=== PATIENT | male | born 1925 | race Caucasian/White ===

== ENCOUNTER 2016-08-31 12:23 | Inpatient (IN) | payer OTHER, MEDICARE ==
[2016-08-31] VITALS (20 sets, daily range): BP systolic 104–202; BP diastolic 57–107; PULSE 80–97; RESP 16–20; TEMP 97.2–98.9; O2SAT 91–97
[~2016-08-31] VITALS: Ht 170.2 cm; Wt 82.0 kg
[~2016-08-31 12:23] MED LIST: AUGM875T PO; CARD120T4 PO; FLUT1SPR9; LISI-360 PO; NIAC250C6 PO; OCUVTAB PO; PENI500T PO; SULF1TAB47 PO; TAMS0.4C67 PO
[2016-08-31] MEDS: NITROGLYCERIN 0.4 MG SL 25 TABS/BTL SL SCH ×3 (13:00→13:10)
[2016-08-31] MEDS ORDERED: SODIUM CHLORIDE 0.9% FLUSH 5 ML FLUSH IVF PRN (13:00)
[2016-08-31] MEDS ORDERED: SODIUM CHLORID 0.9% 500 ML INJ 500 ML IV ONE (13:00)
[2016-08-31 13:03] LABS: BASOPHIL # 0.1 TH/MM3 (0-0.2); BASOPHIL % 0.7 % (0.0-2.0); EOSINOPHIL # 0.1 TH/MM3 (0-0.4); EOSINOPHIL % 0.4 % (0.0-4.0); HEMATOCRIT 41.3 % (39.0-51.0); HEMO FLAGS DIFF FINAL; MEAN CELL VOLUME 96.2 FL (80.0-100.0); MEAN CORPUSCULAR HEMOGLOBIN 32.2 PG (27.0-34.0); MEAN CORPUSCULAR HGB CONC 33.4 % (32.0-36.0); MONO % 5.9 % (0.0-8.0); PLATELET COUNT 123 TH/MM3 (150-450); RED BLOOD COUNT 4.29 MIL/MM3 (4.50-5.90); RED CELL DISTRIBUTION WIDTH 13.8 % (11.6-17.2)
--- NOTE | 2016-08-31 13:12 | PD ---
HPI Chief Complaint: Chest Pain Time Seen by Provider: 12:45 Travel History International Travel<30 days: No Contact w/Intl Traveler<30days: No Traveled to known affect area: No History of Present Illness HPI Patient is an 89-year-old male with history of hypertension, who presents to emergency room with complaints of chest pain. Patient reports that around 10 AM today, shopping and began to have increased pain to his chest. Patient reports that chest pain located to his epigastrium and radiates directly to his back. Patient reports that chest pain feels like a "pressure to my chest." Patient with no diaphoresis or nausea or vomiting or shortness of breath of symptoms. Patient reports that he has never had chest pain in the past. Reports no history of coronary artery disease or [place] in the past - he does not see a market research lead. Patient does report a 1ppd smoking hx for "many years." PFSH Past Medical History Cancer: No Diabetes: No Diminished Hearing: Yes Glaucoma: No Hepatitis: No Hiatal Hernia: No Hypertension: Yes Thyroid Disease: No Past Surgical History Abdominal Surgery: Yes (hernia repair) Eye Surgery: Yes (shelia cataract surgery) Pacemaker: No Other Surgery: Yes Social History Alcohol Use: Yes (occ) Tobacco Use: Yes (1ppd) Substance Use: No Allergies-Medications (Allergen,Severity, Reaction): Coded Allergies: No Known Allergies (Verified , 08/31/16) Reported Meds & Prescriptions Reported Meds & Active Scripts Active Reported Lisinopril 10 Mg Tab 10 Mg PO DAILY Diltiazem ER 24 HR 240 Mg Caper 240 Mg PO DAILY Flomax (Tamsulosin HCl) 0.4 Mg Cap 0.4 Mg PO HS Alavert (Loratadine) 10 Mg Tab 10 Mg PO DAILY Montelukast (Montelukast Sodium) 10 Mg Tab 10 Mg PO HS Review of Systems General / Constitutional: No: Fever Eyes: No: Visual changes HENT: No: Headaches Cardiovascular: Positive: Chest Pain or Discomfort Respiratory: No: Shortness of Breath Gastrointestinal: Positive: Abdominal Pain Genitourinary: No: Dysuria Musculoskeletal: No: Pain Skin: No Rash Neurologic: No: Weakness Psychiatric: No: Depression Endocrine: No: Polydipsia Hematologic/Lymphatic: No: Easy Bruising Physical Exam Narrative GENERAL: NAD, Nontoxic SKIN: Warm and dry. HEAD: Atraumatic. Normocephalic. EYES: Pupils equal and round. No scleral icterus. No injection or drainage. ENT: No nasal bleeding or discharge. Mucous membranes pink and moist. NECK: Trachea midline. No JVD. CARDIOVASCULAR: Regular rate and rhythm. No murmur appreciated. RESPIRATORY: No accessory muscle use. Clear to auscultation. Breath sounds equal bilaterally. GASTROINTESTINAL: Abdomen soft, non-tender, nondistended. Hepatic and splenic margins not palpable. MUSCULOSKELETAL: No obvious deformities. No clubbing. No cyanosis. No edema. NEUROLOGICAL: Awake and alert. No obvious cranial nerve deficits. Motor grossly within normal limits. Normal speech. PSYCHIATRIC: Appropriate mood and affect; insight and judgment normal. Data Data Last Documented VS Vital Signs Date Time Temp Pulse Resp B/P Pulse Ox O2 Delivery O2 Flow Rate FiO2 08/31/16 15:16 96 Nasal Cannula 2 08/31/16 15:15 89 176/95 08/31/16 15:08 98.9 16 Orders Electrocardiogram (08/31/16 12:36) Complete Blood Count With Diff (08/31/16 12:36) Ckmb (Isoenzyme) Profile (08/31/16 12:36) Troponin I (08/31/16 12:36) Chest, Single Ap (08/31/16 12:36) Iv Access Insert/Monitor (08/31/16 12:36) B-Type Natriuretic Peptide (08/31/16 12:47) Ckmb (Isoenzyme) Profile (08/31/16 12:47) Prothrombin Time / Inr (Pt) (08/31/16 12:47) Act Partial Throm Time (Ptt) (08/31/16 12:47) Troponin I (08/31/16 12:47) Ecg Monitoring (08/31/16 12:47) Bilateral Bp Monitoring (08/31/16 12:47) Oximetry (08/31/16 12:47) Sodium Chloride 0.9% Flush (Ns Flush) (08/31/16 13:00) Nitroglycerin Sl (Nitrostat Sl) (08/31/16 13:00) Sodium Chlorid 0.9% 500 Ml Inj (Ns 500 M (08/31/16 13:00) Cta Thor Abd Aorta W Iv C W3d (08/31/16 12:47) Comprehensive Metabolic Panel (08/31/16 12:49) Lipase (2/17/17 12:49) Magnesium (Mg) (08/31/16 12:49) CKMB (08/31/16 12:49) CKMB% (08/31/16 12:49) Blood Culture (08/31/16 13:49) Iohexol 350 Inj (Omnipaque 350 Inj) (08/31/16 14:20) Type And Screen (08/31/16 15:01) Nitroprusside Inj (Nipride Inj) (08/31/16 15:15) Nicardipine Inj (Cardene Inj) (08/31/16 15:30) Metoprolol Tartrate Inj (Lopressor Inj) (08/31/16 17:00) Consult Vascular Surgery (08/31/16 ) Consult Cardiothoracic Surgery (08/31/16 ) Admit Order (Ed Use Only) (08/31/16 15:20) Admit To Inpatient (08/31/16 ) Code Status (08/31/16 15:21) Vital Signs (Adult) LINDSAY.Q1H (08/31/16 15:21) Activity Bed Rest (08/31/16 15:21) Diet Npo (08/31/16 Dinner) Sodium Chlor 0.9% 1000 Ml Inj (Ns 1000 M (08/31/16 16:00) Sodium Chloride 0.9% Flush (Ns Flush) (08/31/16 15:30) Sodium Chloride 0.9% Flush (Ns Flush) (08/31/16 21:00) Fentanyl Inj (Fentanyl Inj) (08/31/16 15:30) Pantoprazole Inj (Protonix Inj) (09/01/16 09:00) Albuterol-Ipratropium Neb (Duoneb Neb) (08/31/16 15:30) Complete Blood Count With Diff (09/01/16 04:00) Comprehensive Metabolic Panel (09/01/16 04:00) Magnesium (Mg) (09/01/16 04:00) Storage Facility Housekeeper / Telemetry (08/31/16 15:21) Scd Bilateral/Knee High LINDSAY.BID (08/31/16 15:21) Vin Bilateral/Knee High LINDSAY.QSHIFT (08/31/16 15:21) ^ Initiate Protocol (08/31/16 15:21) ^ Instruction (08/31/16 15:21) [facility] [place]08/31/16 15:30) Chlorhexidine 2% Cloth (Chlorhexidine 2% (09/01/16 04:00) Chlorhexidine 2% Cloth (Chlorhexidine 2% (08/31/16 15:30) Mrsa Pcr Surveillance (08/31/16 15:21) Inpatient Certification (08/31/16 ) Nicardipine Inj (Cardene Inj) (08/31/16 15:30) CKMB (08/31/16 21:17) CKMB% (08/31/16 21:17) Labs Laboratory Tests Test 08/31/16 08/31/16 08/31/16 12:49 14:01 15:20 White Blood Count 14.0 TH/MM3 Red Blood Count 4.29 MIL/MM3 Hemoglobin 13.8 GM/DL Hematocrit 41.3 % Mean Corpuscular Volume 96.2 FL Mean Corpuscular Hemoglobin 32.2 PG Mean Corpuscular Hemoglobin 33.4 % Concent Red Cell Distribution Width 13.8 % Platelet Count 123 TH/MM3 Mean Platelet Volume 8.6 FL Neutrophils (%) (Auto) 86.0 % Lymphocytes (%) (Auto) 7.0 % Monocytes (%) (Auto) 5.9 % Eosinophils (%) (Auto) 0.4 % Basophils (%) (Auto) 0.7 % Neutrophils # (Auto) 12.0 TH/MM3 Lymphocytes # (Auto) 1.0 TH/MM3 Monocytes # (Auto) 0.8 TH/MM3 Eosinophils # (Auto) 0.1 TH/MM3 Basophils # (Auto) 0.1 TH/MM3 CBC Comment DIFF FINAL Differential Comment Sodium Level 139 MEQ/L Potassium Level 4.7 MEQ/L Chloride Level 106 MEQ/L Carbon Dioxide Level 23.9 MEQ/L Anion Gap 9 MEQ/L Blood Urea Nitrogen 14 MG/DL Creatinine 1.16 MG/DL Estimat Glomerular Filtration 59 ML/MIN Rate Random Glucose 129 MG/DL Calcium Level 9.0 MG/DL Magnesium Level 2.4 MG/DL Total Bilirubin 0.5 MG/DL Aspartate Amino Transf 35 U/L (AST/SGOT) Alanine Aminotransferase 19 U/L (ALT/SGPT) Alkaline Phosphatase 56 U/L Total Creatine Kinase 202 U/L Creatine Kinase MB 3.0 NG/ML Troponin I 0.03 NG/ML B-Type Natriuretic Peptide 27 PG/ML Total Protein 7.6 GM/DL Albumin 3.5 GM/DL Lipase 138 U/L Prothrombin Time 10.7 SEC Prothromb Time International 1.0 RATIO Ratio Activated Partial 27.3 SEC Thromboplast Time Blood Type B NEGATIVE Antibody Screen NEGATIVE Blood Bank Comment MDM Medical Decision Making Medical Screen Exam Complete: Yes Emergency Medical Condition: Yes Interpretation(s) EKG at 1241: NSR at 84bpm, qt/qtc: 402/443, rbbb, no acute st or t wave changes Differential Diagnosis acs, arrythmia, aortic dissection, pe, pneumothorax, cholecystitis Narrative Course Patient is an 89-year-old male who presents to the Emergency room with complaints of chest pain which started while he was shopping around 10AM. Patient reports pain to his epigastrium which radiates records his back. Reports chest pain as a "pressure." Patient with only cardiac history of htn, no hx of TX or cardiac stents in the past EKG obtained - no acute findings. Patient was placed on a patient monitor, ce as well as labs ordered. 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 Patient also with bilateral common femoral artery aneurysms. - patient notified of these findings Blood pressure control at this time, we'll order nitroprusside gtt for tight blood pressure control Case reviewed with Dr. Silverio with vascular surgery - request that I call CT surgery Call made to Dr. Ortiz with CT surgery - request supportive care with good blood pressure control at this time with admission to the ICU Case reviewed with : [place], request cardene gtt and metoprolol gtt , accepts pt to service Critical Care Narrative Aggregate critical care time was 45 minutes. Time to perform other separately billable procedures was not included in the critical care time. My time did not include minutes spent treating any other patients simultaneously or on activities that did not directly contribute to the patient's treatment. The services I provided to this patient were to treat and/or prevent clinically significant deterioration that could result in: , decompensation, deterioration I provided critical care services requiring my management, as noted below: Chart data review, documentation time, medication orders and management, vital sign assessments/reviewing monitor data, ordering and reviewing lab tests, ordering and interpreting/reviewing x-rays and diagnostic studies, care of the patient and discussion of the patient with the admitting physicians. 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
--- NOTE | 2016-08-31 13:29 | RADRPT ---
EXAM DATE/TIME: 08/31/2016 13:16 [facility] COMPARISON: No previous studies available for comparison. INDICATIONS : Pain across lower anterior chest for 4 hours MEDICAL HISTORY : None. SURGICAL HISTORY : None. ENCOUNTER: Initial ACUITY: 1 day PAIN SCORE: 7/10 LOCATION: Bilateral chest FINDINGS: A single view of the chest demonstrates the lungs to be symmetrically aerated without evidence of mas s, confluent infiltrate or effusion. There is mild streaky opacity at the lung bases. There is mild m otion artifact. Atherosclerotic changes are noted in the aorta with calcification. The cardiomediasti nal contours are unremarkable. Osseous structures are intact. CONCLUSION: Mild streaky opacity at the lung bases most characteristic of scarring or atelectasis. Jaiden Mistry MD on August 31, 2016 at 13:25 Board Certified Radiologist. This report was verified electronically.
[2016-08-31 13:30] LABS: CREATINE KINASE 202 U/L (39-308)
[2016-08-31 13:38] LABS: BLOOD UREA NITROGEN 14 MG/DL (7-18); GLOMERULAR FILTRATION RATE 59 ML/MIN (>89)
[2016-08-31 13:54] LABS: ALKALINE PHOSPHATASE 56 U/L (45-117); ALT (GPT) 19 U/L (12-78); AST (GOT) 35 U/L (15-37); CHLORIDE 106 MEQ/L (98-107); POTASSIUM 4.7 MEQ/L (3.5-5.1); SODIUM (NA) 139 MEQ/L (136-145); TOTAL BILIRUBIN ADULT 0.5 MG/DL (0.2-1.0)
[2016-08-31 13:55] LABS: ANION GAP 9 MEQ/L (5-15); BICARBONATE 23.9 MEQ/L (21.0-32.0); MAGNESIUM 2.4 MG/DL (1.5-2.5)
[2016-08-31] MEDS ORDERED: IOHEXOL 350 MG/ML 10 ML VIAL (for RAD DIAG) IV ONE (14:20)
[2016-08-31 14:43] LABS: APTT (PATIENT) 27.3 SEC (24.3-30.1); PROTHROMBIN TIME - PATIENT 10.7 SEC (9.8-11.6)
[2016-08-31] MEDS ORDERED: LISI10TA3 PO (14:57)
[2016-08-31] MEDS ORDERED: TAMS5CAP PO (14:57)
[2016-08-31] MEDS ORDERED: DILT-48 PO (14:57)
[2016-08-31] MEDS ORDERED: MONT10TA4 PO (14:57)
[2016-08-31] MEDS ORDERED: ALAV10TA10 PO (14:57)
--- NOTE | 2016-08-31 14:58 | RADRPT ---
EXAM DATE/TIME: 08/31/2016 14:02 [facility] COMPARISON: No previous studies available for comparison. INDICATIONS : Chest and back pain. IV CONTRAST: 90 cc Omnipaque 350 (iohexol) IV RADIATION DOSE: 7.92 CTDIvol (mGy) MEDICAL HISTORY : Hypertension. SURGICAL HISTORY : Hernia repair ENCOUNTER: Initial ACUITY: 1 day PAIN SCALE: 7/10 LOCATION: Bilateral chest TECHNIQUE: Volumetric scanning was performed using a multi-row detector CT scanner. The data was post processed with a variety of visualization algorithms including full volume maximum intensity projection, multi -planar sliding thin slab reformation, curved planar reformation, and surface rendering techniques. Using automated exposure control and adjustment of the mA and/or kV according to patient size, radiat ion dose was kept as low as reasonably achievable to obtain optimal diagnostic quality images. FINDINGS: LUNGS: There is no consolidation or pneumothorax. There is underlying emphysema and mild scarring. No concer mark pulmonary nodule is visualized. No pleural fluid is present. MEDIASTINUM: No abnormally enlarged lymph nodes by CT criteria. No axillary or hilar abnormalities are identified. The heart size is mildly prominent. There are coronary artery calcifications. ABDOMEN: The liver and spleen are free of focal defects. The gallbladder and pancreas demonstrate no abnormali ty. There are bilateral low density adrenal masses. This measures up to approximately 2 x 2 cm on the right and 2.7 x 1.9 cm on the left. The kidneys demonstrate no evidence of solid renal mass or hydro nephrosis. There is evidence of bilateral cortical scarring left greater than right. There are small cystic structures. Moderate diverticulosis is noted in the sigmoid colon. No free fluid or abdominal masses are identified. No para-aortic adenopathy is seen. PELVIS: No evidence of free fluid or pelvic mass. No abnormally enlarged inguinal or retroperitoneal lymph no armando are present. The bladder is unremarkable. The prostate gland is diffusely enlarged and inhomogene ous. THORACIC AORTA: There is a type B thoracic aortic aneurysm beginning just posterior to the takeoff of the left subcla vian artery. There is contrast in the proximal false lumen with thrombus noted more distally. This ex tends down the descending thoracic aorta to the level of the lower chest. It There is no evidence of aneurysm or dissection. ABDOMINAL AORTA: There is a large infrarenal abdominal aortic aneurysm measuring up to 6.7 cm in greatest AP diameter by 6.4 cm in greatest transverse diameter by 9-10 cm in caudal cranial dimension. This tapers down at the level of the bifurcation. There is a large amount of peripheral thrombus in the aneurysm. The re nal arteries are patent bilaterally. The proximal celiac and superior mesenteric arteries are patent and normal in diameter. PELVIC VESSELS: The internal iliac and external iliac vessels are patent without aneurysm or stenosis. There are bila teral femoral artery aneurysms measuring up to 3 x 2.9 cm on the right 3.1 x 2.6 cm on the left. CONCLUSION: 1. 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 2. Large infrarenal abdominal aortic aneurysm. 3. Bilateral common femoral artery aneurysms. 4. Bilateral low attenuation adrenal masses most characteristic of adenomas. These findings were called to Dr. Sims in the emergency room at 1450 hrs. Jaiden Mistry MD on August 31, 2016 at 14:40 Board Certified Radiologist. This report was verified electronically.
[2016-08-31] MEDS ORDERED: NITROPRUSSIDE INJ 50 MG in DEXTROSE 5% IN WATER INJ 248 ML IV SCH ×2 (15:15)
--- NOTE | 2016-08-31 15:29 | HHI.HP ---
HPI Service Critical Care Medicine Primary Care Physician Aissatou Albright MD Admission Diagnosis Type B thoracic aortic dissection wtih large abdominal aortic aneury Diagnosis: (1) Dissecting aneurysm of thoracic aorta, Ramesh type B Diagnosis: Principal (2) Abdominal aortic aneurysm (AAA) greater than 5.5 cm in diameter in male Diagnosis: Principal (3) Hypertensive emergency Diagnosis: Principal Chief Complaint: Chest and abdominal pain Type B aortic dissection Travel History International Travel<30 Days: No Contact w/Intl Traveler <30 Da: No Traveled to Known Affected Are: No History of Present Illness Patient is an 89-year-old male with history of hypertension, long-standing tobacco abuse who presents to emergency room with complaints of chest pain back pain and epigastric pain. Started around 10 AM today, while shopping shopping and began to have increased pain to his chest. Denies nausea or vomiting or shortness of breath of symptoms. Never had chest pain in the past. Reports no history of coronary artery disease or [place] in the past. EKG showed no acute findings. 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 Patient also has bilateral common femoral artery aneurysms. Patient will be started on Cardene infusion and scheduled metoprolol along with when necessary labetalol for blood pressure and heart rate control. Medical management of the type B dissection. Discussed with vascular surgery Dr. Silverio, he will see the patient and make recommendation about the AAA. Patient may be a candidate for endovascular repair of AAA. I have discussed with Dr. Oliverio Mead from IR as well, also updated patient himself, his granddaughter at the bedside (Krystal) and se Review of Systems ROS Limitations: Hearing Impaired, Other Past Family Social History Allergies: Coded Allergies: No Known Allergies (Verified , 08/31/16) Past Medical History Hypertension Tobacco abuse Past Surgical History Inguinal hernia repair Knee surgery Reported Medications Lisinopril 10 Mg Tab 10 Mg PO DAILY Diltiazem ER 24 HR 240 Mg Caper 240 Mg PO DAILY Flomax (Tamsulosin HCl) 0.4 Mg Cap 0.4 Mg PO HS Alavert (Loratadine) 10 Mg Tab 10 Mg PO DAILY Montelukast (Montelukast Sodium) 10 Mg Tab 10 Mg PO HS Active Ordered Medications Reviewed Family History Noncontributory Social History Smokes one pack of cigarettes per day Alcohol use socially Physical Exam Vital Signs Vital Signs Date Time Temp Pulse Resp B/P Pulse Ox O2 Delivery O2 Flow Rate FiO2 08/31/16 15:16 96 Nasal Cannula 2 08/31/16 15:15 89 176/95 08/31/16 15:08 86 08/31/16 15:08 98.9 81 16 184/95 96 Room Air 08/31/16 14:37 20 08/31/16 13:57 111/64 08/31/16 12:33 97.2 80 16 181/88 Physical Exam GENERAL: Elderly male lying in bed, in moderate discomfort due to pain SKIN: Warm and dry. HEAD: Atraumatic. Normocephalic. EYES: Pupils equal and round. No scleral icterus. No injection or drainage. ENT: No nasal bleeding or discharge. Mucous membranes pink and moist. NECK: Trachea midline. No JVD. CARDIOVASCULAR: Regular rate and rhythm. No murmur appreciated. RESPIRATORY: No accessory muscle use. Clear to auscultation. Breath sounds equal bilaterally. GASTROINTESTINAL: Abdomen soft, non-tender, nondistended. Hepatic and splenic margins not palpable. Pulsatile aorta palpable in the midline MUSCULOSKELETAL: No obvious deformities. No clubbing. No cyanosis. No edema. NEUROLOGICAL: Awake and alert. No obvious cranial nerve deficits. Motor grossly within normal limits. Normal speech. Laboratory Laboratory Tests Test 08/31/16 08/31/16 12:49 14:01 White Blood Count 14.0 Red Blood Count 4.29 Hemoglobin 13.8 Hematocrit 41.3 Mean Corpuscular Volume 96.2 Mean Corpuscular Hemoglobin 32.2 Mean Corpuscular Hemoglobin 33.4 Concent Red Cell Distribution Width 13.8 Platelet Count 123 Mean Platelet Volume 8.6 Neutrophils (%) (Auto) 86.0 Lymphocytes (%) (Auto) 7.0 Monocytes (%) (Auto) 5.9 Eosinophils (%) (Auto) 0.4 Basophils (%) (Auto) 0.7 Neutrophils # (Auto) 12.0 Lymphocytes # (Auto) 1.0 Monocytes # (Auto) 0.8 Eosinophils # (Auto) 0.1 Basophils # (Auto) 0.1 CBC Comment DIFF FINAL Differential Comment Sodium Level 139 Potassium Level 4.7 Chloride Level 106 Carbon Dioxide Level 23.9 Anion Gap 9 Blood Urea Nitrogen 14 Creatinine 1.16 Estimat Glomerular Filtration 59 Rate Random Glucose 129 Calcium Level 9.0 Magnesium Level 2.4 Total Bilirubin 0.5 Aspartate Amino Transf 35 (AST/SGOT) Alanine Aminotransferase 19 (ALT/SGPT) Alkaline Phosphatase 56 Total Creatine Kinase 202 Creatine Kinase MB 3.0 Troponin I 0.03 Total Protein 7.6 Albumin 3.5 Lipase 138 Prothrombin Time 10.7 Prothromb Time International 1.0 Ratio Activated Partial 27.3 Thromboplast Time Result Diagram: 08/31/16 1249 08/31/16 1249 Imaging CTA type B dissection of the aorta, 6.4 x 6.7 CM AAA Assessment and Plan Assessment and Plan NEURO: Back pain due to aortic dissection -Pain control with when necessary Dilaudid and Lortab RESP: Tobacco abuse -Nasal cannula oxygen -DuoNeb every 6 hours when necessary CV: Ramesh type B aortic dissection 6.7 cm infrarenal AAA Hypertensive emergency -Cardene infusion with target systolic blood pressure less than 120, start IV metoprolol 2.5 mg every 6 hours scheduled -IV labetalol when necessary. Patient's home medication of lisinopril and diltiazem will be continued -Normal saline IV fluids at 75 ml per hour -Discussed with vascular surgery Dr. Silverio, and interventional radiologist Dr. Oliverio Mead -Plan for medical management of Type B dissection. Regarding AAA vascular surgery recommendation pending D/W Dr Silverio and Dr. Mead GI: -Nothing by mouth except meds until stable. Protonix for GI prophylaxis -Senna and Colace for bowel regimen : -Monitor renal function closely. ID: -No evidence of infection HEME: -Monitor CBC, CMP ENDO: -Electrolyte replacement per protocol PROPH: -Bilateral lower extremity SCDs. Chemical DVT prophylaxis contraindicated -IV Protonix for GI prophylaxis LINES: -Utilize peripheral IVs, central line if needed CC time 45 min Code Status Full Code Discussed Condition With D/W vascular surgery Dr. Silverio, IR Dr. Oliverio Mead D/W Patient, patient's niece at the bedside Krystal Also discussed with and updated patient's daughter Allyn in [place] Paulette Madrid MD Aug 31, 2016 15:29
[2016-08-31] MEDS ORDERED: CHLORHEXIDINE GLUCONATE 2 % 1 PACK (2 CLOTHS) TOP PRN (15:30)
[2016-08-31] MEDS ORDERED: MISCELLANEOUS NURSING INFORMATION XX SCH (15:30)
[2016-08-31] MEDS ORDERED: niCARdipine INJ 25 MG in SODIUM CHLOR 0.9% 250 ML INJ 250 ML IV SCH ×2 (15:30→15:45)
[2016-08-31] MEDS ORDERED: LABETALOL HCL 100 MG/20 ML VIAL IV PUSH PRN (15:30)
[2016-08-31] MEDS: SODIUM CHLOR 0.9% 1000 ML INJ 1,000 ML IV SCH (16:21)
[2016-08-31] MEDS: niCARdipine INJ 25 MG in SODIUM CHLOR 0.9% 250 ML INJ 250 ML IV SCH ×3 (16:22→22:34)
[2016-08-31] MEDS ORDERED: HYDROmorphone HCL PF 1 MG/ML VIAL IV PUSH ONE (17:30)
[2016-08-31] MEDS ORDERED: ACETAMINOPHEN/HYDROcodone 325 MG/10 MG TAB PO PRN (17:30)
[2016-08-31] MEDS: METOPROLOL TARTRATE 5 MG/5 ML VIAL IV PUSH SCH ×2 (18:01→22:31)
--- NOTE | 2016-08-31 18:05 | MB ---
cc: HARRY RENNER MD DATE OF CONSULTATION: 08/31/2016. HISTORY OF PRESENT ILLNESS: Mr. Paredes is an 89-year-old gentleman who has a history of hypertension and tobacco abuse who was shopping today when he noticed a severe pain in his back. He subsequently was brought to the emergency room where he was evaluated and found to be hypertensive and CT scan revealed a type B thoracic aortic dissection with a 6.7 cm abdominal aortic aneurysm. I was asked to see him regarding this abdominal aortic aneurysm. I have reviewed his review of systems in his chart and his medications. PHYSICAL EXAMINATION: VITAL SIGNS: His blood pressure is now 140/80. His pulse is 70. His respirations are 12. GENERAL: In general, this is an alert, cooperative white male who is in no acute distress stating he has no abdominal pain. SKIN, HEAD, EYES, EARS, NOSE, THROAT: Negative. NECK: The neck is supple. He has 2+ carotid pulses without transmitted bruits. HEART: Normal sinus rhythm. ABDOMEN: His abdomen is soft. He has an easily palpable abdominal aortic aneurysm which is slightly tender. Groin pulses are 2+ bilaterally. Popliteal pulses are 2+ and feel widened and the right popliteal area. He has a palpable right dorsalis pedis pulse. I cannot palpate a left dorsalis pedis or posterior tibial pulse. Both of his feet appear warm and intact. NEUROLOGICAL: Neurologically, the patient is intact. IMPRESSION: I have reviewed his CTA and he has a type B dissecting thoracic aneurysm, which stops at the thoracic aorta and does not enter the abdomen. There does not appear to be any dissection into the large blood vessels in the abdomen. He has a 6.7 cm abdominal aortic aneurysm which is minimally tender. At this point in time, he denies any back pain. I have discussed his case with Dr. Madrid in the intensive care unit. He will be managed medically at this point in time and then most likely will have his abdominal aortic aneurysm addressed when he is medically stable. Harry Renner MD MPH/JCC /5:53 PM /5:57 PM
[2016-08-31] MEDS: SODIUM CHLORIDE 0.9% FLUSH 5 ML FLUSH IV FLUSH SCH (19:41)
[2016-08-31] MEDS: DOCUSATE SODIUM 100 MG/10 ML UDC PO SCH (20:12)
[2016-08-31] MEDS: MONTELUKAST SODIUM 10 MG TAB PO SCH (20:12)
[2016-08-31 22:14] LABS: CREATINE KINASE 144 U/L (39-308)
[2016-08-31 22:26] LABS: CKMB 2.4 NG/ML (0.5-3.6)
[2016-08-31] MEDS: HYDROmorphone HCL PF 1 MG/ML VIAL IV PUSH PRN (22:34)
[2016-08-31] MEDS: RESP: ALBUTEROL 2.5 MG/IPRATROPIUM 0.5 MG NEB (PRN) INH (23:14)
[2016-09-01] VITALS (15 sets, daily range): BP systolic 100–120; BP diastolic 49–74; PULSE 59–87; RESP 18–22; TEMP 98–98.5; O2SAT 92–96
[2016-09-01] MEDS: CHLORHEXIDINE GLUCONATE 2 % 1 PACK (2 CLOTHS) TOP SCH (03:04)
[2016-09-01] MEDS: SODIUM CHLOR 0.9% 1000 ML INJ 1,000 ML IV SCH (03:04)
[2016-09-01] MEDS: niCARdipine INJ 25 MG in SODIUM CHLOR 0.9% 250 ML INJ 250 ML IV SCH ×5 (03:17→22:36)
[2016-09-01] MEDS: METOPROLOL TARTRATE 5 MG/5 ML VIAL IV PUSH SCH ×2 (04:17→10:35)
[2016-09-01 04:23] LABS: AUTOMATED NEUTROPHIL # 10.2 TH/MM3 (1.8-7.7); BASOPHIL # 0.1 TH/MM3 (0-0.2); BASOPHIL % 0.8 % (0.0-2.0); EOSINOPHIL % 0.2 % (0.0-4.0); HEMATOCRIT 37.5 % (39.0-51.0); HEMO FLAGS DIFF FINAL; LYMPH % 7.1 % (9.0-44.0); LYMPHOCYTE # 0.9 TH/MM3 (1.0-4.8); MEAN CELL VOLUME 96.4 FL (80.0-100.0); MEAN CORPUSCULAR HEMOGLOBIN 32.5 PG (27.0-34.0); MEAN CORPUSCULAR HGB CONC 33.7 % (32.0-36.0); NEUT % 78.9 % (16.0-70.0); PLATELET COUNT 110 TH/MM3 (150-450); RED BLOOD COUNT 3.89 MIL/MM3 (4.50-5.90); RED CELL DISTRIBUTION WIDTH 13.7 % (11.6-17.2)
[2016-09-01 04:55] LABS: ALKALINE PHOSPHATASE 53 U/L (45-117); ALT (GPT) 16 U/L (12-78); ANION GAP 7 MEQ/L (5-15); AST (GOT) 13 U/L (15-37); BICARBONATE 23.9 MEQ/L (21.0-32.0); BLOOD UREA NITROGEN 16 MG/DL (7-18); CHLORIDE 111 MEQ/L (98-107); GLOMERULAR FILTRATION RATE 77 ML/MIN (>89); MAGNESIUM 2.4 MG/DL (1.5-2.5); POTASSIUM 3.9 MEQ/L (3.5-5.1); SODIUM (NA) 142 MEQ/L (136-145); TOTAL BILIRUBIN ADULT 0.6 MG/DL (0.2-1.0)
[2016-09-01] MEDS: LISINOPRIL 10 MG TAB PO SCH (08:25)
[2016-09-01] MEDS: DOCUSATE SODIUM 100 MG/10 ML UDC PO SCH ×2 (08:25→19:53)
[2016-09-01] MEDS: SENNOSIDES SYRUP 8.8 MG/5 ML CUP PO SCH (08:25)
[2016-09-01] MEDS: PANTOPRAZOLE SODIUM 40 MG VIAL IV SCH (08:25)
[2016-09-01] MEDS: DILTIAZEM-CD 240 MG CAP ER PO SCH (08:26)
[2016-09-01] MEDS: SODIUM CHLORIDE 0.9% FLUSH 5 ML FLUSH IV FLUSH SCH ×2 (08:26→19:54)
--- NOTE | 2016-09-01 11:07 | HHI.CCPN ---
Subjective Remarks/Hospital Course Patient is an 89-year-old male with history of hypertension, long-standing tobacco abuse who presents to emergency room with complaints of chest pain back pain and epigastric pain. Started around 10 AM today, while shopping shopping and began to have increased pain to his chest. Denies nausea or vomiting or shortness of breath of symptoms. Never had chest pain in the past. Reports no history of coronary artery disease or OK in the past. EKG showed no acute findings. 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 Patient also has bilateral common femoral artery aneurysms. Patient will be started on Cardene infusion and scheduled metoprolol along with when necessary labetalol for blood pressure and heart rate control. Medical management of the type B dissection. Discussed with vascular surgery Dr. Silverio, he will see the patient and make recommendation about the AAA. Patient may be a candidate for endovascular repair of AAA. I have discussed with Dr. Oliverio Mead from IR as well, also updated patient himself, his granddaughter at the bedside (Krystal). Subjective 09/01 The patient continues on nicardipine infusion, with goal of systolic blood pressure less than 110 per recommendations of vascular surgery. The patient has been placed on metoprolol XL, PO in addition to lisinopril and Cardizem home medications. The patient denies pain, requesting a diet. Will follow-up recommendations of vascular surgery. Objective Vital Signs Date Time Temp Pulse Resp B/P Pulse Ox O2 Delivery O2 Flow Rate FiO2 09/01/16 07:43 98.0 80 20 113/60 94 09/01/16 07:36 Nasal Cannula 3.00 Intake and Output 08/31/16 08/31/16 09/01/16 08:00 16:00 00:00 Output Total 400 ml Balance -400 ml Result Diagram: 09/01/16 0329 09/01/16 0329 Objective Remarks GENERAL: Elderly male lying in bed,semirecumbent denies pain at this time SKIN: Warm and dry. HEAD: Atraumatic. Normocephalic. EYES: Pupils equal and round. No scleral icterus. No injection or drainage. ENT: No nasal bleeding or discharge. Mucous membranes pink and moist. Nasal cannula NECK: Trachea midline. No JVD. CARDIOVASCULAR: Regular rate and rhythm. No murmur appreciated. RESPIRATORY: No accessory muscle use. Clear to auscultation. Breath sounds equal bilaterally. GASTROINTESTINAL: Abdomen soft, non-tender, nondistended. Hepatic and splenic margins not palpable. Pulsatile aorta palpable in the midline MUSCULOSKELETAL: No obvious deformities. No clubbing. No cyanosis. No edema. NEUROLOGICAL: Awake and alert. No obvious cranial nerve deficits. Motor grossly within normal limits. Normal speech. Urinary Catheter: No Vascular Central Line Catheter: No A/P Assessment and Plan NEURO: Back pain due to aortic dissection -Pain control, Dilaudid and Lortab PRN -Currently asymptomatic RESP: Tobacco abuse COPD -Nasal cannula 4LPM, wean as tolerated -DuoNeb every 6 hours when necessary -Counseled on smoking cessation -Incentive spirometry, encourage use CV: Ramesh type B aortic dissection 6.7 cm infrarenal AAA Hypertensive emergency -Cardene infusion with target systolic blood pressure less than 110, IV metoprolol 2.5 mg every 6 hours scheduled -IV labetalol PRN. Patient's home medication of lisinopril and diltiazem will be continued, PO metoprolol added to medication regimen -Normal saline IV fluids at 75 ml per hour -Vascular surgery, on board Dr. Silverio -Plan for medical management of Type B dissection. GI: -Heart healthy diet - Protonix for GI prophylaxis -Senna and Colace for bowel regimen : -Monitor renal function closely -Monitor hourly urinary output -Strict I and O's ID: -No evidence of infection HEME: -Monitor CBC, CMP ENDO: -Electrolyte replacement per protocol PROPH: -Bilateral lower extremity SCDs. No pharmacological DVT prophylaxis contraindicated -IV Protonix for GI prophylaxis LINES: -Utilize peripheral IVs, central line if needed This patient remains critically ill with one or more organ systems which are or may become a threat to life. I have spent in excess of 30 minutes discontinuously in the care and management of this patient. This time is exclusive of procedures, and includes, but is not limited to, evaluation of the patient, review of the medical record, discussions with family, consultants, nursing staff, or respiratory therapy, and documentation in the medical record. Physician Meenakshi Miles MD Sep 01, 2016 11:07
--- NOTE | 2016-09-01 11:27 | PD.CONS ---
History of Present Illness Consult Requested By Primary Care Physician Aissatou Albright MD Diagnoses: History of Present Illness 89-year-old male with history of hypertension, tobacco abuse who presents to emergency room with complaints of chest pain back pain and epigastric pain. Denies nausea or vomiting, diaphoresis, shortness of breath. Never had chest pain in the past. Denies GA in the past. EKG showed no acute findings. 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 I have been asked to see him regarding surgical management. Review of Systems Constitutional: COMPLAINS OF: Fatigue, DENIES: Diaphoretic episodes, Fever, Weight gain, Weight loss, Chills, Dizziness, Change in appetite, Night Sweats Endocrine: DENIES: Heat/cold intolerance, Polydipsia, Polyuria, Polyphagia Eyes: DENIES: Blurred vision, Diplopia, Eye inflammation, Eye pain, Vision loss , Photosensitivity, Double Vision Ears, nose, mouth, throat: DENIES: Tinnitus, Hearing loss, Vertigo, Nasal discharge, Oral lesions, Throat pain, Hoarseness, Ear Pain, Running Nose, Epistaxis, Sinus Pain, Toothache, Odynophagia Respiratory: COMPLAINS OF: Cough, DENIES: Apneas, Snoring, Wheezing, Hemoptysis, Sputum production, Shortness of breath Cardiovascular: COMPLAINS OF: Chest pain, DENIES: Palpitations, Syncope, Dyspnea on Exertion, PND, Lower Extremity Edema, Orthopnea, Claudication Gastrointestinal: COMPLAINS OF: Abdominal pain, DENIES: Black stools, Bloody stools, Constipation, Diarrhea, Nausea, Vomiting, Difficulty Swallowing, Anorexia Genitourinary: DENIES: Sexual dysfunction, Urinary frequency, Urinary incontinence, Urgency, Hematuria, Dysuria, Nocturia, Penile Discharge, Testicular Pain, Testicular Swelling Musculoskeletal: COMPLAINS OF: Joint pain, Stiffness, Back pain, DENIES: Muscle aches, Joint Swelling, Neck pain Integumentary: DENIES: Abnormal pigmentation, Nail changes, Pruritus, Rash Hematologic/lymphatic: DENIES: Bruising, Lymphadenopathy Immunologic/allergic: DENIES: Eczema, Urticaria Neurologic: DENIES: Abnormal gait, Headache, Localized weakness, Paresthesias, Seizures, Speech Problems, Tremor, Poor Balance Psychiatric: DENIES: Anxiety, Confusion, Mood changes, Depression, Hallucinations, Agitation, Suicidal Ideation, Homicidal Ideation, Delusions Past Family Social History Allergies: Coded Allergies: No Known Allergies (Verified , 08/31/16) Past Medical History HTN Tobacco abuse Past Surgical History Hernia repair Active Ordered Medications Current Medications Medications (Trade) Dose Ordered Sig/Karen Route Start Time Stop Time Status Last Admin Metoprolol Tartrate 2.5 mg 2.5 mg Q6H IV PUSH 08/31/16 17:00 09/01/16 10:35 (NS 1000 ml Inj) 1,000 ml @ 75 mls/hr [id number] IV 08/31/16 16:00 09/01/16 03:04 (NS Flush) 2 ml UNSCH PRN IV FLUSH 08/31/16 15:30 (NS Flush) 2 ml BID IV FLUSH 08/31/16 21:00 09/01/16 08:26 (Protonix Inj) 40 mg DAILY IV 09/01/16 09:00 09/01/16 08:25 Miscellaneous Information 1 [id number] 08/31/16 15:30 (Chlorhexidine 2% Cloth) 3 pack Taper DAILY@04 TOP 09/01/16 04:00 08/28/17 03:59 09/01/16 03:04 Chlorhexidine Gluconate 3 pack 3 pack UNSCH PRN TOP 08/31/16 15:30 (Cardene Inj/NS 250 ml Inj) 260 ml @ 0 mls/hr TITRATE IV 08/31/16 15:30 09/01/16 10:35 (Trandate Inj) 20 mg Q3H PRN IV PUSH 08/31/16 15:30 (Cardizem Cd) 240 mg DAILY PO 09/01/16 09:00 09/01/16 08:26 (Prinivil) 10 mg DAILY PO 09/01/16 09:00 09/01/16 08:25 (Singulair) 10 mg HS PO 08/31/16 21:00 (Dilaudid Pf Inj) 1 mg Q3H PRN IV PUSH 08/31/16 17:30 08/31/16 22:34 ([place] 10-325 Mg) 1 tab Q4H PRN PO 08/31/16 17:30 (Colace Liq) 100 mg Q12HR PO 08/31/16 21:00 09/01/16 08:25 (Senna Liq) 8.8 mg DAILY PO 09/01/16 09:00 09/01/16 08:25 Family History Unremarkable Social History Tobacco abuse Denies ETOH Physical Exam Vital Signs Vital Signs Date Time Temp Pulse Resp B/P Pulse Ox O2 Delivery O2 Flow Rate FiO2 09/01/16 07:43 98.0 80 20 113/60 94 09/01/16 07:36 96 Nasal Cannula 3.00 09/01/16 07:33 95 Simple Mask 6.00 09/01/16 07:00 82 09/01/16 04:00 98.3 86 22 110/60 95 09/01/16 03:00 86 09/01/16 02:00 95 Simple Mask 7.00 09/01/16 01:00 95 Simple Mask 6.00 09/01/16 00:00 98.5 87 18 110/60 92 09/01/16 00:00 89 Nasal Cannula 4.00 08/31/16 23:18 93 Nasal Cannula 4.00 08/31/16 23:00 85 08/31/16 23:00 85 08/31/16 20:00 98.3 87 16 104/57 97 08/31/16 19:00 89 08/31/16 19:00 97 Nasal Cannula 4.00 08/31/16 18:46 96 Nasal Cannula 3.00 08/31/16 18:46 98.1 93 18 132/77 96 08/31/16 18:00 96 20 157/82 91 Nasal Cannula 2 08/31/16 17:45 96 156/75 96 08/31/16 17:30 96 156/75 Nasal Cannula 2 08/31/16 17:15 90 139/73 Nasal Cannula 2 08/31/16 17:00 93 18 150/84 96 Nasal Cannula 2 08/31/16 16:45 96 16 150/84 96 Nasal Cannula 2 08/31/16 16:38 91 154/80 08/31/16 16:33 90 18 167/90 94 Nasal Cannula 2 08/31/16 16:22 94 192/102 08/31/16 16:15 97 18 200/102 96 Nasal Cannula 2 08/31/16 15:28 87 20 202/107 96 Nasal Cannula 2 08/31/16 15:16 96 Nasal Cannula 2 08/31/16 15:15 89 176/95 08/31/16 15:08 86 08/31/16 15:08 98.9 81 16 184/95 96 Room Air 08/31/16 14:37 20 08/31/16 13:57 111/64 08/31/16 12:33 97.2 80 16 181/88 Physical Exam GENERAL: This is a well-nourished, well-developed patient, in no apparent distress. SKIN: No rashes, ecchymoses or lesions. Cool and dry. HEAD: Atraumatic. Normocephalic. No temporal or scalp tenderness. EYES: Pupils equal round and reactive. Extraocular motions intact. No scleral icterus. No injection or drainage. ENT: Nose without bleeding, purulent drainage or septal hematoma. Throat without erythema, tonsillar hypertrophy or exudate. Uvula midline. Airway patent. NECK: Trachea midline. No JVD or lymphadenopathy. Supple, nontender, no meningeal signs. CARDIOVASCULAR: Regular rate and rhythm without murmurs, gallops, or rubs. RESPIRATORY: Clear to auscultation. Breath sounds equal bilaterally. No wheezes , rales, or rhonchi. GASTROINTESTINAL: Abdomen soft, non-tender, with palpable pulsatile epigastric mass. No guarding. MUSCULOSKELETAL: Extremities without clubbing, cyanosis, or edema. No joint tenderness, effusion, or edema noted. No calf tenderness. Negative Homans sign bilaterally. NEUROLOGICAL: Awake and alert. Cranial nerves II through XII intact. Motor and sensory grossly within normal limits. Five out of 5 muscle strength in all muscle groups. Normal speech. Laboratory Laboratory Tests Test 08/31/16 08/31/16 08/31/16 08/31/16 12:49 14:01 15:20 21:17 White Blood Count 14.0 Red Blood Count 4.29 Hemoglobin 13.8 Hematocrit 41.3 Mean Corpuscular Volume 96.2 Mean Corpuscular Hemoglobin 32.2 Mean Corpuscular Hemoglobin 33.4 Concent Red Cell Distribution Width 13.8 Platelet Count 123 Mean Platelet Volume 8.6 Neutrophils (%) (Auto) 86.0 Lymphocytes (%) (Auto) 7.0 Monocytes (%) (Auto) 5.9 Eosinophils (%) (Auto) 0.4 Basophils (%) (Auto) 0.7 Neutrophils # (Auto) 12.0 Lymphocytes # (Auto) 1.0 Monocytes # (Auto) 0.8 Eosinophils # (Auto) 0.1 Basophils # (Auto) 0.1 CBC Comment DIFF FINAL Differential Comment Sodium Level 139 Potassium Level 4.7 Chloride Level 106 Carbon Dioxide Level 23.9 Anion Gap 9 Blood Urea Nitrogen 14 Creatinine 1.16 Estimat Glomerular Filtration 59 Rate Random Glucose 129 Calcium Level 9.0 Magnesium Level 2.4 Total Bilirubin 0.5 Aspartate Amino Transf 35 (AST/SGOT) Alanine Aminotransferase 19 (ALT/SGPT) Alkaline Phosphatase 56 Total Creatine Kinase 202 144 Creatine Kinase MB 3.0 2.4 Troponin I 0.03 0.02 B-Type Natriuretic Peptide 27 Total Protein 7.6 Albumin 3.5 Lipase 138 Prothrombin Time 10.7 Prothromb Time International 1.0 Ratio Activated Partial 27.3 Thromboplast Time Blood Type B NEGATIVE Antibody Screen NEGATIVE Blood Bank Comment Test 09/01/16 03:29 White Blood Count 13.0 Red Blood Count 3.89 Hemoglobin 12.6 Hematocrit 37.5 Mean Corpuscular Volume 96.4 Mean Corpuscular Hemoglobin 32.5 Mean Corpuscular Hemoglobin 33.7 Concent Red Cell Distribution Width 13.7 Platelet Count 110 Mean Platelet Volume 8.7 Neutrophils (%) (Auto) 78.9 Lymphocytes (%) (Auto) 7.1 Monocytes (%) (Auto) 13.0 Eosinophils (%) (Auto) 0.2 Basophils (%) (Auto) 0.8 Neutrophils # (Auto) 10.2 Lymphocytes # (Auto) 0.9 Monocytes # (Auto) 1.7 Eosinophils # (Auto) 0.0 Basophils # (Auto) 0.1 CBC Comment DIFF FINAL Differential Comment Sodium Level 142 Potassium Level 3.9 Chloride Level 111 Carbon Dioxide Level 23.9 Anion Gap 7 Blood Urea Nitrogen 16 Creatinine 0.93 Estimat Glomerular Filtration 77 Rate Random Glucose 127 Calcium Level 8.0 Magnesium Level 2.4 Total Bilirubin 0.6 Aspartate Amino Transf 13 (AST/SGOT) Alanine Aminotransferase 16 (ALT/SGPT) Alkaline Phosphatase 53 Total Protein 6.6 Albumin 3.1 Date/Time Procedure Status Source Growth 08/31/16 16:35 Aerobic Blood Culture - Preliminary Resulted Blood Peripheral NO GROWTH IN 1 DAY 08/31/16 16:35 Anaerobic Blood Culture - Preliminary Resulted Blood Peripheral NO GROWTH IN 1 DAY Result Diagram: 09/01/16 0329 09/01/16 0329 Imaging Last Impressions Aorta CTA 08/31/16 1247 Signed Impressions: Service Date/Time: Wednesday, August 31, 2016 14:02 - CONCLUSION: 1. Type B thoracic aortic dissection beginning just distal to the takeoff of the left subclavian artery. 2. Large infrarenal abdominal aortic aneurysm. 3. Bilateral common femoral artery aneurysms. 4. Bilateral low attenuation adrenal masses most characteristic of adenomas. These findings were called to Dr. Sims in the emergency room at 1450 hrs. Jaiden Mistry MD Chest X-Ray 08/31/16 1236 Signed Impressions: Service Date/Time: Wednesday, August 31, 2016 13:16 - CONCLUSION: Mild streaky opacity at the lung bases most characteristic of scarring or atelectasis. Jaiden Mistry MD Course Admitted to CVICU for BP control and evaluation of AAA and dissection Assessment and Plan Problem List: (1) Aortic aneurysm Status: Chronic (2) Dissecting aneurysm of thoracic aorta, [place] type B Status: Acute (3) Abdominal aortic aneurysm (AAA) greater than 5.5 cm in diameter in male Status: Chronic Assessment and Plan 89 y/o male with likely acute type B dissection and relatively short flap in the descending thoracic aorta as well as a large infrarenal AAA. Recommend: medical management of dissection and consideration of EVAR for AAA. I do not see any role for surgical intervention for the dissection as the risks greatly outweigh the benefits. Problem Qualifiers (1) Aortic aneurysm: Qualified Code: I71.4 - Abdominal aortic aneurysm (AAA) without rupture Natalya Ortiz MD Sep 01, 2016 11:26
--- NOTE | 2016-09-01 11:51 | PD.VS.PN ---
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 Also incidentally noted to have 6.5 cm AAA. Resting comfortably this morning. Denies back pain. Objective Vitals/I&O Date Time Temp Pulse Resp B/P Pulse Ox O2 Delivery O2 Flow Rate FiO2 09/01/16 11:28 98.0 80 20 120/74 94 09/01/16 11:00 77 09/01/16 07:43 98.0 80 20 113/60 94 09/01/16 07:36 96 Nasal Cannula 3.00 09/01/16 07:33 95 Simple Mask 6.00 09/01/16 07:00 82 09/01/16 04:00 98.3 86 22 110/60 95 09/01/16 03:00 86 09/01/16 02:00 95 Simple Mask 7.00 09/01/16 01:00 95 Simple Mask 6.00 09/01/16 00:00 98.5 87 18 110/60 92 09/01/16 00:00 89 Nasal Cannula 4.00 08/31/16 23:18 93 Nasal Cannula 4.00 08/31/16 23:00 85 08/31/16 23:00 85 08/31/16 20:00 98.3 87 16 104/57 97 08/31/16 19:00 89 08/31/16 19:00 97 Nasal Cannula 4.00 08/31/16 18:46 96 Nasal Cannula 3.00 08/31/16 18:46 98.1 93 18 132/77 96 08/31/16 18:00 96 20 157/82 91 Nasal Cannula 2 08/31/16 17:45 96 156/75 96 08/31/16 17:30 96 156/75 Nasal Cannula 2 08/31/16 17:15 90 139/73 Nasal Cannula 2 08/31/16 17:00 93 18 150/84 96 Nasal Cannula 2 08/31/16 16:45 96 16 150/84 96 Nasal Cannula 2 08/31/16 16:38 91 154/80 08/31/16 16:33 90 18 167/90 94 Nasal Cannula 2 08/31/16 16:22 94 192/102 08/31/16 16:15 97 18 200/102 96 Nasal Cannula 2 08/31/16 15:28 87 20 202/107 96 Nasal Cannula 2 08/31/16 15:16 96 Nasal Cannula 2 08/31/16 15:15 89 176/95 08/31/16 15:08 86 08/31/16 15:08 98.9 81 16 184/95 96 Room Air 08/31/16 14:37 20 08/31/16 13:57 111/64 08/31/16 12:33 97.2 80 16 181/88 Physical Exam No abdominal tenderness. Generous R popliteal pulse Laboratory Laboratory Tests Test 08/31/16 08/31/16 08/31/16 08/31/16 12:49 14:01 15:20 21:17 White Blood Count 14.0 Red Blood Count 4.29 Hemoglobin 13.8 Hematocrit 41.3 Mean Corpuscular Volume 96.2 Mean Corpuscular Hemoglobin 32.2 Mean Corpuscular Hemoglobin 33.4 Concent Red Cell Distribution Width 13.8 Platelet Count 123 Mean Platelet Volume 8.6 Neutrophils (%) (Auto) 86.0 Lymphocytes (%) (Auto) 7.0 Monocytes (%) (Auto) 5.9 Eosinophils (%) (Auto) 0.4 Basophils (%) (Auto) 0.7 Neutrophils # (Auto) 12.0 Lymphocytes # (Auto) 1.0 Monocytes # (Auto) 0.8 Eosinophils # (Auto) 0.1 Basophils # (Auto) 0.1 CBC Comment DIFF FINAL Differential Comment Sodium Level 139 Potassium Level 4.7 Chloride Level 106 Carbon Dioxide Level 23.9 Anion Gap 9 Blood Urea Nitrogen 14 Creatinine 1.16 Estimat Glomerular Filtration 59 Rate Random Glucose 129 Calcium Level 9.0 Magnesium Level 2.4 Total Bilirubin 0.5 Aspartate Amino Transf 35 (AST/SGOT) Alanine Aminotransferase 19 (ALT/SGPT) Alkaline Phosphatase 56 Total Creatine Kinase 202 144 Creatine Kinase MB 3.0 2.4 Troponin I 0.03 0.02 B-Type Natriuretic Peptide 27 Total Protein 7.6 Albumin 3.5 Lipase 138 Prothrombin Time 10.7 Prothromb Time International 1.0 Ratio Activated Partial 27.3 Thromboplast Time Blood Type B NEGATIVE Antibody Screen NEGATIVE Blood Bank Comment Test 09/01/16 03:29 White Blood Count 13.0 Red Blood Count 3.89 Hemoglobin 12.6 Hematocrit 37.5 Mean Corpuscular Volume 96.4 Mean Corpuscular Hemoglobin 32.5 Mean Corpuscular Hemoglobin 33.7 Concent Red Cell Distribution Width 13.7 Platelet Count 110 Mean Platelet Volume 8.7 Neutrophils (%) (Auto) 78.9 Lymphocytes (%) (Auto) 7.1 Monocytes (%) (Auto) 13.0 Eosinophils (%) (Auto) 0.2 Basophils (%) (Auto) 0.8 Neutrophils # (Auto) 10.2 Lymphocytes # (Auto) 0.9 Monocytes # (Auto) 1.7 Eosinophils # (Auto) 0.0 Basophils # (Auto) 0.1 CBC Comment DIFF FINAL Differential Comment Sodium Level 142 Potassium Level 3.9 Chloride Level 111 Carbon Dioxide Level 23.9 Anion Gap 7 Blood Urea Nitrogen 16 Creatinine 0.93 Estimat Glomerular Filtration 77 Rate Random Glucose 127 Calcium Level 8.0 Magnesium Level 2.4 Total Bilirubin 0.6 Aspartate Amino Transf 13 (AST/SGOT) Alanine Aminotransferase 16 (ALT/SGPT) Alkaline Phosphatase 53 Total Protein 6.6 Albumin 3.1 Date/Time Procedure Status Source Growth 08/31/16 16:35 Aerobic Blood Culture - Preliminary Resulted Blood Peripheral NO GROWTH IN 1 DAY 08/31/16 16:35 Anaerobic Blood Culture - Preliminary Resulted Blood Peripheral NO GROWTH IN 1 DAY Imaging Last 48 hours Impressions Aorta CTA 08/31/16 1247 Signed Impressions: Service Date/Time: Wednesday, August 31, 2016 14:02 - CONCLUSION: 1. Type B thoracic aortic dissection beginning just distal to the takeoff of the left subclavian artery. 2. Large infrarenal abdominal aortic aneurysm. 3. Bilateral common femoral artery aneurysms. 4. Bilateral low attenuation adrenal masses most characteristic of adenomas. These findings were called to Dr. Sims in the emergency room at 1450 hrs. Jaiden Mistry MD Chest X-Ray 08/31/16 1236 Signed Impressions: Service Date/Time: Wednesday, August 31, 2016 13:16 - CONCLUSION: Mild streaky opacity at the lung bases most characteristic of scarring or atelectasis. Jaiden Mistry MD Assessment and Plan Plan 1. aTBAD - appears uncomplicated. Recommend SBP <110 with anti-impulse Rx as first line. Needs repeat CTA in a few days. 2. AAA - no evidence of rupture. Will plan repair electively. Will discuss with patient when hearing aids in and family around. 3. Needs ABIs and R popliteal artery duplex Pt seen with Drs. Silverio and Angel. Manuelito Gastelum MD FACS immunology specialist [facility] at [facility] [phone] Manuelito Gastelum MD Sep 01, 2016 11:51
--- NOTE | 2016-09-01 15:14 | EKG ---
Date Performed: 08/31/2016 Time Performed: 12:41:38 PTAGE: 89 years EKG: Sinus rhythm RIGHT BUNDLE BRANCH BLOCK Compared to prior tracing no significant change. Previous tracing interpre tted as possible inferior infarct - age undetermined, findings are not present on this tracing ABNORM AL ECG PREVIOUS TRACING : 08/31/2016 12.41 DOCTOR: Alex Patel Interpretating Date/Time 09/03/2016 09:22:13
[2016-09-01] MEDS: METOPROLOL SUCCINATE 25 MG EXTENDED RELEASE TAB PO SCH (15:16)
[2016-09-01] MEDS: MONTELUKAST SODIUM 10 MG TAB PO SCH (19:53)
[2016-09-02] VITALS (12 sets, daily range): BP systolic 100–129; BP diastolic 50–65; PULSE 59–73; RESP 18–19; TEMP 98–98.8; O2SAT 89–96
[2016-09-02] MEDS: SODIUM CHLOR 0.9% 1000 ML INJ 1,000 ML IV SCH ×2 (03:11→15:40)
[2016-09-02] MEDS: CHLORHEXIDINE GLUCONATE 2 % 1 PACK (2 CLOTHS) TOP SCH (04:00)
[2016-09-02 04:08] LABS: HEMATOCRIT 34.2 % (39.0-51.0); MEAN CELL VOLUME 95.1 FL (80.0-100.0); MEAN CORPUSCULAR HEMOGLOBIN 32.9 PG (27.0-34.0); MEAN CORPUSCULAR HGB CONC 34.6 % (32.0-36.0); PLATELET COUNT 108 TH/MM3 (150-450); RED CELL DISTRIBUTION WIDTH 13.9 % (11.6-17.2); REVIEW FLAG FINAL; WHITE BLOOD COUNT 13.5 TH/MM3 (4.0-11.0)
[2016-09-02 04:38] LABS: BICARBONATE 19.6 MEQ/L (21.0-32.0); MAGNESIUM 2.4 MG/DL (1.5-2.5); POTASSIUM 3.9 MEQ/L (3.5-5.1)
[2016-09-02] MEDS: niCARdipine INJ 25 MG in SODIUM CHLOR 0.9% 250 ML INJ 250 ML IV SCH ×2 (06:33→11:00)
[2016-09-02] MEDS: DILTIAZEM-CD 240 MG CAP ER PO SCH (08:45)
[2016-09-02] MEDS: PANTOPRAZOLE SODIUM 40 MG VIAL IV SCH (08:45)
[2016-09-02] MEDS: DOCUSATE SODIUM 100 MG/10 ML UDC PO SCH ×2 (08:45→20:08)
[2016-09-02] MEDS: LISINOPRIL 10 MG TAB PO SCH (08:45)
[2016-09-02] MEDS: SENNOSIDES SYRUP 8.8 MG/5 ML CUP PO SCH (08:45)
[2016-09-02] MEDS: SODIUM CHLORIDE 0.9% FLUSH 5 ML FLUSH IV FLUSH SCH ×2 (08:46→20:07)
[2016-09-02] MEDS: METOPROLOL SUCCINATE 25 MG EXTENDED RELEASE TAB PO SCH (08:46)
[2016-09-02] MEDS: RESP: ALBUTEROL 2.5 MG/IPRATROPIUM 0.5 MG NEB (PRN) INH ×3 (11:44→21:11)
[2016-09-02] MEDS ORDERED: hydrALAZINE HCL 20 MG/ML VIAL IV PUSH PRN (12:00)
[2016-09-02] MEDS ORDERED: niCARdipine INJ 25 MG in SODIUM CHLOR 0.9% 250 ML INJ 250 ML IV SCH (15:15)
--- NOTE | 2016-09-02 15:24 | HHI.CCPN ---
Subjective Remarks/Hospital Course Patient is an 89-year-old male with history of hypertension, long-standing tobacco abuse who presents to emergency room with complaints of chest pain back pain and epigastric pain. Started around 10 AM today, while shopping shopping and began to have increased pain to his chest. Denies nausea or vomiting or shortness of breath of symptoms. Never had chest pain in the past. Reports no history of coronary artery disease or LA in the past. EKG showed no acute findings. 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 Patient also has bilateral common femoral artery aneurysms. Patient will be started on Cardene infusion and scheduled metoprolol along with when necessary labetalol for blood pressure and heart rate control. Medical management of the type B dissection. Discussed with vascular surgery Dr. Silverio, he will see the patient and make recommendation about the AAA. Patient may be a candidate for endovascular repair of AAA. I have discussed with Dr. Oliverio Mead from IR as well, also updated patient himself, his granddaughter at the bedside (Krystal). Subjective 09/01 The patient continues on nicardipine infusion, with goal of systolic blood pressure less than 110 per recommendations of vascular surgery. The patient has been placed on metoprolol XL, PO in addition to lisinopril and Cardizem home medications. The patient denies pain, requesting a diet. Will follow-up recommendations of vascular surgery. 09/02 Overnight the patient was able to be weaned down to Nicardipine infusion 3 mg/hr. The patient continues on Cardizem and lisinopril, home medications. Will add clonidine 0.2mg to medication regimen, with goal of weaning off nicardipine infusion. The patient denies pain at this time. Tolerating PO diet. Objective Vital Signs Date Time Temp Pulse Resp B/P Pulse Ox O2 Delivery O2 Flow Rate FiO2 09/02/16 14:57 59 09/02/16 12:00 98.4 18 100/53 96 09/02/16 07:36 Nasal Cannula 5.00 Intake and Output 09/01/16 09/01/16 09/02/16 08:00 16:00 00:00 Intake Total 1600 ml 2309 ml Output Total 650 ml 750 ml Balance 950 ml 1559 ml Result Diagram: 09/02/1631909/02/16319 Objective Remarks GENERAL: Elderly male lying in bed,semirecumbent denies pain at this time SKIN: Warm and dry. HEAD: Atraumatic. Normocephalic. EYES: Pupils equal and round. No scleral icterus. No injection or drainage. ENT: No nasal bleeding or discharge. Mucous membranes pink and moist. Nasal cannula NECK: Trachea midline. No JVD. CARDIOVASCULAR: Regular rate and rhythm. No murmur appreciated. RESPIRATORY: No accessory muscle use. Clear to auscultation. Breath sounds equal bilaterally. GASTROINTESTINAL: Abdomen soft, non-tender, nondistended. Hepatic and splenic margins not palpable. Pulsatile aorta palpable in the midline MUSCULOSKELETAL: No obvious deformities. No clubbing. No cyanosis. No edema. NEUROLOGICAL: Awake and alert. No obvious cranial nerve deficits. Motor grossly within normal limits. Normal speech. Urinary Catheter: No A/P Assessment and Plan NEURO: Back pain due to aortic dissection -Pain control, Dilaudid and Lortab PRN -Currently asymptomatic RESP: Tobacco abuse COPD -Nasal cannula 4LPM, wean as tolerated -DuoNeb every 6 hours when necessary -Counseled on smoking cessation -Incentive spirometry, encourage use CV: Ramesh type B aortic dissection 6.7 cm infrarenal AAA Hypertensive emergency -Cardene infusion with target systolic blood pressure less than 110 per vascular surgery recommendations -IV labetalol, metoprolol, hydralazine PRN. Patient's home medication of lisinopril and diltiazem will be continued. Clonidine 0.2 mg twice a day added -Normal saline IV fluids at 30 ml per hour -Vascular surgery, on board Dr. Silverio -Plan for medical management of Type B dissection. GI: -Clear liquid diet - Protonix for GI prophylaxis -Senna and Colace for bowel regimen : Hypophosphatemia -Monitor renal function closely -Phosphorus 2.1, replete -Monitor hourly urinary output -Electrolyte replacement per ICU protocol -Strict I and O's ID: -No evidence of infection HEME: -Monitor CBC, CMP ENDO: -Euglycemic, continue to monitor PROPH: -Bilateral lower extremity SCDs. No pharmacological DVT prophylaxis contraindicated -IV Protonix for GI prophylaxis LINES: -Utilize peripheral IVs, central line if needed This patient remains critically ill with one or more organ systems which are or may become a threat to life. I have spent in excess of 33 minutes discontinuously in the care and management of this patient. This time is exclusive of procedures, and includes, but is not limited to, evaluation of the patient, review of the medical record, discussions with family, consultants, nursing staff, or respiratory therapy, and documentation in the medical record. Physician Meenakshi Miles MD Sep 02, 2016 15:24
[2016-09-02] MEDS ORDERED: MAGNESIUM SULFATE INJ 2 GM in SODIUM CHLORIDE 0.9% INJ 96 ML IV PRN (15:45)
[2016-09-02] MEDS ORDERED: POTASSIUM PHOSPHATE INJ 30 MMOL in SODIUM CHLOR 0.9% 250 ML INJ 250 ML IV PRN (15:45)
[2016-09-02] MEDS ORDERED: POTASSIUM CL 40 MEQ/30 ML LIQ UDC PO/TUBE PRN (15:45)
[2016-09-02] MEDS ORDERED: POTASSIUM CHLOR 40 MEQ PREMIX 100 ML IV PRN ×2 (15:45)
[2016-09-02] MEDS ORDERED: POTASSIUM CHLOR 20 MEQ PREMIX 100 ML IV PRN ×2 (15:45)
[2016-09-02] MEDS ORDERED: POTASSIUM PHOSPHATE MONOBASIC 500 MG TAB PO/TUBE PRN (15:45)
[2016-09-02] MEDS ORDERED: MAGNESIUM SULFATE INJ 4 GM in SODIUM CHLORIDE 0.9% INJ 92 ML IV PRN (15:45)
[2016-09-02] MEDS ORDERED: SODIUM PHOSPHATE INJ 30 MMOL in SODIUM CHLOR 0.9% 250 ML INJ 240 ML IV PRN (15:45)
[2016-09-02] MEDS ORDERED: MAGNESIUM OXIDE 400 MG TAB PO PRN (15:45)
[2016-09-02] MEDS: POTASSIUM PHOSPHATE MONOBASIC 500 MG TAB PO PRN ×2 (16:20→20:07)
[2016-09-02] MEDS: MONTELUKAST SODIUM 10 MG TAB PO SCH (20:07)
[2016-09-02] MEDS: cloNIDine HCL 0.2 MG TAB PO SCH (20:07)
[2016-09-02] MEDS: METOPROLOL TARTRATE 5 MG/5 ML VIAL IV PUSH PRN (23:06)
[2016-09-03] VITALS (8 sets, daily range): BP systolic 95–122; BP diastolic 56–67; PULSE 60–77; RESP 18–20; TEMP 97.8–98.9; O2SAT 89–95
[2016-09-03] MEDS: RESP: ALBUTEROL 2.5 MG/IPRATROPIUM 0.5 MG NEB (PRN) INH ×2 (00:24→04:59)
[2016-09-03] MEDS: METOPROLOL TARTRATE 5 MG/5 ML VIAL IV PUSH PRN (01:37)
[2016-09-03] MEDS: CHLORHEXIDINE GLUCONATE 2 % 1 PACK (2 CLOTHS) TOP SCH (04:00)
[2016-09-03] MEDS ORDERED: ACETAMINOPHEN/HYDROcodone 325 MG/5 MG TAB PO ONE (05:00)
[2016-09-03] MEDS: BENZONATATE 100 MG CAP PO PRN ×3 (05:38→20:46)
[2016-09-03] MEDS: LORATADINE 10 MG TAB PO SCH ×2 (05:39→09:44)
--- NOTE | 2016-09-03 06:08 | RADRPT ---
EXAM DATE/TIME: 09/03/2016 05:25 [facility] COMPARISON: CHEST SINGLE AP, August 31, 2016, 13:16. INDICATIONS : Shortness of breath, possible pulmonary disease. MEDICAL HISTORY : Hypertension. SURGICAL HISTORY : Hernia repair. ENCOUNTER: Subsequent ACUITY: 4 - 6 days PAIN SCORE: 0/10 LOCATION: Bilateral chest FINDINGS: The heart size is within normal limits. There is widening of the aorta. There is increased density at the bases bilaterally being worse on the left. Mid-upper lungs are rela tively clear. There is silhouetting of the left hemidiaphragm. CONCLUSION: Bibasilar areas of consolidation or atelectasis being worse on the left. Julius Flowers MD on September 03, 2016 at 6:06 Board Certified Radiologist. This report was verified electronically.
[2016-09-03 06:33] LABS: BICARBONATE 17.6 MEQ/L (21.0-32.0); MAGNESIUM 2.3 MG/DL (1.5-2.5); POTASSIUM 3.8 MEQ/L (3.5-5.1)
[2016-09-03 06:53] LABS: CALCIUM-PROTEIN CORRECTED 7.9 MG/DL (8.5-10.1)
[2016-09-03] MEDS: RESP: ALBUTEROL 2.5 MG/IPRATROPIUM 0.5 MG NEB (SCH) NEB ×3 (07:37→19:52)
[2016-09-03] MEDS: cloNIDine HCL 0.2 MG TAB PO SCH ×2 (09:44→20:46)
[2016-09-03] MEDS: DILTIAZEM-CD 240 MG CAP ER PO SCH (09:44)
[2016-09-03] MEDS: DOCUSATE SODIUM 100 MG/10 ML UDC PO SCH ×2 (09:44→20:46)
[2016-09-03] MEDS: LISINOPRIL 10 MG TAB PO SCH (09:44)
[2016-09-03] MEDS: PANTOPRAZOLE SOD 40 MG DELAYED RELEASE TAB PO SCH (09:44)
[2016-09-03] MEDS: SENNOSIDES SYRUP 8.8 MG/5 ML CUP PO SCH (09:44)
[2016-09-03] MEDS: SODIUM CHLORIDE 0.9% FLUSH 5 ML FLUSH IV FLUSH SCH ×2 (09:45→20:46)
[2016-09-03] MEDS: SODIUM CHLOR 0.9% 1000 ML INJ 1,000 ML IV SCH (09:47)
--- NOTE | 2016-09-03 10:07 | HHI.CCPN ---
Subjective Remarks/Hospital Course Patient is an 89-year-old male with history of hypertension, long-standing tobacco abuse who presents to emergency room with complaints of chest pain back pain and epigastric pain. Started around 10 AM today, while shopping shopping and began to have increased pain to his chest. Denies nausea or vomiting or shortness of breath of symptoms. Never had chest pain in the past. Reports no history of coronary artery disease or OR in the past. EKG showed no acute findings. 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 Patient also has bilateral common femoral artery aneurysms. Patient will be started on Cardene infusion and scheduled metoprolol along with when necessary labetalol for blood pressure and heart rate control. Medical management of the type B dissection. Discussed with vascular surgery Dr. Silverio, he will see the patient and make recommendation about the AAA. Patient may be a candidate for endovascular repair of AAA. I have discussed with Dr. Oliverio Mead from IR as well, also updated patient himself, his granddaughter at the bedside (Krystal). 09/01 The patient continues on nicardipine infusion, with goal of systolic blood pressure less than 110 per recommendations of vascular surgery. The patient has been placed on metoprolol XL, PO in addition to lisinopril and Cardizem home medications. The patient denies pain, requesting a diet. Will follow-up recommendations of vascular surgery. 09/02 Overnight the patient was able to be weaned down to Nicardipine infusion 3 mg/hr. The patient continues on Cardizem and lisinopril, home medications. Will add clonidine 0.2mg to medication regimen, with goal of weaning off nicardipine infusion. The patient denies pain at this time. Tolerating PO diet. Subjective 09/03: Resting in bed. Complaining of cough overnight. Continue to be in 5 L nasal cannula. Claritin added last night in addition to his home dose of Singulair for allergic rhinitis. Cardene drip restarted. Arousable and follows commands. [place] Objective Vital Signs Date Time Temp Pulse Resp B/P Pulse Ox O2 Delivery O2 Flow Rate FiO2 09/03/16 07:00 71 09/03/16 07:00 93 Nasal Cannula 5.00 Humidified 09/03/16 07:00 97.8 20 113/62 Intake and Output 09/02/16 09/02/16 09/03/16 08:00 16:00 00:00 Intake Total 3095 ml 2378 ml Output Total 450 ml 550 ml Balance 2645 ml 1828 ml Result Diagram: 09/02/16 0320 09/03/16 0542 Other Results Microbiology Date/Time Procedure Status Source Growth 08/31/16 16:35 Aerobic Blood Culture - Preliminary Resulted Blood Peripheral NO GROWTH IN 2 DAYS 08/31/16 16:35 Anaerobic Blood Culture - Preliminary Resulted Blood Peripheral NO GROWTH IN 2 DAYS Imaging Last Impressions Chest X-Ray 09/03/16 0600 Signed Impressions: Service Date/Time: Saturday, September 03, 2016 05:25 - CONCLUSION: Bibasilar areas of consolidation or atelectasis being worse on the left. Julius Flowers MD Aorta CTA 08/31/16 1247 Signed Impressions: Service Date/Time: Wednesday, August 31, 2016 14:02 - CONCLUSION: 1. Type B thoracic aortic dissection beginning just distal to the takeoff of the left subclavian artery. 2. Large infrarenal abdominal aortic aneurysm. 3. Bilateral common femoral artery aneurysms. 4. Bilateral low attenuation adrenal masses most characteristic of adenomas. These findings were called to Dr. Sims in the emergency room at 1450 hrs. Jaiden Mistry MD Objective Remarks GENERAL:89-year-old male, lying in bed in no acute distress on 5 L nasal cannula SKIN: Warm and dry. No rash HEAD: Atraumatic. Normocephalic. EYES: Pupils equal and round around 3 mm bilaterally and reactive. No scleral icterus. No injection or drainage. ENT: No nasal bleeding or discharge. Mucous membranes pink and moist. Nasal cannula NECK: Trachea midline. No JVD. CARDIOVASCULAR: Regular rate and rhythm. S1, S2. No S4. No murmur appreciated. RESPIRATORYclear to auscultation. Breath sounds equal bilaterally. GASTROINTESTINAL: Abdomen soft, non-tender, nondistended. Positive bowel sounds Pulsatile aorta palpable in the midline MUSCULOSKELETAL: No obvious deformities. No significant peripheral edema. NEUROLOGICAL: Awake and alert. No obvious cranial nerve deficits. Motor grossly within normal limits. Normal speech. A/P Assessment and Plan NEURO/PSYCH: Back pain due to aortic dissection -Pain control, Dilaudid and Lortab PRN -Currently asymptomatic RESP: Acute respiratory insufficiency Tobacco abuse COPD Allergic rhinitis Chronic cough -Nasal cannula 5LPM, wean as tolerated to maintain saturations greater or equal to 92% -DuoNeb every 6 hours when necessary. Added a cappella every 6 hours while awake Chest x-ray reveals bilateral lower lobe atelectasis - On singular 10 mg daily and Claritin 10 mg daily for allergy rhinitis/ postnasal drip - As needed Tessalon Perles 200 mg every 8 hours for cough -Counseled on smoking cessation -Incentive spirometry, encourage use CV: Ramesh type B aortic dissection 6.7 cm infrarenal AAA Femoral artery aneurysm Hypertensive emergency -Cardene infusion currently at 3 mg an hour with target systolic blood pressure less than 110 per vascular surgery recommendations -IV labetalol, PRN. - Patient's home medication of lisinopril 10 mg daily/held due to elevated creatinine and diltiazem 240 mg daily with when necessary Cardizem 30 mg by mouth every 6 hours will be continued. - Clonidine 0.2 mg twice a day added with Coreg 3.125 twice a day -Sterile saline with 3 ampules sodium bicarbonate fluids at 50 ml per hour -Vascular surgery, on board Dr. Silverio -Plan for medical management of Type B dissection. ABIs ordered per status post surgery's request GI: Hypoalbuminemia Bilateral adrenal adenoma Regular diet - Protonix for GI prophylaxis -Senna and Colace for bowel regimen FEN/renal/: Acute kidney injury Hypophosphatemia - resolved BPH Noted received IV dye 08/31. Possible contrast nephropathy -Monitor renal function closely -Monitor hourly urinary output -Electrolyte replacement per ICU protocol -Strict I and O's Avoid nephrotoxic drugs Check renal ultrasound/urine lites and eosinophils Continue Flomax 0.4 mg by mouth daily ID: -No evidence of infection HEME: Leukocytosis Anemia -Monitor CBC, CMP ENDO: -Euglycemic, continue to monitor PROPH: -Bilateral lower extremity SCDs. No pharmacological DVT prophylaxis contraindicated -IV Protonix for GI prophylaxis LINES: -Utilize peripheral IVs, central line if needed Critical Care: The total critical care time was 55 minutes. Time to perform other separately billable procedures was not included in the critical care time. Bautista Taylor MD Sep 03, 2016 10:07
[2016-09-03] MEDS ORDERED: CALCIUM GLUCONATE INJ 1 GM in SODIUM CHLORIDE 0.9% INJ 100 ML IV ONE (11:00)
--- NOTE | 2016-09-03 11:23 | RADRPT ---
EXAM DATE/TIME: 09/03/2016 00:00 [facility] COMPARISON: No previous studies available for comparison. INDICATIONS : Type B Thoracic Aortic Dissection TECHNIQUE: Four-cuff ankle and brachial pressures were obtained. Pulse cuff waveform tracings of the ankles were recorded, and ankle-brachial indices were calculated. PRESSURES (mmHg): Brachial (arm): Right 100 Left IV SITE Ankle: Right 94 Left 63 JOANNA: Right 0.96 Left 0.64 TBI: Right 0.49 Left 0.51 PULSED CUFF WAVEFORMS: Delayed upstroke and reduced peak amplitude bilaterally at the ankles. CONCLUSION: 1. Moderate reduction of the left JOANNA with the right JOANNA within the normal range. 2. Reduced toe brachial indices bilaterally. Viktor Villalobos Jr., MD on September 03, 2016 at 11:19 Board Certified Radiologist. This report was verified electronically.
--- NOTE | 2016-09-03 11:44 | RADRPT ---
EXAM DATE/TIME: 09/03/2016 11:14 [facility] COMPARISON: CTA THORACIC ABDOMINAL AORTA W 3D RECON, August 31, 2016, 14:02. INDICATIONS : Increased BUN/Creatinine. MEDICAL HISTORY : Hypertension. Abdominal aortic aneurysm. SURGICAL HISTORY : Cataract removal. Hernia repair. Right knee arthroscopy. ENCOUNTER: Initial ACUITY: 1 day PAIN SCORE: 0/10 LOCATION: Bilateral flank MEASUREMENTS: RIGHT KIDNEY: 10.4 x 5.3 x 5.0 cm LEFT KIDNEY: 10.8 x 5.5 x 5.2 cm FINDINGS: Bilateral kidneys reveal small cysts lower pole on the left 1.4 pole on the right 1.5 c m in size. There is an area of echogenic retraction the cortex of the left kidney towards the upper p ole consistent with scarring. Urinary bladder is normal. Bilateral pleural effusions appreciated. CONCLUSION: Small cyst in each kidney. Area cortical retraction left kidney . Otherwise negative Maicol Durant MD on September 03, 2016 at 11:39 Board Certified Radiologist. This report was verified electronically.
[2016-09-03] MEDS: CARVEDILOL 3.125 MG TAB PO SCH ×2 (11:45→20:46)
[2016-09-03] MEDS: SODIUM BICARBONATE 8.4% INJ 150 MEQ in WATER STERILE FOR INJ 850 ML IV SCH (13:18)
[2016-09-03] MEDS: MONTELUKAST SODIUM 10 MG TAB PO SCH (20:46)
[2016-09-03] MEDS: LABETALOL HCL 100 MG/20 ML VIAL IV PUSH PRN (21:57)
[2016-09-04] VITALS (10 sets, daily range): BP systolic 95–143; BP diastolic 57–81; PULSE 62–74; RESP 18–20; TEMP 97.3–98; O2SAT 92–97
[2016-09-04] MEDS: ACETAMINOPHEN/HYDROcodone 325 MG/5 MG TAB PO PRN ×3 (01:39→23:13)
[2016-09-04] MEDS: LABETALOL HCL 100 MG/20 ML VIAL IV PUSH PRN (03:37)
[2016-09-04] MEDS: CHLORHEXIDINE GLUCONATE 2 % 1 PACK (2 CLOTHS) TOP SCH (04:00)
[2016-09-04 04:33] LABS: AUTOMATED NEUTROPHIL # 10.9 TH/MM3 (1.8-7.7); BASOPHIL % 0.2 % (0.0-2.0); EOSINOPHIL # 0.1 TH/MM3 (0-0.4); EOSINOPHIL % 0.6 % (0.0-4.0); HEMATOCRIT 33.1 % (39.0-51.0); HEMO FLAGS DIFF FINAL; MEAN CELL VOLUME 95.6 FL (80.0-100.0); MEAN CORPUSCULAR HEMOGLOBIN 32.4 PG (27.0-34.0); MEAN CORPUSCULAR HGB CONC 33.8 % (32.0-36.0); MONO % 12.8 % (0.0-8.0); NEUT % 79.4 % (16.0-70.0); PLATELET COUNT 103 TH/MM3 (150-450); RED BLOOD COUNT 3.46 MIL/MM3 (4.50-5.90); RED CELL DISTRIBUTION WIDTH 13.9 % (11.6-17.2); WHITE BLOOD COUNT 13.8 TH/MM3 (4.0-11.0)
[2016-09-04 05:08] LABS: ALKALINE PHOSPHATASE 48 U/L (45-117); ALT (GPT) 25 U/L (12-78); ANION GAP 8 MEQ/L (5-15); AST (GOT) 26 U/L (15-37); BICARBONATE 22.5 MEQ/L (21.0-32.0); BLOOD UREA NITROGEN 39 MG/DL (7-18); CHLORIDE 112 MEQ/L (98-107); GLOMERULAR FILTRATION RATE 44 ML/MIN (>89); MAGNESIUM 2.4 MG/DL (1.5-2.5); POTASSIUM 4.1 MEQ/L (3.5-5.1); SODIUM (NA) 142 MEQ/L (136-145); TOTAL BILIRUBIN ADULT 0.6 MG/DL (0.2-1.0)
--- NOTE | 2016-09-04 05:11 | PD.VS.PN ---
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 Also incidentally noted to have 6.5 cm AAA. No back or abdominal pain this morning Sitting OOB "waiting for coffee" creatinine increasing (1.6 yesterday, pending today) - pt notes he is thirsty Objective Vitals/I&O Date Time Temp Pulse Resp B/P Pulse Ox O2 Delivery O2 Flow Rate FiO2 09/04/16 03:45 64 95/58 95 09/04/16 03:00 66 09/04/16 03:00 98.0 71 18 123/57 95 09/04/16 03:00 91 Nasal Cannula 5.00 Humidified 09/03/16 23:00 63 09/03/16 23:00 97.9 77 20 112/67 95 09/03/16 23:00 95 Simple Mask 10.00 09/03/16 19:53 92 Nasal Cannula 5.00 09/03/16 19:00 94 Nasal Cannula 5.00 Humidified 09/03/16 19:00 60 09/03/16 19:00 98.1 60 18 107/65 94 09/03/16 15:45 60 09/03/16 15:45 98.9 60 18 122/67 93 09/03/16 15:45 93 Nasal Cannula 5.00 09/03/16 11:00 68 09/03/16 11:00 98.1 68 20 116/64 89 09/03/16 07:50 93 Nasal Cannula 5.00 09/03/16 07:00 71 09/03/16 07:00 93 Nasal Cannula 5.00 Humidified 09/03/16 07:00 97.8 71 20 113/62 92 Physical Exam no back tenderness No abdominal tenderness to palpation Laboratory Laboratory Tests Test 09/03/16 09/04/16 09/04/16 05:42 02:30 04:18 Sodium Level 139 Potassium Level 3.8 Chloride Level 111 Carbon Dioxide Level 17.6 Anion Gap 10 Blood Urea Nitrogen 40 Creatinine 1.65 Estimat Glomerular Filtration 39 Rate Random Glucose 142 Calcium Level 7.3 Protein Corrected Calcium 7.9 Phosphorus Level 3.6 Magnesium Level 2.3 Total Protein 6.0 Urine Eosinophils NONE SEEN Urine Random Creatinine 74.9 Urine Random Sodium 10 White Blood Count 13.8 Red Blood Count 3.46 Hemoglobin 11.2 Hematocrit 33.1 Mean Corpuscular Volume 95.6 Mean Corpuscular Hemoglobin 32.4 Mean Corpuscular Hemoglobin 33.8 Concent Red Cell Distribution Width 13.9 Platelet Count 103 Mean Platelet Volume 9.7 Neutrophils (%) (Auto) 79.4 Lymphocytes (%) (Auto) 7.0 Monocytes (%) (Auto) 12.8 Eosinophils (%) (Auto) 0.6 Basophils (%) (Auto) 0.2 Neutrophils # (Auto) 10.9 Lymphocytes # (Auto) 1.0 Monocytes # (Auto) 1.8 Eosinophils # (Auto) 0.1 Basophils # (Auto) 0.0 CBC Comment DIFF FINAL Differential Comment Date/Time Procedure Status Source Growth 08/31/16 16:35 Aerobic Blood Culture - Preliminary Resulted Blood Peripheral NO GROWTH IN 3 DAYS 08/31/16 16:35 Anaerobic Blood Culture - Preliminary Resulted Blood Peripheral NO GROWTH IN 3 DAYS Imaging Last 48 hours Impressions Chest X-Ray 09/03/16 0600 Signed Impressions: Service Date/Time: Saturday, September 03, 2016 05:25 - CONCLUSION: Bibasilar areas of consolidation or atelectasis being worse on the left. Julius Flowers MD Renal Ultrasound 09/03/16 0000 Signed Impressions: Service Date/Time: Saturday, September 03, 2016 11:14 - CONCLUSION: Small cyst in each kidney. Area cortical retraction left kidney . Otherwise negative Maicol Durant MD Assessment and Plan Plan 1. aTBAD - appears uncomplicated. Ideally, SBP <110 however, I think this is causing him to be relatively prerenal as his kidneys are used to higher SBP. Ok to liberalize to goal SBP 130. Repeat CTA in 1-2 days unless creatinine continues to escalate. Recommend MIVF w/ HCO3 for renal protection. Most likely medical management of aTBAD 2. AAA - no evidence of rupture. Will plan repair electively. Will schedule clinic visit in 2 weeks 3. ABIs 0.5 bilaterally. Needs B popliteal duplex. Can get CTA C/A/P with runoff to include popliteal arteries Manuelito Gastelum MD FACS gastroenterology technician [facility] [phone] Manuelito Gastelum MD Sep 04, 2016 05:11
[2016-09-04] MEDS: RESP: ALBUTEROL 2.5 MG/IPRATROPIUM 0.5 MG NEB (SCH) NEB ×3 (07:20→20:19)
[2016-09-04] MEDS: DOCUSATE SODIUM 100 MG/10 ML UDC PO SCH ×2 (08:28→21:00)
[2016-09-04] MEDS: LORATADINE 10 MG TAB PO SCH (08:28)
[2016-09-04] MEDS: cloNIDine HCL 0.2 MG TAB PO SCH ×2 (08:28→19:38)
[2016-09-04] MEDS: SENNOSIDES SYRUP 8.8 MG/5 ML CUP PO SCH (08:28)
[2016-09-04] MEDS: PANTOPRAZOLE SOD 40 MG DELAYED RELEASE TAB PO SCH (08:28)
[2016-09-04] MEDS: DILTIAZEM-CD 240 MG CAP ER PO SCH (08:28)
[2016-09-04] MEDS: CARVEDILOL 3.125 MG TAB PO SCH (08:29)
[2016-09-04] MEDS: TAMSULOSIN HCL 0.4 MG CAP PO SCH (08:33)
[2016-09-04] MEDS: SODIUM CHLORIDE 0.9% FLUSH 5 ML FLUSH IV FLUSH SCH ×2 (08:33→19:38)
[2016-09-04] MEDS: SODIUM BICARBONATE 8.4% INJ 150 MEQ in WATER STERILE FOR INJ 850 ML IV SCH (11:19)
[2016-09-04] MEDS: BENZONATATE 100 MG CAP PO PRN ×2 (11:40→23:13)
--- NOTE | 2016-09-04 11:42 | HHI.CCPN ---
Subjective Remarks/Hospital Course Patient is an 89-year-old male with history of hypertension, long-standing tobacco abuse who presents to emergency room with complaints of chest pain back pain and epigastric pain. Started around 10 AM today, while shopping shopping and began to have increased pain to his chest. Denies nausea or vomiting or shortness of breath of symptoms. Never had chest pain in the past. Reports no history of coronary artery disease or [place] in the past. EKG showed no acute findings. 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 Patient also has bilateral common femoral artery aneurysms. Patient will be started on Cardene infusion and scheduled metoprolol along with when necessary labetalol for blood pressure and heart rate control. Medical management of the type B dissection. Discussed with vascular surgery Dr. Silverio, he will see the patient and make recommendation about the AAA. Patient may be a candidate for endovascular repair of AAA. I have discussed with Dr. Oliverio Mead from IR as well, also updated patient himself, his granddaughter at the bedside (Krystal). 09/01 The patient continues on nicardipine infusion, with goal of systolic blood pressure less than 110 per recommendations of vascular surgery. The patient has been placed on metoprolol XL, PO in addition to lisinopril and Cardizem home medications. The patient denies pain, requesting a diet. Will follow-up recommendations of vascular surgery. 09/02 Overnight the patient was able to be weaned down to Nicardipine infusion 3 mg/hr. The patient continues on Cardizem and lisinopril, home medications. Will add clonidine 0.2mg to medication regimen, with goal of weaning off nicardipine infusion. The patient denies pain at this time. Tolerating PO diet. 09/03: Resting in bed. Complaining of cough overnight. Continue to be in 5 L nasal cannula. Claritin added last night in addition to his home dose of Singulair for allergic rhinitis. Cardene drip restarted. Arousable and follows commands. JAMUL Subjective 09/04: Afebrile. Cardiac drip off since yesterday morning. Noted blood pressure liberalized to 130s systolic per vascular. Continues to be on 5 L nasal cannula. Continues to complain of nonproductive cough. Objective Vital Signs Date Time Temp Pulse Resp B/P Pulse Ox O2 Delivery O2 Flow Rate FiO2 09/04/16 07:30 70 09/04/16 07:30 93 5.00 09/04/16 07:30 97.8 20 115/67 09/04/16 07:20 Nasal Cannula Intake and Output 09/03/16 09/03/16 09/04/16 08:00 16:00 00:00 Intake Total 1189 ml 1361 ml Output Total 850 ml 1050 ml Balance 339 ml 311 ml Result Diagram: 09/04/16 0418 09/04/16 0418 Other Results Microbiology Date/Time Procedure Status Source Growth 08/31/16 16:35 Aerobic Blood Culture - Preliminary Resulted Blood Peripheral NO GROWTH IN 4 DAYS 08/31/16 16:35 Anaerobic Blood Culture - Preliminary Resulted Blood Peripheral NO GROWTH IN 4 DAYS Imaging Last Impressions Chest X-Ray 09/03/16 0600 Signed Impressions: Service Date/Time: Saturday, September 03, 2016 05:25 - CONCLUSION: Bibasilar areas of consolidation or atelectasis being worse on the left. Julius Flowers MD Renal Ultrasound 09/03/16 0000 Signed Impressions: Service Date/Time: Saturday, September 03, 2016 11:14 - CONCLUSION: Small cyst in each kidney. Area cortical retraction left kidney . Otherwise negative Maicol Durant MD Aorta CTA 08/31/16 1247 Signed Impressions: Service Date/Time: Wednesday, August 31, 2016 14:02 - CONCLUSION: 1. Type B thoracic aortic dissection beginning just distal to the takeoff of the left subclavian artery. 2. Large infrarenal abdominal aortic aneurysm. 3. Bilateral common femoral artery aneurysms. 4. Bilateral low attenuation adrenal masses most characteristic of adenomas. These findings were called to Dr. Sims in the emergency room at 1450 hrs. Jaiden Mistry MD Objective Remarks GENERAL:89-year-old male, lying in bed in no acute distress on 5 L nasal cannula SKIN: Warm and dry. No rash HEAD: Atraumatic. Normocephalic. EYES: Pupils equal and round around 3 mm bilaterally and reactive. No scleral icterus. No injection or drainage. ENT: No nasal bleeding or discharge. Mucous membranes pink and moist. Nasal cannula NECK: Trachea midline. No JVD. CARDIOVASCULAR: Regular rate and rhythm. S1, S2. No S4. No murmur appreciated. RESPIRATORYclear to auscultation. Breath sounds equal bilaterally. GASTROINTESTINAL: Abdomen soft, non-tender, nondistended. Positive bowel sounds Pulsatile aorta palpable in the midline MUSCULOSKELETAL: No obvious deformities. No significant peripheral edema. NEUROLOGICAL: Awake and alert. No obvious cranial nerve deficits. Motor grossly within normal limits. Normal speech. A/P Assessment and Plan NEURO/PSYCH: Back pain due to aortic dissection -Pain control, Dilaudid and Lortab PRN -Currently asymptomatic RESP: Acute respiratory insufficiency Tobacco abuse COPD Allergic rhinitis Chronic cough -Nasal cannula 5LPM, wean as tolerated to maintain saturations greater or equal to 92% -DuoNeb every 6 hours while awake and when necessary. Added a cappella/PEP every 6 hours while awake Chest x-ray 09/04 reveals bilateral lower lobe atelectasis - On singular 10 mg daily and Claritin 10 mg daily for allergy rhinitis/ postnasal drip - As needed Tessalon Perles 200 mg every 8 hours for cough -Counseled on smoking cessation -Incentive spirometry, encourage use CV: [place] type B aortic dissection 6.7 cm infrarenal AAA Femoral artery aneurysm Hypertensive emergency -Cardene infusion currently off with target systolic blood pressure less than 130 per vascular surgery recommendations -IV labetalol, PRN. - Patient's home medication of lisinopril 10 mg daily/held due to elevated creatinine and diltiazem 240 mg daily with when necessary Cardizem 30 mg by mouth every 6 hours will be continued. - Clonidine 0.2 mg twice a day added with Coreg 6.25 twice a day -Sterile saline with 3 ampules sodium bicarbonate fluids at 50 ml per hour -Vascular surgery, on board Dr. Silverio -Plan for medical management of Type B dissection. ABIs ordered decreased flow left lower extremity. Will need bilateral popliteal ordered like with CTA GI: Hypoalbuminemia Bilateral adrenal adenoma Regular diet - Protonix for GI prophylaxis -Senna and Colace for bowel regimen FEN/renal/: Acute kidney injury Hypophosphatemia - resolved BPH Noted received IV dye 08/31. Possible contrast nephropathy -Monitor renal function closely -Monitor hourly urinary output -Electrolyte replacement per ICU protocol -Strict I and O's Avoid nephrotoxic drugs Check renal ultrasound/urine lites and eosinophils Continue Flomax 0.4 mg by mouth daily ID: -No evidence of infection HEME: Leukocytosis Anemia -Monitor CBC, CMP ENDO: -Euglycemic, continue to monitor PROPH: -Bilateral lower extremity SCDs. No pharmacological DVT prophylaxis contraindicated -IV Protonix for GI prophylaxis LINES: -Utilize peripheral IVs, central line if needed Critical Care: The total critical care time was 35 minutes. Time to perform other separately billable procedures was not included in the critical care time. Bautista Taylor MD Sep 04, 2016 11:42
--- NOTE | 2016-09-04 16:03 | RADRPT ---
EXAM DATE/TIME: 09/04/2016 12:02 [facility] COMPARISON: No previous studies available for comparison. INDICATIONS : Aneurysm. MEDICAL HISTORY : Hypertension. Dyspnea. Abdominal aortic aneurysm. SURGICAL HISTORY : Cataract removal. Hernia repair. Right knee arthroscopy. ENCOUNTER: Initial ACUITY: 1 day PAIN SCORE: 0/10 LOCATION: Bilateral legs. AREA EVALUATED: Bilateral legs. FINDINGS: In the right leg, there is moderate eccentric calcific plaquing involving the posterior aspect of the right common femoral artery. This does not appear to produce physiologically significant flow restri ction. Runoff is otherwise adequate with patchy mild femoropopliteal plaquing. Similar disease in the tibial vessels which are all patent. 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 Correlati on with possible previous interventional procedure or bypass surgery recommended. The profunda is pat ent. The left superficial femoral artery is totally occluded with reconstitution of flow in the popli teal artery above the knee joint level. The tibial vessels are intact. CONCLUSION: Right common femoral artery disease and patchy femoropopliteal and tibial disease, nowhere critical. Finding in the left groin which may reflect thrombosis of pseudoaneurysm or thrombosed femoropoplitea l graft ramos. Correlation recommended. Left SFA is occluded with reconstitution of above knee poplite al. If additional noninvasive evaluation is clinically warranted, CTA runoff study is recommended Julius Johnston MD on September 04, 2016 at 15:53 Board Certified Radiologist. This report was verified electronically.
[2016-09-04] MEDS: MONTELUKAST SODIUM 10 MG TAB PO SCH (19:38)
[2016-09-04] MEDS: CARVEDILOL 6.25 MG TAB PO SCH (19:38)
[2016-09-05] VITALS (12 sets, daily range): BP systolic 103–144; BP diastolic 55–88; PULSE 55–88; RESP 16–18; TEMP 97.9–99.2; O2SAT 86–97
[2016-09-05] MEDS: CHLORHEXIDINE GLUCONATE 2 % 1 PACK (2 CLOTHS) TOP SCH (04:00)
[2016-09-05] MEDS: SODIUM BICARBONATE 8.4% INJ 150 MEQ in WATER STERILE FOR INJ 850 ML IV SCH (04:06)
[2016-09-05] MEDS: LABETALOL HCL 100 MG/20 ML VIAL IV PUSH PRN ×3 (04:12→10:50)
--- NOTE | 2016-09-05 05:54 | RADRPT ---
EXAM DATE/TIME: 09/05/2016 04:57 [facility] COMPARISON: CHEST SINGLE AP, September 03, 2016, 5:25. INDICATIONS : Congestive heart failure. MEDICAL HISTORY : Hypertension. SURGICAL HISTORY : Hernia repair. ENCOUNTER: Subsequent ACUITY: 4 - 6 days PAIN SCORE: 0/10 LOCATION: Bilateral chest FINDINGS: The heart size is within normal limits. There is increased density at the bases bilaterally and in th e left midlung. There is silhouetting of the left hemidiaphragm. CONCLUSION: Bibasilar areas of consolidation or atelectasis being worse the left. Some degree of effusion on the left needs to be considered. Julius Flowers MD on September 05, 2016 at 5:51 Board Certified Radiologist. This report was verified electronically.
[2016-09-05 06:28] LABS: AUTOMATED NEUTROPHIL # 8.2 TH/MM3 (1.8-7.7); BASOPHIL % 0.4 % (0.0-2.0); EOSINOPHIL # 0.2 TH/MM3 (0-0.4); EOSINOPHIL % 1.7 % (0.0-4.0); HEMATOCRIT 36.2 % (39.0-51.0); HEMO FLAGS DIFF FINAL; LYMPH % 9.1 % (9.0-44.0); MEAN CELL VOLUME 96.1 FL (80.0-100.0); MEAN CORPUSCULAR HGB CONC 33.3 % (32.0-36.0); MONO % 17.1 % (0.0-8.0); NEUT % 71.7 % (16.0-70.0); PLATELET COUNT 136 TH/MM3 (150-450); RED BLOOD COUNT 3.77 MIL/MM3 (4.50-5.90); RED CELL DISTRIBUTION WIDTH 13.8 % (11.6-17.2); WHITE BLOOD COUNT 11.5 TH/MM3 (4.0-11.0)
[2016-09-05 07:11] LABS: BICARBONATE 29.1 MEQ/L (21.0-32.0); MAGNESIUM 2.5 MG/DL (1.5-2.5); POTASSIUM 3.8 MEQ/L (3.5-5.1)
[2016-09-05] MEDS: RESP: ALBUTEROL 2.5 MG/IPRATROPIUM 0.5 MG NEB (SCH) NEB ×3 (07:28→19:58)
[2016-09-05] MEDS: TAMSULOSIN HCL 0.4 MG CAP PO SCH (08:32)
[2016-09-05] MEDS: DILTIAZEM-CD 240 MG CAP ER PO SCH (08:32)
[2016-09-05] MEDS: CARVEDILOL 6.25 MG TAB PO SCH (08:32)
[2016-09-05] MEDS: PANTOPRAZOLE SOD 40 MG DELAYED RELEASE TAB PO SCH (08:32)
[2016-09-05] MEDS: DOCUSATE SODIUM 100 MG/10 ML UDC PO SCH ×2 (08:32→21:00)
[2016-09-05] MEDS: SENNOSIDES SYRUP 8.8 MG/5 ML CUP PO SCH (08:32)
[2016-09-05] MEDS: SODIUM CHLORIDE 0.9% FLUSH 5 ML FLUSH IV FLUSH SCH ×2 (08:32→21:18)
[2016-09-05] MEDS: LORATADINE 10 MG TAB PO SCH (08:32)
[2016-09-05] MEDS: cloNIDine HCL 0.2 MG TAB PO SCH ×2 (08:32→21:16)
[2016-09-05] MEDS ORDERED: ACETYLCYSTEINE 20% ORAL SOLN 4 ML VIAL PO ONE (10:15)
[2016-09-05] MEDS: ACETAMINOPHEN/HYDROcodone 325 MG/5 MG TAB PO PRN (11:46)
[2016-09-05] MEDS: BENZONATATE 100 MG CAP PO PRN ×2 (11:46→22:12)
[2016-09-05] MEDS ORDERED: SODIUM BICARBONATE 8.4% INJ 150 MEQ in DEXTROSE 5% IN WATE 1000ML INJ 1,000 ML IV SCH ×2 (13:00)
[2016-09-05] MEDS ORDERED: BUMETANIDE INJ 1 MG/4 ML VIAL IV PUSH ONE (14:45)
[2016-09-05] MEDS ORDERED: POTASSIUM PHOSPHATE INJ 15 MMOL in SODIUM CHLORIDE 0.9% INJ 150 ML IV ONE (15:00)
--- NOTE | 2016-09-05 15:00 | HHI.CCPN ---
Subjective Remarks/Hospital Course Patient is an 89-year-old male with history of hypertension, long-standing tobacco abuse who presents to emergency room with complaints of chest pain back pain and epigastric pain. Started around 10 AM today, while shopping shopping and began to have increased pain to his chest. Denies nausea or vomiting or shortness of breath of symptoms. Never had chest pain in the past. Reports no history of coronary artery disease or [place] in the past. EKG showed no acute findings. 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 Patient also has bilateral common femoral artery aneurysms. Patient will be started on Cardene infusion and scheduled metoprolol along with when necessary labetalol for blood pressure and heart rate control. Medical management of the type B dissection. Discussed with vascular surgery Dr. Silverio, he will see the patient and make recommendation about the AAA. Patient may be a candidate for endovascular repair of AAA. I have discussed with Dr. Oliverio Mead from IR as well, also updated patient himself, his granddaughter at the bedside (Krystal). 09/01 The patient continues on nicardipine infusion, with goal of systolic blood pressure less than 110 per recommendations of vascular surgery. The patient has been placed on metoprolol XL, PO in addition to lisinopril and Cardizem home medications. The patient denies pain, requesting a diet. Will follow-up recommendations of vascular surgery. 09/02 Overnight the patient was able to be weaned down to Nicardipine infusion 3 mg/hr. The patient continues on Cardizem and lisinopril, home medications. Will add clonidine 0.2mg to medication regimen, with goal of weaning off nicardipine infusion. The patient denies pain at this time. Tolerating PO diet. 09/03: Resting in bed. Complaining of cough overnight. Continue to be in 5 L nasal cannula. Claritin added last night in addition to his home dose of Singulair for allergic rhinitis. Cardene drip restarted. Arousable and follows commands. [facility] 09/04: Afebrile. Cardiac drip off since yesterday morning. Noted blood pressure liberalized to 130s systolic per vascular. Continues to be on 5 L nasal cannula. Continues to complain of nonproductive cough. Subjective 09/05: Currently on 6 L nasal cannula and easily desaturates. Chest x-ray revealed possible left lower lobe effusion. We will gently diurese 1 now. Complains of nonproductive cough. Appears nonseptic. Objective Vital Signs Date Time Temp Pulse Resp B/P Pulse Ox O2 Delivery O2 Flow Rate FiO2 09/05/16 11:00 88 09/05/16 11:00 98.2 18 144/84 91 09/05/16 11:00 Nasal Cannula 5.00 Intake and Output 09/04/16 09/04/16 09/05/16 08:00 16:00 00:00 Intake Total 1080 ml 2019 ml Output Total 500 ml 1275 ml Balance 580 ml 744 ml Result Diagram: 09/05/16 0550 09/05/16 0550 Other Results Microbiology Date/Time Procedure Status Source Growth 08/31/16 16:35 Aerobic Blood Culture - Final Complete Blood Peripheral NO GROWTH IN 5 DAYS 08/31/16 16:35 Anaerobic Blood Culture - Final Complete Blood Peripheral NO GROWTH IN 5 DAYS Imaging Last Impressions Chest X-Ray 09/05/16 0600 Signed Impressions: Service Date/Time: Monday, September 05, 2016 04:57 - CONCLUSION: Bibasilar areas of consolidation or atelectasis being worse the left. Some degree of effusion on the left needs to be considered. Julius Flowers MD Lower Extremity Ultrasound 09/04/16 0000 Signed Impressions: Service Date/Time: Sunday, September 04, 2016 12:02 - CONCLUSION: Right common femoral artery disease and patchy femoropopliteal and tibial disease, nowhere critical. Finding in the left groin which may reflect thrombosis of pseudoaneurysm or thrombosed femoropopliteal graft ramos. Correlation recommended. Left SFA is occluded with reconstitution of above knee popliteal. If additional noninvasive evaluation is clinically warranted, CTA runoff study is recommended Julius Johnston MD Renal Ultrasound 09/03/16 0000 Signed Impressions: Service Date/Time: Saturday, September 03, 2016 11:14 - CONCLUSION: Small cyst in each kidney. Area cortical retraction left kidney . Otherwise negative Maicol Durant MD Aorta CTA 08/31/16 1247 Signed Impressions: Service Date/Time: Wednesday, August 31, 2016 14:02 - CONCLUSION: 1. Type B thoracic aortic dissection beginning just distal to the takeoff of the left subclavian artery. 2. Large infrarenal abdominal aortic aneurysm. 3. Bilateral common femoral artery aneurysms. 4. Bilateral low attenuation adrenal masses most characteristic of adenomas. These findings were called to Dr. Sims in the emergency room at 1450 hrs. Jaiden Mistry MD Objective Remarks GENERAL:89-year-old male, resting in chair in no acute distress on 6 L nasal cannula SKIN: Warm and dry. No rash HEAD: Atraumatic. Normocephalic. EYES: Pupils equal and round around 3 mm bilaterally and reactive. No scleral icterus. No injection or drainage. ENT: No nasal bleeding or discharge. Mucous membranes pink and moist. Nasal cannula NECK: Trachea midline. No JVD. CARDIOVASCULAR: Regular rate and rhythm. S1, S2. No S4. No murmur appreciated. RESPIRATORYclear to auscultation. Breath sounds equal bilaterally. GASTROINTESTINAL: Abdomen soft, non-tender, nondistended. Positive bowel sounds Pulsatile aorta palpable in the midline MUSCULOSKELETAL: No obvious deformities. No significant peripheral edema. NEUROLOGICAL: Awake and alert. No obvious cranial nerve deficits. Motor grossly within normal limits. Normal speech. A/P Assessment and Plan NEURO/PSYCH: Back pain due to aortic dissection -Pain control, Dilaudid and Lortab PRN -Currently asymptomatic RESP: Acute respiratory insufficiency Tobacco abuse COPD Allergic rhinitis Chronic cough -Nasal cannula 6LPM, wean as tolerated to maintain saturations greater or equal to 92% -DuoNeb every 6 hours while awake and when necessary. Added a cappella/PEP every 6 hours while awake Chest x-ray 09/05 revealed possible left lower lobe instrument/effusion. Continue low light though lobe atelectasis - On singular 10 mg daily and Claritin 10 mg daily for allergy rhinitis/ postnasal drip - As needed Tessalon Perles 200 mg every 8 hours for cough -Counseled on smoking cessation -Incentive spirometry, encourage use CV: [place] type B aortic dissection 6.7 cm infrarenal AAA Femoral artery aneurysm Hypertensive emergency -Cardene infusion currently off with target systolic blood pressure less than 130 per vascular surgery recommendations -IV labetalol, PRN. - Patient's home medication of lisinopril 10 mg daily/held due to elevated creatinine - diltiazem 240 mg daily switch to 60 mg 4 times a day with when necessary Cardizem 30 mg by mouth every 6 hours will be continued. - Clonidine 0.2 mg twice a day added with Coreg 12.5 twice a day -Sterile saline with 3 ampules sodium bicarbonate fluids at 42 ml per hour -Vascular surgery, on board Dr. Silverio -Plan for medical management of Type B dissection. ABIs ordered decreased flow left lower extremity. Ordered CTA GI: Hypoalbuminemia Bilateral adrenal adenoma Regular diet - Protonix for GI prophylaxis -Senna and Colace for bowel regimen FEN/renal/: Acute kidney injury Hypophosphatemia - resolved BPH Noted received IV dye 08/31. Possible contrast nephropathy -Monitor renal function closely -Monitor hourly urinary output -Electrolyte replacement per ICU protocol -Strict I and O's Avoid nephrotoxic drugs Check renal ultrasound/urine lites and eosinophils Continue Flomax 0.4 mg by mouth daily ID: -No evidence of infection HEME: Leukocytosis Anemia -Monitor CBC, CMP ENDO: -Euglycemic, continue to monitor PROPH: -Bilateral lower extremity SCDs. No pharmacological DVT prophylaxis contraindicated -IV Protonix for GI prophylaxis LINES: -Utilize peripheral IVs, central line if needed Critical Care: The total care time was 35 minutes. Time to perform other separately billable procedures was not included in the critical care time. Bautista Taylor MD Sep 05, 2016 15:00
[2016-09-05] MEDS: RESP: ALBUTEROL 2.5 MG/IPRATROPIUM 0.5 MG NEB (PRN) INH (18:07)
[2016-09-05] MEDS: DILTIAZEM HCL 60 MG TAB PO SCH ×2 (18:09→21:16)
--- NOTE | 2016-09-05 18:28 | PD.VS.PN ---
Subjective Subjective/Hospital Course Ordered CTA with runoff for tomorrow AM Creatinine 1.10 this am Objective Vitals/I&O Date Time Temp Pulse Resp B/P Pulse Ox O2 Delivery O2 Flow Rate FiO2 09/05/16 15:49 94 High Flow Nasal Cannula 40.00 100 09/05/16 15:00 92 Nasal Cannula 7.00 09/05/16 15:00 67 09/05/16 15:00 98.1 55 16 103/55 92 09/05/16 11:00 88 09/05/16 11:00 98.2 69 18 144/84 91 09/05/16 11:00 89 Nasal Cannula 5.00 09/05/16 07:28 86 Nasal Cannula 6.00 09/05/16 07:00 87 09/05/16 07:00 93 Nasal Cannula 5.00 09/05/16 07:00 97.9 76 18 126/88 93 09/05/16 03:18 65 09/05/16 03:18 98.2 63 18 130/76 94 09/05/16 03:18 94 Simple Mask 10.00 09/04/16 23:00 98.0 70 18 126/71 92 09/04/16 23:00 74 09/04/16 23:00 93 Simple Mask 10.00 09/04/16 20:24 94 Nasal Cannula 6.00 09/04/16 19:41 93 Nasal Cannula 5.00 Humidified 09/04/16 19:41 97.3 67 18 143/81 92 09/04/16 19:00 62 09/05/16 09/05/16 09/05/16 06:59 14:59 22:59 Intake Total 1008 ml 1304 ml Output Total 600 ml 1400 ml Balance 408 ml -96 ml Laboratory Laboratory Tests Test 09/05/16 05:50 White Blood Count 11.5 Red Blood Count 3.77 Hemoglobin 12.1 Hematocrit 36.2 Mean Corpuscular Volume 96.1 Mean Corpuscular Hemoglobin 32.0 Mean Corpuscular Hemoglobin 33.3 Concent Red Cell Distribution Width 13.8 Platelet Count 136 Mean Platelet Volume 9.3 Neutrophils (%) (Auto) 71.7 Lymphocytes (%) (Auto) 9.1 Monocytes (%) (Auto) 17.1 Eosinophils (%) (Auto) 1.7 Basophils (%) (Auto) 0.4 Neutrophils # (Auto) 8.2 Lymphocytes # (Auto) 1.0 Monocytes # (Auto) 2.0 Eosinophils # (Auto) 0.2 Basophils # (Auto) 0.0 CBC Comment DIFF FINAL Differential Comment Sodium Level 144 Potassium Level 3.8 Chloride Level 109 Carbon Dioxide Level 29.1 Anion Gap 6 Blood Urea Nitrogen 28 Creatinine 1.10 Estimat Glomerular Filtration 63 Rate Random Glucose 101 Calcium Level 7.9 Phosphorus Level 2.2 Magnesium Level 2.5 Imaging Last 48 hours Impressions Chest X-Ray 09/05/16 0600 Signed Impressions: Service Date/Time: Monday, September 05, 2016 04:57 - CONCLUSION: Bibasilar areas of consolidation or atelectasis being worse the left. Some degree of effusion on the left needs to be considered. Julius Flowers MD Lower Extremity Ultrasound 09/04/16 0000 Signed Impressions: Service Date/Time: Sunday, September 04, 2016 12:02 - CONCLUSION: Right common femoral artery disease and patchy femoropopliteal and tibial disease, nowhere critical. Finding in the left groin which may reflect thrombosis of pseudoaneurysm or thrombosed femoropopliteal graft ramos. Correlation recommended. Left SFA is occluded with reconstitution of above knee popliteal. If additional noninvasive evaluation is clinically warranted, CTA runoff study is recommended Julius Johnston MD Assessment and Plan Plan 1. aTBAD - Repeat CTA tomorrow AM Recommend ordered MIVF w/ HCO3 for renal protection. Keisha Alberts Sep 05, 2016 18:27
[2016-09-05] MEDS: CARVEDILOL 12.5 MG TAB PO SCH (21:16)
[2016-09-05] MEDS: MONTELUKAST SODIUM 10 MG TAB PO SCH (21:16)
[2016-09-05 21:19] LABS: BLOOD GAS BASE EXCESS 2.4 mmol/L (-2-2); BLOOD GAS CARBOXYHEMOGLOBIN 1.6 % (0-4); BLOOD GAS HCO3 26 mmol/L (22-26); BLOOD GAS METHEMOGLOBIN 0.8 % (0-2); BLOOD GAS O2 HGB SATURATION 92 % (90-100); BLOOD GAS OXYGEN CONTENT 15.3 Vol % (12.0-20.0); BLOOD GAS PCO2 39 mmHg (38-42); BLOOD GAS PO2 68 mmHg (61-120); BLOOD GAS TOTAL HGB 11.8 G/DL (12.0-16.0); TEMP CORR TO 98.6
[2016-09-05 21:20] LABS: CRITICAL VALUE NO; DRAW SITE RT RADIAL; FIO2 50 %; NUMBER OF ARTERIAL PUNCTURES 1; OXYGEN DEVICE BIPAP; STAT NO; ULNAR PULSE PRESENT; VENT SETTINGS IPAP12/EPAP5
--- NOTE | 2016-09-05 22:57 | RADRPT ---
EXAM DATE/TIME: 09/05/2016 22:44 [facility] COMPARISON: CTA THORACIC ABDOMINAL AORTA W 3D RECON, August 31, 2016, 14:02. CHEST SINGLE AP, September 05 7, 4:57. INDICATIONS : Shortness of breath with cough. RADIATION DOSE: 8.37 CTDIvol (mGy) MEDICAL HISTORY : Cardiovascular disease. Hypertension. SURGICAL HISTORY : None. ENCOUNTER: Initial ACUITY: 4 - 6 days PAIN SCALE: 3/10 LOCATION: Right anterior Chest TECHNIQUE: Volumetric scanning of the chest was performed. Using automated exposure control and adjustment of t he mA and/or kV according to patient size, radiation dose was kept as low as reasonably achievable to obtain optimal diagnostic quality images. FINDINGS: Low-attenuation bilateral pleural effusions have developed since the comparison CTA. These are modera te in size on the right and moderate to large on the left. There is associated dependent/compressive atelectasis of both lower lobes. Mild emphysema noted. There is no pneumothorax. Heart size stable, within normal limits. Coronary artery calcification again noted. There is a p retracheal lymph node that measures 14 mm in greatest short axis dimension, unchanged. No mediastinal hematoma demonstrated. Tortuous thoracic aorta with a type B aortic dissection and mural thrombus again noted. CONCLUSION: 1. Left greater than right pleural effusions and basilar consolidation, new since the prior CTA. 2. Based on this noncontrast study, no definite change in a type B aortic dissection. I don't see any blood in the mediastinum or pleural spaces. 3. Upper limits of normal to mildly enlarged mediastinal lymph nodes unchanged. 4. Coronary artery calcification again seen. Julius Valencia MD on September 05, 2016 at 22:50 Board Certified Radiologist. This report was verified electronically.
[2016-09-06] VITALS (17 sets, daily range): BP systolic 99–158; BP diastolic 58–84; PULSE 51–87; RESP 18–28; TEMP 96.5–98.5; O2SAT 50–99
[2016-09-06] MEDS: RESP: ALBUTEROL 2.5 MG/IPRATROPIUM 0.5 MG NEB (PRN) INH ×2 (00:17→04:02)
[2016-09-06] MEDS: CHLORHEXIDINE GLUCONATE 2 % 1 PACK (2 CLOTHS) TOP SCH (04:00)
--- NOTE | 2016-09-06 05:45 | RADRPT ---
EXAM DATE/TIME: 09/06/2016 04:12 [facility] COMPARISON: CHEST SINGLE AP, September 05, 2016, 4:57. INDICATIONS : Shortness of breath, possible pulmonary disease. MEDICAL HISTORY : Hypertension. Congestive heart failure. SURGICAL HISTORY : Hernia repair ENCOUNTER: Subsequent ACUITY: 1 week PAIN SCORE: 0/10 LOCATION: Bilateral chest FINDINGS: There is increased density at the mid and lower lungs bilaterally with silhouetting of the hemidiaphr agms. The heart size is enlarged. The aorta is widened. CONCLUSION: 1. Bibasilar areas of consolidation, atelectasis and possible effusion. 2. Cardiomegaly. Julius Flowers MD on September 06, 2016 at 5:43 Board Certified Radiologist. This report was verified electronically.
[2016-09-06] MEDS ORDERED: ACETYLCYSTEINE 20% 6,000 MG/30 ML ORAL SOLN VIAL PO ONE (06:00)
[2016-09-06 06:30] LABS: AUTOMATED NEUTROPHIL # 8.3 TH/MM3 (1.8-7.7); BASOPHIL # 0.1 TH/MM3 (0-0.2); BASOPHIL % 0.5 % (0.0-2.0); EOSINOPHIL # 0.1 TH/MM3 (0-0.4); EOSINOPHIL % 1.1 % (0.0-4.0); HEMATOCRIT 32.3 % (39.0-51.0); HEMO FLAGS DIFF FINAL; LYMPH % 9.2 % (9.0-44.0); MEAN CELL VOLUME 95.4 FL (80.0-100.0); MEAN CORPUSCULAR HEMOGLOBIN 32.7 PG (27.0-34.0); MEAN CORPUSCULAR HGB CONC 34.2 % (32.0-36.0); MONO % 15.5 % (0.0-8.0); NEUT % 73.7 % (16.0-70.0); PLATELET COUNT 133 TH/MM3 (150-450); RED BLOOD COUNT 3.38 MIL/MM3 (4.50-5.90); RED CELL DISTRIBUTION WIDTH 14.3 % (11.6-17.2); WHITE BLOOD COUNT 11.3 TH/MM3 (4.0-11.0)
[2016-09-06 06:57] LABS: ALKALINE PHOSPHATASE 58 U/L (45-117); ALT (GPT) 40 U/L (12-78); ANION GAP 5 MEQ/L (5-15); AST (GOT) 22 U/L (15-37); BICARBONATE 30.9 MEQ/L (21.0-32.0); BLOOD UREA NITROGEN 22 MG/DL (7-18); CHLORIDE 107 MEQ/L (98-107); GLOMERULAR FILTRATION RATE 70 ML/MIN (>89); MAGNESIUM 2.3 MG/DL (1.5-2.5); POTASSIUM 3.4 MEQ/L (3.5-5.1); SODIUM (NA) 143 MEQ/L (136-145); TOTAL BILIRUBIN ADULT 0.7 MG/DL (0.2-1.0)
[2016-09-06] MEDS: RESP: ALBUTEROL 2.5 MG/IPRATROPIUM 0.5 MG NEB (SCH) NEB ×4 (07:53→20:30)
[2016-09-06] MEDS: BENZONATATE 100 MG CAP PO PRN (09:51)
[2016-09-06] MEDS: SODIUM CHLORIDE 0.9% FLUSH 5 ML FLUSH IV FLUSH SCH ×2 (09:51→20:24)
[2016-09-06] MEDS: CARVEDILOL 12.5 MG TAB PO SCH ×2 (09:51→20:23)
[2016-09-06] MEDS: TAMSULOSIN HCL 0.4 MG CAP PO SCH (09:51)
[2016-09-06] MEDS: SENNOSIDES SYRUP 8.8 MG/5 ML CUP PO SCH (09:51)
[2016-09-06] MEDS: PANTOPRAZOLE SOD 40 MG DELAYED RELEASE TAB PO SCH (09:51)
[2016-09-06] MEDS: DILTIAZEM HCL 60 MG TAB PO SCH ×4 (09:51→20:23)
[2016-09-06] MEDS: cloNIDine HCL 0.2 MG TAB PO SCH ×2 (09:51→20:23)
[2016-09-06] MEDS: DOCUSATE SODIUM 100 MG/10 ML UDC PO SCH ×2 (09:51→20:23)
[2016-09-06] MEDS: LORATADINE 10 MG TAB PO SCH (09:51)
[2016-09-06] MEDS ORDERED: IOHEXOL 350 MG/ML 10 ML VIAL (for RAD DIAG) IV ONE (10:47)
--- NOTE | 2016-09-06 12:03 | RADRPT ---
EXAM DATE/TIME: 09/06/2016 11:41 [facility] COMPARISON: CT THORAX W/O CONTRAST, September 05, 2016, 22:44. CHEST SINGLE AP, September 06, 2016, 4:12. INDICATIONS : Post thoracentesis MEDICAL HISTORY : Congestive heart failure. Hypertension SURGICAL HISTORY : Inguinal hernia repair. ENCOUNTER: Initial ACUITY: 1 day PAIN SCORE: 0/10 LOCATION: Right chest FINDINGS: There has been interval near-complete evacuation of pleural fluid on the right. No evidence of pneumo thorax or other complication of thoracentesis. On the left, persistent consolidative change in effusi on is noted. The visualized cardiac contours are grossly stable. CONCLUSION: No evidence of pneumothorax Julius Johnston MD on September 06, 2016 at 11:59 Board Certified Radiologist. This report was verified electronically.
--- NOTE | 2016-09-06 12:57 | RADRPT ---
EXAM DATE/TIME: 09/06/2016 10:43 [facility] COMPARISON: CTA THORACIC ABDOMINAL AORTA W 3D RECON, August 31, 2016, 14:02. CT THORAX W/O CONTRAST, September 05, 2016, 22:44. INDICATIONS : Aneurysm. IV CONTRAST: 100 cc Omnipaque 350 (iohexol) IV ; Cumulative dose for multiple exams. RADIATION DOSE: 4.98 CTDIvol (mGy) ; Combined studies MEDICAL HISTORY : Hypertension. Cardiovascular disease SURGICAL HISTORY : None. ENCOUNTER: Subsequent ACUITY: 1 week PAIN SCALE: 0/10 LOCATION: chest TECHNIQUE: Volumetric scanning was performed using a multi-row detector CT scanner. The data was post processed with a variety of visualization algorithms including full volume maximum intensity projection, multi -planar sliding thin slab reformation, curved planar reformation, and surface rendering techniques. Using automated exposure control and adjustment of the mA and/or kV according to patient size, radiat ion dose was kept as low as reasonably achievable to obtain optimal diagnostic quality images. FINDINGS: Extensive extravascular findings are present which have progressed since the CTA exam from 6 days ago including interval development of large bilateral pleural effusions and extensive basilar parenchyma l consolidative change which may be entirely related to compressive atelectasis. The thoracic aorta is again notable for a [place] category B dissection which appears to begin at or just past the origin of the left subclavian artery. There is less homogeneous filling of the false l umen at the distal arch level and the false lumen is essentially unopacified in the descending thorac ic region. This may be related to bolus timing or may actually reflect some interval thrombosis of th e false lumen. The ascending thoracic aorta and the arch vessels are stable and grossly intact. In the upper abdomen, the visceral vessels are stable and patent. The infrarenal aorta is aneurysmal to a diameter of at least 6.4 cm with significant concentric mural thrombus again noted. The iliacs a re patent with mild aneurysmal dilatation of the left common iliac to a diameter of 2.1 cm. There is a small amount of free fluid in the pelvis. Prominent diverticula involving the colon. Prost ate is markedly enlarged. Renal cysts are again noted. CONCLUSION: Compared to the CTA from several days ago, the false lumen of thoracic aortic dissection is less well seen. This may be related to technical factors and bolus timing or may reflect some interval thrombo sis of the false lumen. Otherwise stable vascular findings. Interval development of large bilateral pleural effusions and lung base atelectasis. Julius Johnston MD on September 06, 2016 at 12:43 Board Certified Radiologist. This report was verified electronically.
[2016-09-06 13:11] LABS: TOTAL PROTEIN,PLEURAL FLUID 2.5 GM/DL
[2016-09-06] MEDS ORDERED: POTASSIUM CHLORIDE 10 MEQ CONTROLLED RELEASE TAB PO ONE (13:15)
--- NOTE | 2016-09-06 13:15 | HHI.CCPN ---
Subjective Remarks/Hospital Course Patient is an 89-year-old male with history of hypertension, long-standing tobacco abuse who presents to emergency room with complaints of chest pain back pain and epigastric pain. Started around 10 AM today, while shopping shopping and began to have increased pain to his chest. Denies nausea or vomiting or shortness of breath of symptoms. Never had chest pain in the past. Reports no history of coronary artery disease or NC in the past. EKG showed no acute findings. 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 Patient also has bilateral common femoral artery aneurysms. Patient will be started on Cardene infusion and scheduled metoprolol along with when necessary labetalol for blood pressure and heart rate control. Medical management of the type B dissection. Discussed with vascular surgery Dr. Silverio, he will see the patient and make recommendation about the AAA. Patient may be a candidate for endovascular repair of AAA. I have discussed with Dr. Oliverio Mead from IR as well, also updated patient himself, his granddaughter at the bedside (Krystal). 09/01 The patient continues on nicardipine infusion, with goal of systolic blood pressure less than 110 per recommendations of vascular surgery. The patient has been placed on metoprolol XL, PO in addition to lisinopril and Cardizem home medications. The patient denies pain, requesting a diet. Will follow-up recommendations of vascular surgery. 09/02 Overnight the patient was able to be weaned down to Nicardipine infusion 3 mg/hr. The patient continues on Cardizem and lisinopril, home medications. Will add clonidine 0.2mg to medication regimen, with goal of weaning off nicardipine infusion. The patient denies pain at this time. Tolerating PO diet. 09/03: Resting in bed. Complaining of cough overnight. Continue to be in 5 L nasal cannula. Claritin added last night in addition to his home dose of Singulair for allergic rhinitis. Cardene drip restarted. Arousable and follows commands. [facility] 09/04: Afebrile. Cardiac drip off since yesterday morning. Noted blood pressure liberalized to 130s systolic per vascular. Continues to be on 5 L nasal cannula. Continues to complain of nonproductive cough. 09/05: Currently on 6 L nasal cannula and easily desaturates. Chest x-ray revealed possible left lower lobe effusion. We will gently diurese 1 now. Complains of nonproductive cough. Appears nonseptic. Subjective 09/06: On BiPAP overnight due to hypoxia. CT chest revealed bilateral pleural effusion. Status post thoracentesis right side -550. Plan for left thoracentesis tomorrow. CTA runoff noted. Continue with aggressive pulmonary: . Continues with nonproductive cough. Objective Vital Signs Date Time Temp Pulse Resp B/P Pulse Ox O2 Delivery O2 Flow Rate FiO2 09/06/16 12:40 50 09/06/16 11:06 98.5 84 22 126/69 09/06/16 07:53 50 09/06/16 07:00 Bi-Pap 09/05/16 21:29 15.00 Intake and Output 09/05/16 09/05/16 09/06/16 08:00 16:00 00:00 Intake Total 1008 ml 1304 ml Output Total 600 ml 1400 ml Balance 408 ml -96 ml Result Diagram: 09/06/16 0600 09/06/16 0600 Other Results Microbiology Date/Time Procedure Status Source Growth 09/06/16 11:30 Gram Stain Received Fluid Pleural Fluid Pending 09/06/16 11:30 Body Fluid Culture Received Fluid Pleural Fluid Pending Imaging Last 72 hours Impressions Chest X-Ray 09/06/16 0600 Signed Impressions: Service Date/Time: August 04:12 - CONCLUSION: 1. Bibasilar areas of consolidation, atelectasis and possible effusion. 2. Cardiomegaly. Julius Flowers MD Aorta CTA 09/06/16 0600 Signed Impressions: Service Date/Time: August 10:43 - CONCLUSION: Compared to the CTA from several days ago, the false lumen of thoracic aortic dissection is less well seen. This may be related to technical factors and bolus timing or may reflect some interval thrombosis of the false lumen. Otherwise stable vascular findings. Interval development of large bilateral pleural effusions and lung base atelectasis. Julius Johnston MD Chest X-Ray 09/06/16 0000 Signed Impressions: Service Date/Time: August 11:41 - CONCLUSION: No evidence of pneumothorax Julius Johnston MD Chest X-Ray 09/05/16 0600 Signed Impressions: Service Date/Time: Monday, September 05, 2016 04:57 - CONCLUSION: Bibasilar areas of consolidation or atelectasis being worse the left. Some degree of effusion on the left needs to be considered. Julius Flowers MD Chest CT 09/05/16 0000 Signed Impressions: Service Date/Time: Monday, September 05, 2016 22:44 - CONCLUSION: 1. Left greater than right pleural effusions and basilar consolidation, new since the prior CTA. 2. Based on this noncontrast study, no definite change in a type B aortic dissection. I don't see any blood in the mediastinum or pleural spaces. 3. Upper limits of normal to mildly enlarged mediastinal lymph nodes unchanged. 4. Coronary artery calcification again seen. Julius Valencia MD Lower Extremity Ultrasound 09/04/16 0000 Signed Impressions: Service Date/Time: Sunday, September 04, 2016 12:02 - CONCLUSION: Right common femoral artery disease and patchy femoropopliteal and tibial disease, nowhere critical. Finding in the left groin which may reflect thrombosis of pseudoaneurysm or thrombosed femoropopliteal graft ramos. Correlation recommended. Left SFA is occluded with reconstitution of above knee popliteal. If additional noninvasive evaluation is clinically warranted, CTA runoff study is recommended Julius Johnston MD Objective Remarks GENERAL:89-year-old male, resting in bed on OptiFlow in no acute distress SKIN: Warm and dry. No rash HEAD: Atraumatic. Normocephalic. EYES: Pupils equal and round around 3 mm bilaterally and reactive. No scleral icterus. No injection or drainage. ENT: No nasal bleeding or discharge. Mucous membranes pink and moist. Nasal cannula NECK: Trachea midline. No JVD. CARDIOVASCULAR: Regular rate and rhythm. S1, S2. No S4. No murmur appreciated. RESPIRATORY: Diminished breath sounds bilaterally. Few crackles appreciated in the left lower lobe. Positive end expiratory wheeze. GASTROINTESTINAL: Abdomen soft, non-tender, nondistended. Positive bowel sounds less pulsatile aorta palpable in the midline MUSCULOSKELETAL: No obvious deformities. No significant peripheral edema. NEUROLOGICAL: Awake and alert. No obvious cranial nerve deficits. Motor grossly within normal limits. Normal speech. Urinary Catheter: Yes Assessment to: Continue Vaughan insert reason: ICU Pt Getting Diuretics Vascular Central Line Catheter: No Assessment to: Continue A/P Assessment and Plan NEURO/PSYCH: Back pain due to aortic dissection -Pain control, Dilaudid and Lortab PRN -Currently asymptomatic RESP: Acute respiratory insufficiency Tobacco abuse COPD Allergic rhinitis Chronic cough -BiPAP 10/5@50% versus OptiFlow wean as tolerated to maintain saturations greater or equal to 92% -DuoNeb every 6 hours scheduled and when necessary. Continue a cappella/PEP every [address] thorax revealed bilateral pleural effusions. Status post right thoracentesis by IR today -550 cc. Workup pleural fluid pending - On singular 10 mg daily and Claritin 10 mg daily for allergy rhinitis/ postnasal drip - As needed Tessalon Perles 200 mg every 8 hours for cough -Counseled on smoking cessation -Incentive spirometry, encourage use CV: [place] type B aortic dissection 6.7 cm infrarenal AAA Femoral artery aneurysm Hypertensive emergency -Cardene infusion currently off with target systolic blood pressure less than 130 per vascular surgery recommendations -IV labetalol, PRN. - Patient's home medication of lisinopril 10 mg daily/held due to elevated creatinine - diltiazem 240 mg daily switch to 60 mg 4 times a day with when necessary Cardizem 30 mg by mouth every 6 hours will be continued. - Clonidine 0.2 mg twice a day added with Coreg 12.5 twice a day -Sterile saline with 3 ampules sodium bicarbonate fluids at 42 ml per hour -Vascular surgery, on board Dr. Gastelum -Plan for medical management of Type B dissection. ABIs ordered decreased flow left lower extremity. Ordered CTA runoff today possible thrombus and false lumen. Otherwise stable GI: GI: Hypoalbuminemia Bilateral adrenal adenoma Regular diet - Protonix for GI prophylaxis -Senna and Colace for bowel regimen FEN/renal/: Acute kidney injury - resolved Hypophosphatemia - resolved BPH Noted received IV dye 08/31. Possible contrast nephropathy hence resolved. Currently bicarbonate drip/Mucomyst -Monitor renal function closely -Monitor hourly urinary output -Electrolyte replacement per ICU protocol -Strict I and O's Avoid nephrotoxic drugs Continue Flomax 0.4 mg by mouth daily ID: -No evidence of infection HEME: Leukocytosis Anemia -Monitor CBC, CMP ENDO: -Euglycemic, continue to monitor PROPH: -Bilateral lower extremity SCDs. No pharmacological DVT prophylaxis contraindicated -IV Protonix for GI prophylaxis LINES: -Utilize peripheral IVs, central line if needed Critical Care: The total care time was 35 minutes. Time to perform other separately billable procedures was not included in the critical care time. Bautista Taylor MD Sep 06, 2016 13:15
[2016-09-06 13:29] LABS: PLEURAL FLUID LYMPHS 6 %
--- NOTE | 2016-09-06 14:59 | RADRPT ---
EXAM DATE/TIME: 09/06/2016 10:38 [facility] COMPARISON: No previous studies available for comparison. INDICATIONS : Aneurysm. IV CONTRAST: 100 cc Omnipaque 350 (iohexol) IV ; Cumulative dose for multiple exams. RADIATION DOSE: 4.98 CTDIvol (mGy) ; Combined studies MEDICAL HISTORY : Cardiovascular disease. Hypertension. SURGICAL HISTORY : None. ENCOUNTER: Initial ACUITY: 1 week PAIN SCALE: 0/10 LOCATION: lower quadrant TECHNIQUE: Volumetric scanning was performed using a multi-row detector CT scanner. The data was post processed with a variety of visualization algorithms including full volume maximum intensity projection, multi -planar sliding thin slab reformation, curved planar reformation, and surface rendering techniques. Using automated exposure control and adjustment of the mA and/or kV according to patient size, radiat ion dose was kept as low as reasonably achievable to obtain optimal diagnostic quality images. FINDINGS: A 6.5 cm infrarenal abdominal aortic aneurysm is identified. Abundant eccentric mural thrombus is pre sent. Above the aneurysm, the aortic visceral vessels are intact and unremarkable. The left common il iac artery then also displays mild aneurysmal dilatation in its midportion to a diameter of just grea ter than 2 cm. The hypogastrics are patent bilaterally. The external iliacs are mildly diseased. There is aneurysmal dilatation of the distal right common femoral artery to a diameter of 2.8 cm. Ecc entric mural thrombus is present. No significant luminal stenosis. The profunda is patent. On the con tralateral left side, the profunda is patent. A thrombosed aneurysm appears to encompass the origin o f the SFA which is thereafter occluded. Maximum diameter is 3.2 cm. Right leg runoff is intact and unremarkable. In the left leg, flow reconstitutes in the above-knee popliteal artery which is a relatively healthy- appearing target vessel. 3 vessel left calf runoff is present with incidental note of a high origin o f the anterior tibial artery at the knee joint level. CONCLUSION: 6.5 cm abdominal aortic aneurysm and left common iliac artery aneurysm. Configuration does appear triny table for endovascular repair. 2.8 cm right common femoral artery aneurysm. Thrombosed aneurysm at the origin of the left superficial femoral artery which is thereafter occluded . Flow reconstitutes in the left popliteal artery. Julius Johnston MD on September 06, 2016 at 14:45 Board Certified Radiologist. This report was verified electronically.
--- NOTE | 2016-09-06 15:51 | RADRPT ---
EXAM DATE/TIME: 09/06/2016 11:10 [facility] COMPARISON: CHEST EXPIRATION ONLY, September 06, 2016, 11:41. INDICATIONS : Right pleural effusion. MEDICAL HISTORY : Hypertension. Chronic obstructive pulmonary disease. Macular degeneration. Dyspnea. Back pain. Fatig ue.Abdoninal artery aneurysm. Aortic dissection. Bilateral adrenal adenome. Acute kidney injury. [place]en [place].SURGICAL HISTORY : Bilateral cataract surgery. Hernia repair. Right knee arthroscopy. ENCOUNTER: Initial ACUITY: 1 day PAIN SCORE: 0/10 LOCATION: Right chest FLUID: Total volume of 550 cc of clear, yellow fluid was removed. Fluid was sent to lab for ordered studies. TECHNIQUE: 1. Ultrasound guidance for thoracentesis. 2. Thoracentesis. The risks, benefits, and alternatives to ultrasound guided thoracentesis were explained to the patien t in lay simple terms, including the risk of bleeding and infection. Written and verbal informed con sent was obtained. Appropriate area for thoracentesis was marked under ultrasound guidance with the patient in the uprig ht position. Overlying skin was prepped and draped in the usual sterile fashion and with local anest hetic, a dermatotomy was made with an 11 blade scalpel. A 6 [place] thoracentesis catheter was placed in the pleural space and fluid was removed. Catheter was then removed and a sterile dressing applie d. There were no immediate complications. The patient tolerated the procedure well and the left the ultrasound suite in stable condition. Chest radiograph is to be obtained. CONCLUSION: Uncomplicated ultrasound guided right thoracentesis with removal of 550 cc of fluid. Julius Watt MD on September 06, 2016 at 15:49 Board Certified Radiologist. This report was verified electronically.
[2016-09-06] MEDS: BUMETANIDE INJ 1 MG/4 ML VIAL IV PUSH SCH (18:16)
[2016-09-06] MEDS ORDERED: AZITHROMYCIN INJ 500 MG in SODIUM CHLOR 0.9% 250 ML INJ 250 ML IV ONE (19:00)
[2016-09-06] MEDS: MONTELUKAST SODIUM 10 MG TAB PO SCH (20:23)
[2016-09-06] MEDS: CEFEPIME INJ 2,000 MG in SODIUM CHLORIDE 0.9% INJ 100 ML IV SCH (20:25)
[2016-09-06] MEDS: RESP: SODIUM CHLORIDE 3% 4 ML NEB NEB SCH (20:30)
[2016-09-06 22:04] LABS: BLOOD, URINE NEG (NEG); COMMENT (UR) CATH-CULT NOT IND; CULTURE IF INDICATED CATH CULTURE NOT IND; GLUCOSE,URINE NEG (NEG); KETONE, URINE NEG (NEG); MUCUS URINE FEW /lpf (OCC); NITRITE,URINE NEG (NEG); PH, URINE 6.5 (5.0-8.5); SQUAMOUS EPITHELIAL CELL URINE <1 /hpf (0-5); URINE COLOR LIGHT-YELLOW (YELLW/STRAW)
[2016-09-07] VITALS (16 sets, daily range): BP systolic 98–130; BP diastolic 50–71; PULSE 51–81; RESP 20–22; TEMP 97.2–98.8; O2SAT 91–95
[2016-09-07] MEDS: RESP: SODIUM CHLORIDE 3% 4 ML NEB NEB SCH ×6 (00:51→19:54)
[2016-09-07] MEDS: RESP: ALBUTEROL 2.5 MG/IPRATROPIUM 0.5 MG NEB (SCH) NEB ×6 (00:51→19:54)
[2016-09-07] MEDS: CHLORHEXIDINE GLUCONATE 2 % 1 PACK (2 CLOTHS) TOP SCH (03:46)
[2016-09-07 04:55] LABS: AUTOMATED NEUTROPHIL # 10.3 TH/MM3 (1.8-7.7); BASOPHIL # 0.1 TH/MM3 (0-0.2); BASOPHIL % 0.4 % (0.0-2.0); EOSINOPHIL # 0.1 TH/MM3 (0-0.4); EOSINOPHIL % 0.8 % (0.0-4.0); HEMATOCRIT 30.5 % (39.0-51.0); HEMO FLAGS DIFF FINAL; LYMPH % 9.1 % (9.0-44.0); LYMPHOCYTE # 1.2 TH/MM3 (1.0-4.8); MEAN CELL VOLUME 95.7 FL (80.0-100.0); MEAN CORPUSCULAR HEMOGLOBIN 32.6 PG (27.0-34.0); MEAN CORPUSCULAR HGB CONC 34.1 % (32.0-36.0); MONO % 12.9 % (0.0-8.0); NEUT % 76.8 % (16.0-70.0); PLATELET COUNT 149 TH/MM3 (150-450); RED BLOOD COUNT 3.18 MIL/MM3 (4.50-5.90); RED CELL DISTRIBUTION WIDTH 14.1 % (11.6-17.2); WHITE BLOOD COUNT 13.4 TH/MM3 (4.0-11.0)
[2016-09-07 05:12] LABS: ALT (GPT) 36 U/L (12-78); ANION GAP 5 MEQ/L (5-15); AST (GOT) 20 U/L (15-37); BICARBONATE 32.8 MEQ/L (21.0-32.0); BLOOD UREA NITROGEN 20 MG/DL (7-18); CHLORIDE 107 MEQ/L (98-107); GLOMERULAR FILTRATION RATE 74 ML/MIN (>89); MAGNESIUM 2.2 MG/DL (1.5-2.5); POTASSIUM 3.4 MEQ/L (3.5-5.1); SODIUM (NA) 145 MEQ/L (136-145)
[2016-09-07 05:16] LABS: ALKALINE PHOSPHATASE 56 U/L (45-117); TOTAL BILIRUBIN ADULT 0.8 MG/DL (0.2-1.0)
[2016-09-07] MEDS: TAMSULOSIN HCL 0.4 MG CAP PO SCH (08:43)
[2016-09-07] MEDS: CARVEDILOL 12.5 MG TAB PO SCH ×2 (08:45→20:03)
[2016-09-07] MEDS: LORATADINE 10 MG TAB PO SCH (08:45)
[2016-09-07] MEDS: cloNIDine HCL 0.2 MG TAB PO SCH ×2 (08:46→20:03)
[2016-09-07] MEDS: PANTOPRAZOLE SOD 40 MG DELAYED RELEASE TAB PO SCH (08:46)
[2016-09-07] MEDS: DILTIAZEM HCL 60 MG TAB PO SCH ×4 (08:46→20:03)
[2016-09-07] MEDS: BUMETANIDE INJ 1 MG/4 ML VIAL IV PUSH SCH ×2 (08:47→18:04)
[2016-09-07] MEDS: SENNOSIDES SYRUP 8.8 MG/5 ML CUP PO SCH (08:47)
[2016-09-07] MEDS: CEFEPIME INJ 2,000 MG in SODIUM CHLORIDE 0.9% INJ 100 ML IV SCH ×2 (08:47→20:04)
[2016-09-07] MEDS: SODIUM CHLORIDE 0.9% FLUSH 5 ML FLUSH IV FLUSH SCH ×2 (08:48→20:04)
[2016-09-07] MEDS: DOCUSATE SODIUM 100 MG/10 ML UDC PO SCH ×2 (08:48→20:03)
--- NOTE | 2016-09-07 08:58 | HHI.CCPN ---
Subjective Remarks/Hospital Course Patient is an 89-year-old male with history of hypertension, long-standing tobacco abuse who presents to emergency room with complaints of chest pain back pain and epigastric pain. Started around 10 AM today, while shopping shopping and began to have increased pain to his chest. Denies nausea or vomiting or shortness of breath of symptoms. Never had chest pain in the past. Reports no history of coronary artery disease or [place] in the past. EKG showed no acute findings. 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 Patient also has bilateral common femoral artery aneurysms. Patient will be started on Cardene infusion and scheduled metoprolol along with when necessary labetalol for blood pressure and heart rate control. Medical management of the type B dissection. Discussed with vascular surgery Dr. Silverio, he will see the patient and make recommendation about the AAA. Patient may be a candidate for endovascular repair of AAA. I have discussed with Dr. Oliverio Mead from IR as well, also updated patient himself, his granddaughter at the bedside (Krystal). 09/01 The patient continues on nicardipine infusion, with goal of systolic blood pressure less than 110 per recommendations of vascular surgery. The patient has been placed on metoprolol XL, PO in addition to lisinopril and Cardizem home medications. The patient denies pain, requesting a diet. Will follow-up recommendations of vascular surgery. 09/02 Overnight the patient was able to be weaned down to Nicardipine infusion 3 mg/hr. The patient continues on Cardizem and lisinopril, home medications. Will add clonidine 0.2mg to medication regimen, with goal of weaning off nicardipine infusion. The patient denies pain at this time. Tolerating PO diet. 09/03: Resting in bed. Complaining of cough overnight. Continue to be in 5 L nasal cannula. Claritin added last night in addition to his home dose of Singulair for allergic rhinitis. Cardene drip restarted. Arousable and follows commands. [facility] 09/04: Afebrile. Cardiac drip off since yesterday morning. Noted blood pressure liberalized to 130s systolic per vascular. Continues to be on 5 L nasal cannula. Continues to complain of nonproductive cough. 09/05: Currently on 6 L nasal cannula and easily desaturates. Chest x-ray revealed possible left lower lobe effusion. We will gently diurese 1 now. Complains of nonproductive cough. Appears nonseptic. 09/06: On BiPAP overnight due to hypoxia. CT chest revealed bilateral pleural effusion. Status post thoracentesis right side -550. Plan for left thoracentesis tomorrow. CTA runoff noted. Continue with aggressive pulmonary: . Continues with nonproductive cough. Subjective 09/07: On BiPAP overnight. Currently on OptiFlow at 70%. Plan for left-sided thoracentesis today. Antibiotic yesterday secondary to persistent cough. Patient's been pancultured. Appears stable otherwise. Short of breath with any exertion. Objective Vital Signs Date Time Temp Pulse Resp B/P Pulse Ox O2 Delivery O2 Flow Rate FiO2 09/07/16 07:48 69 09/07/16 07:44 94 Bi-Pap 70 09/07/16 07:44 98.4 22 130/71 09/07/16 07:40 50.00 Intake and Output 09/06/16 09/06/16 09/07/16 08:00 16:00 00:00 Intake Total 1342 ml 962 ml Output Total 750 ml 700 ml Balance 592 ml 262 ml Result Diagram: 09/07/16 0341 09/07/16 0341 Other Results Microbiology Date/Time Procedure Status Source Growth 09/06/16 20:29 Aerobic Blood Culture Received Blood Peripheral Pending 09/06/16 20:29 Anaerobic Blood Culture Received Blood Peripheral Pending 09/06/16 11:30 Gram Stain - Final Resulted Fluid Pleural Fluid 09/06/16 11:30 Body Fluid Culture Resulted Fluid Pleural Fluid Pending Imaging Last Impressions Chest X-Ray 09/06/16 0600 Signed Impressions: Service Date/Time: August 04:12 - CONCLUSION: 1. Bibasilar areas of consolidation, atelectasis and possible effusion. 2. Cardiomegaly. Julius Flowers MD Aorta w/Runoff CTA 09/06/16 0600 Signed Impressions: Service Date/Time: August 10:38 - CONCLUSION: 6.5 cm abdominal aortic aneurysm and left common iliac artery aneurysm. Configuration does appear suitable for endovascular repair. 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 Flow reconstitutes in the left popliteal artery. Julius Johnston MD Aorta CTA 09/06/16 0600 Signed Impressions: Service Date/Time: August 10:43 - CONCLUSION: Compared to the CTA from several days ago, the false lumen of thoracic aortic dissection is less well seen. This may be related to technical factors and bolus timing or may reflect some interval thrombosis of the false lumen. Otherwise stable vascular findings. Interval development of large bilateral pleural effusions and lung base atelectasis. Julius Johnston MD Thoracentesis Ultrasound 09/06/16 0000 Signed Impressions: Service Date/Time: August 11:10 - CONCLUSION: Uncomplicated ultrasound guided right thoracentesis with removal of 550 cc of fluid. Julius Watt MD Chest CT 09/05/16 0000 Signed Impressions: Service Date/Time: Monday, September 05, 2016 22:44 - CONCLUSION: 1. Left greater than right pleural effusions and basilar consolidation, new since the prior CTA. 2. Based on this noncontrast study, no definite change in a type B aortic dissection. I don't see any blood in the mediastinum or pleural spaces. 3. Upper limits of normal to mildly enlarged mediastinal lymph nodes unchanged. 4. Coronary artery calcification again seen. Julius Valencia MD Lower Extremity Ultrasound 09/04/16 0000 Signed Impressions: Service Date/Time: Sunday, September 04, 2016 12:02 - CONCLUSION: Right common femoral artery disease and patchy femoropopliteal and tibial disease, nowhere critical. Finding in the left groin which may reflect thrombosis of pseudoaneurysm or thrombosed femoropopliteal graft ramos. Correlation recommended. Left SFA is occluded with reconstitution of above knee popliteal. If additional noninvasive evaluation is clinically warranted, CTA runoff study is recommended Julius Johnston MD Renal Ultrasound 09/03/16 0000 Signed Impressions: Service Date/Time: Saturday, September 03, 2016 11:14 - CONCLUSION: Small cyst in each kidney. Area cortical retraction left kidney . Otherwise negative Maicol Durant MD Objective Remarks GENERAL:89-year-old male, resting in bed on OptiFlow in no acute distress SKIN: Warm and dry. No rash HEAD: Atraumatic. Normocephalic. EYES: Pupils equal and round around 3 mm bilaterally and reactive. No scleral icterus. No injection or drainage. ENT: No nasal bleeding or discharge. Mucous membranes pink and moist. Nasal cannula NECK: Trachea midline. No JVD. CARDIOVASCULAR: Regular rate and rhythm. S1, S2. No S4. No murmur appreciated. RESPIRATORY: Diminished breath sounds bilaterally. Few crackles appreciated throughout the lung rider bilaterally. Positive end expiratory wheeze. GASTROINTESTINAL: Abdomen soft, non-tender, nondistended. Positive bowel sounds less pulsatile aorta palpable in the midline MUSCULOSKELETAL: No obvious deformities. No significant peripheral edema. NEUROLOGICAL: Awake and alert. No obvious cranial nerve deficits. Motor grossly within normal limits. Normal speech. A/P Assessment and Plan NEURO/PSYCH: Back pain due to aortic dissection -Pain control, Dilaudid and Lortab PRN -Currently asymptomatic RESP: Acute respiratory insufficiency Tobacco abuse COPD Allergic rhinitis Chronic cough -BiPAP 10/5@50% versus OptiFlow wean as tolerated to maintain saturations greater or equal to 92% -DuoNeb every 6 hours scheduled and when necessary. Continue a cappella/PEP every [address] thorax revealed bilateral pleural effusions. Status post right thoracentesis by IR 09/07 -550 cc. plan for left thoracentesis today - On singular 10 mg daily and Claritin 10 mg daily for allergy rhinitis/ postnasal drip - As needed Tessalon Perles 200 mg every 8 hours for cough -Counseled on smoking cessation -Incentive spirometry, encourage use CV: [place] type B aortic dissection 6.7 cm infrarenal AAA Femoral artery aneurysm Hypertensive emergency -Cardene infusion currently off with target systolic blood pressure less than 130 per vascular surgery recommendations -IV labetalol, PRN. - Patient's home medication of lisinopril 10 mg daily changed to 2.5 twice a day - diltiazem 240 mg daily switch to 60 mg 4 times a day with when necessary Cardizem 30 mg by mouth every 6 hours will be continued. - Clonidine 0.2 mg twice a day added with Coreg 12.5 twice a day -Sterile saline with 3 ampules sodium bicarbonate fluids at 42 ml per hour has been discontinued -Vascular surgery, on board Dr. Feezor -Plan for medical management of Type B dissection. ABIs ordered decreased flow left lower extremity. Ordered CTA runoff today possible thrombus and false lumen. Runoff shows 6.5 AAA. 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 Left NARGIS aneurysm. 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 Continue gentle diuresis with 1 dose of Diamox and Bumex 1 mg twice a day. GI: Hypoalbuminemia Bilateral adrenal adenoma Regular diet - Protonix for GI prophylaxis -Senna and Colace for bowel regimen FEN/renal/: Hypokalemia Hypophosphatemia - BPH Noted received IV dye 08/31. Possible contrast nephropathy hence resolved. Currently bicarbonate drip/Mucomyst -Monitor renal function closely -Monitor hourly urinary output -Electrolyte replacement per ICU protocol -Strict I and O's Avoid nephrotoxic drugs Continue Flomax 0.4 mg by mouth daily Received 20 mEq KCl 1 and 3 doses of Neutra-Phos. Recheck levels in a.m. ID: -No evidence of infection HEME: Leukocytosis Anemia -Monitor CBC, CMP ENDO: -Euglycemic, continue to monitor PROPH: -Bilateral lower extremity SCDs. No pharmacological DVT prophylaxis contraindicated -IV Protonix for GI prophylaxis LINES: -Utilize peripheral IVs, central line if needed Critical Care: The total care time was 35 minutes. Time to perform other separately billable procedures was not included in the critical care time. Bautista Taylor MD Sep 07, 2016 08:58
[2016-09-07] MEDS: POTASSIUM CL 40 MEQ/30 ML LIQ UDC PO/TUBE PRN (08:59)
[2016-09-07] MEDS ORDERED: PILL SPLITTER OTHER PRN (09:15)
[2016-09-07] MEDS: LISINOPRIL 5 MG TAB PO SCH ×2 (09:47→20:03)
[2016-09-07] MEDS ORDERED: POTASSIUM CHLORIDE 20 MEQ CONTROLLED RELEASE TAB PO ONE (10:00)
[2016-09-07] MEDS: LABETALOL HCL 100 MG/20 ML VIAL IV PUSH PRN (10:14)
[2016-09-07] MEDS ORDERED: ATROPINE SULFATE 1 MG/10 ML SYRINGE ONE (10:48)
[2016-09-07] MEDS ORDERED: EPINEPHrine HCL (1:10,000) 1 MG/10 ML SYRINGE ONE (10:48)
[2016-09-07 11:00] LABS: APTT (PATIENT) 32.4 SEC (24.3-30.1); PROTHROMBIN TIME - PATIENT 11.3 SEC (9.8-11.6)
--- NOTE | 2016-09-07 12:04 | RADRPT ---
EXAM DATE/TIME: 09/07/2016 11:51 [facility] COMPARISON: CHEST EXPIRATION ONLY, September 06, 2016, 11:41. INDICATIONS : Evaluate heart and lungs post thoracentesis. MEDICAL HISTORY : Hypertension. Congestive heart failure. Type B Thoracic Aortic Dissect. SURGICAL HISTORY : Inguinal hernia repair. ENCOUNTER: Initial ACUITY: 1 day PAIN SCORE: 0/10 LOCATION: chest FINDINGS: A single frontal expiratory view of the chest was performed. There is no pneumothorax. Bibasilar po rtable changes persist worse on the right. The chest is improved. Osseous structures are intact. CONCLUSION: Negative for pneumothorax. Lucas Mead MD FACR on September 07, 2016 at 12:01 Board Certified Radiologist. This report was verified electronically.
--- NOTE | 2016-09-07 12:16 | RADRPT ---
EXAM DATE/TIME: 09/07/2016 11:11 [facility] COMPARISON: No previous studies available for comparison. INDICATIONS : Left pleural effusion. MEDICAL HISTORY : Chronic obstructive pulmonary disease. Hypertension. Macular degeneration. Dyspnea. Back pain. Fatig ue. Abdoninal artery aneurysm. Aortic dissection. Bilateral adrenaladenome. Acute kidney injury. Amen ia. SURGICAL HISTORY : Bilateral cataract surgery. Hernia repair. Right knee arthroscopy. ENCOUNTER: Subsequent ACUITY: 2 days PAIN SCORE: 0/10 LOCATION: Left chest FLUID: Total volume of 590 cc of clear, yellow fluid was removed. Fluid was discarded. Thoracentesis was therapeutic only. TECHNIQUE: 1. Ultrasound guidance for thoracentesis. 2. Thoracentesis. The risks, benefits, and alternatives to ultrasound guided thoracentesis were explained to the patien t in lay simple terms, including the risk of bleeding and infection. Written and verbal informed con sent was obtained. Appropriate area for thoracentesis was marked under ultrasound guidance with the patient in the uprig ht position. Overlying skin was prepped and draped in the usual sterile fashion and with local anest hetic, a dermatotomy was made with an 11 blade scalpel. A 6 [place] thoracentesis catheter was placed in the pleural space and fluid was removed. Catheter was then removed and a sterile dressing applie d. There were no immediate complications. The patient tolerated the procedure well and the left the ultrasound suite in stable condition. Chest radiograph is to be obtained. CONCLUSION: Uncomplicated ultrasound guided thoracentesis. Lucas Mead MD FACR on September 07, 2016 at 12:14 Board Certified Radiologist. This report was verified electronically.
[2016-09-07] MEDS: POTASSIUM PHOSPHATE/SODIUM PHOSPHATE 250 MG TAB PO SCH ×2 (15:33→20:53)
[2016-09-07] MEDS: AZITHROMYCIN 500 MG/NS 250 ML IV SCH ×2 (18:03)
[2016-09-07] MEDS: MONTELUKAST SODIUM 10 MG TAB PO SCH (20:52)
--- NOTE | 2016-09-07 23:40 | RADRPT ---
EXAM DATE/TIME: 09/07/2016 21:41 [facility] COMPARISON: CTA RUNOFF W 3D RECON, September 06, 2016, 10:38. INDICATIONS : Bilateral leg swelling. MEDICAL HISTORY : Chronic obstructive pulmonary disease. Hypertension. Macular degeneration. Dyspnea. Back pain. Fatig ue. Abdoninal artery aneurysm. Aortic dissection. Bilateral adrenaladenome. Acute kidney injury. [place]en [place]. SURGICAL HISTORY : Bilateral cataract surgery. Hernia repair. Right knee arthroscopy. ENCOUNTER: Initial ACUITY: 1 day PAIN SCORE: 0/10 LOCATION: Bilateral legs. TECHNIQUE: Venous ultrasound of the left and right leg was performed from the inguinal ligament to the proximal calf. Real-time, color Doppler and spectral tracing, compression and augmentation techniques were us ed. FINDINGS: RIGHT LEG: There is normal compressibility of the deep venous system from the inguinal region to the proximal ca lf. No echogenic clot is seen in the lumen of the common femoral, femoral, popliteal, and posterior tibial veins. There is a normal response of the venous system to proximal and distal augmentation an d respiration. LEFT LEG: There is normal compressibility of the deep venous system from the inguinal region to the proximal ca lf. No echogenic clot is seen in the lumen of the common femoral, femoral, popliteal, and posterior tibial veins. There is a normal response of the venous system to proximal and distal augmentation an d respiration. CONCLUSION: 1. No evidence for DVT. There is a partially thrombosed aneurysm at the level of the left common femo ral artery. Edis Cabrera MD on September 07, 2016 at 23:36 Board Certified Radiologist. This report was verified electronically.
[2016-09-08] VITALS (15 sets, daily range): BP systolic 101–144; BP diastolic 59–84; PULSE 52–85; RESP 20–22; TEMP 97.7–98.8; O2SAT 88–95
[2016-09-08] MEDS: RESP: SODIUM CHLORIDE 3% 4 ML NEB NEB SCH ×7 (01:15→23:10)
[2016-09-08] MEDS: RESP: ALBUTEROL 2.5 MG/IPRATROPIUM 0.5 MG NEB (SCH) NEB ×7 (01:15→23:10)
[2016-09-08] MEDS: CHLORHEXIDINE GLUCONATE 2 % 1 PACK (2 CLOTHS) TOP SCH (04:00)
[2016-09-08 05:21] LABS: AUTOMATED NEUTROPHIL # 9.6 TH/MM3 (1.8-7.7); BASOPHIL # 0.1 TH/MM3 (0-0.2); BASOPHIL % 0.9 % (0.0-2.0); EOSINOPHIL # 0.2 TH/MM3 (0-0.4); EOSINOPHIL % 1.6 % (0.0-4.0); HEMATOCRIT 31.5 % (39.0-51.0); LYMPH % 9.6 % (9.0-44.0); LYMPHOCYTE # 1.2 TH/MM3 (1.0-4.8); MEAN CELL VOLUME 97.2 FL (80.0-100.0); MEAN CORPUSCULAR HEMOGLOBIN 33.1 PG (27.0-34.0); MONO % 12.7 % (0.0-8.0); NEUT % 75.2 % (16.0-70.0); PLATELET COUNT 166 TH/MM3 (150-450); RED BLOOD COUNT 3.24 MIL/MM3 (4.50-5.90); RED CELL DISTRIBUTION WIDTH 14.2 % (11.6-17.2); WHITE BLOOD COUNT 12.7 TH/MM3 (4.0-11.0)
[2016-09-08 05:48] LABS: MAGNESIUM 2.3 MG/DL (1.5-2.5); POTASSIUM 3.3 MEQ/L (3.5-5.1)
[2016-09-08 05:58] LABS: HEMO FLAGS AUTO DIFF
[2016-09-08] MEDS: POTASSIUM PHOSPHATE/SODIUM PHOSPHATE 250 MG TAB PO SCH (06:26)
--- NOTE | 2016-09-08 07:23 | HHI.CCPN ---
Subjective Remarks/Hospital Course Patient is an 89-year-old male with history of hypertension, long-standing tobacco abuse who presents to emergency room with complaints of chest pain back pain and epigastric pain. Started around 10 AM today, while shopping shopping and began to have increased pain to his chest. Denies nausea or vomiting or shortness of breath of symptoms. Never had chest pain in the past. Reports no history of coronary artery disease or [place] in the past. EKG showed no acute findings. 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 Patient also has bilateral common femoral artery aneurysms. Patient will be started on Cardene infusion and scheduled metoprolol along with when necessary labetalol for blood pressure and heart rate control. Medical management of the type B dissection. Discussed with vascular surgery Dr. Silverio, he will see the patient and make recommendation about the AAA. Patient may be a candidate for endovascular repair of AAA. I have discussed with Dr. Oliverio Mead from IR as well, also updated patient himself, his granddaughter at the bedside (Krystal). 09/01 The patient continues on nicardipine infusion, with goal of systolic blood pressure less than 110 per recommendations of vascular surgery. The patient has been placed on metoprolol XL, PO in addition to lisinopril and Cardizem home medications. The patient denies pain, requesting a diet. Will follow-up recommendations of vascular surgery. 09/02 Overnight the patient was able to be weaned down to Nicardipine infusion 3 mg/hr. The patient continues on Cardizem and lisinopril, home medications. Will add clonidine 0.2mg to medication regimen, with goal of weaning off nicardipine infusion. The patient denies pain at this time. Tolerating PO diet. 09/03: Resting in bed. Complaining of cough overnight. Continue to be in 5 L nasal cannula. Claritin added last night in addition to his home dose of Singulair for allergic rhinitis. Cardene drip restarted. Arousable and follows commands. [facility] 09/04: Afebrile. Cardiac drip off since yesterday morning. Noted blood pressure liberalized to 130s systolic per vascular. Continues to be on 5 L nasal cannula. Continues to complain of nonproductive cough. 09/05: Currently on 6 L nasal cannula and easily desaturates. Chest x-ray revealed possible left lower lobe effusion. We will gently diurese 1 now. Complains of nonproductive cough. Appears nonseptic. 09/06: On BiPAP overnight due to hypoxia. CT chest revealed bilateral pleural effusion. Status post thoracentesis right side -550. Plan for left thoracentesis tomorrow. CTA runoff noted. Continue with aggressive pulmonary: . Continues with nonproductive cough. 09/07: On BiPAP overnight. Currently on OptiFlow at 70%. Plan for left-sided thoracentesis today. Antibiotic yesterday secondary to persistent cough. Patient's been pancultured. Appears stable otherwise. Short of breath with any exertion. Subjective 09/08: Afebrile. On BiPAP again overnight. Currently on OptiFlow at 65%. Status post bilateral thoracentesis with transudative effusions. Appears comfortable. Daily productive cough or sputum. Become short of breath with any exertion. Objective Vital Signs Date Time Temp Pulse Resp B/P Pulse Ox O2 Delivery O2 Flow Rate FiO2 09/08/16 04:31 92 High Flow Nasal Cannula 55.00 80 09/08/16 04:00 98.5 56 20 114/74 Intake and Output 09/07/16 09/07/16 09/08/16 08:00 16:00 00:00 Intake Total 1094 ml 1400 ml Output Total 1400 ml 1800 ml Balance -306 ml -400 ml Result Diagram: 09/08/16 0436 09/08/16 0436 Other Results Microbiology Date/Time Procedure Status Source Growth 09/07/16 09:26 Gram Stain - Final Resulted Sputum Expectorated Sputum 09/07/16 09:26 Sputum Culture Resulted Sputum Expectorated Sputum Pending 09/06/16 20:29 Aerobic Blood Culture - Preliminary Resulted Blood Peripheral NO GROWTH IN 1 DAY 09/06/16 20:29 Anaerobic Blood Culture - Preliminary Resulted Blood Peripheral NO GROWTH IN 1 DAY Imaging Last Impressions Thoracentesis Ultrasound 09/07/16 0900 Signed Impressions: Service Date/Time: Wednesday, September 07, 2016 11:11 - CONCLUSION: Uncomplicated ultrasound guided thoracentesis. Lucas Mead MD FACR Lower Extremity Ultrasound 09/07/16 0000 Signed Impressions: Service Date/Time: Wednesday, September 07, 2016 21:41 - CONCLUSION: 1. No evidence for DVT. 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 Edis Cabrera MD Chest X-Ray 09/07/16 0000 Signed Impressions: Service Date/Time: Wednesday, September 07, 2016 11:51 - CONCLUSION: Negative for pneumothorax. Lucas Mead MD FACR Aorta w/Runoff CTA 09/06/16 0600 Signed Impressions: Service Date/Time: August 10:38 - CONCLUSION: 6.5 cm abdominal aortic aneurysm and left common iliac artery aneurysm. Configuration does appear suitable for endovascular repair. 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 Flow reconstitutes in the left popliteal artery. Julius Johnston MD Aorta CTA 09/06/16 0600 Signed Impressions: Service Date/Time: August 10:43 - CONCLUSION: Compared to the CTA from several days ago, the false lumen of thoracic aortic dissection is less well seen. This may be related to technical factors and bolus timing or may reflect some interval thrombosis of the false lumen. Otherwise stable vascular findings. Interval development of large bilateral pleural effusions and lung base atelectasis. Julius Johnston MD Chest CT 09/05/16 0000 Signed Impressions: Service Date/Time: Monday, September 05, 2016 22:44 - CONCLUSION: 1. Left greater than right pleural effusions and basilar consolidation, new since the prior CTA. 2. Based on this noncontrast study, no definite change in a type B aortic dissection. I don't see any blood in the mediastinum or pleural spaces. 3. Upper limits of normal to mildly enlarged mediastinal lymph nodes unchanged. 4. Coronary artery calcification again seen. Julius Valencia MD Renal Ultrasound 09/03/16 0000 Signed Impressions: Service Date/Time: Saturday, September 03, 2016 11:14 - CONCLUSION: Small cyst in each kidney. Area cortical retraction left kidney . Otherwise negative Maicol Durant MD Objective Remarks GENERAL:89-year-old male, resting in bed on OptiFlow in no acute distress SKIN: Warm and dry. No rash HEAD: Atraumatic. Normocephalic. EYES: Pupils equal and round around 3 mm bilaterally and reactive. No scleral icterus. No injection or drainage. ENT: No nasal bleeding or discharge. Mucous membranes pink and moist. Nasal cannula NECK: Trachea midline. No JVD. CARDIOVASCULAR: Regular rate and rhythm. S1, S2. No S4. No murmur appreciated. RESPIRATORY: Diminished breath sounds bilaterally. Few crackles appreciated throughout the lung rider bilaterally. Positive end expiratory wheeze. GASTROINTESTINAL: Abdomen soft, non-tender, nondistended. Positive bowel sounds less pulsatile aorta palpable in the midline MUSCULOSKELETAL: No obvious deformities. No significant peripheral edema. NEUROLOGICAL: Awake and alert. No obvious cranial nerve deficits. Motor grossly within normal limits. Normal speech. Urinary Catheter: Yes Assessment to: Continue Vaughan insert reason: ICU Pt Getting Diuretics Vascular Central Line Catheter: No Assessment to: Continue A/P Assessment and Plan NEURO/PSYCH: Back pain due to aortic dissection -Pain control, Dilaudid and Lortab PRN -Currently asymptomatic RESP: Acute respiratory insufficiency Tobacco abuse COPD Allergic rhinitis Chronic cough -BiPAP 10/5@50% versus OptiFlow 55 L at 65% FiO2 wean as tolerated to maintain saturations around 92% -DuoNeb every 6 hours scheduled and when necessary. Continue a cappella/PEP every [address] thorax revealed bilateral pleural effusions. Status post right thoracentesis by IR 09/06 -550 cc. left thoracentesis -5 80 cc 09/07. Right- sided was transudative. - On singular 10 mg daily and Claritin 10 mg daily for allergy rhinitis/ postnasal drip - As needed Tessalon Perles 200 mg every 8 hours for cough -Counseled on smoking cessation -Incentive spirometry, encourage use Follow-up chest x-ray in a.m. Added Symbicort and low-dose steroids today. See orders CV: [place] type B aortic dissection 6.7 cm infrarenal AAA Femoral artery aneurysm Hypertensive emergency -Cardene infusion currently off with target systolic blood pressure less than 130 per vascular surgery recommendations -IV labetalol, PRN. - Patient's home medication of lisinopril 10 mg daily changed to 2.5 twice a day - diltiazem 240 mg daily switch to 60 mg 4 times a day with when necessary Cardizem 30 mg by mouth every 6 hours will be continued. - Clonidine 0.2 mg twice a day added with Coreg 12.5 twice a day -Vascular surgery, on board Dr. Gastelum -Plan for medical management of Type B dissection for now. ABIs ordered decreased flow left lower extremity. Ordered CTA runoff today possible thrombus and false lumen. Runoff shows 6.5 AAA. 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 Left NARGIS aneurysm. 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 Continue gentle diuresis with Bumex 1 mg twice a day. GI: Hypoalbuminemia Bilateral adrenal adenoma Regular diet - Protonix for GI prophylaxis -Senna and Colace for bowel regimen FEN/renal/: Hypokalemia BPH Noted received IV dye 08/31. Possible contrast nephropathy hence resolved. Currently bicarbonate drip/Mucomyst has been discontinued -Monitor renal function closely -Monitor hourly urinary output -Electrolyte replacement per ICU protocol We'll give 30 mEq potassium chloride twice a day today 1. Recheck in a.m. -Strict I and O's Avoid nephrotoxic drugs Continue Flomax 0.4 mg by mouth daily ID: Possible URI -Day #3 cefepime and Zithromax Pertinent cultures 09/07 - sputum - pending 09/06 - blood cultures 2 - no growth 09/06 - pleural fluid - no growth 08/31 - blood cultures 2 - no growth HEME: Leukocytosis Anemia -Monitor CBC, CMP ENDO: -Euglycemic, continue to monitor PROPH: -Bilateral lower extremity SCDs. No pharmacological DVT prophylaxis contraindicated -IV Protonix for GI prophylaxis LINES: -Utilize peripheral IVs, central line if needed Critical Care: The total care time was 35 minutes. Time to perform other separately billable procedures was not included in the critical care time. Bautista Taylor MD Sep 08, 2016 07:23
[2016-09-08] MEDS: CEFEPIME INJ 2,000 MG in SODIUM CHLORIDE 0.9% INJ 100 ML IV SCH ×2 (07:49→20:24)
[2016-09-08] MEDS: POTASSIUM CL 40 MEQ/30 ML LIQ UDC PO/TUBE PRN (08:50)
[2016-09-08] MEDS: POTASSIUM CHLORIDE 10 MEQ CONTROLLED RELEASE TAB PO SCH ×2 (08:51→20:25)
[2016-09-08] MEDS: TAMSULOSIN HCL 0.4 MG CAP PO SCH (08:51)
[2016-09-08] MEDS: PANTOPRAZOLE SOD 40 MG DELAYED RELEASE TAB PO SCH (08:51)
[2016-09-08] MEDS: BUMETANIDE INJ 1 MG/4 ML VIAL IV PUSH SCH ×2 (08:51→17:34)
[2016-09-08] MEDS: LORATADINE 10 MG TAB PO SCH (08:51)
[2016-09-08] MEDS: methylPREDNISolone SOD SUCC 40 MG/1 ML VIAL IV PUSH SCH ×2 (08:51→20:24)
[2016-09-08] MEDS: LISINOPRIL 5 MG TAB PO SCH ×2 (08:51→20:24)
[2016-09-08] MEDS: DILTIAZEM HCL 60 MG TAB PO SCH ×5 (08:52→20:26)
[2016-09-08] MEDS: CARVEDILOL 12.5 MG TAB PO SCH ×3 (08:52→20:25)
[2016-09-08] MEDS: SENNOSIDES SYRUP 8.8 MG/5 ML CUP PO SCH (08:52)
[2016-09-08] MEDS: DOCUSATE SODIUM 100 MG/10 ML UDC PO SCH ×2 (08:52→20:22)
[2016-09-08] MEDS: cloNIDine HCL 0.2 MG TAB PO SCH ×2 (08:52→20:25)
[2016-09-08] MEDS: SODIUM CHLORIDE 0.9% FLUSH 5 ML FLUSH IV FLUSH SCH ×2 (08:53→20:24)
[2016-09-08] MEDS: BUDESONIDE-FORMOTEROL 160/4.5 MCG INHALER INH SCH ×2 (11:03→20:26)
[2016-09-08 14:52] LABS: SCAN/DIFF AUTO DIFF CONFIRMED
[2016-09-08] MEDS: LABETALOL HCL 100 MG/20 ML VIAL IV PUSH PRN ×4 (16:01→22:40)
[2016-09-08] MEDS: DILTIAZEM HCL 30 MG TAB PO PRN (16:17)
[2016-09-08] MEDS: AZITHROMYCIN 500 MG/NS 250 ML IV SCH ×2 (17:34)
[2016-09-08] MEDS: MONTELUKAST SODIUM 10 MG TAB PO SCH (20:28)
[2016-09-09] VITALS (8 sets, daily range): BP systolic 127–142; BP diastolic 61–74; PULSE 53–91; RESP 18–26; TEMP 98.1–98.6; O2SAT 91–94
[2016-09-09] MEDS: hydrALAZINE HCL 20 MG/ML VIAL IV PUSH PRN (00:27)
[2016-09-09] MEDS: RESP: ALBUTEROL 2.5 MG/IPRATROPIUM 0.5 MG NEB (SCH) NEB ×6 (03:25→23:31)
[2016-09-09] MEDS: RESP: SODIUM CHLORIDE 3% 4 ML NEB NEB SCH ×4 (03:25→16:00)
[2016-09-09] MEDS: CHLORHEXIDINE GLUCONATE 2 % 1 PACK (2 CLOTHS) TOP SCH (04:00)
--- NOTE | 2016-09-09 04:59 | RADRPT ---
EXAM DATE/TIME: 09/09/2016 03:31 [place] COMPARISON: CHEST SINGLE AP, September 06, 2016, 4:12. INDICATIONS : Shortness of breath, possible pulmonary disease. MEDICAL HISTORY : Hypertension. Congestive heart failure. SURGICAL HISTORY : Hernia repair ENCOUNTER: Subsequent ACUITY: 2 weeks PAIN SCORE: Non-responsive. LOCATION: Bilateral chest FINDINGS: Bilateral lower lobe consolidation, cardiomegaly and degenerative changes of the spine are noted. Sma ll effusion on the left suspected. CONCLUSION: No significant change has occurred. Edis Cabrera MD on September 09, 2016 at 4:57 Board Certified Radiologist. This report was verified electronically.
[2016-09-09 07:40] LABS: AUTOMATED NEUTROPHIL # 14.4 TH/MM3 (1.8-7.7); BASOPHIL % 0.3 % (0.0-2.0); HEMATOCRIT 32.4 % (39.0-51.0); LYMPH % 4.2 % (9.0-44.0); LYMPHOCYTE # 0.7 TH/MM3 (1.0-4.8); MEAN CELL VOLUME 96.3 FL (80.0-100.0); MEAN CORPUSCULAR HEMOGLOBIN 31.4 PG (27.0-34.0); MEAN CORPUSCULAR HGB CONC 32.6 % (32.0-36.0); MONO % 5.5 % (0.0-8.0); PLATELET COUNT 181 TH/MM3 (150-450); RED BLOOD COUNT 3.37 MIL/MM3 (4.50-5.90); RED CELL DISTRIBUTION WIDTH 14.1 % (11.6-17.2); WHITE BLOOD COUNT 15.9 TH/MM3 (4.0-11.0)
[2016-09-09] MEDS: CEFEPIME INJ 2,000 MG in SODIUM CHLORIDE 0.9% INJ 100 ML IV SCH ×2 (07:56→21:02)
[2016-09-09] MEDS: PANTOPRAZOLE SOD 40 MG DELAYED RELEASE TAB PO SCH (07:57)
[2016-09-09] MEDS: methylPREDNISolone SOD SUCC 40 MG/1 ML VIAL IV PUSH SCH ×2 (07:57→21:02)
[2016-09-09] MEDS: LORATADINE 10 MG TAB PO SCH (07:57)
[2016-09-09] MEDS: DILTIAZEM HCL 60 MG TAB PO SCH ×4 (07:57→21:03)
[2016-09-09] MEDS: cloNIDine HCL 0.2 MG TAB PO SCH ×2 (07:57→21:03)
[2016-09-09] MEDS: TAMSULOSIN HCL 0.4 MG CAP PO SCH (07:58)
[2016-09-09] MEDS: CARVEDILOL 12.5 MG TAB PO SCH (07:58)
[2016-09-09] MEDS: SENNOSIDES SYRUP 8.8 MG/5 ML CUP PO SCH (07:59)
[2016-09-09] MEDS: DOCUSATE SODIUM 100 MG/10 ML UDC PO SCH ×2 (07:59→21:03)
[2016-09-09 08:00] LABS: BICARBONATE 23.2 MEQ/L (21.0-32.0); MAGNESIUM 2.2 MG/DL (1.5-2.5); POTASSIUM 3.3 MEQ/L (3.5-5.1)
[2016-09-09] MEDS: BUMETANIDE INJ 1 MG/4 ML VIAL IV PUSH SCH (08:00)
[2016-09-09] MEDS: SODIUM CHLORIDE 0.9% FLUSH 5 ML FLUSH IV FLUSH SCH ×2 (08:00→21:02)
[2016-09-09 08:01] LABS: HEMO FLAGS AUTO DIFF
[2016-09-09] MEDS: BUDESONIDE-FORMOTEROL 160/4.5 MCG INHALER INH SCH ×2 (08:01→21:04)
[2016-09-09] MEDS: LISINOPRIL 5 MG TAB PO SCH ×2 (08:01→21:03)
[2016-09-09 11:02] LABS: BANDS 14 % (0-6); MYELOCYTES 2 % (0-0); NEUTROPHIL # MANUAL DIFF 14.2 TH/MM3 (1.8-7.7); POLYS (SEG NEUTROPHILS) 73 % (16-70); WBC DIFF SAMPLE 100
[2016-09-09 11:03] LABS: PLATELET ESTIMATE SMEAR NORMAL (NORMAL); PLATELET MORPHOLOGY NORMAL (NORMAL); POLYCHROMASIA 2.3 % (0.0-1.9); SCAN/DIFF FINAL DIFF MANUAL
--- NOTE | 2016-09-09 14:43 | HHI.CCPN ---
Subjective Remarks/Hospital Course Patient is an 89-year-old male with history of hypertension, long-standing tobacco abuse who presents to emergency room with complaints of chest pain back pain and epigastric pain. Started around 10 AM today, while shopping shopping and began to have increased pain to his chest. Denies nausea or vomiting or shortness of breath of symptoms. Never had chest pain in the past. Reports no history of coronary artery disease or [place] in the past. EKG showed no acute findings. 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 Patient also has bilateral common femoral artery aneurysms. Patient will be started on Cardene infusion and scheduled metoprolol along with when necessary labetalol for blood pressure and heart rate control. Medical management of the type B dissection. Discussed with vascular surgery Dr. Silverio, he will see the patient and make recommendation about the AAA. Patient may be a candidate for endovascular repair of AAA. I have discussed with Dr. Oliverio Mead from IR as well, also updated patient himself, his granddaughter at the bedside (Krystal). 09/01 The patient continues on nicardipine infusion, with goal of systolic blood pressure less than 110 per recommendations of vascular surgery. The patient has been placed on metoprolol XL, PO in addition to lisinopril and Cardizem home medications. The patient denies pain, requesting a diet. Will follow-up recommendations of vascular surgery. 09/02 Overnight the patient was able to be weaned down to Nicardipine infusion 3 mg/hr. The patient continues on Cardizem and lisinopril, home medications. Will add clonidine 0.2mg to medication regimen, with goal of weaning off nicardipine infusion. The patient denies pain at this time. Tolerating PO diet. 09/03: Resting in bed. Complaining of cough overnight. Continue to be in 5 L nasal cannula. Claritin added last night in addition to his home dose of Singulair for allergic rhinitis. Cardene drip restarted. Arousable and follows commands. [facility] 09/04: Afebrile. Cardiac drip off since yesterday morning. Noted blood pressure liberalized to 130s systolic per vascular. Continues to be on 5 L nasal cannula. Continues to complain of nonproductive cough. 09/05: Currently on 6 L nasal cannula and easily desaturates. Chest x-ray revealed possible left lower lobe effusion. We will gently diurese 1 now. Complains of nonproductive cough. Appears nonseptic. 09/06: On BiPAP overnight due to hypoxia. CT chest revealed bilateral pleural effusion. Status post thoracentesis right side -550. Plan for left thoracentesis tomorrow. CTA runoff noted. Continue with aggressive pulmonary: . Continues with nonproductive cough. 09/07: On BiPAP overnight. Currently on OptiFlow at 70%. Plan for left-sided thoracentesis today. Antibiotic yesterday secondary to persistent cough. Patient's been pancultured. Appears stable otherwise. Short of breath with any exertion. 09/08: Afebrile. On BiPAP again overnight. Currently on OptiFlow at 65%. Status post bilateral thoracentesis with transudative effusions. Appears comfortable. Daily productive cough or sputum. Become short of breath with any exertion. Subjective 09/09: Afebrile. Currently on high flow nasal cannula at 65%. Appears couple. Continues to have dry productive cough of clear sputum. With any movement patient desats. When lying still patient very comfortable and not using accessory muscles and able to speak complete sentences comfortably Objective Vital Signs Date Time Temp Pulse Resp B/P Pulse Ox O2 Delivery O2 Flow Rate FiO2 09/09/16 12:00 98.4 57 18 129/67 92 09/09/16 11:00 Nasal Cannula 80 Humidified 09/09/16 07:48 55.00 Intake and Output 09/08/16 09/08/16 09/09/16 08:00 16:00 00:00 Intake Total 520 ml 600 ml 300 ml Output Total 600 ml 1400 ml 800 ml Balance -80 ml -800 ml -500 ml Result Diagram: 09/09/16 0633 09/09/16 0633 Other Results Microbiology Date/Time Procedure Status Source Growth 09/07/16 09:26 Gram Stain - Final Complete Sputum Expectorated Sputum 09/07/16 09:26 Sputum Culture - Final Complete Sputum Expectorated Sputum HEAVY GROWTH NORMAL RESPIRATORY ERWIN 09/06/16 20:29 Aerobic Blood Culture - Preliminary Resulted Blood Peripheral NO GROWTH IN 3 DAYS 09/06/16 20:29 Anaerobic Blood Culture - Preliminary Resulted Blood Peripheral NO GROWTH IN 3 DAYS Imaging Last Impressions Chest X-Ray 09/09/16599 Signed Impressions: Service Date/Time: Friday, September 09, 2016 03:31 - CONCLUSION: No significant change has occurred. Edis Cabrera MD Thoracentesis Ultrasound 09/07/16899 Signed Impressions: Service Date/Time: Wednesday, September 07, 2016 11:11 - CONCLUSION: Uncomplicated ultrasound guided thoracentesis. Lucas Mead MD FACR Lower Extremity Ultrasound 09/07/16 Signed Impressions: Service Date/Time: Wednesday, September 07, 2016 21:41 - CONCLUSION: 1. No evidence for DVT. 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 Edis Cabrera MD Aorta w/Runoff CTA 09/06/16599 Signed Impressions: Service Date/Time: August 10:38 - CONCLUSION: 6.5 cm abdominal aortic aneurysm and left common iliac artery aneurysm. Configuration does appear suitable for endovascular repair. 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 Flow reconstitutes in the left popliteal artery. Julius Johnston MD Aorta CTA 09/06/16599 Signed Impressions: Service Date/Time: August 10:43 - CONCLUSION: Compared to the CTA from several days ago, the false lumen of thoracic aortic dissection is less well seen. This may be related to technical factors and bolus timing or may reflect some interval thrombosis of the false lumen. Otherwise stable vascular findings. Interval development of large bilateral pleural effusions and lung base atelectasis. Julius Johnston MD Chest CT 09/05/16 Signed Impressions: Service Date/Time: Monday, September 05, 2016 22:44 - CONCLUSION: 1. Left greater than right pleural effusions and basilar consolidation, new since the prior CTA. 2. Based on this noncontrast study, no definite change in a type B aortic dissection. I don't see any blood in the mediastinum or pleural spaces. 3. Upper limits of normal to mildly enlarged mediastinal lymph nodes unchanged. 4. Coronary artery calcification again seen. Julius Valencia MD Renal Ultrasound 2/20/17 0000 Signed Impressions: Service Date/Time: Saturday, September 03, 2016 11:14 - CONCLUSION: Small cyst in each kidney. Area cortical retraction left kidney . Otherwise negative Maicol Durant MD Objective Remarks GENERAL:89-year-old male, resting in bed on OptiFlow in no acute distress SKIN: Warm and dry. No rash HEAD: Atraumatic. Normocephalic. EYES: Pupils equal and round around 3 mm bilaterally and reactive. No scleral icterus. No injection or drainage. ENT: No nasal bleeding or discharge. Mucous membranes pink and moist. Nasal cannula NECK: Trachea midline. No JVD. CARDIOVASCULAR: Regular rate and rhythm. S1, S2. No S4. No murmur appreciated. RESPIRATORY: Diminished breath sounds bilaterally. Few crackles appreciated throughout the lung rider bilaterally. Positive end expiratory wheeze. GASTROINTESTINAL: Abdomen soft, non-tender, nondistended. Positive bowel sounds less pulsatile aorta palpable in the midline MUSCULOSKELETAL: No obvious deformities. No significant peripheral edema. NEUROLOGICAL: Awake and alert. No obvious cranial nerve deficits. Motor grossly within normal limits. Normal speech. A/P Assessment and Plan NEURO/PSYCH: Back pain due to aortic dissection -Pain control, Dilaudid and Lortab PRN -Currently asymptomatic RESP: Acute respiratory insufficiency Tobacco abuse COPD Allergic rhinitis Chronic cough -BiPAP 10/5@50% versus OptiFlow 55 L at 65% FiO2 wean as tolerated to maintain saturations around 92% -DuoNeb every 6 hours scheduled and when necessary. Continue a cappella/PEP every [address] thorax revealed bilateral pleural effusions. Status post right thoracentesis by IR 09/06 -550 cc. left thoracentesis -5 80 cc 09/07. Right- sided was transudative. - On singular 10 mg daily and Claritin 10 mg daily for allergy rhinitis/ postnasal drip - As needed Tessalon Perles 200 mg every 8 hours for cough -Counseled on smoking cessation -Incentive spirometry, encourage use Follow-up chest x-ray in a.m. Added Symbicort 80/4.5 twice a day and Solu-Medrol 40 mg pulmonary dose IV every 8 on 09/08. See orders CV: [place] type B aortic dissection 6.7 cm infrarenal AAA Femoral artery aneurysm Hypertensive emergency -Cardene infusion currently off with target systolic blood pressure less than 130 per vascular surgery recommendations -IV labetalol, PRN. - Patient's home medication of lisinopril 10 mg daily changed to 2.5 twice a day - diltiazem 240 mg daily switch to 60 mg 4 times a day with when necessary Cardizem 30 mg by mouth every 6 hours will be continued. - Clonidine 0.2 mg twice a day added with Coreg 6.25 milligrams twice a day -Vascular surgery, on board Dr. Gastelum -Plan for medical management of Type B dissection for now. ABIs ordered decreased flow left lower extremity. Ordered CTA runoff today possible thrombus and false lumen. Runoff shows 6.5 AAA. 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 Left NARGIS aneurysm. 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 Continue gentle diuresis with Bumex 1 mg daily GI: Hypoalbuminemia Bilateral adrenal adenoma Regular diet - Protonix for GI prophylaxis -Senna and Colace for bowel regimen FEN/renal/: Hypokalemia BPH Noted received IV dye 08/31. Possible contrast nephropathy hence resolved. Currently bicarbonate drip/Mucomyst has been discontinued -Monitor renal function closely -Monitor hourly urinary output -Electrolyte replacement per ICU protocol We'll give 30 mEq potassium chloride twice a day today 1. Recheck in a.m. -Strict I and O's Avoid nephrotoxic drugs Continue Flomax 0.4 mg by mouth daily ID: Possible URI -Day #4 cefepime and Zithromax Pertinent cultures / - sputum -no growth / - blood cultures 2 - no growth / - pleural fluid - no growth 08/31 - blood cultures 2 - no growth HEME: Leukocytosis Anemia -Monitor CBC, CMP ENDO: -Euglycemic, continue to monitor PROPH: -Bilateral lower extremity SCDs. No pharmacological DVT prophylaxis contraindicated -IV Protonix for GI prophylaxis LINES: -Utilize peripheral IVs, central line if needed Critical Care: The total care time was 35 minutes. Time to perform other separately billable procedures was not included in the critical care time. Bautista Taylor MD Sep 09, 2016 14:43
[2016-09-09] MEDS ORDERED: POTASSIUM CHLORIDE 10 MEQ CONTROLLED RELEASE TAB PO ONE (14:45)
--- NOTE | 2016-09-09 17:35 | PD.VS.PN ---
Subjective Subjective/Hospital Course Patient without complaints Less S.O.B status post thoracentesis No Chest/back/leg pain. Objective Vitals/I&O Date Time Temp Pulse Resp B/P Pulse Ox O2 Delivery O2 Flow Rate FiO2 09/09/16 15:00 92 Nasal Cannula 80 Humidified 09/09/16 12:00 98.4 57 18 129/67 92 09/09/16 11:00 93 Nasal Cannula 80 Humidified 09/09/16 08:00 98.3 58 20 133/62 94 09/09/16 07:48 94 High Flow Nasal Cannula 55.00 70 09/09/16 07:00 92 Nasal Cannula 80 Humidified 09/09/16 04:00 98.1 56 19 134/61 91 09/09/16 03:00 93 Nasal Cannula 80 Humidified 09/09/16 00:00 98.2 91 26 140/69 91 09/08/16 23:00 93 Bi-Pap 75 09/08/16 22:15 93 75 09/08/16 20:00 98.0 53 22 117/60 92 09/08/16 19:52 92 High Flow Nasal Cannula 55.00 65 09/08/16 19:00 91 Nasal Cannula 65 09/08/16 18:00 98.8 58 20 133/67 91 09/09/16 09/09/16 09/09/16 07:00 15:00 23:00 Intake Total 556 ml 740 ml Output Total 850 ml 600 ml Balance -294 ml 140 ml Physical Exam ab soft and ND. bilateral PT signals. Extremities warm. Laboratory Laboratory Tests Test 09/09/16 06:33 White Blood Count 15.9 Red Blood Count 3.37 Hemoglobin 10.6 Hematocrit 32.4 Mean Corpuscular Volume 96.3 Mean Corpuscular Hemoglobin 31.4 Mean Corpuscular Hemoglobin 32.6 Concent Red Cell Distribution Width 14.1 Platelet Count 181 Mean Platelet Volume 8.9 Neutrophils (%) (Auto) 90.0 Lymphocytes (%) (Auto) 4.2 Monocytes (%) (Auto) 5.5 Eosinophils (%) (Auto) 0.0 Basophils (%) (Auto) 0.3 Neutrophils # (Auto) 14.4 Lymphocytes # (Auto) 0.7 Monocytes # (Auto) 0.9 Eosinophils # (Auto) 0.0 Basophils # (Auto) 0.0 CBC Comment AUTO DIFF Differential Total Cells 100 Counted Neutrophils % (Manual) 73 Band Neutrophils % 14 Lymphocytes % 6 Monocytes % 5 Neutrophils # (Manual) 14.2 Myelocytes 2 Differential Comment FINAL DIFF MANUAL Platelet Estimate NORMAL Platelet Morphology Comment NORMAL Polychromasia 2.3 Sodium Level 143 Potassium Level 3.3 Chloride Level 109 Carbon Dioxide Level 23.2 Anion Gap 11 Blood Urea Nitrogen 23 Creatinine 1.22 Estimat Glomerular Filtration 56 Rate Random Glucose 213 Calcium Level 7.9 Phosphorus Level 2.9 Magnesium Level 2.2 Date/Time Procedure Status Source Growth 09/07/16 09:26 Gram Stain - Final Complete Sputum Expectorated Sputum 09/07/16 09:26 Sputum Culture - Final Complete Sputum Expectorated Sputum HEAVY GROWTH NORMAL RESPIRATORY ERWIN 09/06/16 20:29 Aerobic Blood Culture - Preliminary Resulted Blood Peripheral NO GROWTH IN 3 DAYS 09/06/16 20:29 Anaerobic Blood Culture - Preliminary Resulted Blood Peripheral NO GROWTH IN 3 DAYS Imaging Last 48 hours Impressions Chest X-Ray 09/09/16 0600 Signed Impressions: Service Date/Time: Friday, September 09, 2016 03:31 - CONCLUSION: No significant change has occurred. Edis Cabrera MD Assessment and Plan Plan Plan 1. aTBAD - appears uncomplicated. now off vasoactive meds for BP control 2. AAA - no evidence of rupture. Dr. Gastelum plans repair electively. 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 4. Pleural effusions- S/P thoracentesis. Still on high flow oxygen but being weaned down. Also on diuretic. Will continue to follow. discussed plan with patient and daughter at bedside. Nemesio Mello DO, FACS Education Analyst of Vascular Surgery /Nemesio Wheeler DO Sep 09, 2016 17:35
[2016-09-09] MEDS: AZITHROMYCIN 500 MG/NS 250 ML IV SCH ×2 (18:21)
[2016-09-09] MEDS: CARVEDILOL 6.25 MG TAB PO SCH (21:03)
[2016-09-09] MEDS: MONTELUKAST SODIUM 10 MG TAB PO SCH (21:03)
[2016-09-10] VITALS (7 sets, daily range): BP systolic 119–146; BP diastolic 55–76; PULSE 48–66; RESP 18–31; TEMP 98.3–98.7; O2SAT 90–94
[2016-09-10] MEDS: RESP: ALBUTEROL 2.5 MG/IPRATROPIUM 0.5 MG NEB (SCH) NEB ×5 (03:39→14:56)
[2016-09-10] MEDS: CHLORHEXIDINE GLUCONATE 2 % 1 PACK (2 CLOTHS) TOP SCH ×2 (04:00→21:35)
[2016-09-10 05:09] LABS: AUTOMATED NEUTROPHIL # 18.9 TH/MM3 (1.8-7.7); BASOPHIL % 0.1 % (0.0-2.0); HEMATOCRIT 33.3 % (39.0-51.0); LYMPH % 3.5 % (9.0-44.0); LYMPHOCYTE # 0.7 TH/MM3 (1.0-4.8); MEAN CELL VOLUME 96.9 FL (80.0-100.0); MEAN CORPUSCULAR HEMOGLOBIN 31.7 PG (27.0-34.0); MEAN CORPUSCULAR HGB CONC 32.7 % (32.0-36.0); MONO % 3.3 % (0.0-8.0); NEUT % 93.1 % (16.0-70.0); PLATELET COUNT 217 TH/MM3 (150-450); RED BLOOD COUNT 3.44 MIL/MM3 (4.50-5.90); RED CELL DISTRIBUTION WIDTH 13.8 % (11.6-17.2); WHITE BLOOD COUNT 20.3 TH/MM3 (4.0-11.0)
[2016-09-10 05:33] LABS: ALKALINE PHOSPHATASE 78 U/L (45-117); ALT (GPT) 93 U/L (12-78); ANION GAP 9 MEQ/L (5-15); AST (GOT) 50 U/L (15-37); BICARBONATE 23.1 MEQ/L (21.0-32.0); BLOOD UREA NITROGEN 28 MG/DL (7-18); CHLORIDE 112 MEQ/L (98-107); GLOMERULAR FILTRATION RATE 56 ML/MIN (>89); MAGNESIUM 2.3 MG/DL (1.5-2.5); POTASSIUM 3.5 MEQ/L (3.5-5.1); SODIUM (NA) 144 MEQ/L (136-145); TOTAL BILIRUBIN ADULT 0.3 MG/DL (0.2-1.0)
--- NOTE | 2016-09-10 06:36 | RADRPT ---
EXAM DATE/TIME: 09/10/2016 04:25 [facility] COMPARISON: CHEST SINGLE AP, September 09, 2016, 3:31. INDICATIONS : Shortness of breath, possible pulmonary disease. MEDICAL HISTORY : Hypertension. Congestive heart failure. SURGICAL HISTORY : Hernia repair ENCOUNTER: Subsequent ACUITY: 2 weeks PAIN SCORE: Non-responsive. LOCATION: Bilateral chest FINDINGS: A single view of the chest demonstrates bilateral mostly basilar airspace consolidation and small eff usions. Tortuous aorta. No pneumothorax. Heart size within normal limits. CONCLUSION: 1. Basilar airspace consolidation and small effusion similar to September 09. George Lincoln MD on September 10, 2016 at 6:33 Board Certified Radiologist. This report was verified electronically.
[2016-09-10 07:46] LABS: HEMO FLAGS AUTO DIFF
[2016-09-10 07:48] LABS: BANDS 9 % (0-6); NEUTROPHIL # MANUAL DIFF 18.1 TH/MM3 (1.8-7.7); POLYS (SEG NEUTROPHILS) 80 % (16-70); WBC DIFF SAMPLE 100
[2016-09-10 07:49] LABS: PLATELET ESTIMATE SMEAR NORMAL (NORMAL); PLATELET MORPHOLOGY NORMAL (NORMAL); SCAN/DIFF FINAL DIFF MANUAL
[2016-09-10] MEDS: BUDESONIDE-FORMOTEROL 160/4.5 MCG INHALER INH SCH ×2 (09:00→21:36)
[2016-09-10] MEDS: TAMSULOSIN HCL 0.4 MG CAP PO SCH (09:00)
[2016-09-10] MEDS: SODIUM CHLORIDE 0.9% FLUSH 5 ML FLUSH IV FLUSH SCH ×2 (09:00→21:00)
[2016-09-10] MEDS: cloNIDine HCL 0.2 MG TAB PO SCH ×2 (09:00→21:35)
[2016-09-10] MEDS: SENNOSIDES SYRUP 8.8 MG/5 ML CUP PO SCH (09:00)
[2016-09-10] MEDS: DILTIAZEM HCL 60 MG TAB PO SCH ×4 (09:31→21:35)
[2016-09-10] MEDS: LISINOPRIL 5 MG TAB PO SCH ×2 (09:31→21:29)
[2016-09-10] MEDS: CARVEDILOL 6.25 MG TAB PO SCH ×2 (09:31→21:35)
[2016-09-10] MEDS: DOCUSATE SODIUM 100 MG/10 ML UDC PO SCH ×2 (09:31→21:30)
[2016-09-10] MEDS: LORATADINE 10 MG TAB PO SCH (09:31)
[2016-09-10] MEDS: methylPREDNISolone SOD SUCC 40 MG/1 ML VIAL IV PUSH SCH ×2 (09:32→21:29)
[2016-09-10] MEDS: PANTOPRAZOLE SOD 40 MG DELAYED RELEASE TAB PO SCH (09:32)
[2016-09-10] MEDS: BUMETANIDE INJ 1 MG/4 ML VIAL IV PUSH SCH (09:32)
[2016-09-10] MEDS: CEFEPIME INJ 2,000 MG in SODIUM CHLORIDE 0.9% INJ 100 ML IV SCH ×2 (09:33→21:29)
--- NOTE | 2016-09-10 13:11 | HHI.CCPN ---
Subjective Remarks/Hospital Course Patient is an 89-year-old male with history of hypertension, long-standing tobacco abuse who presents to emergency room with complaints of chest pain back pain and epigastric pain. Started around 10 AM today, while shopping shopping and began to have increased pain to his chest. Denies nausea or vomiting or shortness of breath of symptoms. Never had chest pain in the past. Reports no history of coronary artery disease or GA in the past. EKG showed no acute findings. 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 Patient also has bilateral common femoral artery aneurysms. Patient will be started on Cardene infusion and scheduled metoprolol along with when necessary labetalol for blood pressure and heart rate control. Medical management of the type B dissection. Discussed with vascular surgery Dr. Silverio, he will see the patient and make recommendation about the AAA. Patient may be a candidate for endovascular repair of AAA. I have discussed with Dr. Oliverio Mead from IR as well, also updated patient himself, his granddaughter at the bedside (Krystal). 09/01 The patient continues on nicardipine infusion, with goal of systolic blood pressure less than 110 per recommendations of vascular surgery. The patient has been placed on metoprolol XL, PO in addition to lisinopril and Cardizem home medications. The patient denies pain, requesting a diet. Will follow-up recommendations of vascular surgery. 09/02 Overnight the patient was able to be weaned down to Nicardipine infusion 3 mg/hr. The patient continues on Cardizem and lisinopril, home medications. Will add clonidine 0.2mg to medication regimen, with goal of weaning off nicardipine infusion. The patient denies pain at this time. Tolerating PO diet. 09/03: Resting in bed. Complaining of cough overnight. Continue to be in 5 L nasal cannula. Claritin added last night in addition to his home dose of Singulair for allergic rhinitis. Cardene drip restarted. Arousable and follows commands. [facility] 09/04: Afebrile. Cardiac drip off since yesterday morning. Noted blood pressure liberalized to 130s systolic per vascular. Continues to be on 5 L nasal cannula. Continues to complain of nonproductive cough. 09/05: Currently on 6 L nasal cannula and easily desaturates. Chest x-ray revealed possible left lower lobe effusion. We will gently diurese 1 now. Complains of nonproductive cough. Appears nonseptic. 09/06: On BiPAP overnight due to hypoxia. CT chest revealed bilateral pleural effusion. Status post thoracentesis right side -550. Plan for left thoracentesis tomorrow. CTA runoff noted. Continue with aggressive pulmonary: . Continues with nonproductive cough. 09/07: On BiPAP overnight. Currently on OptiFlow at 70%. Plan for left-sided thoracentesis today. Antibiotic yesterday secondary to persistent cough. Patient's been pancultured. Appears stable otherwise. Short of breath with any exertion. 09/08: Afebrile. On BiPAP again overnight. Currently on OptiFlow at 65%. Status post bilateral thoracentesis with transudative effusions. Appears comfortable. Daily productive cough or sputum. Become short of breath with any exertion. Subjective 09/09: Afebrile. Currently on high flow nasal cannula at 65%. Appears couple. Continues to have dry productive cough of clear sputum. With any movement patient desats. When lying still patient very comfortable and not using accessory muscles and able to speak complete sentences comfortably 09/10: The patient continues on high flow nasal cannula, now decreased to 60%. Patient continues on empiric antibiotics, noted elevation in WBC count today, but remains afebrile. Objective Vital Signs Date Time Temp Pulse Resp B/P Pulse Ox O2 Delivery O2 Flow Rate FiO2 09/10/16 08:15 94 High Flow Nasal Cannula 55.00 60 09/10/16 08:00 98.7 61 18 146/76 Intake and Output 09/09/16 09/09/16 09/10/16 08:00 16:00 00:00 Intake Total 556 ml 740 ml 723 ml Output Total 850 ml 600 ml 500 ml Balance -294 ml 140 ml 223 ml Result Diagram: 09/10/16 0439 09/10/16 0439 Imaging Last Impressions Chest X-Ray 09/09/16 0600 Signed Impressions: Service Date/Time: Friday, September 09, 2016 03:31 - CONCLUSION: No significant change has occurred. Edis Cabrera MD Thoracentesis Ultrasound 09/07/16 09 Signed Impressions: Service Date/Time: Wednesday, September 07, 2016 11:11 - CONCLUSION: Uncomplicated ultrasound guided thoracentesis. Lucas Mead MD FACR Lower Extremity Ultrasound 09/07/16 0000 Signed Impressions: Service Date/Time: Wednesday, September 07, 2016 21:41 - CONCLUSION: 1. No evidence for DVT. 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 Edis Cabrera MD Aorta w/Runoff CTA 09/06/16 06 Signed Impressions: Service Date/Time: August 10:38 - CONCLUSION: 6.5 cm abdominal aortic aneurysm and left common iliac artery aneurysm. Configuration does appear suitable for endovascular repair. 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 Flow reconstitutes in the left popliteal artery. Julius Johnston MD Aorta CTA 09/06/16599 Signed Impressions: Service Date/Time: August 10:43 - CONCLUSION: Compared to the CTA from several days ago, the false lumen of thoracic aortic dissection is less well seen. This may be related to technical factors and bolus timing or may reflect some interval thrombosis of the false lumen. Otherwise stable vascular findings. Interval development of large bilateral pleural effusions and lung base atelectasis. Julius Johnston MD Chest CT 09/05/16 0000 Signed Impressions: Service Date/Time: Monday, September 05, 2016 22:44 - CONCLUSION: 1. Left greater than right pleural effusions and basilar consolidation, new since the prior CTA. 2. Based on this noncontrast study, no definite change in a type B aortic dissection. I don't see any blood in the mediastinum or pleural spaces. 3. Upper limits of normal to mildly enlarged mediastinal lymph nodes unchanged. 4. Coronary artery calcification again seen. Julius Valencia MD Renal Ultrasound 09/03/16 0000 Signed Impressions: Service Date/Time: Saturday, September 03, 2016 11:14 - CONCLUSION: Small cyst in each kidney. Area cortical retraction left kidney . Otherwise negative Maicol Durant MD Objective Remarks GENERAL:89-year-old male, resting in bed on OptiFlow in no acute distress SKIN: Warm and dry. No rash HEAD: Atraumatic. Normocephalic. EYES: Pupils equal and round around 3 mm bilaterally and reactive. No scleral icterus. No injection or drainage. ENT: No nasal bleeding or discharge. Mucous membranes pink and moist. Hi flow Nasal cannula NECK: Trachea midline. No JVD. CARDIOVASCULAR: Regular rate and rhythm. S1, S2. No S4. No murmur appreciated. RESPIRATORY: Diminished breath sounds bilaterally. Few crackles appreciated throughout the lung rider bilaterally. Positive end expiratory wheeze. GASTROINTESTINAL: Abdomen soft, non-tender, nondistended. Positive bowel sounds less pulsatile aorta palpable in the midline MUSCULOSKELETAL: No obvious deformities. No significant peripheral edema. NEUROLOGICAL: Awake and alert. No obvious cranial nerve deficits. Motor grossly within normal limits. Normal speech. A/P Assessment and Plan NEURO/PSYCH: Back pain due to aortic dissection -Pain control, Dilaudid and Lortab PRN -Currently asymptomatic RESP: Acute respiratory insufficiency Tobacco abuse COPD Allergic rhinitis Chronic cough -BiPAP 10/5@50% versus OptiFlow 55 L at 65% FiO2 wean as tolerated to maintain saturations around 92% -DuoNeb every 6 hours scheduled and when necessary. Continue a cappella/PEP every [address] thorax revealed bilateral pleural effusions. Status post right thoracentesis by IR 09/06 -550 cc. left thoracentesis -580 cc 09/07. Right-sided was transudative. - On singular 10 mg daily and Claritin 10 mg daily for allergy rhinitis/ postnasal drip - As needed Tessalon Perles 200 mg every 8 hours for cough -Counseled on smoking cessation -Incentive spirometry, encourage use Added Symbicort 80/4.5 twice a day and Solu-Medrol 40 mg pulmonary dose IV every 8 on 09/08. CV: [place] type B aortic dissection 6.7 cm infrarenal AAA Femoral artery aneurysm Hypertensive emergency -Cardene infusion currently off with target systolic blood pressure less than 130 per vascular surgery recommendations -IV labetalol, hydralazine PRN. - Patient's home medication of lisinopril 10 mg daily changed to 2.5 twice a day - diltiazem 240 mg daily switch to 60 mg 4 times a day with when necessary Cardizem 30 mg by mouth every 6 hours will be continued. - Clonidine 0.2 mg twice a day added with Coreg 6.25 milligrams twice a day -Vascular surgery, on board Dr. Gastelum -Plan for medical management of Type B dissection for now. ABIs ordered decreased flow left lower extremity. Ordered CTA runoff today possible thrombus and false lumen. Runoff shows 6.5 AAA. 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 Left NARGIS aneurysm. 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 Continue gentle diuresis with Bumex 1 mg daily GI: Hypoalbuminemia Bilateral adrenal adenoma Regular diet - Protonix for GI prophylaxis -Senna and Colace for bowel regimen FEN/renal/: Hypokalemia BPH Noted received IV dye 08/31. Possible contrast nephropathy hence resolved. Currently bicarbonate drip/Mucomyst has been discontinued -Monitor renal function closely -Monitor hourly urinary output -Electrolyte replacement per ICU protocol -Strict I and O's Avoid nephrotoxic drugs Continue Flomax 0.4 mg by mouth daily ID: Possible URI -Day #5 cefepime and Zithromax Pertinent cultures 09/07 - sputum -no growth 09/06 - blood cultures 2 - no growth 09/06 - pleural fluid - no growth 08/31 - blood cultures 2 - no growth HEME: Leukocytosis Anemia -Monitor CBC, CMP WBC 20.3 ENDO: -Euglycemic, continue to monitor PROPH: -Bilateral lower extremity SCDs. No pharmacological DVT prophylaxis contraindicated -IV Protonix for GI prophylaxis LINES: -Utilize peripheral IVs, central line if needed Critical Care: The total care time was 31 minutes. Time to perform other separately billable procedures was not included in the critical care time. Physician Meenakshi Miles MD Sep 10, 2016 13:11
[2016-09-10] MEDS: AZITHROMYCIN 500 MG/NS 250 ML IV SCH ×2 (18:00)
[2016-09-10] MEDS: POTASSIUM CL 40 MEQ/30 ML LIQ UDC PO/TUBE PRN (18:06)
[2016-09-10] MEDS: RESP: ALBUTEROL 2.5 MG/IPRATROPIUM 0.5 MG NEB (PRN) INH (20:00)
[2016-09-10] MEDS: MONTELUKAST SODIUM 10 MG TAB PO SCH (21:00)
[2016-09-10] MEDS: hydrALAZINE HCL 20 MG/ML VIAL IV PUSH PRN (21:51)
[2016-09-11] VITALS (13 sets, daily range): BP systolic 125–157; BP diastolic 66–73; PULSE 53–68; RESP 12–20; TEMP 98–98.5; O2SAT 88–95
[2016-09-11] MEDS: RESP: ALBUTEROL 2.5 MG/IPRATROPIUM 0.5 MG NEB (PRN) INH ×2 (01:23→20:33)
[2016-09-11] MEDS: HYDROmorphone HCL PF 1 MG/ML VIAL IV PUSH PRN (01:33)
[2016-09-11 06:15] LABS: MEAN CELL VOLUME 95.2 FL (80.0-100.0); MEAN CORPUSCULAR HGB CONC 33.6 % (32.0-36.0); PLATELET COUNT 228 TH/MM3 (150-450); RED BLOOD COUNT 3.68 MIL/MM3 (4.50-5.90); RED CELL DISTRIBUTION WIDTH 14.4 % (11.6-17.2); REVIEW FLAG FINAL; WHITE BLOOD COUNT 18.4 TH/MM3 (4.0-11.0)
[2016-09-11 06:37] LABS: BICARBONATE 22.3 MEQ/L (21.0-32.0); MAGNESIUM 2.3 MG/DL (1.5-2.5); POTASSIUM 4.2 MEQ/L (3.5-5.1)
[2016-09-11] MEDS: hydrALAZINE HCL 20 MG/ML VIAL IV PUSH PRN ×2 (06:53→14:10)
[2016-09-11 07:06] LABS: BLOOD GAS BASE EXCESS -4.1 mmol/L (-2-2); BLOOD GAS CARBOXYHEMOGLOBIN 1.4 % (0-4); BLOOD GAS HCO3 20 mmol/L (22-26); BLOOD GAS O2 HGB SATURATION 91 % (90-100); BLOOD GAS OXYGEN CONTENT 16.2 Vol % (12.0-20.0); BLOOD GAS PCO2 33 mmHg (38-42); BLOOD GAS PO2 68 mmHg (61-120); BLOOD GAS TOTAL HGB 12.6 G/DL (12.0-16.0); CRITICAL VALUE NO; FIO2 65 %; LITER FLOW 55 L/M; NUMBER OF ARTERIAL PUNCTURES 1; OXYGEN DEVICE HIGH FLOW NC; STAT YES; TEMP CORR TO 98.6; ULNAR PULSE PRESENT
[2016-09-11 07:08] LABS: DRAW SITE LT RADIAL
[2016-09-11] MEDS: SENNOSIDES SYRUP 8.8 MG/5 ML CUP PO SCH (07:57)
[2016-09-11] MEDS: DOCUSATE SODIUM 100 MG/10 ML UDC PO SCH ×2 (07:57→20:53)
[2016-09-11] MEDS: LISINOPRIL 5 MG TAB PO SCH ×2 (07:57→20:53)
[2016-09-11] MEDS: LORATADINE 10 MG TAB PO SCH (07:57)
[2016-09-11] MEDS: CEFEPIME INJ 2,000 MG in SODIUM CHLORIDE 0.9% INJ 100 ML IV SCH ×2 (07:57→20:52)
[2016-09-11] MEDS: cloNIDine HCL 0.2 MG TAB PO SCH ×2 (07:57→20:53)
[2016-09-11] MEDS: CARVEDILOL 6.25 MG TAB PO SCH ×2 (07:58→20:53)
[2016-09-11] MEDS: POTASSIUM CHLORIDE 25 MEQ EFFERVESCENT TAB PO SCH (07:58)
[2016-09-11] MEDS: DILTIAZEM HCL 60 MG TAB PO SCH ×4 (07:58→20:53)
[2016-09-11] MEDS: methylPREDNISolone SOD SUCC 40 MG/1 ML VIAL IV PUSH SCH ×2 (07:58→20:52)
[2016-09-11] MEDS: PANTOPRAZOLE SOD 40 MG DELAYED RELEASE TAB PO SCH (07:58)
[2016-09-11] MEDS: BUMETANIDE INJ 1 MG/4 ML VIAL IV PUSH SCH (07:58)
[2016-09-11] MEDS: TAMSULOSIN HCL 0.4 MG CAP PO SCH (07:58)
[2016-09-11] MEDS: SODIUM CHLORIDE 0.9% FLUSH 5 ML FLUSH IV FLUSH SCH ×2 (07:59→20:53)
[2016-09-11] MEDS: BUDESONIDE-FORMOTEROL 160/4.5 MCG INHALER INH SCH ×2 (07:59→20:53)
[2016-09-11] MEDS: LABETALOL HCL 100 MG/20 ML VIAL IV PUSH PRN ×6 (09:48→20:52)
--- NOTE | 2016-09-11 10:14 | PD.VS.PN ---
Subjective Subjective/Hospital Course Patient without complaints Less S.O.B this morning but still on high flow NC O2 No chest, back, or abdominal pain. Objective Vitals/I&O Date Time Temp Pulse Resp B/P Pulse Ox O2 Delivery O2 Flow Rate FiO2 09/11/16 07:16 90 High Flow Nasal Cannula 55.00 65 09/11/16 04:00 90 Nasal Cannula 60 Humidified 09/11/16 04:00 98.3 56 14 125/66 88 09/11/16 00:00 98.1 54 17 128/67 89 09/11/16 00:00 90 Nasal Cannula 60 Humidified 09/10/16 20:02 90 High Flow Nasal Cannula 55.00 50 09/10/16 20:00 90 Nasal Cannula 60 Humidified 09/10/16 20:00 98.5 58 31 119/55 90 09/10/16 16:00 98.3 66 18 131/71 93 09/10/16 16:00 93 Nasal Cannula 60 Humidified 09/11/16 09/11/16 09/11/16 07:00 15:00 23:00 Intake Total 50 ml Output Total 450 ml Balance -400 ml Physical Exam No abdominal tenderness No obvious SOB Laboratory Laboratory Tests Test 09/11/16 09/11/16 05:24 06:47 White Blood Count 18.4 Red Blood Count 3.68 Hemoglobin 11.8 Hematocrit 35.0 Mean Corpuscular Volume 95.2 Mean Corpuscular Hemoglobin 32.0 Mean Corpuscular Hemoglobin 33.6 Concent Red Cell Distribution Width 14.4 Platelet Count 228 Mean Platelet Volume 8.6 Sodium Level 145 Potassium Level 4.2 Chloride Level 112 Carbon Dioxide Level 22.3 Anion Gap 11 Blood Urea Nitrogen 30 Creatinine 1.13 Estimat Glomerular Filtration 61 Rate Random Glucose 149 Calcium Level 8.4 Phosphorus Level 2.6 Magnesium Level 2.3 Blood Gas Puncture Site LT RADIAL Blood Gas Patient Temperature 98.6 Blood Gas HCO3 20 Blood Gas Base Excess -4.1 Blood Gas Oxygen Saturation 91 Arterial Blood pH 7.40 Arterial Blood Partial 33 Pressure CO2 Arterial Blood Partial 68 Pressure O2 Arterial Blood Oxygen Content 16.2 Arterial Blood 1.4 Carboxyhemoglobin Arterial Blood Methemoglobin 1.0 Blood Gas Hemoglobin 12.6 Oxygen Delivery Device HIGH FLOW NC Blood Gas Liter Flow 55 Blood Gas Inspired Oxygen 65 Date/Time Procedure Status Source Growth 09/07/16 09:26 Gram Stain - Final Complete Sputum Expectorated Sputum 2/24/17 09:26 Sputum Culture - Final Complete Sputum Expectorated Sputum HEAVY GROWTH NORMAL RESPIRATORY ERWIN 09/06/16 20:29 Aerobic Blood Culture - Preliminary Resulted Blood Peripheral NO GROWTH IN 4 DAYS 09/06/16 20:29 Anaerobic Blood Culture - Preliminary Resulted Blood Peripheral NO GROWTH IN 4 DAYS Imaging Last 48 hours Impressions Chest X-Ray 09/10/16 0600 Signed Impressions: Service Date/Time: Saturday, September 10, 2016 04:25 - CONCLUSION: 1. Basilar airspace consolidation and small effusion similar to September 09. George Lincoln MD Assessment and Plan Plan Plan 1. aTBAD - appears uncomplicated. Medical management and needs CTA in 2-3 weeks as outpatient. I will arrange this. 2. AAA - no evidence of rupture. Can have EVAR electively as outpatient. Will arrange clinic f/u. Manuelito Gastelum MD FACS curriculum manager [place] [phone] Manuelito Gastelum MD Sep 11, 2016 10:14
[2016-09-11] MEDS: SODIUM CHLORIDE 0.9% FLUSH 5 ML FLUSH IV FLUSH PRN ×2 (14:10→18:37)
[2016-09-11] MEDS ORDERED: ACETAMINOPHEN 325 MG TAB PO PRN (14:15)
--- NOTE | 2016-09-11 14:21 | HHI.CCPN ---
Subjective Remarks/Hospital Course Patient is an 89-year-old male with history of hypertension, long-standing tobacco abuse who presents to emergency room with complaints of chest pain back pain and epigastric pain. Started around 10 AM today, while shopping shopping and began to have increased pain to his chest. Denies nausea or vomiting or shortness of breath of symptoms. Never had chest pain in the past. Reports no history of coronary artery disease or SD in the past. EKG showed no acute findings. 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 Patient also has bilateral common femoral artery aneurysms. Patient will be started on Cardene infusion and scheduled metoprolol along with when necessary labetalol for blood pressure and heart rate control. Medical management of the type B dissection. Discussed with vascular surgery Dr. Silverio, he will see the patient and make recommendation about the AAA. Patient may be a candidate for endovascular repair of AAA. I have discussed with Dr. Oliverio Mead from IR as well, also updated patient himself, his granddaughter at the bedside (Krystal). 09/01 The patient continues on nicardipine infusion, with goal of systolic blood pressure less than 110 per recommendations of vascular surgery. The patient has been placed on metoprolol XL, PO in addition to lisinopril and Cardizem home medications. The patient denies pain, requesting a diet. Will follow-up recommendations of vascular surgery. 09/02 Overnight the patient was able to be weaned down to Nicardipine infusion 3 mg/hr. The patient continues on Cardizem and lisinopril, home medications. Will add clonidine 0.2mg to medication regimen, with goal of weaning off nicardipine infusion. The patient denies pain at this time. Tolerating PO diet. 09/03: Resting in bed. Complaining of cough overnight. Continue to be in 5 L nasal cannula. Claritin added last night in addition to his home dose of Singulair for allergic rhinitis. Cardene drip restarted. Arousable and follows commands. [facility] 09/04: Afebrile. Cardiac drip off since yesterday morning. Noted blood pressure liberalized to 130s systolic per vascular. Continues to be on 5 L nasal cannula. Continues to complain of nonproductive cough. 09/05: Currently on 6 L nasal cannula and easily desaturates. Chest x-ray revealed possible left lower lobe effusion. We will gently diurese 1 now. Complains of nonproductive cough. Appears nonseptic. 09/06: On BiPAP overnight due to hypoxia. CT chest revealed bilateral pleural effusion. Status post thoracentesis right side -550. Plan for left thoracentesis tomorrow. CTA runoff noted. Continue with aggressive pulmonary: . Continues with nonproductive cough. 09/07: On BiPAP overnight. Currently on OptiFlow at 70%. Plan for left-sided thoracentesis today. Antibiotic yesterday secondary to persistent cough. Patient's been pancultured. Appears stable otherwise. Short of breath with any exertion. 09/08: Afebrile. On BiPAP again overnight. Currently on OptiFlow at 65%. Status post bilateral thoracentesis with transudative effusions. Appears comfortable. Daily productive cough or sputum. Become short of breath with any exertion. Subjective 09/09: Afebrile. Currently on high flow nasal cannula at 65%. Appears couple. Continues to have dry productive cough of clear sputum. With any movement patient desats. When lying still patient very comfortable and not using accessory muscles and able to speak complete sentences comfortably 09/10: The patient continues on high flow nasal cannula, now decreased to 60%. Patient continues on empiric antibiotics, noted elevation in WBC count today, but remains afebrile. 09/11: Afebrile. Overnight the patient received IV narcotic, and became disoriented and confused. Resolution of symptoms this morning. The patient continues on high flow oxygen currently at 65%, attempting to wean. Patient out of bed to chair. Elevated WBC count continues to ID consult, appreciate recommendations. Objective Vital Signs Date Time Temp Pulse Resp B/P Pulse Ox O2 Delivery O2 Flow Rate FiO2 09/11/16 08:00 89 Nasal Cannula 60 Humidified 09/11/16 08:00 98.0 68 16 138/69 09/11/16 07:16 55.00 Intake and Output 09/10/16 09/10/16 09/11/16 08:00 16:00 00:00 Intake Total 143 ml 800 ml 350 ml Output Total 450 ml 1050 ml 450 ml Balance -307 ml -250 ml -100 ml Result Diagram: 09/11/16 0524 09/11/16 0524 Other Results Laboratory Tests Test 09/11/16 06:47 Blood Gas Puncture Site LT RADIAL Blood Gas Patient Temperature 98.6 Blood Gas HCO3 20 mmol/L (22-26) Blood Gas Base Excess -4.1 mmol/L (-2-2) Blood Gas Oxygen Saturation 91 % (90-100) Arterial Blood pH 7.40 (7.380-7.420) Arterial Blood Partial 33 mmHg (38-42) Pressure CO2 Arterial Blood Partial 68 mmHg Pressure O2 (61-120) Arterial Blood Oxygen Content 16.2 Vol % (12.0-20.0) Arterial Blood 1.4 % (0-4) Carboxyhemoglobin Arterial Blood Methemoglobin 1.0 % (0-2) Blood Gas Hemoglobin 12.6 G/DL (12.0-16.0) Oxygen Delivery Device HIGH FLOW NC Blood Gas Liter Flow 55 L/M Blood Gas Inspired Oxygen 65 % Imaging Last Impressions Chest X-Ray 09/09/16599 Signed Impressions: Service Date/Time: Friday, September 09, 2016 03:31 - CONCLUSION: No significant change has occurred. Edis Cabrera MD Thoracentesis Ultrasound 09/07/16 0900 Signed Impressions: Service Date/Time: Wednesday, September 07, 2016 11:11 - CONCLUSION: Uncomplicated ultrasound guided thoracentesis. Lucas Mead MD FACR Lower Extremity Ultrasound 09/07/16 0000 Signed Impressions: Service Date/Time: Wednesday, September 07, 2016 21:41 - CONCLUSION: 1. No evidence for DVT. 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 Edis Cabrera MD Aorta w/Runoff CTA 09/06/16599 Signed Impressions: Service Date/Time: August 10:38 - CONCLUSION: 6.5 cm abdominal aortic aneurysm and left common iliac artery aneurysm. Configuration does appear suitable for endovascular repair. 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 Flow reconstitutes in the left popliteal artery. Julius Johnston MD Aorta CTA 09/06/16599 Signed Impressions: Service Date/Time: August 10:43 - CONCLUSION: Compared to the CTA from several days ago, the false lumen of thoracic aortic dissection is less well seen. This may be related to technical factors and bolus timing or may reflect some interval thrombosis of the false lumen. Otherwise stable vascular findings. Interval development of large bilateral pleural effusions and lung base atelectasis. Julius Johnston MD Chest CT 09/05/16 0000 Signed Impressions: Service Date/Time: Monday, September 05, 2016 22:44 - CONCLUSION: 1. Left greater than right pleural effusions and basilar consolidation, new since the prior CTA. 2. Based on this noncontrast study, no definite change in a type B aortic dissection. I don't see any blood in the mediastinum or pleural spaces. 3. Upper limits of normal to mildly enlarged mediastinal lymph nodes unchanged. 4. Coronary artery calcification again seen. Julius Valencia MD Renal Ultrasound 09/03/16 0000 Signed Impressions: Service Date/Time: Saturday, September 03, 2016 11:14 - CONCLUSION: Small cyst in each kidney. Area cortical retraction left kidney . Otherwise negative Maicol Durant MD Objective Remarks GENERAL:89-year-old male, resting in bed on OptiFlow in no acute distress SKIN: Warm and dry. No rash HEAD: Atraumatic. Normocephalic. EYES: Pupils equal and round around 3 mm bilaterally and reactive. No scleral icterus. No injection or drainage. ENT: No nasal bleeding or discharge. Mucous membranes pink and moist. Hi flow Nasal cannula NECK: Trachea midline. No JVD. CARDIOVASCULAR: Regular rate and rhythm. S1, S2. No S4. No murmur appreciated. RESPIRATORY: Diminished breath sounds bilaterally. Few crackles appreciated throughout the lung rider bilaterally. Positive end expiratory wheeze. GASTROINTESTINAL: Abdomen soft, non-tender, nondistended. Positive bowel sounds less pulsatile aorta palpable in the midline MUSCULOSKELETAL: No obvious deformities. No significant peripheral edema. NEUROLOGICAL: Awake and alert. No obvious cranial nerve deficits. Motor grossly within normal limits. Normal speech. A/P Assessment and Plan NEURO/PSYCH: Back pain due to aortic dissection H/O chronic back pain ICU [place] -Pain control, Tylenol PRN -Currently asymptomatic -Avoid sedatives RESP: Acute respiratory insufficiency Tobacco abuse COPD Allergic rhinitis Chronic cough -BiPAP 10/5@50% versus OptiFlow 55 L at 65% FiO2 wean as tolerated to maintain saturations around 92% -Patient currently refusing BiPAP at night, continues on high flow oxygen -DuoNeb every 6 hours scheduled and when necessary. Continue a cappella/PEP every [address] thorax revealed bilateral pleural effusions. Status post right thoracentesis by IR 09/06 -550 cc. left thoracentesis -580 cc 09/07. Right-sided was transudative. - On singular 10 mg daily and Claritin 10 mg daily for allergy rhinitis/ postnasal drip - As needed Tessalon Perles 200 mg every 8 hours for cough -Counseled on smoking cessation -Incentive spirometry, encourage use Added Symbicort 80/4.5 twice a day and Solu-Medrol 40 mg pulmonary dose IV every 8 on 09/08. Repeat CXR in am ABG 7.40/33/68/20/-4.1 on 65%, will attempt to wean CV: [place] type B aortic dissection 6.7 cm infrarenal AAA Femoral artery aneurysm Hypertensive emergency -Cardene infusion currently off with target systolic blood pressure less than 130 per vascular surgery recommendations -IV labetalol, hydralazine PRN. - Patient's home medication of lisinopril 10 mg daily changed to 2.5 twice a day - diltiazem 240 mg daily switch to 60 mg 4 times a day with when necessary Cardizem 30 mg by mouth every 6 hours will be continued. - Clonidine 0.2 mg twice a day added with Coreg 6.25 milligrams twice a day -Vascular surgery, on board Dr. Gastelum -Plan for medical management of Type B dissection ABIs - decreased flow left lower extremity Runoff shows 6.5 AAA. 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 Left NARGIS aneurysm. 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 Continue gentle diuresis with Bumex 1 mg daily GI: Hypoalbuminemia Bilateral adrenal adenoma Regular diet - Protonix for GI prophylaxis -Senna and Colace for bowel regimen FEN/renal/: Hypokalemia BPH Noted received IV dye 08/31. Contrast nephropathy resolved -Monitor renal function closely -Monitor hourly urinary output -Electrolyte replacement per ICU protocol -Strict I and O's Avoid nephrotoxic drugs Continue Flomax 0.4 mg by mouth daily ID: Possible URI -Day #6 cefepime and Zithromax -Continue elevated WBC count, ID consulted appreciate recommendations Pertinent cultures 09/07 - sputum -no growth 09/06 - blood cultures 2 - no growth / - pleural fluid - no growth 2/ - blood cultures 2 - no growth HEME: Leukocytosis Anemia -Monitor CBC, CMP WBC 20.3->18.4 today ENDO: -Euglycemic, continue to monitor -Blood glucose monitoring per ICU protocol PROPH: -Bilateral lower extremity SCDs. No pharmacological DVT prophylaxis contraindicated, Pt OOB to chair -IV Protonix for GI prophylaxis LINES: -Utilize peripheral IVs, central line if needed Critical Care: Level 3 Dispo: Discussed case with PANEL MACHINE OPERATOR at bedside, telephone daughter Linda and updated her on the patient's medical status. Physician Meenakshi Miles MD Sep 11, 2016 14:21
[2016-09-11] MEDS: AZITHROMYCIN 500 MG/NS 250 ML IV SCH ×2 (18:02)
[2016-09-11] MEDS: MONTELUKAST SODIUM 10 MG TAB PO SCH (20:53)
[2016-09-12] VITALS (14 sets, daily range): BP systolic 122–160; BP diastolic 69–77; PULSE 44–73; RESP 16–18; TEMP 97.5–98.5; O2SAT 88–93
[2016-09-12] MEDS: CHLORHEXIDINE GLUCONATE 2 % 1 PACK (2 CLOTHS) TOP SCH (04:00)
[2016-09-12 05:56] LABS: AUTOMATED NEUTROPHIL # 17.6 TH/MM3 (1.8-7.7); BASOPHIL % 0.1 % (0.0-2.0); HEMATOCRIT 34.5 % (39.0-51.0); LYMPH % 4.4 % (9.0-44.0); LYMPHOCYTE # 0.9 TH/MM3 (1.0-4.8); MEAN CELL VOLUME 96.6 FL (80.0-100.0); MEAN CORPUSCULAR HEMOGLOBIN 31.7 PG (27.0-34.0); MEAN CORPUSCULAR HGB CONC 32.8 % (32.0-36.0); MONO % 4.5 % (0.0-8.0); PLATELET COUNT 210 TH/MM3 (150-450); RED BLOOD COUNT 3.57 MIL/MM3 (4.50-5.90); RED CELL DISTRIBUTION WIDTH 14.6 % (11.6-17.2); WHITE BLOOD COUNT 19.4 TH/MM3 (4.0-11.0)
[2016-09-12 06:06] LABS: HEMO FLAGS AUTO DIFF
[2016-09-12 06:17] LABS: BICARBONATE 23.3 MEQ/L (21.0-32.0); MAGNESIUM 2.5 MG/DL (1.5-2.5)
--- NOTE | 2016-09-12 06:40 | RADRPT ---
EXAM DATE/TIME: 09/12/2016 05:11 [facility] COMPARISON: CHEST SINGLE AP, September 10, 2016, 4:25. INDICATIONS : Respiratory failure. MEDICAL HISTORY : None. SURGICAL HISTORY : None. ENCOUNTER: Subsequent ACUITY: 3 days PAIN SCORE: Non-responsive. LOCATION: Bilateral chest FINDINGS: There is basilar airspace consolidation and small effusions. No pneumothorax. Mild cardiomegaly. Ecta tic aorta. CONCLUSION: 1. Basilar airspace disease with small effusions. Findings similar to September 10. George Lincoln MD on September 12, 2016 at 6:37 Board Certified Radiologist. This report was verified electronically.
[2016-09-12] MEDS: LABETALOL HCL 100 MG/20 ML VIAL IV PUSH PRN ×2 (07:19→11:03)
[2016-09-12] MEDS: CEFEPIME INJ 2,000 MG in SODIUM CHLORIDE 0.9% INJ 100 ML IV SCH ×2 (07:32→20:34)
[2016-09-12 08:26] LABS: BANDS 5 % (0-6); METAMYELOCYTES 1 % (0-1); MYELOCYTES 1 % (0-0); NEUTROPHIL # MANUAL DIFF 16.7 TH/MM3 (1.8-7.7); PLASMA CELLS 1 % (0-0); PLATELET ESTIMATE SMEAR NORMAL (NORMAL); PLATELET MORPHOLOGY NORMAL (NORMAL); POLYS (SEG NEUTROPHILS) 79 % (16-70); SCAN/DIFF FINAL DIFF MANUAL; WBC DIFF SAMPLE 100
[2016-09-12] MEDS: DOCUSATE SODIUM 100 MG/10 ML UDC PO SCH ×2 (08:32→20:34)
[2016-09-12] MEDS: POTASSIUM CHLORIDE 25 MEQ EFFERVESCENT TAB PO SCH (08:32)
[2016-09-12] MEDS: LISINOPRIL 5 MG TAB PO SCH ×2 (08:32→20:35)
[2016-09-12] MEDS: LORATADINE 10 MG TAB PO SCH (08:32)
[2016-09-12] MEDS: BUDESONIDE-FORMOTEROL 160/4.5 MCG INHALER INH SCH ×2 (08:32→20:34)
[2016-09-12] MEDS: methylPREDNISolone SOD SUCC 40 MG/1 ML VIAL IV PUSH SCH ×2 (08:32→20:34)
[2016-09-12] MEDS: SENNOSIDES SYRUP 8.8 MG/5 ML CUP PO SCH (08:32)
[2016-09-12] MEDS: TAMSULOSIN HCL 0.4 MG CAP PO SCH (08:33)
[2016-09-12] MEDS: CARVEDILOL 6.25 MG TAB PO SCH ×2 (08:33→20:35)
[2016-09-12] MEDS: DILTIAZEM HCL 60 MG TAB PO SCH ×4 (08:33→20:36)
[2016-09-12] MEDS: PANTOPRAZOLE SOD 40 MG DELAYED RELEASE TAB PO SCH (08:33)
[2016-09-12] MEDS: BUMETANIDE INJ 1 MG/4 ML VIAL IV PUSH SCH (08:33)
[2016-09-12] MEDS: SODIUM CHLORIDE 0.9% FLUSH 5 ML FLUSH IV FLUSH SCH ×2 (08:34→20:36)
[2016-09-12] MEDS: hydrALAZINE HCL 20 MG/ML VIAL IV PUSH PRN (08:54)
[2016-09-12] MEDS: cloNIDine HCL 0.3 MG TAB PO SCH ×2 (09:06→20:35)
--- NOTE | 2016-09-12 09:15 | HHI.CCPN ---
Subjective Remarks/Hospital Course Patient is an 89-year-old male with history of hypertension, long-standing tobacco abuse who presents to emergency room with complaints of chest pain back pain and epigastric pain. Started around 10 AM today, while shopping shopping and began to have increased pain to his chest. Denies nausea or vomiting or shortness of breath of symptoms. Never had chest pain in the past. Reports no history of coronary artery disease or PR in the past. EKG showed no acute findings. 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 Patient also has bilateral common femoral artery aneurysms. Patient will be started on Cardene infusion and scheduled metoprolol along with when necessary labetalol for blood pressure and heart rate control. Medical management of the type B dissection. Discussed with vascular surgery Dr. Silverio, he will see the patient and make recommendation about the AAA. Patient may be a candidate for endovascular repair of AAA. I have discussed with Dr. Oliverio Mead from IR as well, also updated patient himself, his granddaughter at the bedside (Krystal). 09/01 The patient continues on nicardipine infusion, with goal of systolic blood pressure less than 110 per recommendations of vascular surgery. The patient has been placed on metoprolol XL, PO in addition to lisinopril and Cardizem home medications. The patient denies pain, requesting a diet. Will follow-up recommendations of vascular surgery. 09/02 Overnight the patient was able to be weaned down to Nicardipine infusion 3 mg/hr. The patient continues on Cardizem and lisinopril, home medications. Will add clonidine 0.2mg to medication regimen, with goal of weaning off nicardipine infusion. The patient denies pain at this time. Tolerating PO diet. 09/03: Resting in bed. Complaining of cough overnight. Continue to be in 5 L nasal cannula. Claritin added last night in addition to his home dose of Singulair for allergic rhinitis. Cardene drip restarted. Arousable and follows commands. [facility] 09/04: Afebrile. Cardiac drip off since yesterday morning. Noted blood pressure liberalized to 130s systolic per vascular. Continues to be on 5 L nasal cannula. Continues to complain of nonproductive cough. 09/05: Currently on 6 L nasal cannula and easily desaturates. Chest x-ray revealed possible left lower lobe effusion. We will gently diurese 1 now. Complains of nonproductive cough. Appears nonseptic. 09/06: On BiPAP overnight due to hypoxia. CT chest revealed bilateral pleural effusion. Status post thoracentesis right side -550. Plan for left thoracentesis tomorrow. CTA runoff noted. Continue with aggressive pulmonary: . Continues with nonproductive cough. 09/07: On BiPAP overnight. Currently on OptiFlow at 70%. Plan for left-sided thoracentesis today. Antibiotic yesterday secondary to persistent cough. Patient's been pancultured. Appears stable otherwise. Short of breath with any exertion. 09/08: Afebrile. On BiPAP again overnight. Currently on OptiFlow at 65%. Status post bilateral thoracentesis with transudative effusions. Appears comfortable. Daily productive cough or sputum. Become short of breath with any exertion. Subjective 09/09: Afebrile. Currently on high flow nasal cannula at 65%. Appears couple. Continues to have dry productive cough of clear sputum. With any movement patient desats. When lying still patient very comfortable and not using accessory muscles and able to speak complete sentences comfortably 09/10: The patient continues on high flow nasal cannula, now decreased to 60%. Patient continues on empiric antibiotics, noted elevation in WBC count today, but remains afebrile. 09/11: Afebrile. Overnight the patient received IV narcotic, and became disoriented and confused. Resolution of symptoms this morning. The patient continues on high flow oxygen currently at 65%, attempting to wean. Patient out of bed to chair. Elevated WBC count continues to ID consult, appreciate recommendations. : Tmax 98.5. WBC count continues to be elevated, bandemia noted. We'll follow-up ID recommendations. The patient alert and oriented, slept well last p.m.. Frequent dosing of antihypertensive medications clonidine increased to 0.3 twice a day. The patient continues on high flow nasal cannula at 65%, attempting to wean to 60% today. Objective Vital Signs Date Time Temp Pulse Resp B/P Pulse Ox O2 Delivery O2 Flow Rate FiO2 09/12/16 08:00 92 High Flow Nasal Cannula 50.00 70 09/12/16 06:00 53 09/12/16 04:00 97.8 16 124/72 Intake and Output 09/11/16 09/11/16 09/12/16 08:00 16:00 00:00 Intake Total 50 ml 465 ml 120 ml Output Total 450 ml 1200 ml 700 ml Balance -400 ml -735 ml -580 ml Result Diagram: 09/12/16 0529 09/12/16528 Imaging Last Impressions Chest X-Ray 09/09/16599 Signed Impressions: Service Date/Time: Friday, September 09, 2016 03:31 - CONCLUSION: No significant change has occurred. Edis Cabrera MD Thoracentesis Ultrasound 09/07/16 0900 Signed Impressions: Service Date/Time: Wednesday, September 07, 2016 11:11 - CONCLUSION: Uncomplicated ultrasound guided thoracentesis. Lucas Mead MD FACR Lower Extremity Ultrasound 09/07/16 0000 Signed Impressions: Service Date/Time: Wednesday, September 07, 2016 21:41 - CONCLUSION: 1. No evidence for DVT. 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 Edis Cabrera MD Aorta w/Runoff CTA 09/06/16599 Signed Impressions: Service Date/Time: August 10:38 - CONCLUSION: 6.5 cm abdominal aortic aneurysm and left common iliac artery aneurysm. Configuration does appear suitable for endovascular repair. 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 Flow reconstitutes in the left popliteal artery. Julius Johnston MD Aorta CTA 09/06/16 06 Signed Impressions: Service Date/Time: August 10:43 - CONCLUSION: Compared to the CTA from several days ago, the false lumen of thoracic aortic dissection is less well seen. This may be related to technical factors and bolus timing or may reflect some interval thrombosis of the false lumen. Otherwise stable vascular findings. Interval development of large bilateral pleural effusions and lung base atelectasis. Julius Johnston MD Chest CT 09/05/16 0000 Signed Impressions: Service Date/Time: Monday, September 05, 2016 22:44 - CONCLUSION: 1. Left greater than right pleural effusions and basilar consolidation, new since the prior CTA. 2. Based on this noncontrast study, no definite change in a type B aortic dissection. I don't see any blood in the mediastinum or pleural spaces. 3. Upper limits of normal to mildly enlarged mediastinal lymph nodes unchanged. 4. Coronary artery calcification again seen. Julius Valencia MD Renal Ultrasound 09/03/16 0000 Signed Impressions: Service Date/Time: Saturday, September 03, 2016 11:14 - CONCLUSION: Small cyst in each kidney. Area cortical retraction left kidney . Otherwise negative Maicol Durant MD Objective Remarks GENERAL:89-year-old male, resting in bed on OptiFlow in no acute distress SKIN: Warm and dry. No rash HEAD: Atraumatic. Normocephalic. EYES: Pupils equal and round around 3 mm bilaterally and reactive. No scleral icterus. No injection or drainage. ENT: No nasal bleeding or discharge. Mucous membranes pink and moist. Hi flow Nasal cannula NECK: Trachea midline. No JVD. CARDIOVASCULAR: Regular rate and rhythm. S1, S2. No S4. No murmur appreciated. RESPIRATORY: Diminished breath sounds bilaterally. Few crackles appreciated throughout the lung rider bilaterally. Positive end expiratory wheeze. GASTROINTESTINAL: Abdomen soft, non-tender, nondistended. Positive bowel sounds less pulsatile aorta palpable in the midline MUSCULOSKELETAL: No obvious deformities. No significant peripheral edema. NEUROLOGICAL: Awake and alert. No obvious cranial nerve deficits. Motor grossly within normal limits. Normal speech. A/P Assessment and Plan NEURO/PSYCH: Back pain due to aortic dissection H/O chronic back pain ICU Delirium-resolved [facility] [place] -Pain control, Tylenol PRN -Currently asymptomatic -Avoid sedatives -GCS 15, continue to monitor , and provides sleep hygiene. Stimulation during the day, minimal disruptions at night. RESP: Acute respiratory insufficiency Tobacco abuse COPD Allergic rhinitis Chronic cough -BiPAP 10/5@50% versus OptiFlow 55 L at 65% FiO2 wean as tolerated to maintain saturations around 92% -Patient currently refusing BiPAP at night, continues on high flow oxygen -DuoNeb every 6 hours scheduled and when necessary. Continue a cappella/PEP every [address] thorax revealed bilateral pleural effusions. Status post right thoracentesis by IR 09/06 -550 cc. left thoracentesis -580 cc 09/07. Right-sided was transudative. - On singular 10 mg daily and Claritin 10 mg daily for allergy rhinitis/ postnasal drip - As needed Tessalon Perles 200 mg every 8 hours for cough -Counseled on smoking cessation -Incentive spirometry, encourage use, every hour while awake Added Symbicort 80/4.5 twice a day and Solu-Medrol 40 mg pulmonary dose IV every 8 on 09/08. CXR 09/12-small effusions unchanged from CV: [place] type B aortic dissection 6.7 cm infrarenal AAA Femoral artery aneurysm Hypertensive emergency -Cardene infusion currently off with target systolic blood pressure less than 130 per vascular surgery recommendations -IV labetalol, hydralazine PRN. - Patient's home medication of lisinopril 10 mg daily changed to 2.5 twice a day - diltiazem 240 mg daily switch to 60 mg 4 times a day with when necessary Cardizem 30 mg by mouth every 6 hours will be continued. - Increased Clonidine 0.3 mg twice a day added with Coreg 6.25 milligrams twice a day,PRN Hydralazine -Vascular surgery, on board Dr. Gastelum -Plan for medical management of Type B dissection ABIs - decreased flow left lower extremity Runoff shows 6.5 AAA. 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 Left NARGIS aneurysm. 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 Continue gentle diuresis with Bumex decreased to 0.5 mg daily GI: Hypoalbuminemia Bilateral adrenal adenoma Heart healthy diet - Protonix for GI prophylaxis -Senna and Colace for bowel regimen FEN/renal/: Hypokalemia BPH Noted received IV dye 08/31. Contrast nephropathy resolved -Monitor renal function closely -Monitor hourly urinary output -Electrolyte replacement per ICU protocol -Strict I and O's Avoid nephrotoxic drugs Continue Flomax 0.4 mg by mouth daily ID: Possible URI -Day #7 cefepime and Zithromax -Continue elevated WBC count 18.4->19.4, ID consulted appreciate recommendations Pertinent cultures 09/07 - sputum -no growth 09/06 - blood cultures 2 - no growth 09/06 - pleural fluid - WBC no growth 08/31 - blood cultures 2 - no growth HEME: Leukocytosis Anemia -Monitor CBC, CMP WBC 20.3->18.4 today ENDO: -Euglycemic, continue to monitor -Blood glucose monitoring per ICU protocol PROPH: -Bilateral lower extremity SCDs. No pharmacological DVT prophylaxis contraindicated, Pt OOB to chair -IV Protonix for GI prophylaxis LINES: -Utilize peripheral IVs, central line if needed Critical Care: Level 3 Dispo: Discussed case with SOLAR HOT WATER INSTALLER at bedside. Physician Meenakshi Miles MD Sep 12, 2016 09:15
[2016-09-12] MEDS ORDERED: SODIUM CHLORIDE 0.65% NASAL SPRAY 45 ML BTL NASAL PRN (13:30)
[2016-09-12 15:58] LABS: BLOOD GAS BASE EXCESS -2.9 mmol/L (-2-2); BLOOD GAS CARBOXYHEMOGLOBIN 1.4 % (0-4); BLOOD GAS HCO3 21 mmol/L (22-26); BLOOD GAS METHEMOGLOBIN 1.2 % (0-2); BLOOD GAS O2 HGB SATURATION 92 % (90-100); BLOOD GAS OXYGEN CONTENT 14.3 Vol % (12.0-20.0); BLOOD GAS PCO2 33 mmHg (38-42); BLOOD GAS PO2 70 mmHg (61-120); CRITICAL VALUE NO; DRAW SITE LT RADIAL; FIO2 60 %; LITER FLOW 50 L/M; NUMBER OF ARTERIAL PUNCTURES 1; OXYGEN DEVICE HIGH FLOW NC; STAT YES; TEMP CORR TO 98.6; ULNAR PULSE PRESENT
--- NOTE | 2016-09-12 16:48 | PD.ID.CON ---
History of Present Illness Service Infectious disease Consult Requested By Dr. Eaton Reason for Consult Evaluation and management of persistent leukocytosis Primary Care Physician Aissatou Albright MD Diagnoses: History of Present Illness Mr. Bolanos is an 89-year-old male with past medical history significant for hypertension, long-standing tobacco abuse who presented to the emergency room with history of chest pain, back pain and epigastric pain. This pain was acute onset while he was shopping in due to worsening chest pain he was brought into the emergency department. He denies any nausea vomiting or shortness of breath on presentation. No prior history of mild coronary artery disease. EKG with no acute findings. 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 Patient also has bilateral common femoral artery aneurysms. Patient was started on Cardene infusions as well as metoprolol to control his blood pressure. Patient has been followed by cardiology as well as vascular surgery. Patient is being currently evaluated for possible endovascular repair AAA. Patient had a nonproductive cough and also has a history of allergic rhinitis. On September 06 patient was placed on BiPAP overnight due to hypoxia. CT of the chest revealed bilateral pleural effusions. Patient underwent right-sided thoracentesis with drainage of 550 cc of fluid. Patient was started on empiric antibiotics after being pancultured. All cultures are negative so far. Infectious disease is consulted for evaluation and management of persistent leukocytosis. Review of Systems ROS Limitations: Poor Historian Past Family Social History Allergies: Uncoded Allergies: MUSHROOMS (Allergy, Severe, Nausea/Vomiting, 09/02/16) Past Medical History Hypertension Tobacco abuse Past Surgical History Inguinal hernia repair Knee surgery Reported Medications Reported Meds & Active Scripts Active Reported Lisinopril 10 Mg Tab 10 Mg PO DAILY Diltiazem ER 24 HR 240 Mg Caper 240 Mg PO DAILY Flomax (Tamsulosin HCl) 0.4 Mg Cap 0.4 Mg PO HS Alavert (Loratadine) 10 Mg Tab 10 Mg PO DAILY Montelukast (Montelukast Sodium) 10 Mg Tab 10 Mg PO HS Active Ordered Medications Current Medications Medications (Trade) Dose Ordered Sig/Karen Route Start Time Stop Time Status Last Admin (NS Flush) 2 ml UNSCH PRN IV FLUSH 08/31/16 15:30 09/11/16 18:37 (NS Flush) 2 ml BID IV FLUSH 08/31/16 21:00 09/12/16 08:34 Miscellaneous Information 1 Q361D XX 08/31/16 15:30 (Chlorhexidine 2% Cloth) Taper DAILY@04 TOP 09/01/16 04:00 08/28/17 03:59 09/12/16 04:00 (Chlorhexidine 2% Cloth) 3 pack UNSCH PRN TOP 08/31/16 15:30 (Prinivil) 10 mg DAILY PO 09/01/16 09:00 Hold 09/03/16 09:44 (Singulair) 10 mg HS PO 08/31/16 21:00 09/11/16 20:53 (Colace Liq) 100 mg Q12HR PO 08/31/16 21:00 09/12/16 08:32 Sennosides 8.8 mg 8.8 mg DAILY PO 09/01/16 09:00 09/12/16 08:32 Nicardipine HCl 25 mg/Sodium Chloride 260 ml @ 0 mls/hr TITRATE IV 09/02/16 15:15 09/03/16 05:07 Potassium Chloride 100 ml @ 50 mls/hr Q2H PRN IV 09/02/16 15:45 (KCl 20 Meq Premix Inj) 100 ml @ 50 mls/hr Q2H PRN IV 09/02/16 15:45 09/08/16 06:27 Potassium Chloride 40 meq 40 meq UNSCH PRN PO/TUBE 09/02/16 15:45 09/10/16 18:06 Potassium Chloride 100 ml @ 25 mls/hr UNSCH PRN IV 09/02/16 15:45 Potassium Chloride 100 ml @ 50 mls/hr Q2H PRN IV 09/02/16 15:45 (Magnesium Sulfate Inj/NS Inj) 100 ml @ 50 mls/hr UNSCH PRN IV 09/02/16 15:45 Magnesium Oxide 800 mg 800 mg UNSCH PRN PO 09/02/16 15:45 (Magnesium Sulfate Inj/NS Inj) 100 ml @ 50 mls/hr UNSCH PRN IV 09/02/16 15:45 Potassium Phosphate 2000 mg 2,000 mg Q4H PRN PO 09/02/16 15:45 09/02/16 20:07 (Sodium Phosphate Inj/NS 250 ml Inj) 250 ml @ 42 mls/hr UNSCH PRN IV 09/02/16 15:45 09/05/16 11:12 (KCl 40 Meq/30 ml Liq) 40 meq UNSCH PRN PO/TUBE 09/02/16 15:45 Potassium Phosphate 2000 mg 2,000 mg UNSCH PRN PO/TUBE 09/02/16 15:45 (Potassium Phosphate Inj/NS 250 ml Inj) 260 ml @ 42 mls/hr UNSCH PRN IV 09/02/16 15:45 (Claritin) 10 mg DAILY PO 09/03/16 05:00 09/12/16 08:32 (Tessalon) 200 mg TID PRN PO 09/03/16 05:00 09/06/16 09:51 ([place] 5-325 Mg) 1 tab Q4H PRN PO 09/03/16 09:00 09/05/16 11:46 (Protonix) 40 mg DAILY PO 09/03/16 09:00 09/12/16 08:33 (Trandate Inj) 10 mg Q1H PRN IV PUSH 09/03/16 09:30 09/12/16 11:03 (Cardizem) 30 mg QID PRN PO 09/03/16 10:00 09/08/16 16:17 Tamsulosin HCl 0.4 mg 0.4 mg DAILY PO 09/04/16 09:00 09/12/16 08:33 (Sodium Bicarbonate 8.4% Inj/Sterile Water For Inj) 1,000 ml @ 50 mls/hr Q20H IV 09/03/16 12:00 Hold 09/05/16 04:06 Diltiazem HCl 60 mg 60 mg QID PO 09/05/16 18:00 09/12/16 17:15 Cefepime HCl 2000 mg/Sodium Chloride 100 ml @ 200 mls/hr Q12H IV 09/06/16 20:00 09/12/16 07:32 (Zithromax Inj/ NS 250 ml Inj) 250 ml @ 250 mls/hr Q24H IV 09/07/16 18:00 09/12/16 17:15 (Prinivil) 2.5 mg BID PO 09/07/16 10:00 09/12/16 08:32 (Pill Splitter) 1 ea UNSCH PRN OTHER 09/07/16 09:15 (Symbicort 160-4.5 Inh) 1 puff Q12HR INH 09/08/16 09:00 09/12/16 08:32 (SoluMEDROL INJ) 40 mg Q12HR IV PUSH 09/08/16 09:00 09/12/16 08:32 (Apresoline Inj) 20 mg Q4H PRN IV PUSH 09/09/16 00:00 09/12/16 08:54 (Coreg) 6.25 mg Q12HR PO 09/09/16 21:00 09/12/16 08:33 (K-Lyte Cl Eff) 25 meq DAILY PO 09/11/16 09:00 09/12/16 08:32 (Tylenol) 650 mg Q4H PRN PO 09/11/16 14:15 (Catapres) 0.3 mg Q12HR PO 09/12/16 09:00 09/12/16 09:06 (Bumex Inj) 0.5 mg DAILY IV PUSH 09/13/16 09:30 ([place] Bradford) 1 spray UNSCH PRN NASAL 09/12/16 13:30 09/12/16 13:36 Family History Cannot be obtained. Social History Smokes one pack of cigarettes per day Alcohol use socially Physical Exam Vital Signs Vital Signs Date Time Temp Pulse Resp B/P Pulse Ox O2 Delivery O2 Flow Rate FiO2 09/12/16 14:00 58 09/12/16 12:00 89 Nasal Cannula 60 Humidified 09/12/16 12:00 97.5 63 16 126/69 89 09/12/16 12:00 63 09/12/16 10:00 60 09/12/16 08:00 88 Nasal Cannula 70 Humidified 09/12/16 08:00 97.7 73 18 160/77 88 09/12/16 08:00 73 09/12/16 08:00 92 High Flow Nasal Cannula 50.00 70 09/12/16 06:00 53 09/12/16 04:00 55 09/12/16 04:00 93 Nasal Cannula 75 Humidified 09/12/16 04:00 97.8 55 16 124/72 93 09/12/16 02:00 52 09/12/16 00:00 95 Nasal Cannula 75 Humidified 09/12/16 00:00 98.2 53 16 122/70 92 09/12/16 00:00 53 09/11/16 22:00 59 09/11/16 20:33 94 High Flow Nasal Cannula 50.00 67 09/11/16 20:00 98.5 60 12 126/66 95 09/11/16 20:00 60 09/11/16 20:00 95 Nasal Cannula 75 Humidified 09/11/16 18:00 63 09/11/16 17:00 137/69 Physical Exam GENERAL: Obese CM patient, in no apparent distress. SKIN: No rashes. HEAD: Atraumatic. Normocephalic. No temporal or scalp tenderness. EYES: Pupils equal round and reactive. Extraocular motions intact. No scleral icterus. No injection or drainage. ENT: Nose without bleeding, purulent drainage or septal hematoma. Throat without erythema, tonsillar hypertrophy or exudate. Uvula midline. Airway patent. NECK: Trachea midline. Supple, nontender, no meningeal signs. CARDIOVASCULAR: HS audible RESPIRATORY: Clear to auscultation. Breath sounds equal bilaterally. GASTROINTESTINAL: Abdomen soft, non-tender, nondistended. MUSCULOSKELETAL: Extremities without clubbing, cyanosis. Trace pedal edema. NEUROLOGICAL: Awake and alert. Grossly nonfocal. Psych cooperative IV line sites with no evidence of infection. Laboratory Laboratory Tests Test 09/12/16 09/12/16 09/12/16 05:29 12:37 15:45 White Blood Count 19.4 Red Blood Count 3.57 Hemoglobin 11.3 Hematocrit 34.5 Mean Corpuscular Volume 96.6 Mean Corpuscular Hemoglobin 31.7 Mean Corpuscular Hemoglobin 32.8 Concent Red Cell Distribution Width 14.6 Platelet Count 210 Mean Platelet Volume 7.9 Neutrophils (%) (Auto) 91.0 Lymphocytes (%) (Auto) 4.4 Monocytes (%) (Auto) 4.5 Eosinophils (%) (Auto) 0.0 Basophils (%) (Auto) 0.1 Neutrophils # (Auto) 17.6 Lymphocytes # (Auto) 0.9 Monocytes # (Auto) 0.9 Eosinophils # (Auto) 0.0 Basophils # (Auto) 0.0 CBC Comment AUTO DIFF Differential Total Cells 100 Counted Neutrophils % (Manual) 79 Band Neutrophils % 5 Lymphocytes % 5 Monocytes % 8 Neutrophils # (Manual) 16.7 Metamyelocytes 1 Myelocytes 1 Differential Comment FINAL DIFF MANUAL Plasma Cells 1 Platelet Estimate NORMAL Platelet Morphology Comment NORMAL Red Cell Morphology Comment NORMAL Sodium Level 142 Potassium Level 4.0 Chloride Level 110 Carbon Dioxide Level 23.3 Anion Gap 9 Blood Urea Nitrogen 34 Creatinine 1.24 Estimat Glomerular Filtration 55 Rate Random Glucose 149 Calcium Level 8.2 Phosphorus Level 3.0 Magnesium Level 2.5 Procalcitonin LESS THAN 0.05 Blood Gas Puncture Site LT RADIAL Blood Gas Patient Temperature 98.6 Blood Gas HCO3 21 Blood Gas Base Excess -2.9 Blood Gas Oxygen Saturation 92 Arterial Blood pH 7.42 Arterial Blood Partial 33 Pressure CO2 Arterial Blood Partial 70 Pressure O2 Arterial Blood Oxygen Content 14.3 Arterial Blood 1.4 Carboxyhemoglobin Arterial Blood Methemoglobin 1.2 Blood Gas Hemoglobin 11.0 Oxygen Delivery Device HIGH FLOW NC Blood Gas Liter Flow 50 Blood Gas Inspired Oxygen 60 Result Diagram: 09/12/1652809/12/16528 Imaging Last Impressions Chest X-Ray 09/12/16599 Signed Impressions: Service Date/Time: Monday, September 12, 2016 05:11 - CONCLUSION: 1. Basilar airspace disease with small effusions. Findings similar to September 10. George Lincoln MD Thoracentesis Ultrasound 09/07/16 09 Signed Impressions: Service Date/Time: Wednesday, September 07, 2016 11:11 - CONCLUSION: Uncomplicated ultrasound guided thoracentesis. Lucas Mead MD FACR Lower Extremity Ultrasound 09/07/16 0000 Signed Impressions: Service Date/Time: Wednesday, September 07, 2016 21:41 - CONCLUSION: 1. No evidence for DVT. 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 Edis Cabrera MD Aorta w/Runoff CTA 09/06/16599 Signed Impressions: Service Date/Time: August 10:38 - CONCLUSION: 6.5 cm abdominal aortic aneurysm and left common iliac artery aneurysm. Configuration does appear suitable for endovascular repair. 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 Flow reconstitutes in the left popliteal artery. Julius Johnston MD Aorta CTA 09/06/16 06 Signed Impressions: Service Date/Time: August 10:43 - CONCLUSION: Compared to the CTA from several days ago, the false lumen of thoracic aortic dissection is less well seen. This may be related to technical factors and bolus timing or may reflect some interval thrombosis of the false lumen. Otherwise stable vascular findings. Interval development of large bilateral pleural effusions and lung base atelectasis. Julius Jonhston MD Chest CT 09/05/16 0000 Signed Impressions: Service Date/Time: Monday, September 05, 2016 22:44 - CONCLUSION: 1. Left greater than right pleural effusions and basilar consolidation, new since the prior CTA. 2. Based on this noncontrast study, no definite change in a type B aortic dissection. I don't see any blood in the mediastinum or pleural spaces. 3. Upper limits of normal to mildly enlarged mediastinal lymph nodes unchanged. 4. Coronary artery calcification again seen. Julius Valencia MD Renal Ultrasound 09/03/16 0000 Signed Impressions: Service Date/Time: Saturday, September 03, 2016 11:14 - CONCLUSION: Small cyst in each kidney. Area cortical retraction left kidney . Otherwise negative Maicol Durant MD Assessment and Plan Assessment and Plan ? URI vs pneumonitis. Persistent leucocytosis: dissection vs infection related. [place] type B aortic dissection in thoracic area. Abdominal parts with no acute dissection. 6.7 cm infrarenal AAA Femoral artery aneurysm Hypertensive emergency Acute respiratory insufficiency Tobacco abuse COPD Allergic rhinitis Chronic cough Recs Check Procalcitonin Continue Cefepime IV Continue Azithro IV Follow cultures Follow clinically. d/w Guillermina Herring MD Sep 12, 2016 16:48
[2016-09-12] MEDS: AZITHROMYCIN 500 MG/NS 250 ML IV SCH ×2 (17:15)
[2016-09-12] MEDS: MONTELUKAST SODIUM 10 MG TAB PO SCH (20:35)
[2016-09-13] VITALS (15 sets, daily range): BP systolic 123–129; BP diastolic 59–69; PULSE 45–68; RESP 12–18; TEMP 98–98.7; O2SAT 90–93
[2016-09-13] MEDS: CHLORHEXIDINE GLUCONATE 2 % 1 PACK (2 CLOTHS) TOP SCH (01:50)
[2016-09-13] MEDS: LABETALOL HCL 100 MG/20 ML VIAL IV PUSH PRN ×5 (02:00→19:28)
[2016-09-13 05:40] LABS: AUTOMATED NEUTROPHIL # 17.7 TH/MM3 (1.8-7.7); HEMATOCRIT 32.7 % (39.0-51.0); LYMPH % 4.8 % (9.0-44.0); LYMPHOCYTE # 0.9 TH/MM3 (1.0-4.8); MEAN CELL VOLUME 95.2 FL (80.0-100.0); MEAN CORPUSCULAR HEMOGLOBIN 31.8 PG (27.0-34.0); MEAN CORPUSCULAR HGB CONC 33.4 % (32.0-36.0); MONO % 4.5 % (0.0-8.0); NEUT % 90.7 % (16.0-70.0); PLATELET COUNT 204 TH/MM3 (150-450); RED BLOOD COUNT 3.44 MIL/MM3 (4.50-5.90); RED CELL DISTRIBUTION WIDTH 14.2 % (11.6-17.2); WHITE BLOOD COUNT 19.5 TH/MM3 (4.0-11.0)
[2016-09-13 05:52] LABS: HEMO FLAGS AUTO DIFF
[2016-09-13 06:05] LABS: ALKALINE PHOSPHATASE 69 U/L (45-117); ALT (GPT) 81 U/L (12-78); ANION GAP 9 MEQ/L (5-15); AST (GOT) 24 U/L (15-37); BLOOD UREA NITROGEN 36 MG/DL (7-18); CHLORIDE 112 MEQ/L (98-107); GLOMERULAR FILTRATION RATE 56 ML/MIN (>89); MAGNESIUM 2.5 MG/DL (1.5-2.5); SODIUM (NA) 143 MEQ/L (136-145); TOTAL BILIRUBIN ADULT 0.3 MG/DL (0.2-1.0)
[2016-09-13] MEDS: CEFEPIME INJ 2,000 MG in SODIUM CHLORIDE 0.9% INJ 100 ML IV SCH (07:54)
[2016-09-13] MEDS: BUDESONIDE-FORMOTEROL 160/4.5 MCG INHALER INH SCH ×2 (07:55→20:01)
[2016-09-13] MEDS: SODIUM CHLORIDE 0.9% FLUSH 5 ML FLUSH IV FLUSH SCH ×2 (07:55→20:01)
[2016-09-13] MEDS: SENNOSIDES SYRUP 8.8 MG/5 ML CUP PO SCH (08:26)
[2016-09-13] MEDS: methylPREDNISolone SOD SUCC 40 MG/1 ML VIAL IV PUSH SCH ×2 (08:26→19:59)
[2016-09-13] MEDS: POTASSIUM CHLORIDE 25 MEQ EFFERVESCENT TAB PO SCH (08:27)
[2016-09-13] MEDS: LISINOPRIL 5 MG TAB PO SCH ×2 (08:27→19:59)
[2016-09-13] MEDS: SODIUM CHLORIDE 0.9% FLUSH 5 ML FLUSH IV FLUSH PRN ×3 (08:27→17:37)
[2016-09-13] MEDS: DOCUSATE SODIUM 100 MG/10 ML UDC PO SCH ×2 (08:27→19:58)
[2016-09-13] MEDS: PANTOPRAZOLE SOD 40 MG DELAYED RELEASE TAB PO SCH (08:27)
[2016-09-13] MEDS: TAMSULOSIN HCL 0.4 MG CAP PO SCH (08:27)
[2016-09-13] MEDS: DILTIAZEM HCL 60 MG TAB PO SCH ×4 (08:27→19:59)
[2016-09-13] MEDS: CARVEDILOL 6.25 MG TAB PO SCH ×2 (08:27→20:00)
[2016-09-13] MEDS: cloNIDine HCL 0.3 MG TAB PO SCH (08:27)
[2016-09-13] MEDS: BUMETANIDE INJ 1 MG/4 ML VIAL IV PUSH SCH (08:30)
[2016-09-13] MEDS: LORATADINE 10 MG TAB PO SCH (08:30)
[2016-09-13 10:06] LABS: BANDS 17 % (0-6); NEUTROPHIL # MANUAL DIFF 18.9 TH/MM3 (1.8-7.7); PLATELET ESTIMATE SMEAR NORMAL (NORMAL); PLATELET MORPHOLOGY NORMAL (NORMAL); POLYS (SEG NEUTROPHILS) 80 % (16-70); SCAN/DIFF FINAL DIFF MANUAL; WBC DIFF SAMPLE 100
--- NOTE | 2016-09-13 10:49 | HHI.CCPN ---
Subjective Remarks/Hospital Course Patient is an 89-year-old male with history of hypertension, long-standing tobacco abuse who presents to emergency room with complaints of chest pain back pain and epigastric pain. Started around 10 AM today, while shopping shopping and began to have increased pain to his chest. Denies nausea or vomiting or shortness of breath of symptoms. Never had chest pain in the past. Reports no history of coronary artery disease or [place] in the past. EKG showed no acute findings. 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 Patient also has bilateral common femoral artery aneurysms. Patient will be started on Cardene infusion and scheduled metoprolol along with when necessary labetalol for blood pressure and heart rate control. Medical management of the type B dissection. Discussed with vascular surgery Dr. Silverio, he will see the patient and make recommendation about the AAA. Patient may be a candidate for endovascular repair of AAA. I have discussed with Dr. Oliverio Mead from IR as well, also updated patient himself, his granddaughter at the bedside (Krystal). 09/01 The patient continues on nicardipine infusion, with goal of systolic blood pressure less than 110 per recommendations of vascular surgery. The patient has been placed on metoprolol XL, PO in addition to lisinopril and Cardizem home medications. The patient denies pain, requesting a diet. Will follow-up recommendations of vascular surgery. 09/02 Overnight the patient was able to be weaned down to Nicardipine infusion 3 mg/hr. The patient continues on Cardizem and lisinopril, home medications. Will add clonidine 0.2mg to medication regimen, with goal of weaning off nicardipine infusion. The patient denies pain at this time. Tolerating PO diet. 09/03: Resting in bed. Complaining of cough overnight. Continue to be in 5 L nasal cannula. Claritin added last night in addition to his home dose of Singulair for allergic rhinitis. Cardene drip restarted. Arousable and follows commands. KIPNUK 09/04: Afebrile. Cardiac drip off since yesterday morning. Noted blood pressure liberalized to 130s systolic per vascular. Continues to be on 5 L nasal cannula. Continues to complain of nonproductive cough. 09/05: Currently on 6 L nasal cannula and easily desaturates. Chest x-ray revealed possible left lower lobe effusion. We will gently diurese 1 now. Complains of nonproductive cough. Appears nonseptic. 09/06: On BiPAP overnight due to hypoxia. CT chest revealed bilateral pleural effusion. Status post thoracentesis right side -550. Plan for left thoracentesis tomorrow. CTA runoff noted. Continue with aggressive pulmonary: . Continues with nonproductive cough. 09/07: On BiPAP overnight. Currently on OptiFlow at 70%. Plan for left-sided thoracentesis today. Antibiotic yesterday secondary to persistent cough. Patient's been pancultured. Appears stable otherwise. Short of breath with any exertion. 09/08: Afebrile. On BiPAP again overnight. Currently on OptiFlow at 65%. Status post bilateral thoracentesis with transudative effusions. Appears comfortable. Daily productive cough or sputum. Become short of breath with any exertion. Subjective 09/09: Afebrile. Currently on high flow nasal cannula at 65%. Appears couple. Continues to have dry productive cough of clear sputum. With any movement patient desats. When lying still patient very comfortable and not using accessory muscles and able to speak complete sentences comfortably 09/10: The patient continues on high flow nasal cannula, now decreased to 60%. Patient continues on empiric antibiotics, noted elevation in WBC count today, but remains afebrile. 09/11: Afebrile. Overnight the patient received IV narcotic, and became disoriented and confused. Resolution of symptoms this morning. The patient continues on high flow oxygen currently at 65%, attempting to wean. Patient out of bed to chair. Elevated WBC count continues to ID consult, appreciate recommendations. 09/12: Tmax 98.5. WBC count continues to be elevated, bandemia noted. We'll follow-up ID recommendations. The patient alert and oriented, slept well last p.m.. Frequent dosing of antihypertensive medications clonidine increased to 0.3 twice a day. The patient continues on high flow nasal cannula at 65%, attempting to wean to 60% today. 09/13: The patient continues to have persistent leukocytosis, Dr. Valdez following. Overnight the patient required increase in FiO2 to 70% . Blood pressure now well controlled, will begin weaning of clonidine, systolic blood pressure 100's. Patient continues to refuse BiPAP at night. Objective Vital Signs Date Time Temp Pulse Resp B/P Pulse Ox O2 Delivery O2 Flow Rate FiO2 09/13/16 10:00 50 09/13/16 08:00 98.7 16 123/67 90 09/13/16 08:00 Nasal Cannula 50.00 70 Humidified Intake and Output 09/12/16 09/12/16 09/13/16 08:00 16:00 00:00 Intake Total 25 ml 596 ml 880 ml Output Total 500 ml 850 ml 350 ml Balance -475 ml -254 ml 530 ml Result Diagram: 09/13/16 0429 09/13/16 0429 Other Results Laboratory Tests Test 09/12/16 15:45 Blood Gas Puncture Site LT RADIAL Blood Gas Patient Temperature 98.6 Blood Gas HCO3 21 mmol/L (22-26) Blood Gas Base Excess -2.9 mmol/L (-2-2) Blood Gas Oxygen Saturation 92 % (90-100) Arterial Blood pH 7.42 (7.380-7.420) Arterial Blood Partial 33 mmHg (38-42) Pressure CO2 Arterial Blood Partial 70 mmHg Pressure O2 (61-120) Arterial Blood Oxygen Content 14.3 Vol % (12.0-20.0) Arterial Blood 1.4 % (0-4) Carboxyhemoglobin Arterial Blood Methemoglobin 1.2 % (0-2) Blood Gas Hemoglobin 11.0 G/DL (12.0-16.0) Oxygen Delivery Device HIGH FLOW NC Blood Gas Liter Flow 50 L/M Blood Gas Inspired Oxygen 60 % Imaging Last Impressions Chest X-Ray 09/09/16 0600 Signed Impressions: Service Date/Time: Friday, September 09, 2016 03:31 - CONCLUSION: No significant change has occurred. dEis Cabrera MD Thoracentesis Ultrasound 09/07/16 0900 Signed Impressions: Service Date/Time: Wednesday, September 07, 2016 11:11 - CONCLUSION: Uncomplicated ultrasound guided thoracentesis. Lucas Mead MD FACR Lower Extremity Ultrasound 09/07/16 0000 Signed Impressions: Service Date/Time: Wednesday, September 07, 2016 21:41 - CONCLUSION: 1. No evidence for DVT. 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 Configuration does appear suitable for endovascular repair. 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 Flow reconstitutes in the left popliteal artery. Julius Johnston MD Aorta CTA 09/06/16 0600 Signed Impressions: Service Date/Time: August 10:43 - CONCLUSION: Compared to the CTA from several days ago, the false lumen of thoracic aortic dissection is less well seen. This may be related to technical factors and bolus timing or may reflect some interval thrombosis of the false lumen. Otherwise stable vascular findings. Interval development of large bilateral pleural effusions and lung base atelectasis. Julius Johnston MD Chest CT 09/05/16 0000 Signed Impressions: Service Date/Time: Monday, September 05, 2016 22:44 - CONCLUSION: 1. Left greater than right pleural effusions and basilar consolidation, new since the prior CTA. 2. Based on this noncontrast study, no definite change in a type B aortic dissection. I don't see any blood in the mediastinum or pleural spaces. 3. Upper limits of normal to mildly enlarged mediastinal lymph nodes unchanged. 4. Coronary artery calcification again seen. Julius Valencia MD Renal Ultrasound 09/03/16 0000 Signed Impressions: Service Date/Time: Saturday, September 03, 2016 11:14 - CONCLUSION: Small cyst in each kidney. Area cortical retraction left kidney . Otherwise negative Maicol Durant MD Objective Remarks GENERAL:89-year-old male, resting in bed on OptiFlow in no acute distress SKIN: Warm and dry. No rash HEAD: Atraumatic. Normocephalic. EYES: Pupils equal and round around 3 mm bilaterally and reactive. No scleral icterus. No injection or drainage. ENT: No nasal bleeding or discharge. Mucous membranes pink and moist. Hi flow Nasal cannula NECK: Trachea midline. No JVD. CARDIOVASCULAR: Regular rate and rhythm. S1, S2. No S4. No murmur appreciated. RESPIRATORY: Diminished breath sounds bilaterally. Few crackles appreciated throughout the lung rider bilaterally. Positive end expiratory wheeze. GASTROINTESTINAL: Abdomen soft, non-tender, nondistended. Positive bowel sounds less pulsatile aorta palpable in the midline MUSCULOSKELETAL: No obvious deformities. No significant peripheral edema. NEUROLOGICAL: Awake and alert. No obvious cranial nerve deficits. Motor grossly within normal limits. Normal speech. A/P Assessment and Plan NEURO/PSYCH: Back pain due to aortic dissection H/O chronic back pain ICU Delirium-resolved KIPNUK -Pain control, Tylenol PRN -Currently asymptomatic -Avoid sedatives -GCS 15, continue to monitor , and provides sleep hygiene. Stimulation during the day, minimal disruptions at night. RESP: Acute respiratory insufficiency Tobacco abuse COPD Allergic rhinitis Chronic cough -BiPAP 10/5@50% versus OptiFlow 55 L at 70% FiO2 wean as tolerated to maintain saturations around 92% -Patient currently refusing BiPAP at night, continues on high flow oxygen -DuoNeb every 6 hours scheduled and when necessary. Continue a cappella/PEP every [address] thorax revealed bilateral pleural effusions. Status post right thoracentesis by IR 09/06 -550 cc. left thoracentesis -580 cc 09/07. Right-sided was transudative. - On singular 10 mg daily and Claritin 10 mg daily for allergy rhinitis/ postnasal drip - As needed Tessalon Perles 200 mg every 8 hours for cough -Counseled on smoking cessation -Incentive spirometry, encourage use, every hour while awake Added Symbicort 80/4.5 twice a day and Solu-Medrol 40 mg pulmonary dose IV every 8 on 09/08. CXR 09/12-small effusions unchanged from Pulmonary consulted-Dr. Krueger CV: [place] type B aortic dissection 6.7 cm infrarenal AAA Femoral artery aneurysm Hypertensive emergency -Cardene infusion currently off with target systolic blood pressure less than 130 per vascular surgery recommendations -IV labetalol, hydralazine PRN. - Patient's home medication of lisinopril 10 mg daily changed to 2.5 twice a day - diltiazem 240 mg daily switch to 60 mg 4 times a day with when necessary Cardizem 30 mg by mouth every 6 hours will be continued. - Increased Clonidine 0.3 mg twice a day added with Coreg 6.25 milligrams twice a day,PRN Hydralazine -Vascular surgery, on board Dr. Gastelum -Plan for medical management of Type B dissection ABIs - decreased flow left lower extremity Runoff shows 6.5 AAA. 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 Left NARGIS aneurysm. 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 Continue gentle diuresis with Bumex decreased to 0.5 mg daily Systolic blood pressure now low 100s will begin weaning off clonidine GI: Hypoalbuminemia Bilateral adrenal adenoma Heart healthy diet - Protonix for GI prophylaxis -Senna and Colace for bowel regimen FEN/renal/: Hypokalemia BPH Noted received IV dye /. Contrast nephropathy resolved -Monitor renal function closely -Monitor hourly urinary output -Electrolyte replacement per ICU protocol -Strict I and O's Avoid nephrotoxic drugs Continue Flomax 0.4 mg by mouth daily ID: Possible URI -Day #7 cefepime and Zithromax -Continue elevated WBC count 18.4->19.4, ID consulted appreciate recommendations Pertinent cultures 09/07 - sputum -no growth 09/06 - blood cultures 2 - no growth / - pleural fluid - WBC no growth 2/ - blood cultures 2 - no growth HEME: Leukocytosis Anemia Bandemia -Monitor CBC, CMP WBC 19->19 today, bands increasing 17 ENDO: -Euglycemic, continue to monitor -Blood glucose monitoring per ICU protocol PROPH: -Bilateral lower extremity SCDs. No pharmacological DVT prophylaxis contraindicated, Pt OOB to chair -IV Protonix for GI prophylaxis LINES: -Utilize peripheral IVs, central line if needed Critical Care: Level 3 Dispo: Discussed case with RESIDENTIAL PROGRAM DIRECTOR at bedside. Physician Meenakshi Miles MD Sep 13, 2016 10:49
[2016-09-13] MEDS: RESP: ALBUTEROL 2.5 MG/IPRATROPIUM 0.5 MG NEB (SCH) NEB ×2 (13:28→19:41)
[2016-09-13] MEDS: hydrALAZINE HCL 20 MG/ML VIAL IV PUSH PRN ×2 (14:20→22:09)
--- NOTE | 2016-09-13 18:32 | MB ---
cc: Kusum LI M.D. DATE OF CONSULTATION 09/13/16 REASON FOR CONSULTATIONS Hypoxia and COPD. HISTORY OF PRESENT ILLNESS This is an 89-year-old white male who was initially admitted with a prior history of hypertension, COPD, history of back and epigastric pains. The patient apparently had some pains radiating from the back into his abdomen and was brought to the ER for evaluation and a CT angiogram of the chest and abdomen revealed a type B thoracic aortic dissection with aneurysm measuring 6.7 x 6.4 cm. The patient also has bilateral common femoral artery aneurysms. He was started on Cardene and labetalol and was placed in the intensive care unit and was seen by thoracic surgery, Dr. Ortiz, as well as IR. Following admission, the patient was placed on oxygen via nasal cannula which subsequently had to be switched to high flow oxygen due to low sats. The patient was considered a candidate for endovascular repair of the abdominal aortic aneurysm. This is on hold. His blood pressure, however, did improve after the appropriate therapy and over the past few days he is noted to have high WBC count and now is being evaluated by infectious disease for pneumonia and possible sepsis. He also was had bilateral pleural effusions which required thoracentesis on the right side. He is not running any fevers. The patient is short of breath. He has a cough. He has mild wheezing. He is orthopneic and he has had some leg swelling. Denies nausea or vomiting. His O2 sats on 70% FIO2 are 93%. He denies any chest or abdominal pains at this time. He has refused to use the BiPap at night. PAST MEDICAL HISTORY 1. History of hypertension, 2. History of COPD, 3. Previous inguinal hernia repair 4. Knee surgery. 5. He has had pleural effusions in the past requiring thoracentesis HABITS The patient smoked one pack per day for over 65 years. No alcohol use. MEDICATIONS 1. Diltiazem 240 mg a day. 2. Flomax 0.4 mg daily. 3. Loratadine 10 mg a day. 4. Lisinopril 10 mg a day. 5. Singulair 10 mg a day. FAMILY HISTORY Noncontributory. ALLERGIES NO KNOWN DRUG ALLERGIES. REVIEW OF SYSTEMS The patient is overweight. He has dizziness, postnasal drip, cough and wheezing. He has epigastric distress and back pain. Denies urinary symptoms. No leg or calf muscle pains and does have some joint pains of the extremities. The other system review is negative. PHYSICAL EXAMINATION GENERAL: This is an elderly man who is moderately obese, pale and mildly dyspneic. VITAL SIGNS: Blood pressure 160/70, pulse is 85, respirations 18, temperature 98.2 HEENT: Head normocephalic. Pupils are reactive. Tongue is moist. Throat clear. NECK: Supple with mild venous distension. Trachea midline. No thyroid enlargement. CHEST: Distant breath sounds with occasional bibasilar crackles with wheezes throughout both lung rider. HEART: The heart sounds are irregular. S1-S2 with no murmur. No S3. ABDOMEN: Soft, obese without masses. No organomegaly or tenderness. Bowel sounds are active EXTREMITIES: Minimal edema with decreased pulses. The patient does move all his extremities with 1+ reflexes. NEUROLOGIC: No gross motor deficits. SKIN: No lesions are noted. IMPRESSION 1. 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 2. Hypertension with hypertensive cardiovascular disease 3. Bibasilar atelectasis with probable pneumonia and hypoxemia. 4. COPD with emphysema and chronic bronchitis 5. History of nicotine dependency PLAN The patient has been started on antibiotic coverage which we will continue. He is also placed on nebulized albuterol and Atrovent solution q.i.d. and continue with diuretic therapy including Bumex 0.5 mg daily. The patient will be placed on Symbicort 160/4.5 two puffs twice a day. Chest x-ray to be repeated. Oxygen at high flow and will be weaned down to nasal cannula at 5 liters. BiPap at nights at 10/5 and40% if the patient is able to use it. Electrolytes and CBC to be repeated in the a.m. to track his white count. Pulmonary function study will be obtained when he is clinically stable and aortic stenting also when he is clinically stable. Thank you, Dr. Jara, for this consultation MD ALEXANDRA Duff/ /5:30 PM /6:01 PM
[2016-09-13] MEDS: LACTULOSE SYRUP 20 GM/30 ML CUP PO SCH (19:58)
[2016-09-13] MEDS: MONTELUKAST SODIUM 10 MG TAB PO SCH (20:00)
--- NOTE | 2016-09-13 20:17 | HHI.IDPN ---
Subjective Subjective Remarks Mr. Bolanos is an 89-year-old male with past medical history significant for hypertension, long-standing tobacco abuse who presented to the emergency room with history of chest pain, back pain and epigastric pain. This pain was acute onset while he was shopping in due to worsening chest pain he was brought into the emergency department. He denies any nausea vomiting or shortness of breath on presentation. No prior history of mild coronary artery disease. EKG with no acute findings. 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 Patient also has bilateral common femoral artery aneurysms. Patient was started on Cardene infusions as well as metoprolol to control his blood pressure. Patient has been followed by cardiology as well as vascular surgery. Patient is being currently evaluated for possible endovascular repair AAA. Patient had a nonproductive cough and also has a history of allergic rhinitis. On September 06 patient was placed on BiPAP overnight due to hypoxia. CT of the chest revealed bilateral pleural effusions. Patient underwent right-sided thoracentesis with drainage of 550 cc of fluid. Patient was started on empiric antibiotics after being pancultured. All cultures are negative so far. Infectious disease is consulted for evaluation and management of persistent leukocytosis. Overnight events reviewed No fever No rash No diarrhea WBC stable. Sitting in a chair. Denies any new complaints. Antibiotics Cefepime IV Azithro IV Lines Line sites with no e/o infection Past Medical History reviewed Allergies: Uncoded Allergies: MUSHROOMS (Allergy, Severe, Nausea/Vomiting, 09/02/16) Objective . Vital Signs Date Time Temp Pulse Resp B/P Pulse Ox O2 Delivery O2 Flow Rate FiO2 09/13/16 19:48 91 High Flow Nasal Cannula 50.00 70 09/13/16 18:00 68 09/13/16 16:00 90 Nasal Cannula 50.00 70 Humidified 09/13/16 16:00 63 09/13/16 16:00 98.4 63 18 125/59 90 09/13/16 14:00 52 09/13/16 13:31 90 High Flow Nasal Cannula 50.00 70 09/13/16 12:00 47 09/13/16 12:00 92 Nasal Cannula 50.00 70 Humidified 09/13/16 12:00 98.1 47 14 123/62 92 09/13/16 10:00 50 09/13/16 08:00 65 09/13/16 08:00 98.7 65 16 123/67 90 09/13/16 08:00 90 Nasal Cannula 50.00 70 Humidified 09/13/16 06:00 62 09/13/16 04:00 61 09/13/16 04:00 98.5 61 12 126/68 91 09/13/16 04:00 91 Nasal Cannula 50.00 70 Humidified 09/13/16 02:00 50 09/13/16 00:00 98.0 45 12 123/69 91 09/13/16 00:00 91 Nasal Cannula 50.00 70 Humidified 09/13/16 00:00 45 09/12/16 22:00 44 09/12/16 21:15 92 High Flow Nasal Cannula 50.00 70 09/12/16 09/12/16 09/13/16 15:00 23:00 07:00 Intake Total 596 ml 880 ml 200 ml Output Total 850 ml 350 ml 300 ml Balance -254 ml 530 ml -100 ml Intake Oral 450 ml 480 ml 100 ml IV Total 146 ml 400 ml 100 ml Output Urine Total 850 ml 350 ml 300 ml Stool Total 0 ml 0 ml . Laboratory Tests Test 09/12/16 09/13/16 05:29 04:29 White Blood Count 19.4 TH/MM3 19.5 TH/MM3 Red Blood Count 3.57 MIL/MM3 3.44 MIL/MM3 Hemoglobin 11.3 GM/DL 10.9 GM/DL Hematocrit 34.5 % 32.7 % Mean Corpuscular Volume 96.6 FL 95.2 FL Mean Corpuscular Hemoglobin 31.7 PG 31.8 PG Mean Corpuscular Hemoglobin 32.8 % 33.4 % Concent Red Cell Distribution Width 14.6 % 14.2 % Platelet Count 210 TH/MM3 204 TH/MM3 Mean Platelet Volume 7.9 FL 8.6 FL Neutrophils (%) (Auto) 91.0 % 90.7 % Lymphocytes (%) (Auto) 4.4 % 4.8 % Monocytes (%) (Auto) 4.5 % 4.5 % Eosinophils (%) (Auto) 0.0 % 0.0 % Basophils (%) (Auto) 0.1 % 0.0 % Neutrophils # (Auto) 17.6 TH/MM3 17.7 TH/MM3 Lymphocytes # (Auto) 0.9 TH/MM3 0.9 TH/MM3 Monocytes # (Auto) 0.9 TH/MM3 0.9 TH/MM3 Eosinophils # (Auto) 0.0 TH/MM3 0.0 TH/MM3 Basophils # (Auto) 0.0 TH/MM3 0.0 TH/MM3 CBC Comment AUTO DIFF AUTO DIFF Differential Total Cells 100 100 Counted Neutrophils % (Manual) 79 % 80 % Band Neutrophils % 5 % 17 % Lymphocytes % 5 % 2 % Monocytes % 8 % 1 % Neutrophils # (Manual) 16.7 TH/MM3 18.9 TH/MM3 Metamyelocytes 1 % Myelocytes 1 % Differential Comment FINAL DIFF FINAL DIFF MANUAL MANUAL Plasma Cells 1 % Platelet Estimate NORMAL NORMAL Platelet Morphology Comment NORMAL NORMAL Red Cell Morphology Comment NORMAL Laboratory Tests Test 09/12/16 09/12/16 09/13/16 05:29 12:37 04:29 Sodium Level 142 MEQ/L 143 MEQ/L Potassium Level 4.0 MEQ/L 4.0 MEQ/L Chloride Level 110 MEQ/L 112 MEQ/L Carbon Dioxide Level 23.3 MEQ/L 22.0 MEQ/L Anion Gap 9 MEQ/L 9 MEQ/L Blood Urea Nitrogen 34 MG/DL 36 MG/DL Creatinine 1.24 MG/DL 1.21 MG/DL Estimat Glomerular Filtration 55 ML/MIN 56 ML/MIN Rate Random Glucose 149 MG/DL 146 MG/DL Calcium Level 8.2 MG/DL 8.0 MG/DL Phosphorus Level 3.0 MG/DL 2.8 MG/DL Magnesium Level 2.5 MG/DL 2.5 MG/DL Procalcitonin LESS THAN 0.05 mg/mL Total Bilirubin 0.3 MG/DL Aspartate Amino Transf 24 U/L (AST/SGOT) Alanine Aminotransferase 81 U/L (ALT/SGPT) Alkaline Phosphatase 69 U/L Total Protein 5.8 GM/DL Albumin 2.3 GM/DL Imaging Last Impressions Chest X-Ray 09/12/16 0600 Signed Impressions: Service Date/Time: Monday, September 12, 2016 05:11 - CONCLUSION: 1. Basilar airspace disease with small effusions. Findings similar to September 10. George Lincoln MD Thoracentesis Ultrasound 09/07/16 0900 Signed Impressions: Service Date/Time: Wednesday, September 07, 2016 11:11 - CONCLUSION: Uncomplicated ultrasound guided thoracentesis. Lucas Mead MD FACR Lower Extremity Ultrasound 09/07/16 0000 Signed Impressions: Service Date/Time: Wednesday, September 07, 2016 21:41 - CONCLUSION: 1. No evidence for DVT. 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 Edis Cabrera MD Aorta w/Runoff CTA 09/06/16 06 Signed Impressions: Service Date/Time: August 10:38 - CONCLUSION: 6.5 cm abdominal aortic aneurysm and left common iliac artery aneurysm. Configuration does appear suitable for endovascular repair. 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 Flow reconstitutes in the left popliteal artery. Julius Johnston MD Aorta CTA 09/06/16 0600 Signed Impressions: Service Date/Time: August 10:43 - CONCLUSION: Compared to the CTA from several days ago, the false lumen of thoracic aortic dissection is less well seen. This may be related to technical factors and bolus timing or may reflect some interval thrombosis of the false lumen. Otherwise stable vascular findings. Interval development of large bilateral pleural effusions and lung base atelectasis. Julius Johnston MD Chest CT 09/05/16 0000 Signed Impressions: Service Date/Time: Monday, September 05, 2016 22:44 - CONCLUSION: 1. Left greater than right pleural effusions and basilar consolidation, new since the prior CTA. 2. Based on this noncontrast study, no definite change in a type B aortic dissection. I don't see any blood in the mediastinum or pleural spaces. 3. Upper limits of normal to mildly enlarged mediastinal lymph nodes unchanged. 4. Coronary artery calcification again seen. Julius Valencia MD Renal Ultrasound 09/03/16 0000 Signed Impressions: Service Date/Time: Saturday, September 03, 2016 11:14 - CONCLUSION: Small cyst in each kidney. Area cortical retraction left kidney . Otherwise negative Maicol Durant MD Physical Exam GENERAL: Obese CM patient, in no apparent distress. SKIN: No rashes. HEAD: Atraumatic. Normocephalic. No temporal or scalp tenderness. EYES: Pupils equal round and reactive. Extraocular motions intact. No scleral icterus. No injection or drainage. ENT: Nose without bleeding, purulent drainage or septal hematoma. Throat without erythema, tonsillar hypertrophy or exudate. Uvula midline. Airway patent. NECK: Trachea midline. Supple, nontender, no meningeal signs. CARDIOVASCULAR: HS audible RESPIRATORY: Clear to auscultation. Breath sounds equal bilaterally. GASTROINTESTINAL: Abdomen soft, non-tender, nondistended. MUSCULOSKELETAL: Extremities without clubbing, cyanosis. Trace pedal edema. NEUROLOGICAL: Awake and alert. Grossly nonfocal. Psych cooperative IV line sites with no evidence of infection. Assessment & Plan Remarks Persistent leucocytosis: Likely dissection related. Ramesh type B aortic dissection in thoracic area. Abdominal parts with no acute dissection. 6.7 cm infrarenal AAA Femoral artery aneurysm Hypertensive emergency Acute respiratory insufficiency Tobacco abuse COPD Allergic rhinitis Chronic cough Recs Normal Procalcitonin DC Cefepime IV DC Azithro IV Follow cultures Follow clinically. d/w RN and d/w : will sign off. Observe off antibiotics. Guillermina Valdez MD Sep 13, 2016 20:17
[2016-09-14] VITALS (18 sets, daily range): BP systolic 118–146; BP diastolic 67–73; PULSE 48–78; RESP 12–20; TEMP 97.9–98.6; O2SAT 89–98
[2016-09-14] MEDS: CHLORHEXIDINE GLUCONATE 2 % 1 PACK (2 CLOTHS) TOP SCH (04:00)
[2016-09-14] MEDS: hydrALAZINE HCL 20 MG/ML VIAL IV PUSH PRN ×3 (04:19→20:09)
[2016-09-14 06:40] LABS: AUTOMATED NEUTROPHIL # 21.1 TH/MM3 (1.8-7.7); BASOPHIL % 0.1 % (0.0-2.0); HEMATOCRIT 33.8 % (39.0-51.0); LYMPH % 2.9 % (9.0-44.0); LYMPHOCYTE # 0.7 TH/MM3 (1.0-4.8); MEAN CELL VOLUME 95.4 FL (80.0-100.0); MEAN CORPUSCULAR HEMOGLOBIN 32.1 PG (27.0-34.0); MEAN CORPUSCULAR HGB CONC 33.7 % (32.0-36.0); MONO % 5.6 % (0.0-8.0); NEUT % 91.4 % (16.0-70.0); PLATELET COUNT 199 TH/MM3 (150-450); RED BLOOD COUNT 3.55 MIL/MM3 (4.50-5.90); RED CELL DISTRIBUTION WIDTH 14.2 % (11.6-17.2); WHITE BLOOD COUNT 23.1 TH/MM3 (4.0-11.0)
[2016-09-14 06:41] LABS: HEMO FLAGS AUTO DIFF
--- NOTE | 2016-09-14 06:52 | RADRPT ---
EXAM DATE/TIME: 09/14/2016 05:28 [facility] COMPARISON: CHEST SINGLE AP, September 12, 2016, 5:11. INDICATIONS : Shortness of breath. MEDICAL HISTORY : None. SURGICAL HISTORY : None. ENCOUNTER: Subsequent ACUITY: 1 week PAIN SCORE: Non-responsive. LOCATION: Bilateral chest FINDINGS: Bibasilar infiltrates are grossly unchanged. Cardiac contours are stable. CONCLUSION: Persistent basilar infiltrates. Julius Johnston MD on September 14, 2016 at 6:50 Board Certified Radiologist. This report was verified electronically.
[2016-09-14 07:07] LABS: BICARBONATE 22.4 MEQ/L (21.0-32.0); MAGNESIUM 2.5 MG/DL (1.5-2.5)
[2016-09-14] MEDS: RESP: ALBUTEROL 2.5 MG/IPRATROPIUM 0.5 MG NEB (SCH) NEB ×3 (07:27→19:47)
[2016-09-14] MEDS: BUMETANIDE INJ 1 MG/4 ML VIAL IV PUSH SCH (07:48)
[2016-09-14] MEDS: LISINOPRIL 5 MG TAB PO SCH ×2 (07:49→20:10)
[2016-09-14] MEDS: methylPREDNISolone SOD SUCC 40 MG/1 ML VIAL IV PUSH SCH ×2 (07:49→20:09)
[2016-09-14] MEDS: CARVEDILOL 6.25 MG TAB PO SCH ×2 (07:51→20:10)
[2016-09-14] MEDS: DILTIAZEM HCL 60 MG TAB PO SCH ×4 (07:52→20:09)
[2016-09-14] MEDS: TAMSULOSIN HCL 0.4 MG CAP PO SCH (07:52)
[2016-09-14] MEDS: PANTOPRAZOLE SOD 40 MG DELAYED RELEASE TAB PO SCH (07:52)
[2016-09-14] MEDS: DOCUSATE SODIUM 100 MG/10 ML UDC PO SCH ×2 (07:53→20:09)
[2016-09-14] MEDS: POTASSIUM CHLORIDE 25 MEQ EFFERVESCENT TAB PO SCH (07:53)
[2016-09-14] MEDS: LACTULOSE SYRUP 20 GM/30 ML CUP PO SCH ×2 (07:53→20:10)
[2016-09-14] MEDS: SENNOSIDES SYRUP 8.8 MG/5 ML CUP PO SCH (07:53)
[2016-09-14] MEDS: SODIUM CHLORIDE 0.9% FLUSH 5 ML FLUSH IV FLUSH SCH ×2 (08:02→20:09)
[2016-09-14] MEDS: LORATADINE 10 MG TAB PO SCH (08:02)
[2016-09-14 08:17] LABS: BANDS 6 % (0-6); METAMYELOCYTES 3 % (0-1); MYELOCYTES 1 % (0-0); NEUTROPHIL # MANUAL DIFF 20.6 TH/MM3 (1.8-7.7); PLATELET ESTIMATE SMEAR NORMAL (NORMAL); PLATELET MORPHOLOGY NORMAL (NORMAL); POLYS (SEG NEUTROPHILS) 79 % (16-70); SCAN/DIFF FINAL DIFF MANUAL; WBC DIFF SAMPLE 100
[2016-09-14] MEDS: BUDESONIDE-FORMOTEROL 160/4.5 MCG INHALER INH SCH ×2 (09:00→20:10)
[2016-09-14] MEDS ORDERED: cloNIDine HCL 0.1 MG TAB PO SCH (09:00)
--- NOTE | 2016-09-14 13:00 | HHI.CCPN ---
Subjective Remarks/Hospital Course Patient is an 89-year-old male with history of hypertension, long-standing tobacco abuse who presents to emergency room with complaints of chest pain back pain and epigastric pain. Started around 10 AM today, while shopping shopping and began to have increased pain to his chest. Denies nausea or vomiting or shortness of breath of symptoms. Never had chest pain in the past. Reports no history of coronary artery disease or GA in the past. EKG showed no acute findings. 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 Patient also has bilateral common femoral artery aneurysms. Patient will be started on Cardene infusion and scheduled metoprolol along with when necessary labetalol for blood pressure and heart rate control. Medical management of the type B dissection. Discussed with vascular surgery Dr. Silverio, he will see the patient and make recommendation about the AAA. Patient may be a candidate for endovascular repair of AAA. I have discussed with Dr. Oliverio eMad from IR as well, also updated patient himself, his granddaughter at the bedside (Krystal). 09/01 The patient continues on nicardipine infusion, with goal of systolic blood pressure less than 110 per recommendations of vascular surgery. The patient has been placed on metoprolol XL, PO in addition to lisinopril and Cardizem home medications. The patient denies pain, requesting a diet. Will follow-up recommendations of vascular surgery. 09/02 Overnight the patient was able to be weaned down to Nicardipine infusion 3 mg/hr. The patient continues on Cardizem and lisinopril, home medications. Will add clonidine 0.2mg to medication regimen, with goal of weaning off nicardipine infusion. The patient denies pain at this time. Tolerating PO diet. 09/03: Resting in bed. Complaining of cough overnight. Continue to be in 5 L nasal cannula. Claritin added last night in addition to his home dose of Singulair for allergic rhinitis. Cardene drip restarted. Arousable and follows commands. [place] 09/04: Afebrile. Cardiac drip off since yesterday morning. Noted blood pressure liberalized to 130s systolic per vascular. Continues to be on 5 L nasal cannula. Continues to complain of nonproductive cough. 09/05: Currently on 6 L nasal cannula and easily desaturates. Chest x-ray revealed possible left lower lobe effusion. We will gently diurese 1 now. Complains of nonproductive cough. Appears nonseptic. 09/06: On BiPAP overnight due to hypoxia. CT chest revealed bilateral pleural effusion. Status post thoracentesis right side -550. Plan for left thoracentesis tomorrow. CTA runoff noted. Continue with aggressive pulmonary: . Continues with nonproductive cough. 09/07: On BiPAP overnight. Currently on OptiFlow at 70%. Plan for left-sided thoracentesis today. Antibiotic yesterday secondary to persistent cough. Patient's been pancultured. Appears stable otherwise. Short of breath with any exertion. 09/08: Afebrile. On BiPAP again overnight. Currently on OptiFlow at 65%. Status post bilateral thoracentesis with transudative effusions. Appears comfortable. Daily productive cough or sputum. Become short of breath with any exertion. Subjective 09/09: Afebrile. Currently on high flow nasal cannula at 65%. Appears couple. Continues to have dry productive cough of clear sputum. With any movement patient desats. When lying still patient very comfortable and not using accessory muscles and able to speak complete sentences comfortably 09/10: The patient continues on high flow nasal cannula, now decreased to 60%. Patient continues on empiric antibiotics, noted elevation in WBC count today, but remains afebrile. 09/11: Afebrile. Overnight the patient received IV narcotic, and became disoriented and confused. Resolution of symptoms this morning. The patient continues on high flow oxygen currently at 65%, attempting to wean. Patient out of bed to chair. Elevated WBC count continues to ID consult, appreciate recommendations. 09/12: Tmax 98.5. WBC count continues to be elevated, bandemia noted. We'll follow-up ID recommendations. The patient alert and oriented, slept well last p.m.. Frequent dosing of antihypertensive medications clonidine increased to 0.3 twice a day. The patient continues on high flow nasal cannula at 65%, attempting to wean to 60% today. 09/13: The patient continues to have persistent leukocytosis, Dr. Valdez following. Overnight the patient required increase in FiO2 to 70% . Blood pressure now well controlled, will begin weaning of clonidine, systolic blood pressure 100's. Patient continues to refuse BiPAP at night. 09/14: Patient has agreed to utilize BiPAP and tolerated BiPAP overnight. Discussed with ID, Dr. Valdez, plans to discontinue antibiotics felt is due to the aneurysm, pro-calcitonin within normal limits. The patient continues to be weaned off of high flow nasal cannula, currently 70%. Dr. Lopez, pulmonary following. Objective Vital Signs Date Time Temp Pulse Resp B/P Pulse Ox O2 Delivery O2 Flow Rate FiO2 09/14/16 12:00 60 09/14/16 08:00 97.9 18 124/68 89 09/14/16 08:00 Nasal Cannula 70 09/14/16 07:27 50.00 Intake and Output 09/13/16 09/13/16 09/14/16 08:00 16:00 00:00 Intake Total 200 ml 468 ml 480 ml Output Total 300 ml 650 ml 450 ml Balance -100 ml -182 ml 30 ml Result Diagram: 09/14/16 0609 09/14/16 0609 Imaging Last Impressions Chest X-Ray 09/09/16 0600 Signed Impressions: Service Date/Time: Friday, September 09, 2016 03:31 - CONCLUSION: No significant change has occurred. Edis Cabrera MD Thoracentesis Ultrasound 09/07/16 0900 Signed Impressions: Service Date/Time: Wednesday, September 07, 2016 11:11 - CONCLUSION: Uncomplicated ultrasound guided thoracentesis. Lucas Mead MD FACR Lower Extremity Ultrasound 09/07/16 0000 Signed Impressions: Service Date/Time: Wednesday, September 07, 2016 21:41 - CONCLUSION: 1. No evidence for DVT. 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 Configuration does appear suitable for endovascular repair. 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 Flow reconstitutes in the left popliteal artery. Julius Johnston MD Aorta CTA 09/06/16 0600 Signed Impressions: Service Date/Time: August 10:43 - CONCLUSION: Compared to the CTA from several days ago, the false lumen of thoracic aortic dissection is less well seen. This may be related to technical factors and bolus timing or may reflect some interval thrombosis of the false lumen. Otherwise stable vascular findings. Interval development of large bilateral pleural effusions and lung base atelectasis. Julius Johnston MD Chest CT 09/05/16 0000 Signed Impressions: Service Date/Time: Monday, September 05, 2016 22:44 - CONCLUSION: 1. Left greater than right pleural effusions and basilar consolidation, new since the prior CTA. 2. Based on this noncontrast study, no definite change in a type B aortic dissection. I don't see any blood in the mediastinum or pleural spaces. 3. Upper limits of normal to mildly enlarged mediastinal lymph nodes unchanged. 4. Coronary artery calcification again seen. Julius Valencia MD Renal Ultrasound 09/03/16 0000 Signed Impressions: Service Date/Time: Saturday, September 03, 2016 11:14 - CONCLUSION: Small cyst in each kidney. Area cortical retraction left kidney . Otherwise negative Maicol Durant MD Objective Remarks GENERAL:89-year-old male, resting in bed on OptiFlow in no acute distress SKIN: Warm and dry. No rash HEAD: Atraumatic. Normocephalic. EYES: Pupils equal and round around 3 mm bilaterally and reactive. No scleral icterus. No injection or drainage. ENT: No nasal bleeding or discharge. Mucous membranes pink and moist. Hi flow Nasal cannula NECK: Trachea midline. No JVD. CARDIOVASCULAR: Regular rate and rhythm. S1, S2. No S4. No murmur appreciated. RESPIRATORY: Diminished breath sounds bilaterally. Few crackles appreciated throughout the lung rider bilaterally. Positive end expiratory wheeze. GASTROINTESTINAL: Abdomen soft, non-tender, nondistended. Positive bowel sounds less pulsatile aorta palpable in the midline MUSCULOSKELETAL: No obvious deformities. No significant peripheral edema. NEUROLOGICAL: Awake and alert. No obvious cranial nerve deficits. Motor grossly within normal limits. Normal speech. A/P Assessment and Plan NEURO/PSYCH: Back pain due to aortic dissection H/O chronic back pain ICU Delirium-resolved [place] -Pain control, Tylenol PRN -Currently asymptomatic -Avoid sedatives -GCS 15, continue to monitor , and provides sleep hygiene. Stimulation during the day, minimal disruptions at night. 09/14 hearing aid adjusted by [employer] RESP: Acute respiratory insufficiency Tobacco abuse COPD Allergic rhinitis Chronic cough -BiPAP 10/5@50% versus OptiFlow 55 L at 70% FiO2 wean as tolerated to maintain saturations around 92%. Continue to attempt to wean -Patient currently refusing BiPAP at night, continues on high flow oxygen -DuoNeb every 6 hours scheduled and when necessary. Continue a cappella/PEP every [address] thorax revealed bilateral pleural effusions. Status post right thoracentesis by IR 09/06 -550 cc. left thoracentesis -580 cc 09/07. Right-sided was transudative. - On singular 10 mg daily and Claritin 10 mg daily for allergy rhinitis/ postnasal drip - As needed Tessalon Perles 200 mg every 8 hours for cough -Counseled on smoking cessation -Incentive spirometry, encourage use, every hour while awake Added Symbicort 80/4.5 twice a day and Solu-Medrol 40 mg pulmonary dose IV every 8 on 09/08. CXR 09/14-small effusions unchanged from Pulmonary -Dr. Chai Zamarripa follow-up recommendations CV: Ramesh type B aortic dissection 6.7 cm infrarenal AAA Femoral artery aneurysm Hypertensive emergency -Cardene infusion currently off with target systolic blood pressure less than 130 per vascular surgery recommendations -IV labetalol, hydralazine PRN. - Patient's home medication of lisinopril 10 mg daily changed to 2.5 twice a day - diltiazem 240 mg daily switch to 60 mg 4 times a day with when necessary Cardizem 30 mg by mouth every 6 hours will be continued. - Coreg 6.25 milligrams twice a day, clonidine discontinued ,PRN Hydralazine and labetalol -Vascular surgery, on board Dr. Gastelum -Plan for medical management of Type B dissection ABIs - decreased flow left lower extremity Runoff shows 6.5 AAA. 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 Left NARGIS aneurysm. 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 Continue gentle diuresis with Bumex decreased to 0.5 mg daily GI: Hypoalbuminemia Bilateral adrenal adenoma Heart healthy diet - Protonix for GI prophylaxis -Senna and Colace for bowel regimen -BM x 3 (09/14) FEN/renal/: Hypokalemia BPH Noted received IV dye 08/31. Contrast nephropathy resolved -Monitor renal function closely -Monitor hourly urinary output -Electrolyte replacement per ICU protocol -Strict I and O's Avoid nephrotoxic drugs Continue Flomax 0.4 mg by mouth daily BMP within normal limits, will continue to monitor every 2-3 days ID: Possible URI -Day #7 cefepime and Zithromax discontinued 09/13 -Continue elevated WBC count 19>23 today, will continue to monitor CBC -ID following, Dr. Valdez Pertinent cultures 09/07 - sputum -no growth 09/06 - blood cultures 2 - no growth 09/06 - pleural fluid - WBC no growth 08/31 - blood cultures 2 - no growth HEME: Persistent Leukocytosis Anemia Bandemia -Monitor CBC, CMP -Pro calcitonin <0.05 ENDO: -Euglycemic, continue to monitor -Blood glucose monitoring per ICU protocol PROPH: -Bilateral lower extremity SCDs. No pharmacological DVT prophylaxis contraindicated, Pt OOB to chair -IV Protonix for GI prophylaxis LINES: -Utilize peripheral IVs, central line if needed Critical Care: Level 2 Dispo: Discussed case with daughter Linda and DIRECT OF REAL ESTATE at bedside. His management consult regarding disposition . Physician Meenakshi Miles MD Sep 14, 2016 12:59
[2016-09-14] MEDS: LABETALOL HCL 100 MG/20 ML VIAL IV PUSH PRN ×4 (17:13→22:07)
[2016-09-14] MEDS: MONTELUKAST SODIUM 10 MG TAB PO SCH (20:09)
[2016-09-14] MEDS: DILTIAZEM HCL 30 MG TAB PO PRN (21:35)
[2016-09-14] MEDS ORDERED: hydrALAZINE HCL 20 MG/ML VIAL IV ONE (23:15)
[2016-09-14] MEDS ORDERED: LABETALOL HCL 100 MG/20 ML VIAL IV ONE (23:15)
[2016-09-15] VITALS (19 sets, daily range): BP systolic 126–158; BP diastolic 67–78; PULSE 50–70; RESP 12–16; TEMP 97.3–98.7; O2SAT 92–97
[2016-09-15] MEDS ORDERED: niCARdipine INJ 25 MG in SODIUM CHLOR 0.9% 250 ML INJ 250 ML IV SCH (00:15)
[2016-09-15] MEDS: CHLORHEXIDINE GLUCONATE 2 % 1 PACK (2 CLOTHS) TOP SCH (04:00)
[2016-09-15 06:38] LABS: AUTOMATED NEUTROPHIL # 22.8 TH/MM3 (1.8-7.7); BASOPHIL % 0.1 % (0.0-2.0); EOSINOPHIL % 0.1 % (0.0-4.0); HEMATOCRIT 34.8 % (39.0-51.0); LYMPH % 2.3 % (9.0-44.0); LYMPHOCYTE # 0.6 TH/MM3 (1.0-4.8); MEAN CELL VOLUME 96.4 FL (80.0-100.0); MEAN CORPUSCULAR HEMOGLOBIN 32.5 PG (27.0-34.0); MEAN CORPUSCULAR HGB CONC 33.7 % (32.0-36.0); MONO % 5.3 % (0.0-8.0); NEUT % 92.2 % (16.0-70.0); PLATELET COUNT 199 TH/MM3 (150-450); RED BLOOD COUNT 3.61 MIL/MM3 (4.50-5.90); RED CELL DISTRIBUTION WIDTH 14.7 % (11.6-17.2); WHITE BLOOD COUNT 24.7 TH/MM3 (4.0-11.0)
[2016-09-15 06:48] LABS: HEMO FLAGS AUTO DIFF
--- NOTE | 2016-09-15 07:09 | HHI.CCPN ---
Subjective Remarks/Hospital Course Patient is an 89-year-old male with history of hypertension, long-standing tobacco abuse who presents to emergency room with complaints of chest pain back pain and epigastric pain. Started around 10 AM today, while shopping shopping and began to have increased pain to his chest. Denies nausea or vomiting or shortness of breath of symptoms. Never had chest pain in the past. Reports no history of coronary artery disease or [place] in the past. EKG showed no acute findings. 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 Patient also has bilateral common femoral artery aneurysms. Patient will be started on Cardene infusion and scheduled metoprolol along with when necessary labetalol for blood pressure and heart rate control. Medical management of the type B dissection. Discussed with vascular surgery Dr. Silverio, he will see the patient and make recommendation about the AAA. Patient may be a candidate for endovascular repair of AAA. I have discussed with Dr. Oliveiro Mead from IR as well, also updated patient himself, his granddaughter at the bedside (Krystal). 09/01 The patient continues on nicardipine infusion, with goal of systolic blood pressure less than 110 per recommendations of vascular surgery. The patient has been placed on metoprolol XL, PO in addition to lisinopril and Cardizem home medications. The patient denies pain, requesting a diet. Will follow-up recommendations of vascular surgery. 09/02 Overnight the patient was able to be weaned down to Nicardipine infusion 3 mg/hr. The patient continues on Cardizem and lisinopril, home medications. Will add clonidine 0.2mg to medication regimen, with goal of weaning off nicardipine infusion. The patient denies pain at this time. Tolerating PO diet. 09/03: Resting in bed. Complaining of cough overnight. Continue to be in 5 L nasal cannula. Claritin added last night in addition to his home dose of Singulair for allergic rhinitis. Cardene drip restarted. Arousable and follows commands. SOLOMON 09/04: Afebrile. Cardiac drip off since yesterday morning. Noted blood pressure liberalized to 130s systolic per vascular. Continues to be on 5 L nasal cannula. Continues to complain of nonproductive cough. 09/05: Currently on 6 L nasal cannula and easily desaturates. Chest x-ray revealed possible left lower lobe effusion. We will gently diurese 1 now. Complains of nonproductive cough. Appears nonseptic. 09/06: On BiPAP overnight due to hypoxia. CT chest revealed bilateral pleural effusion. Status post thoracentesis right side -550. Plan for left thoracentesis tomorrow. CTA runoff noted. Continue with aggressive pulmonary: . Continues with nonproductive cough. 09/07: On BiPAP overnight. Currently on OptiFlow at 70%. Plan for left-sided thoracentesis today. Antibiotic yesterday secondary to persistent cough. Patient's been pancultured. Appears stable otherwise. Short of breath with any exertion. 09/08: Afebrile. On BiPAP again overnight. Currently on OptiFlow at 65%. Status post bilateral thoracentesis with transudative effusions. Appears comfortable. Daily productive cough or sputum. Become short of breath with any exertion. Subjective 09/09: Afebrile. Currently on high flow nasal cannula at 65%. Appears couple. Continues to have dry productive cough of clear sputum. With any movement patient desats. When lying still patient very comfortable and not using accessory muscles and able to speak complete sentences comfortably 09/10: The patient continues on high flow nasal cannula, now decreased to 60%. Patient continues on empiric antibiotics, noted elevation in WBC count today, but remains afebrile. 09/11: Afebrile. Overnight the patient received IV narcotic, and became disoriented and confused. Resolution of symptoms this morning. The patient continues on high flow oxygen currently at 65%, attempting to wean. Patient out of bed to chair. Elevated WBC count continues to ID consult, appreciate recommendations. 09/12: Tmax 98.5. WBC count continues to be elevated, bandemia noted. We'll follow-up ID recommendations. The patient alert and oriented, slept well last p.m.. Frequent dosing of antihypertensive medications clonidine increased to 0.3 twice a day. The patient continues on high flow nasal cannula at 65%, attempting to wean to 60% today. 09/13: The patient continues to have persistent leukocytosis, Dr. Valdez following. Overnight the patient required increase in FiO2 to 70% . Blood pressure now well controlled, will begin weaning of clonidine, systolic blood pressure 100's. Patient continues to refuse BiPAP at night. 09/14: Patient has agreed to utilize BiPAP and tolerated BiPAP overnight. Discussed with ID, Dr. Valdez, plans to discontinue antibiotics felt is due to the aneurysm, pro-calcitonin within normal limits. The patient continues to be weaned off of high flow nasal cannula, currently 70%. Dr. Lopez, pulmonary following. 09/15: Round midnight the patient was noted to have systolic blood pressures in the 150s not responsive PRN antihypertensive medications. The patient required placement of Cardene infusion for approximately 1 hour at midnight. The hypertensive medications have been readjusted. The patient tolerated BiPAP last night O2 sat 95%. During the day the patient continues on high flow nasal cannula 55-60%. Objective Vital Signs Date Time Temp Pulse Resp B/P Pulse Ox O2 Delivery O2 Flow Rate FiO2 09/15/16 06:00 50 09/15/16 04:04 97 80 09/15/16 04:00 98.1 12 126/73 09/15/16 04:00 Bi-Pap 09/14/16 21:38 50.00 Intake and Output 09/14/16 09/14/16 09/15/16 08:00 16:00 00:00 Intake Total 480 ml 700 ml 480 ml Output Total 600 ml 800 ml 275 ml Balance -120 ml -100 ml 205 ml Result Diagram: 09/15/16 0507 09/14/16 0609 Imaging Last Impressions Chest X-Ray 09/09/16 0600 Signed Impressions: Service Date/Time: Friday, September 09, 2016 03:31 - CONCLUSION: No significant change has occurred. Edis Cabrera MD Thoracentesis Ultrasound 09/07/16 0900 Signed Impressions: Service Date/Time: Wednesday, September 07, 2016 11:11 - CONCLUSION: Uncomplicated ultrasound guided thoracentesis. Lucas Mead MD FACR Lower Extremity Ultrasound 09/07/16 0000 Signed Impressions: Service Date/Time: Wednesday, September 07, 2016 21:41 - CONCLUSION: 1. No evidence for DVT. 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 Configuration does appear suitable for endovascular repair. 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 Flow reconstitutes in the left popliteal artery. Julius Johnston MD Aorta CTA 09/06/16 06 Signed Impressions: Service Date/Time: August 10:43 - CONCLUSION: Compared to the CTA from several days ago, the false lumen of thoracic aortic dissection is less well seen. This may be related to technical factors and bolus timing or may reflect some interval thrombosis of the false lumen. Otherwise stable vascular findings. Interval development of large bilateral pleural effusions and lung base atelectasis. Julius Johnston MD Chest CT 09/05/16 0000 Signed Impressions: Service Date/Time: Monday, September 05, 2016 22:44 - CONCLUSION: 1. Left greater than right pleural effusions and basilar consolidation, new since the prior CTA. 2. Based on this noncontrast study, no definite change in a type B aortic dissection. I don't see any blood in the mediastinum or pleural spaces. 3. Upper limits of normal to mildly enlarged mediastinal lymph nodes unchanged. 4. Coronary artery calcification again seen. Julius Valencia MD Renal Ultrasound 09/03/16 0000 Signed Impressions: Service Date/Time: Saturday, September 03, 2016 11:14 - CONCLUSION: Small cyst in each kidney. Area cortical retraction left kidney . Otherwise negative Maicol Durant MD Objective Remarks GENERAL:89-year-old male, resting in bed on OptiFlow in no acute distress, SOLOMON SKIN: Warm and dry. No rash HEAD: Atraumatic. Normocephalic. EYES: Pupils equal and round around 3 mm bilaterally and reactive. No scleral icterus. No injection or drainage. ENT: No nasal bleeding or discharge. Mucous membranes pink and moist. Hi flow Nasal cannula. Hearing aid NECK: Trachea midline. No JVD. CARDIOVASCULAR: Regular rate and rhythm. S1, S2. No S4. No murmur appreciated. RESPIRATORY: Diminished breath sounds bilaterally. Few crackles appreciated throughout the lung rider bilaterally. Positive end expiratory wheeze. GASTROINTESTINAL: Abdomen soft, non-tender, nondistended. Positive bowel sounds. pulsatile aorta palpable in the midline MUSCULOSKELETAL: No obvious deformities. No significant peripheral edema. NEUROLOGICAL: Awake and alert. No obvious cranial nerve deficits. Motor grossly within normal limits. Normal speech. A/P Assessment and Plan NEURO/PSYCH: Back pain due to aortic dissection H/O chronic back pain ICU Delirium-resolved SOLOMON -Pain control, Tylenol PRN -Currently asymptomatic -Avoid sedatives -GCS 15, continue to monitor , and provides sleep hygiene. Stimulation during the day, minimal disruptions at night. 3 hearing aid adjusted by Pressfitter RESP: Acute respiratory insufficiency Tobacco abuse COPD Allergic rhinitis Chronic cough -BiPAP 10/5@50% versus OptiFlow 55 L at 60% FiO2 wean as tolerated to maintain saturations around 92%. Continue to attempt to wean -Patient currently refusing BiPAP at night, continues on high flow oxygen -DuoNeb every 6 hours scheduled and when necessary. Continue acappella/PEP every [address] thorax revealed bilateral pleural effusions. Status post right thoracentesis by IR 09/06 -550 cc. left thoracentesis -580 cc 09/07. Right-sided was transudative. - On singular 10 mg daily and Claritin 10 mg daily for allergy rhinitis/ postnasal drip - As needed Tessalon Perles 200 mg every 8 hours for cough -Counseled on smoking cessation -Incentive spirometry, encourage use, every hour while awake Added Symbicort 80/4.5 twice a day and Solu-Medrol 40 mg pulmonary dose IV every 8 on 09/08. CXR 09/14-small effusions unchanged from Pulmonary -Dr. Chai Zamarripa follow-up recommendations CV: Thorofare type B aortic dissection 6.7 cm infrarenal AAA Femoral artery aneurysm Hypertensive emergency -Cardene infusion currently off with target systolic blood pressure less than 130 per vascular surgery recommendations -IV labetalol, hydralazine PRN. - Patient's home medication of lisinopril 10 mg daily changed to 5 twice a day - diltiazem 240 mg daily switch to 60 mg 4 times a day with when necessary Cardizem 30 mg by mouth every 6 hours will be continued. - Increased Coreg 12.5 milligrams twice a day, clonidine discontinued ,PRN Hydralazine and labetalol increased to 20 mg PRN -Vascular surgery, on board Dr. Gastelum -Plan for medical management of Type B dissection ABIs - decreased flow left lower extremity Runoff shows 6.5 AAA. 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 Left NARGIS aneurysm. 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 Continue gentle diuresis with Bumex 0.5 mg daily GI: Hypoalbuminemia Bilateral adrenal adenoma Heart healthy diet - Protonix for GI prophylaxis -Senna and Colace for bowel regimen -BM x 3 (09/14) FEN/renal/: Hypokalemia BPH Noted received IV dye 08/31. Contrast nephropathy resolved -Monitor renal function closely -Monitor hourly urinary output -Electrolyte replacement per ICU protocol -Strict I and O's Avoid nephrotoxic drugs Continue Flomax 0.4 mg by mouth daily BMP within normal limits, will continue to monitor every 2-3 days ID: Possible URI -Day #7 cefepime and Zithromax discontinued 09/13 -Continue elevated WBC count 19>23 today, will continue to monitor CBC -ID following, Dr. Valdez Pertinent cultures 09/07 - sputum -no growth 09/06 - blood cultures 2 - no growth / - pleural fluid - WBC no growth 08/31 - blood cultures 2 - no growth HEME: Persistent Leukocytosis Anemia Bandemia -Monitor CBC, CMP -09/14 Procalcitonin <0.05 ENDO: -Euglycemic, continue to monitor -Blood glucose monitoring per ICU protocol PROPH: -Bilateral lower extremity SCDs. No pharmacological DVT prophylaxis contraindicated, Pt OOB to chair -IV Protonix for GI prophylaxis LINES: -Utilize peripheral IVs, central line if needed Critical Care: Level 2 Dispo: Discussed case with daughter Linda and FELLMONGERING MACHINE OPERATOR at bedside. Case management consult regarding disposition . Physician Meenakshi Miles MD Sep 15, 2016 07:09
[2016-09-15] MEDS: SENNOSIDES SYRUP 8.8 MG/5 ML CUP PO SCH (07:40)
[2016-09-15] MEDS: DOCUSATE SODIUM 100 MG/10 ML UDC PO SCH ×2 (07:40→20:08)
[2016-09-15] MEDS: POTASSIUM CHLORIDE 25 MEQ EFFERVESCENT TAB PO SCH (07:40)
[2016-09-15] MEDS: PANTOPRAZOLE SOD 40 MG DELAYED RELEASE TAB PO SCH (07:41)
[2016-09-15] MEDS: TAMSULOSIN HCL 0.4 MG CAP PO SCH (07:41)
[2016-09-15] MEDS: SODIUM CHLORIDE 0.9% FLUSH 5 ML FLUSH IV FLUSH SCH ×2 (07:41→17:03)
[2016-09-15] MEDS: hydrALAZINE HCL 20 MG/ML VIAL IV PUSH PRN ×3 (07:41→21:10)
[2016-09-15] MEDS: CARVEDILOL 6.25 MG TAB PO SCH ×2 (07:41→20:08)
[2016-09-15] MEDS: methylPREDNISolone SOD SUCC 40 MG/1 ML VIAL IV PUSH SCH ×2 (07:41→20:08)
[2016-09-15] MEDS: LORATADINE 10 MG TAB PO SCH (07:41)
[2016-09-15] MEDS: BUMETANIDE INJ 1 MG/4 ML VIAL IV PUSH SCH (07:41)
[2016-09-15] MEDS: DILTIAZEM HCL 60 MG TAB PO SCH ×4 (07:41→20:08)
[2016-09-15] MEDS: LACTULOSE SYRUP 20 GM/30 ML CUP PO SCH ×2 (07:42→20:09)
[2016-09-15] MEDS: BUDESONIDE-FORMOTEROL 160/4.5 MCG INHALER INH SCH ×2 (07:42→20:09)
[2016-09-15] MEDS: LISINOPRIL 5 MG TAB PO SCH ×2 (07:42→20:08)
[2016-09-15] MEDS: RESP: ALBUTEROL 2.5 MG/IPRATROPIUM 0.5 MG NEB (SCH) NEB ×3 (08:13→19:27)
[2016-09-15] MEDS: LABETALOL HCL 100 MG/20 ML VIAL IV PUSH PRN ×7 (08:50→23:04)
[2016-09-15 09:04] LABS: BANDS 6 % (0-6); MYELOCYTES 2 % (0-0); NEUTROPHIL # MANUAL DIFF 22.2 TH/MM3 (1.8-7.7); POLYS (SEG NEUTROPHILS) 82 % (16-70); WBC DIFF SAMPLE 100
[2016-09-15 09:05] LABS: PLATELET ESTIMATE SMEAR NORMAL (NORMAL); PLATELET MORPHOLOGY NORMAL (NORMAL); SCAN/DIFF FINAL DIFF MANUAL
[2016-09-15] MEDS ORDERED: hydrALAZINE HCL 20 MG/ML VIAL IVP ONE (11:00)
[2016-09-15] MEDS: MONTELUKAST SODIUM 10 MG TAB PO SCH (20:08)
[2016-09-15] MEDS: SODIUM CHLORIDE 0.9% FLUSH 5 ML FLUSH IV FLUSH PRN (20:09)
[2016-09-16] VITALS (18 sets, daily range): BP systolic 113–150; BP diastolic 58–75; PULSE 54–68; RESP 13–16; TEMP 96.3–98.6; O2SAT 90–95
[2016-09-16] MEDS: CHLORHEXIDINE GLUCONATE 2 % 1 PACK (2 CLOTHS) TOP SCH (04:00)
[2016-09-16] MEDS: hydrALAZINE HCL 20 MG/ML VIAL IV PUSH PRN ×4 (05:18→22:34)
[2016-09-16] MEDS: RESP: ALBUTEROL 2.5 MG/IPRATROPIUM 0.5 MG NEB (SCH) NEB ×3 (07:41→19:55)
[2016-09-16] MEDS: DOCUSATE SODIUM 100 MG/10 ML UDC PO SCH ×2 (08:18→20:52)
[2016-09-16] MEDS: methylPREDNISolone SOD SUCC 40 MG/1 ML VIAL IV PUSH SCH ×2 (08:18→20:49)
[2016-09-16] MEDS: TAMSULOSIN HCL 0.4 MG CAP PO SCH (08:18)
[2016-09-16] MEDS: SENNOSIDES SYRUP 8.8 MG/5 ML CUP PO SCH (08:18)
[2016-09-16] MEDS: CARVEDILOL 6.25 MG TAB PO SCH ×2 (08:18→20:50)
[2016-09-16] MEDS: LISINOPRIL 5 MG TAB PO SCH ×2 (08:19→20:50)
[2016-09-16] MEDS: POTASSIUM CHLORIDE 25 MEQ EFFERVESCENT TAB PO SCH (08:19)
[2016-09-16] MEDS: LORATADINE 10 MG TAB PO SCH (08:19)
[2016-09-16] MEDS: SODIUM CHLORIDE 0.9% FLUSH 5 ML FLUSH IV FLUSH SCH (08:19)
[2016-09-16] MEDS: BUMETANIDE INJ 1 MG/4 ML VIAL IV PUSH SCH (08:19)
[2016-09-16] MEDS: PANTOPRAZOLE SOD 40 MG DELAYED RELEASE TAB PO SCH (08:19)
[2016-09-16] MEDS: BUDESONIDE-FORMOTEROL 160/4.5 MCG INHALER INH SCH ×2 (08:20→20:49)
[2016-09-16] MEDS: LACTULOSE SYRUP 20 GM/30 ML CUP PO SCH ×2 (08:20→20:50)
[2016-09-16] MEDS: DILTIAZEM HCL 60 MG TAB PO SCH ×4 (08:20→20:49)
[2016-09-16] MEDS: LABETALOL HCL 100 MG/20 ML VIAL IV PUSH PRN ×7 (08:27→23:32)
[2016-09-16 09:14] LABS: MEAN CORPUSCULAR HEMOGLOBIN 31.7 PG (27.0-34.0); PLATELET COUNT 188 TH/MM3 (150-450); RED BLOOD COUNT 3.65 MIL/MM3 (4.50-5.90); RED CELL DISTRIBUTION WIDTH 14.5 % (11.6-17.2); REVIEW FLAG FINAL; WHITE BLOOD COUNT 22.1 TH/MM3 (4.0-11.0)
[2016-09-16 09:37] LABS: BICARBONATE 22.1 MEQ/L (21.0-32.0); MAGNESIUM 2.7 MG/DL (1.5-2.5); POTASSIUM 3.9 MEQ/L (3.5-5.1)
[2016-09-16 14:00] LABS: BLOOD GAS BASE EXCESS -2.7 mmol/L (-2-2); BLOOD GAS CARBOXYHEMOGLOBIN 1.4 % (0-4); BLOOD GAS HCO3 21 mmol/L (22-26); BLOOD GAS O2 HGB SATURATION 89 % (90-100); BLOOD GAS OXYGEN CONTENT 15.4 Vol % (12.0-20.0); BLOOD GAS PCO2 36 mmHg (38-42); BLOOD GAS PO2 60 mmHg (61-120); BLOOD GAS TOTAL HGB 12.3 G/DL (12.0-16.0); CRITICAL VALUE YES; TEMP CORR TO 98.6
[2016-09-16 14:01] LABS: DRAW SITE RT RADIAL; NUMBER OF ARTERIAL PUNCTURES 1; OXYGEN DEVICE NASAL CANNULA; STAT YES; ULNAR PULSE PRESENT
[2016-09-16 14:02] LABS: LITER FLOW 4 L/M
[2016-09-16 14:20] LABS: I-STAT POTASSIUM 4.2 MMOL/L (3.5-4.9)
[2016-09-16 14:22] LABS: AUTOMATED NEUTROPHIL # 19.9 TH/MM3 (1.8-7.7); BASOPHIL % 0.2 % (0.0-2.0); LYMPH % 2.3 % (9.0-44.0); LYMPHOCYTE # 0.5 TH/MM3 (1.0-4.8); MEAN CELL VOLUME 96.4 FL (80.0-100.0); MEAN CORPUSCULAR HEMOGLOBIN 31.7 PG (27.0-34.0); MEAN CORPUSCULAR HGB CONC 32.9 % (32.0-36.0); MONO % 4.3 % (0.0-8.0); NEUT % 93.2 % (16.0-70.0); PLATELET COUNT 198 TH/MM3 (150-450); RED BLOOD COUNT 3.95 MIL/MM3 (4.50-5.90); RED CELL DISTRIBUTION WIDTH 14.6 % (11.6-17.2); WHITE BLOOD COUNT 21.3 TH/MM3 (4.0-11.0)
[2016-09-16 14:26] LABS: HEMO FLAGS AUTO DIFF
[2016-09-16 14:33] LABS: APTT (PATIENT) 27.5 SEC (24.3-30.1); PROTHROMBIN TIME - PATIENT 11.6 SEC (9.8-11.6)
--- NOTE | 2016-09-16 14:34 | RADRPT ---
EXAM DATE/TIME: 09/16/2016 14:17 [facility] COMPARISON: CTA THORACIC ABDOMINAL AORTA W 3D RECON, September 06, 2016, 10:43. CT BRAIN W/O CONTRAST, July, 0:38. INDICATIONS : Stroke alert, unresponsive. RADIATION DOSE: 43.05 CTDIvol (mGy) MEDICAL HISTORY : Non-responsive. SURGICAL HISTORY : Non-responsive. ENCOUNTER: Initial ACUITY: 1 day PAIN SCALE: Non-responsive LOCATION: Bilateral head TECHNIQUE: Multiple contiguous axial images were obtained of the head. Using automated exposure control and adj ustment of the mA and/or kV according to patient size, radiation dose was kept as low as reasonably a chievable to obtain optimal diagnostic quality images. FINDINGS: There is mild motion artifact. CEREBRUM: There is generalized atrophy. Ventricles are normal in size. There is moderate to severity periventri cular white matter low attenuation. No evidence of midline shift, mass lesion, hemorrhage or acute i nfarction. No extra-axial fluid collections are seen. POSTERIOR FOSSA: The cerebellum and brainstem demonstrate no acute finding. The 4th ventricle is midline. The cerebe llopontine angle is unremarkable. EXTRACRANIAL: There is a mucous retention cyst in the left maxillary antrum. SKULL: The calvaria is intact. No evidence of skull fracture. CONCLUSION: 1. No acute intracranial abnormality is identified. Stable appearance of the brain compared to prior study from 07/17/2015. 2. Chronic changes include generalized atrophy and periventricular white matter low attenuation lionel cteristic of chronic microvascular ischemia. Julius Watt MD on September 16, 2016 at 14:27 Board Certified Radiologist. This report was verified electronically.
[2016-09-16] MEDS ORDERED: IOHEXOL 350 MG/ML 10 ML VIAL (for RAD DIAG) IV ONE (14:39)
[2016-09-16 14:42] LABS: BICARBONATE 24.2 MEQ/L (21.0-32.0); POTASSIUM 4.2 MEQ/L (3.5-5.1)
[2016-09-16] MEDS ORDERED: SODIUM CHLOR 0.9% 1000 ML INJ 1,000 ML IV SCH (15:00)
[2016-09-16 15:10] LABS: BANDS 1 % (0-6); KERATOCYTES 1+ (NORMAL); NEUTROPHIL # MANUAL DIFF 20.2 TH/MM3 (1.8-7.7); OVALOCYTES 1+ (NORMAL); PLATELET ESTIMATE SMEAR NORMAL (NORMAL); POLYS (SEG NEUTROPHILS) 94 % (16-70); WBC DIFF SAMPLE 100
[2016-09-16 15:11] LABS: PLATELET MORPHOLOGY NORMAL (NORMAL); SCAN/DIFF FINAL DIFF MANUAL
[2016-09-16] MEDS ORDERED: DEXTROSE 50% IN WATER 50 ML VIAL(D50) IV PUSH PRN (15:15)
[2016-09-16] MEDS ORDERED: SODIUM CHLORIDE 0.9% FLUSH 5 ML FLUSH IVF PRN (15:15)
[2016-09-16] MEDS ORDERED: GLUCAGON 1 MG/ML VIAL IM/SQ PRN (15:15)
--- NOTE | 2016-09-16 15:39 | RADRPT ---
EXAM DATE/TIME: 09/16/2016 14:35 [facility] COMPARISON: CTA THORACIC ABDOMINAL AORTA W 3D RECON, September 06, 2016, 10:43. INDICATIONS : Stroke alert; change in mental status, non-verbal, evaluate abdominal aneurism. IV CONTRAST: 140 cc Omnipaque 350 (iohexol) IV ; Cumulative dose for multiple exams. RADIATION DOSE: 20.53 CTDIvol (mGy) MEDICAL HISTORY : Cardiovascular disease. Hypertension. Aortic aneurysm. SURGICAL HISTORY : Hernia repair. ENCOUNTER: Initial ACUITY: 1 day PAIN SCALE: Non-responsive LOCATION: Bilateral chest abdomen. TECHNIQUE: Volumetric scanning was performed using a multi-row detector CT scanner. The data was post processed with a variety of visualization algorithms including full volume maximum intensity projection, multi -planar sliding thin slab reformation, curved planar reformation, and surface rendering techniques. Using automated exposure control and adjustment of the mA and/or kV according to patient size, radiat ion dose was kept as low as reasonably achievable to obtain optimal diagnostic quality images. FINDINGS: There are emphysematous changes, large bilateral effusions and pulmonary consolidation again seen shelia aterally. Overall this is decreased in prominence from the previous study. There are degenerative bhavik nges of the spine noted. Reidentified is a dissection of the descending thoracic aorta beginning just distal to the origin of the left subclavian artery. There is also an abnormal collection of contrast at the superior aspect of the aortic arch with surrounding thrombus, not significantly changed in th e appearance of a pseudoaneurysm. There is dilatation up to 4.8 cm in transverse width of the aorta a t this level, and the descending thoracic aorta measures up to 4.5 cm in transverse dimension. Infrar enal abdominal aortic aneurysm is again seen on axial image 183 with a large amount of crescentic thr ombus measuring 6.5 x 6.4 cm in AP and transverse dimension on image 183. This is no severely changed . Urinary bladder and small bowel are unremarkable. Diverticulosis of the sigmoid and descending colo n and to a lesser extent transverse and descending colon noted. No adenopathy is seen. Atheroscleroti c calcifications of the aorta are noted. Bilateral renal cyst and renal scarring noted. The spleen, p ancreas, gallbladder and liver are unremarkable. Bilateral adrenal enlargement possibly adenomatous i s stable. There is mediastinal adenopathy which is unchanged. Pulmonary arteries are prominent in josue iber measuring up to 3.5 cm on the right and 3 cm on the left. Ascending aorta has a maximal transver se dimension of 3.8 cm. CONCLUSION: 1. Improved aeration of the lungs with decrease in size of large pleural effusions and pulmonary cons olidation since previous exam. 2. Aneurysmal dilatation of the thoracic aorta and abdominal aorta are stable with irregular contrast collection superior to the aortic arch consistent with pseudo-aneurysm and aortic dissection again n oted. Edis Cabrera MD on September 16, 2016 at 15:32 Board Certified Radiologist. This report was verified electronically.
--- NOTE | 2016-09-16 15:44 | RADRPT ---
EXAM DATE/TIME: 09/16/2016 14:35 [facility] COMPARISON: No previous studies available for comparison. INDICATIONS : Stroke alert; change in mental status, non-verbal. IV CONTRAST: 140 cc Omnipaque 350 (iohexol) IV ; Cumulative dose for multiple exams. RADIATION DOSE: 28.72 CTDIvol (mGy) ; Combined studies MEDICAL HISTORY : Cardiovascular disease. Hypertension. Aoritic aneurysm. SURGICAL HISTORY : Hernia repair. ENCOUNTER: Initial ACUITY: 1 day PAIN SCALE: Non-responsive LOCATION: cranial TECHNIQUE: Volumetric scanning was performed using a multi-row detector CT scanner. The data was post processed with a variety of visualization algorithms including full volume maximum intensity projection, multi -planar sliding thin slab reformation, curved planar reformation, and surface rendering techniques. Using automated exposure control and adjustment of the mA and/or kV according to patient size, radiat ion dose was kept as low as reasonably achievable to obtain optimal diagnostic quality images. FINDINGS: There is excellent visualization of the major intracranial arteries out to the second-order branch ve ssels. There is no evidence for aneurysm, vessel truncation or stenosis. The please review CT angiog fabricio of the thoracoabdominal aorta from the same day for description of the thoracic vasculature. In t he neck a dominant left vertebral artery is noted. The vertebral arteries, basilar artery, internal c arotid arteries, anterior and middle cerebral arteries as well as posterior cerebral and superior cer ebellar arteries and posterior inferior cerebellar arteries are widely patent. There is no evidence f or high-grade stenosis or aneurysm. Intracranially, communicating with the left transverse sinus is a n abnormal collection of tortuous vessels in the left temporal occipital region which includes what i s felt to represent a venous aneurysm measuring 1.5 x 0.9 cm in transverse and AP dimension on axial image 38. 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 CONCLUSION: No evidence for high-grade stenosis. Arteriovenous malformation left temporal region as described abo ve. Edis Cabrera MD on September 16, 2016 at 15:38 Board Certified Radiologist. This report was verified electronically.
[2016-09-16] MEDS: SODIUM CHLOR 0.9% 1000 ML INJ 1,000 ML IV SCH (16:00)
[2016-09-16] MEDS: INSULIN ASPART SUPPLEMENTAL SCALE SQ SCH ×2 (16:00→20:52)
--- NOTE | 2016-09-16 16:11 | RADRPT ---
EXAM DATE/TIME: 09/16/2016 14:35 [facility] COMPARISON: No previous studies available for comparison. INDICATIONS : Stroke alert; change in mental status, non-verbal.. IV CONTRAST: 140 cc Omnipaque 350 (iohexol) IV ; Cumulative dose for multiple exams. RADIATION DOSE: 28.72 CTDIvol (mGy) ; Combined studies MEDICAL HISTORY : Cardiovascular disease. Hypertension. Aneurysm, abdominal. SURGICAL HISTORY : Hernia repair. ENCOUNTER: Initial ACUITY: 1 day PAIN SCALE: Non-responsive LOCATION: Bilateral neck Elevated flow velocities and ICA/CCA ratios have been found to correlate with increased degrees of vessel stenosis, calculated as percentage of diameter relative to a normal segment of distal ICA/CCA. TECHNIQUE: Volumetric scanning was performed using a multirow detector CT scanner. The data was post processed with a variety of visualization algorithms including full-volume maximum intensity projection, multip lanar sliding thin-slab reformation, curved-planar reformation, and surface-rendering techniques. Us ing automated exposure control and adjustment of the mA and/or kV according to patient size, radiatio n dose was kept as low as reasonably achievable to obtain optimal diagnostic quality images. FINDINGS: Please refer to CTA of thoracic abdominal aorta with 3-D reconstructions and CTA brain with 3-D recon structions performed today for description of the intracranial and thoracic vasculature. In the neck, the origins of the vertebral arteries, common carotid and internal carotid arteries as w ell as the external carotid arteries are widely patent. A dominant left vertebral artery is noted. Th ere is no evidence for hemodynamically significant stenosis. CONCLUSION: Within the neck the carotid and vertebral artery vasculature are widely patent without evidence for h emodynamically significant stenosis. There is minimal calcific plaque deposition at the carotid bifur cations. Referred to CTA thoracic abdominal aorta and CTA brain for description of the thoracic and i ntracranial vasculature. Edis Cabrera MD on September 16, 2016 at 16:07 Board Certified Radiologist. This report was verified electronically.
--- NOTE | 2016-09-16 16:42 | MB ---
cc: CHRISTIE KIDD M.D. DATE OF CONSULTATION: 09/16/2016. REASON FOR CONSULTATION: Stroke alert. HISTORY OF PRESENT ILLNESS: Mr. Paredes is an 89-year-old man who came to the hospital with abdominal pain and was found to have an abdominal aortic aneurysm. He was found to have a type B thoracic aortic dissection beginning just distal to the takeoff of the left subclavian artery as well as a large infrarenal abdominal aortic aneurysm measuring 6.7 cm in greatest AP diameter x 6.4 cm in greatest transverse diameter. He has bilateral common femoral artery aneurysms as well. The patient has been undergoing therapy for hypertension. He was stable until around one o'clock this afternoon when he suddenly became unresponsive with decreased responsiveness. He was not talking. He had no focal deficits. No tonic clonic activity. He received no sedative medications. MEDICATIONS: Current medications are : 1. Carvedilol 12.5 milligrams twice a day. 2. Lisinopril 5 milligrams twice a day. 3. Nicardipine. 4. Labetalol as needed. 5. Lactulose to 30 mL twice a day. 6. Albuterol nebulizer. 7. Bumex 0.5 milligrams IV daily. 8. Tylenol p.r.n. 9. Hydralazine as needed. 10. Solu-Medrol 40 milligrams IV twice a day. 11. Diltiazem four times a day. 12. Flomax 0.4 milligrams daily. 13. Claritin 10 milligrams daily. 14. Tessalon 10 milligrams as needed for cough. NEUROLOGIC EXAMINATION: VITAL SIGNS: Blood pressure is 130/72, pulse is 61, respiratory rate is 13, temperature 96 degrees. HIGHER CORTICAL FUNCTIONS: He is extremely lethargic but is arousable. He can tell me his name. He can repeat simple phrases and follow simple commands. CRANIAL NERVES: The pupils are 2 mm symmetrical reactive. There is no facial droop at this time. The extraocular movements are intact to doll's eyes maneuver. MOTOR: On motor exam, he can account adjuster equally with both circular tank cooper but he is weak diffusely. No focal deficits. SENSORY: He withdraws both lower extremities to painful stimuli equally. REFLEXES: Reflexes are 3+ patella symmetric, 2+ ankle symmetric, 1+ biceps, brachioradialis and triceps symmetric. IMAGING STUDIES: CT of the brain shows atrophy, chronic ischemic changes. No acute change present. No hemorrhage. CT angiogram of the neck and brain as well as of the abdomen are pending. LABORATORY DATA: The white count is 21,300, hemoglobin is 12.5, hematocrit 38%, platelet count is 198,000. Sodium is 142, potassium 4.2, chloride 107, CO2 is 24.2, the BUN is 36, creatinine 1.16, glucose is 143. His PT is 11.6, INR 1, APTT 27.5. Urinalysis is normal. IMPRESSION: Acute mental status change, possible stroke, although at the present time I do not see any definite focal signs. He does not have an aphasia at this time. He is generally lethargic. He has no focal motor deficits. RECOMMENDATIONS: The patient is not a candidate for IV TPA given the lack of focality on his exam and also because of the thoracic aortic dissection as well as the abdominal aortic aneurysm and bilateral femoral artery aneurysms which would pose a hemorrhagic risk. At the present time, will follow up on the CT angiogram to see if there would be any evidence for large vessel occlusion. Would also recommend an MRI of the brain for further evaluation for acute stroke. Will obtain an EEG as well. MD LINDA Little/CRISS /3:11 PM /4:33 PM
--- NOTE | 2016-09-16 17:13 | RADRPT ---
EXAM DATE/TIME: 09/16/2016 16:51 [facility] COMPARISON: CTA THORACIC ABDOMINAL AORTA W 3D RECON, September 16, 2016, 14:35. CTA BRAIN W 3D RECON, September 16, 2016 , 14:35. CTA CAROTID ARTERIES W 3D RECON, September 16, 2016, 14:35. CT BRAIN W/O CONTRAST, September 16, 017, 14:17. CT BRAIN W/O CONTRAST, July 17, 2015, 0:38. INDICATIONS : Altered mental status. Stroke alert. MEDICAL HISTORY : Hypertension. SURGICAL HISTORY : Inguinal hernia repair. Bilateral cataract ENCOUNTER: Initial ACUITY: 1 day PAIN SCORE: 0/10 LOCATION: cranial TECHNIQUE: Multiplanar, multisequence MRI of the brain was performed without contrast. FINDINGS: Diffusion weighted images demonstrate no evidence for acute infarction. There is atrophy greatest in the bilateral parietal regions. Patchy and confluent increased flair signal in the bilateral subcorti josue matter, centrum semiovale and periventricular white matter as well as mild increase in normal evie s identified characteristic of chronic microvascular ischemic disease. Left maxillary sinus mucous re tention cyst. Reidentified is an abnormal collection of tortuous vessels in the left temporal region including a lobulated signal void measuring 1.6 x 0.7 cm having the appearance of the venous aneurysm . The vessels communicate with the transverse sinus raising suspicion for dural arteriovenous fistula . Remote cerebellar lacunar infarcts. No hemorrhage. CONCLUSION: No evidence for acute infarction. Please see above. Edis Cabrera MD on September 16, 2016 at 17:10 Board Certified Radiologist. This report was verified electronically.
[2016-09-16] MEDS ORDERED: hydrALAZINE HCL 20 MG/ML VIAL IV ONE (18:00)
--- NOTE | 2016-09-16 20:09 | HHI.CCPN ---
Subjective Remarks/Hospital Course Patient is an 89-year-old male with history of hypertension, long-standing tobacco abuse who presents to emergency room with complaints of chest pain back pain and epigastric pain. Started around 10 AM today, while shopping shopping and began to have increased pain to his chest. Denies nausea or vomiting or shortness of breath of symptoms. Never had chest pain in the past. Reports no history of coronary artery disease or [place] in the past. EKG showed no acute findings. 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 Patient also has bilateral common femoral artery aneurysms. Patient will be started on Cardene infusion and scheduled metoprolol along with when necessary labetalol for blood pressure and heart rate control. Medical management of the type B dissection. Discussed with vascular surgery Dr. Silverio, he will see the patient and make recommendation about the AAA. Patient may be a candidate for endovascular repair of AAA. I have discussed with Dr. Oliverio Mead from IR as well, also updated patient himself, his granddaughter at the bedside (Krystal). 09/01 The patient continues on nicardipine infusion, with goal of systolic blood pressure less than 110 per recommendations of vascular surgery. The patient has been placed on metoprolol XL, PO in addition to lisinopril and Cardizem home medications. The patient denies pain, requesting a diet. Will follow-up recommendations of vascular surgery. 09/02 Overnight the patient was able to be weaned down to Nicardipine infusion 3 mg/hr. The patient continues on Cardizem and lisinopril, home medications. Will add clonidine 0.2mg to medication regimen, with goal of weaning off nicardipine infusion. The patient denies pain at this time. Tolerating PO diet. 09/03: Resting in bed. Complaining of cough overnight. Continue to be in 5 L nasal cannula. Claritin added last night in addition to his home dose of Singulair for allergic rhinitis. Cardene drip restarted. Arousable and follows commands. KLAWOCK 09/04: Afebrile. Cardiac drip off since yesterday morning. Noted blood pressure liberalized to 130s systolic per vascular. Continues to be on 5 L nasal cannula. Continues to complain of nonproductive cough. 09/05: Currently on 6 L nasal cannula and easily desaturates. Chest x-ray revealed possible left lower lobe effusion. We will gently diurese 1 now. Complains of nonproductive cough. Appears nonseptic. 09/06: On BiPAP overnight due to hypoxia. CT chest revealed bilateral pleural effusion. Status post thoracentesis right side -550. Plan for left thoracentesis tomorrow. CTA runoff noted. Continue with aggressive pulmonary: . Continues with nonproductive cough. 09/07: On BiPAP overnight. Currently on OptiFlow at 70%. Plan for left-sided thoracentesis today. Antibiotic yesterday secondary to persistent cough. Patient's been pancultured. Appears stable otherwise. Short of breath with any exertion. 09/08: Afebrile. On BiPAP again overnight. Currently on OptiFlow at 65%. Status post bilateral thoracentesis with transudative effusions. Appears comfortable. Daily productive cough or sputum. Become short of breath with any exertion. Subjective 09/09: Afebrile. Currently on high flow nasal cannula at 65%. Appears couple. Continues to have dry productive cough of clear sputum. With any movement patient desats. When lying still patient very comfortable and not using accessory muscles and able to speak complete sentences comfortably 09/10: The patient continues on high flow nasal cannula, now decreased to 60%. Patient continues on empiric antibiotics, noted elevation in WBC count today, but remains afebrile. 09/11: Afebrile. Overnight the patient received IV narcotic, and became disoriented and confused. Resolution of symptoms this morning. The patient continues on high flow oxygen currently at 65%, attempting to wean. Patient out of bed to chair. Elevated WBC count continues to ID consult, appreciate recommendations. 09/12: Tmax 98.5. WBC count continues to be elevated, bandemia noted. We'll follow-up ID recommendations. The patient alert and oriented, slept well last p.m.. Frequent dosing of antihypertensive medications clonidine increased to 0.3 twice a day. The patient continues on high flow nasal cannula at 65%, attempting to wean to 60% today. 09/13: The patient continues to have persistent leukocytosis, Dr. Valdez following. Overnight the patient required increase in FiO2 to 70% . Blood pressure now well controlled, will begin weaning of clonidine, systolic blood pressure 100's. Patient continues to refuse BiPAP at night. 09/14: Patient has agreed to utilize BiPAP and tolerated BiPAP overnight. Discussed with ID, Dr. Valdez, plans to discontinue antibiotics felt is due to the aneurysm, pro-calcitonin within normal limits. The patient continues to be weaned off of high flow nasal cannula, currently 70%. Dr. Lopez, pulmonary following. 09/15: Round midnight the patient was noted to have systolic blood pressures in the 150s not responsive PRN antihypertensive medications. The patient required placement of Cardene infusion for approximately 1 hour at midnight. The hypertensive medications have been readjusted. The patient tolerated BiPAP last night O2 sat 95%. During the day the patient continues on high flow nasal cannula 55-60%. 09/16: Earlier today patient awake and alert out of bed to chair, tolerating diet , interacting with staff. At approximately 1:00, the patient was noted to be unresponsive, aphasic, normotensive systolic blood pressure [id number]. A stroke alert was initiated, laboratory and imaging studies were performed. ABG and laboratory studies were within normal limits. CT scan of the brain showed no acute abnormality. CTA of the neck no stenosis , CTA thorax and abdomen also were performed, unchanged from previous exam noting the aneurysm and the dissection. 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 Patient began to have resolution of symptoms approximately 5 hours later. Objective Vital Signs Date Time Temp Pulse Resp B/P Pulse Ox O2 Delivery O2 Flow Rate FiO2 09/16/16 18:00 68 09/16/16 16:00 97.2 14 139/63 90 09/16/16 16:00 Non-Rebreather 09/16/16 12:00 4.00 09/16/16 00:49 40 Intake and Output 09/15/16 09/15/16 09/16/16 08:00 16:00 00:00 Intake Total 315 ml 360 ml 600 ml Output Total 325 ml 900 ml 450 ml Balance -10 ml -540 ml 150 ml Result Diagram: 09/16/16 1406 09/16/16 1406 Other Results Laboratory Tests Test 09/16/16 13:50 Blood Gas Puncture Site RT RADIAL Blood Gas Patient Temperature 98.6 Blood Gas HCO3 21 mmol/L (22-26) Blood Gas Base Excess -2.7 mmol/L (-2-2) Blood Gas Oxygen Saturation 89 % (90-100) Arterial Blood pH 7.39 (7.380-7.420) Arterial Blood Partial 36 mmHg (38-42) Pressure CO2 Arterial Blood Partial 60 mmHg Pressure O2 (61-120) Arterial Blood Oxygen Content 15.4 Vol % (12.0-20.0) Arterial Blood 1.4 % (0-4) Carboxyhemoglobin Arterial Blood Methemoglobin 1.0 % (0-2) Blood Gas Hemoglobin 12.3 G/DL (12.0-16.0) Oxygen Delivery Device NASAL CANNULA Blood Gas Liter Flow 4 L/M Imaging Last Impressions Chest X-Ray 09/09/16599 Signed Impressions: Service Date/Time: Friday, September 09, 2016 03:31 - CONCLUSION: No significant change has occurred. Edis Cabrera MD Thoracentesis Ultrasound 09/07/16 0900 Signed Impressions: Service Date/Time: Wednesday, September 07, 2016 11:11 - CONCLUSION: Uncomplicated ultrasound guided thoracentesis. Lucas Mead MD FACR Lower Extremity Ultrasound 09/07/16 0000 Signed Impressions: Service Date/Time: Wednesday, September 07, 2016 21:41 - CONCLUSION: 1. No evidence for DVT. 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 Edis Cabrera MD Aorta w/Runoff CTA 09/06/16599 Signed Impressions: Service Date/Time: August 10:38 - CONCLUSION: 6.5 cm abdominal aortic aneurysm and left common iliac artery aneurysm. Configuration does appear suitable for endovascular repair. 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 Flow reconstitutes in the left popliteal artery. Julius Johnston MD Aorta CTA 09/06/16599 Signed Impressions: Service Date/Time: August 10:43 - CONCLUSION: Compared to the CTA from several days ago, the false lumen of thoracic aortic dissection is less well seen. This may be related to technical factors and bolus timing or may reflect some interval thrombosis of the false lumen. Otherwise stable vascular findings. Interval development of large bilateral pleural effusions and lung base atelectasis. Julius Johnston MD Chest CT 09/05/16 0000 Signed Impressions: Service Date/Time: Monday, September 05, 2016 22:44 - CONCLUSION: 1. Left greater than right pleural effusions and basilar consolidation, new since the prior CTA. 2. Based on this noncontrast study, no definite change in a type B aortic dissection. I don't see any blood in the mediastinum or pleural spaces. 3. Upper limits of normal to mildly enlarged mediastinal lymph nodes unchanged. 4. Coronary artery calcification again seen. Julius Valencia MD Renal Ultrasound 09/03/16 0000 Signed Impressions: Service Date/Time: Saturday, September 03, 2016 11:14 - CONCLUSION: Small cyst in each kidney. Area cortical retraction left kidney . Otherwise negative Maicol Durant MD Objective Remarks GENERAL:89-year-old male, resting in bed on 6 L/m nasal cannula SKIN: Warm and dry. No rash HEAD: Atraumatic. Normocephalic. EYES: Pupils equal and round around 3 mm bilaterally and reactive. No scleral icterus. No injection or drainage. ENT: No nasal bleeding or discharge. Mucous membranes pink and moist. Hi flow Nasal cannula. Hearing aid NECK: Trachea midline. No JVD. CARDIOVASCULAR: Regular rate and rhythm. S1, S2. No S4. No murmur appreciated. RESPIRATORY: Diminished breath sounds bilaterally. Few crackles appreciated throughout the lung rider bilaterally. Positive end expiratory wheeze. GASTROINTESTINAL: Abdomen soft, non-tender, nondistended. Positive bowel sounds. pulsatile aorta palpable in the midline MUSCULOSKELETAL: No obvious deformities. No significant peripheral edema. NEUROLOGICAL: Acute neurological symptomatology [id number] resolved, GCS now 15 .Awake and alert. No obvious cranial nerve deficits. Motor grossly within normal limits. Normal speech. The patient is hard of hearing. A/P Assessment and Plan NEURO/PSYCH: Back pain due to aortic dissection H/O chronic back pain ICU Delirium-resolved KLAWOCK TIA ? 09/16 -Pain control, Tylenol PRN -Currently asymptomatic -Avoid sedatives -GCS 15, continue to monitor , and provides sleep hygiene. Stimulation during the day, minimal disruptions at night. 3/3 hearing aid adjusted by Process Machine Operator -09/16 CT brain-no acute abnormality, stable, no changes from prior study. 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 RESP: Acute respiratory insufficiency Tobacco abuse COPD Allergic rhinitis Chronic cough -BiPAP 04/18@50% versus OptiFlow 55 L at 60% FiO2 wean as tolerated to maintain saturations around 92%. Continue to attempt to wean -Patient currently refusing BiPAP at night, continues on high flow oxygen -DuoNeb every 6 hours scheduled and when necessary. Continue acappella/PEP every [address] thorax revealed bilateral pleural effusions. Status post right thoracentesis by IR 09/06 -550 cc. left thoracentesis -580 cc 09/07. Right-sided was transudative. - On singular 10 mg daily and Claritin 10 mg daily for allergy rhinitis/ postnasal drip - As needed Tessalon Perles 200 mg every 8 hours for cough -Counseled on smoking cessation -Incentive spirometry, encourage use, every hour while awake Added Symbicort 80/4.5 twice a day and Solu-Medrol 40 mg pulmonary dose IV every 8 on 09/08. CXR 09/14-small effusions unchanged from Pulmonary -Dr. Chai Zamarripa follow-up recommendations CV: Ramesh type B aortic dissection 6.7 cm infrarenal AAA Femoral artery aneurysm Hypertensive emergency -Cardene infusion currently off with target systolic blood pressure less than 130 per vascular surgery recommendations -IV labetalol, hydralazine PRN. - Patient's home medication of lisinopril 10 mg daily changed to 5 twice a day - diltiazem 240 mg daily switch to 60 mg 4 times a day with when necessary Cardizem 30 mg by mouth every 6 hours will be continued. - Increased Coreg 12.5 milligrams twice a day, clonidine discontinued ,PRN Hydralazine and labetalol increased to 20 mg PRN -Vascular surgery, on board Dr. Gastelum -Plan for medical management of Type B dissection ABIs - decreased flow left lower extremity Runoff shows 6.5 AAA. 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 Left NARGSI aneurysm. 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 Continue gentle diuresis with Bumex 0.5 mg daily GI: Hypoalbuminemia Bilateral adrenal adenoma Heart healthy diet - Protonix for GI prophylaxis -Senna and Colace for bowel regimen -BM x 3 (09/14) FEN/renal/: Hypokalemia BPH Noted received IV dye 08/31. Contrast nephropathy resolved -Monitor renal function closely -Monitor hourly urinary output -Electrolyte replacement per ICU protocol -Strict I and O's Avoid nephrotoxic drugs Continue Flomax 0.4 mg by mouth daily BMP within normal limits, will continue to monitor every 2-3 days ID: Possible URI -Day #7 cefepime and Zithromax discontinued 09/13 -Continue elevated WBC count 19>23 today, will continue to monitor CBC -ID following, Dr. Valdez Pertinent cultures 09/07 - sputum -no growth 09/06 - blood cultures 2 - no growth 09/06 - pleural fluid - WBC no growth 08/31 - blood cultures 2 - no growth HEME: Persistent Leukocytosis Anemia Bandemia -Monitor CBC, CMP -09/14 Procalcitonin <0.05 ENDO: -Euglycemic, continue to monitor -Blood glucose monitoring per ICU protocol PROPH: -Bilateral lower extremity SCDs. No pharmacological DVT prophylaxis contraindicated, Pt OOB to chair -IV Protonix for GI prophylaxis LINES: -Utilize peripheral IVs, central line if needed Critical Care: Level 2 Dispo: Discussed case extensively with daughter Linda and SHOT BLASTER at bedside. The patient's living will was placed in the chart, the patient was made DNR today. Case management consult regarding disposition , the family and patient requests transfer to medical floor or specialty hospital in a.m.. Physician Meenakshi Miles MD Sep 16, 2016 20:08
[2016-09-16] MEDS: MONTELUKAST SODIUM 10 MG TAB PO SCH (20:52)
[2016-09-16] MEDS: SODIUM CHLORIDE 0.9% FLUSH 5 ML FLUSH IVF SCH (20:57)
[2016-09-17] VITALS (23 sets, daily range): BP systolic 117–170; BP diastolic 42–90; PULSE 56–70; RESP 15–24; TEMP 97.7–99; O2SAT 91–96
[2016-09-17] MEDS: LABETALOL HCL 100 MG/20 ML VIAL IV PUSH PRN ×7 (00:39→22:34)
[2016-09-17] MEDS: CHLORHEXIDINE GLUCONATE 2 % 1 PACK (2 CLOTHS) TOP SCH ×2 (03:09→22:05)
[2016-09-17] MEDS: hydrALAZINE HCL 20 MG/ML VIAL IV PUSH PRN ×2 (03:10→10:35)
[2016-09-17] MEDS: INSULIN ASPART SUPPLEMENTAL SCALE SQ SCH ×4 (06:50→22:03)
[2016-09-17 06:58] LABS: HDL CHOLESTEROL 60.4 MG/DL (40.0-60.0)
[2016-09-17] MEDS: RESP: ALBUTEROL 2.5 MG/IPRATROPIUM 0.5 MG NEB (SCH) NEB ×3 (07:47→20:41)
[2016-09-17] MEDS: PANTOPRAZOLE SOD 40 MG DELAYED RELEASE TAB PO SCH (07:52)
[2016-09-17] MEDS: CARVEDILOL 6.25 MG TAB PO SCH (07:52)
[2016-09-17] MEDS: DILTIAZEM HCL 60 MG TAB PO SCH ×4 (07:52→22:04)
[2016-09-17] MEDS: TAMSULOSIN HCL 0.4 MG CAP PO SCH (07:52)
[2016-09-17] MEDS: LISINOPRIL 5 MG TAB PO SCH ×2 (07:52→22:03)
[2016-09-17] MEDS: LORATADINE 10 MG TAB PO SCH (07:53)
[2016-09-17] MEDS: methylPREDNISolone SOD SUCC 40 MG/1 ML VIAL IV PUSH SCH (07:53)
[2016-09-17] MEDS: POTASSIUM CHLORIDE 25 MEQ EFFERVESCENT TAB PO SCH ×2 (07:53→09:00)
[2016-09-17] MEDS: BUMETANIDE INJ 1 MG/4 ML VIAL IV PUSH SCH (07:53)
[2016-09-17] MEDS: SENNOSIDES SYRUP 8.8 MG/5 ML CUP PO SCH (07:54)
[2016-09-17] MEDS: BUDESONIDE-FORMOTEROL 160/4.5 MCG INHALER INH SCH ×2 (07:54→21:00)
[2016-09-17] MEDS: LACTULOSE SYRUP 20 GM/30 ML CUP PO SCH ×2 (07:54→21:00)
[2016-09-17] MEDS: DOCUSATE SODIUM 100 MG/10 ML UDC PO SCH ×2 (07:54→21:00)
[2016-09-17] MEDS: SODIUM CHLORIDE 0.9% FLUSH 5 ML FLUSH IVF SCH ×2 (07:55→22:04)
[2016-09-17 09:23] LABS: HEMOGLOBIN Ao 84.1 %; HEMOGLOBIN LA1C 2.2 %; HEMOGLOBIN P3 5.8 %
--- NOTE | 2016-09-17 10:15 | EKG ---
Date Performed: 09/16/2016 Time Performed: 14:06:35 PTAGE: 89 years EKG: SINUS BRADYCARDIA RIGHT BUNDLE BRANCH BLOCK ABNORMAL ECG Compared to prior tracing no signi ficant change PREVIOUS TRACING : 08/31/2016 12.41 DOCTOR: Abdullahi Hurst Interpretating Date/Time 09/17/2016 10:13:36
--- NOTE | 2016-09-17 10:50 | HHI.PR ---
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 No evidence of cva on MRI Diagnosis/Plan: Subjective Subjective Comments More alert and responsive today Active Medications Current Medications Medications (Trade) Dose Ordered Sig/Karen Route Start Time Stop Time Status Last Admin Miscellaneous Information 1 [id number] 08/31/16 15:30 (Chlorhexidine 2% Cloth) Taper DAILY@04 TOP 09/01/16 04:00 08/28/17 03:59 09/13/16 01:50 (Chlorhexidine 2% Cloth) 3 pack UNSCH PRN TOP 08/31/16 15:30 (Singulair) 10 mg HS PO 08/31/16 21:00 09/16/16 20:52 (Colace Liq) 100 mg Q12HR PO 08/31/16 21:00 09/16/16 20:52 Sennosides 8.8 mg 8.8 mg DAILY PO 09/01/16 09:00 09/16/16 08:18 Potassium Chloride 100 ml @ 50 mls/hr Q2H PRN IV 09/02/16 15:45 (KCl 20 Meq Premix Inj) 100 ml @ 50 mls/hr Q2H PRN IV 09/02/16 15:45 09/08/16 06:27 Potassium Chloride 40 meq 40 meq UNSCH PRN PO/TUBE 09/02/16 15:45 09/10/16 18:06 Potassium Chloride 100 ml @ 25 mls/hr UNSCH PRN IV 09/02/16 15:45 Potassium Chloride 100 ml @ 50 mls/hr Q2H PRN IV 09/02/16 15:45 (Magnesium Sulfate Inj/NS Inj) 100 ml @ 50 mls/hr UNSCH PRN IV 09/02/16 15:45 Magnesium Oxide 800 mg 800 mg UNSCH PRN PO 09/02/16 15:45 (Magnesium Sulfate Inj/NS Inj) 100 ml @ 50 mls/hr UNSCH PRN IV 09/02/16 15:45 Potassium Phosphate 2000 mg 2,000 mg Q4H PRN PO 09/02/16 15:45 09/02/16 20:07 (Sodium Phosphate Inj/NS 250 ml Inj) 250 ml @ 42 mls/hr UNSCH PRN IV 09/02/16 15:45 09/05/16 11:12 (KCl 40 Meq/30 ml Liq) 40 meq UNSCH PRN PO/TUBE 09/02/16 15:45 Potassium Phosphate 2000 mg 2,000 mg UNSCH PRN PO/TUBE 09/02/16 15:45 (Potassium Phosphate Inj/NS 250 ml Inj) 260 ml @ 42 mls/hr UNSCH PRN IV 09/02/16 15:45 (Claritin) 10 mg DAILY PO 09/03/16 05:00 09/17/16 07:53 (Tessalon) 200 mg TID PRN PO 09/03/16 05:00 09/06/16 09:51 ([place] 5-325 Mg) 1 tab Q4H PRN PO 09/03/16 09:00 09/05/16 11:46 (Protonix) 40 mg DAILY PO 09/03/16 09:00 09/17/16 07:52 (Cardizem) 30 mg QID PRN PO 09/03/16 10:00 09/14/16 21:35 Tamsulosin HCl 0.4 mg 0.4 mg DAILY PO 09/04/16 09:00 09/17/16 07:52 (Sodium Bicarbonate 8.4% Inj/Sterile Water For Inj) 1,000 ml @ 50 mls/hr Q20H IV 09/03/16 12:00 Hold 09/05/16 04:06 (Cardizem) 60 mg QID PO 09/05/16 18:00 09/17/16 07:52 (Pill Splitter) 1 ea UNSCH PRN OTHER 09/07/16 09:15 (Symbicort 160-4.5 Inh) 1 puff Q12HR INH 09/08/16 09:00 09/17/16 07:54 (SoluMEDROL INJ) 40 mg Q12HR IV PUSH 09/08/16 09:00 09/17/16 07:53 (Apresoline Inj) 20 mg Q4H PRN IV PUSH 09/09/16 00:00 09/17/16 10:35 (K-Lyte Cl Eff) 25 meq DAILY PO 09/11/16 09:00 09/16/16 08:19 (Tylenol) 650 mg Q4H PRN PO 09/11/16 14:15 (Bumex Inj) 0.5 mg DAILY IV PUSH 09/13/16 09:30 09/17/16 07:53 ([place]) 1 spray UNSCH PRN NASAL 09/12/16 13:30 09/12/16 13:36 (Lactulose Liq) 30 ml BID PO 09/13/16 21:00 09/16/16 20:50 Labetalol HCl 20 mg 20 mg Q1H PRN IV PUSH 09/14/16 23:15 09/17/16 10:06 (Cardene Inj/NS 250 ml Inj) 260 ml @ 0 mls/hr TITRATE IV 09/15/16 00:15 09/15/16 00:17 (Coreg) 12.5 mg Q12HR PO 09/15/16 09:00 09/17/16 07:52 (NS Flush) 2 ml BID IVF 09/16/16 21:00 09/17/16 07:55 IV Flush 2 ml 2 ml UNSCH PRN IVF 09/16/16 15:15 (NS 1000 ml Inj) 1,000 ml @ 10 mls/hr Q24H IV 09/16/16 16:00 09/16/16 16:00 (D50w (Vial) Inj) 25 ml UNSCH PRN IV PUSH 09/16/16 15:15 (Glucagon Inj) 1 mg UNSCH PRN IM/SQ 09/16/16 15:15 (Prinivil) 10 mg BID PO 09/17/16 09:00 09/17/16 07:52 Allergies Allergies Uncoded Allergies MUSHROOMS ( Allergy, Severe, Nausea/Vomiting, 09/02/16) Exam I&O / VS 09/16/16 09/16/16 09/17/16 15:00 23:00 07:00 Intake Total 240 ml 723 ml 319 ml Output Total 1050 ml 425 ml 525 ml Balance -810 ml 298 ml -206 ml Intake Oral 240 ml 480 ml 240 ml IV Total 243 ml 79 ml Output Urine Total 1050 ml 425 ml 525 ml # Bowel Movements 1 0 0 Vital Signs Date Time Temp Pulse Resp B/P Pulse Ox O2 Delivery O2 Flow Rate FiO2 09/17/16 08:00 70 09/17/16 08:00 95 Nasal Cannula 09/17/16 07:49 93 Nasal Cannula 4.00 09/17/16 06:00 66 09/17/16 04:21 92 Nasal Cannula 4.00 09/17/16 04:00 68 09/17/16 04:00 91 Nasal Cannula 4.00 09/17/16 04:00 98.3 68 18 117/57 91 09/17/16 03:10 141/72 09/17/16 02:00 61 09/17/16 01:30 137/70 09/17/16 01:03 95 40 09/17/16 00:30 145/42 09/17/16 00:00 99.0 64 16 137/69 09/17/16 00:00 64 09/17/16 00:00 95 Bi-Pap 40 09/16/16 23:30 150/75 09/16/16 22:45 93 Bi-Pap 40 09/16/16 22:43 92 40 09/16/16 22:30 143/66 09/16/16 22:00 66 09/16/16 20:00 92 Nasal Cannula 4.00 09/16/16 20:00 64 09/16/16 20:00 98.2 64 16 113/58 92 09/16/16 19:55 90 Nasal Cannula 4.00 09/16/16 18:00 68 09/16/16 16:00 63 09/16/16 16:00 97.2 63 14 139/63 90 09/16/16 16:00 90 Non-Rebreather 09/16/16 14:00 64 09/16/16 12:00 55 09/16/16 12:00 97.8 55 14 132/70 92 09/16/16 12:00 92 Nasal Cannula 4.00 Exam Comments alert, oriented, speech normal CN 2-12 normal Motor 5/5 BUE and BLE Objective Radiology Results MRI brain--normal with no evidence for cva CTA neck and brain--both normal with no large vessel occlusion Micro and Labs Laboratory Tests Test 09/16/16 09/16/16 09/17/16 13:50 14:06 05:47 Blood Gas Puncture Site RT RADIAL Blood Gas Patient Temperature 98.6 Blood Gas HCO3 21 Blood Gas Base Excess -2.7 Blood Gas Oxygen Saturation 89 Arterial Blood pH 7.39 Arterial Blood Partial 36 Pressure CO2 Arterial Blood Partial 60 Pressure O2 Arterial Blood Oxygen Content 15.4 Arterial Blood 1.4 Carboxyhemoglobin Arterial Blood Methemoglobin 1.0 Blood Gas Hemoglobin 12.3 Oxygen Delivery Device NASAL CANNULA Blood Gas Liter Flow 4 White Blood Count 21.3 Red Blood Count 3.95 Hemoglobin 12.5 Bedside Hemoglobin 12.6 Hematocrit 38.0 Bedside Hematocrit 37.0 Mean Corpuscular Volume 96.4 Mean Corpuscular Hemoglobin 31.7 Mean Corpuscular Hemoglobin 32.9 Concent Red Cell Distribution Width 14.6 Platelet Count 198 Mean Platelet Volume 8.8 Neutrophils (%) (Auto) 93.2 Lymphocytes (%) (Auto) 2.3 Monocytes (%) (Auto) 4.3 Eosinophils (%) (Auto) 0.0 Basophils (%) (Auto) 0.2 Neutrophils # (Auto) 19.9 Lymphocytes # (Auto) 0.5 Monocytes # (Auto) 0.9 Eosinophils # (Auto) 0.0 Basophils # (Auto) 0.0 CBC Comment AUTO DIFF Differential Total Cells 100 Counted Neutrophils % (Manual) 94 Band Neutrophils % 1 Lymphocytes % 2 Monocytes % 3 Neutrophils # (Manual) 20.2 Differential Comment FINAL DIFF MANUAL Platelet Estimate NORMAL Platelet Morphology Comment NORMAL Ovalocytes 1+ Keratocytes 1+ Prothrombin Time 11.6 Prothromb Time International 1.0 Ratio Activated Partial 27.5 Thromboplast Time Fibrinogen 170 Bedside Sodium 142 Sodium Level 143 Bedside Potassium 4.2 Potassium Level 4.2 Bedside Chloride 107 Chloride Level 110 Carbon Dioxide Level 24.2 Anion Gap 9 Bedside Blood Urea Nitrogen 36 Blood Urea Nitrogen 38 Creatinine 1.16 Bedside Creatinine 1.1 Estimat Glomerular Filtration 59 Rate Bedside Glucose 143 Random Glucose 139 Lactic Acid Level 2.7 Calcium Level 8.2 Total Creatine Kinase 57 Troponin I 0.03 Blood Type B NEGATIVE Antibody Screen NEGATIVE Hemoglobin A1c 5.8 Triglycerides Level 39 Cholesterol Level 89 LDL Cholesterol 21 HDL Cholesterol 60.4 Cholesterol/HDL Ratio 1.47 Edinson Edwards PhD Sep 17, 2016 10:50
--- NOTE | 2016-09-17 12:00 | HHI.PR ---
Subjective Remarks Alert and on O 2 at 4L. Good output . [facility] Objective Vital Signs Date Time Temp Pulse Resp B/P Pulse Ox O2 Delivery O2 Flow Rate FiO2 09/17/16 11:00 149/77 09/17/16 10:30 169/77 09/17/16 10:00 64 09/17/16 10:00 170/79 09/17/16 08:00 70 09/17/16 08:00 95 Nasal Cannula 09/17/16 08:00 98.4 69 17 162/84 96 09/17/16 07:49 93 Nasal Cannula 4.00 09/17/16 06:00 66 09/17/16 04:21 92 Nasal Cannula 4.00 09/17/16 04:00 68 09/17/16 04:00 91 Nasal Cannula 4.00 09/17/16 04:00 98.3 68 18 117/57 91 09/17/16 03:10 141/72 09/17/16 02:00 61 09/17/16 01:30 137/70 09/17/16 01:03 95 40 09/17/16 00:30 145/42 09/17/16 00:00 99.0 64 16 137/69 09/17/16 00:00 64 09/17/16 00:00 95 Bi-Pap 40 09/16/16 23:30 150/75 09/16/16 22:45 93 Bi-Pap 40 09/16/16 22:43 92 40 09/16/16 22:30 143/66 09/16/16 22:00 66 09/16/16 20:00 92 Nasal Cannula 4.00 09/16/16 20:00 64 09/16/16 20:00 98.2 64 16 113/58 92 09/16/16 19:55 90 Nasal Cannula 4.00 09/16/16 18:00 68 09/16/16 16:00 63 09/16/16 16:00 97.2 63 14 139/63 90 09/16/16 16:00 90 Non-Rebreather 09/16/16 14:00 64 09/16/16 12:00 55 09/16/16 12:00 97.8 55 14 132/70 92 09/16/16 12:00 92 Nasal Cannula 4.00 I/O 3/5/17 09/16/16 09/16/16 09/17/16 09/17/16 09/17/16 07:00 15:00 23:00 07:00 15:00 23:00 Intake Total 398 ml 240 ml 723 ml 319 ml Output Total 200 ml 1050 ml 425 ml 525 ml Balance 198 ml -810 ml 298 ml -206 ml Intake Oral 240 ml 240 ml 480 ml 240 ml IV Total 158 ml 243 ml 79 ml Output Urine Total 200 ml 1050 ml 425 ml 525 ml # Bowel Movements 1 1 0 0 Result Diagram: 09/16/16 1406 09/16/16 1406 Objective Remarks GENERAL: This is an elderly man who is moderately obese, pale and not dyspneic. HEENT: Head normocephalic. Pupils are reactive. Tongue is moist. Throat clear. NECK: Supple with mild venous distension. Trachea midline. No thyroid enlargement. CHEST: Distant breath sounds with occasional bibasilar crackles and no wheezes. HEART: The heart sounds are irregular. S1-S2 with no murmur. No S3. ABDOMEN: Soft, obese without masses. No organomegaly or tenderness. Bowel sounds are active EXTREMITIES: Minimal edema with decreased pulses. The patient does move all his extremities with 1+ reflexes. NEUROLOGIC: No gross motor deficits. SKIN: No lesions are noted. Assessment and Plan Assessment and Plan IMPRESSION 1. 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 2. Hypertension with hypertensive cardiovascular disease 3. Bibasilar atelectasis with probable pneumonia and hypoxemia. 4. COPD with emphysema and chronic bronchitis 5. History of nicotine dependency 6. TIA. Plan : 1. Cont Diuretic daily. 2. O2 at 3L. 3. Nebs qid , duoneb. 4. IS at Bedside qid. 5. [facility] 6. D/C Solumedrol. Kusum Guzmán MD Sep 17, 2016 12:00
--- NOTE | 2016-09-17 12:12 | HHI.CCPN ---
Subjective Remarks/Hospital Course Patient is an 89-year-old male with history of hypertension, long-standing tobacco abuse who presents to emergency room with complaints of chest pain back pain and epigastric pain. Started around 10 AM today, while shopping shopping and began to have increased pain to his chest. Denies nausea or vomiting or shortness of breath of symptoms. Never had chest pain in the past. Reports no history of coronary artery disease or NE in the past. EKG showed no acute findings. 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 Patient also has bilateral common femoral artery aneurysms. Patient will be started on Cardene infusion and scheduled metoprolol along with when necessary labetalol for blood pressure and heart rate control. Medical management of the type B dissection. Discussed with vascular surgery Dr. Silverio, he will see the patient and make recommendation about the AAA. Patient may be a candidate for endovascular repair of AAA. I have discussed with Dr. Oliverio Mead from IR as well, also updated patient himself, his granddaughter at the bedside (Krystal). 09/01 The patient continues on nicardipine infusion, with goal of systolic blood pressure less than 110 per recommendations of vascular surgery. The patient has been placed on metoprolol XL, PO in addition to lisinopril and Cardizem home medications. The patient denies pain, requesting a diet. Will follow-up recommendations of vascular surgery. 09/02 Overnight the patient was able to be weaned down to Nicardipine infusion 3 mg/hr. The patient continues on Cardizem and lisinopril, home medications. Will add clonidine 0.2mg to medication regimen, with goal of weaning off nicardipine infusion. The patient denies pain at this time. Tolerating PO diet. 09/03: Resting in bed. Complaining of cough overnight. Continue to be in 5 L nasal cannula. Claritin added last night in addition to his home dose of Singulair for allergic rhinitis. Cardene drip restarted. Arousable and follows commands. CHILKAT 09/04: Afebrile. Cardiac drip off since yesterday morning. Noted blood pressure liberalized to 130s systolic per vascular. Continues to be on 5 L nasal cannula. Continues to complain of nonproductive cough. 09/05: Currently on 6 L nasal cannula and easily desaturates. Chest x-ray revealed possible left lower lobe effusion. We will gently diurese 1 now. Complains of nonproductive cough. Appears nonseptic. 09/06: On BiPAP overnight due to hypoxia. CT chest revealed bilateral pleural effusion. Status post thoracentesis right side -550. Plan for left thoracentesis tomorrow. CTA runoff noted. Continue with aggressive pulmonary: . Continues with nonproductive cough. 09/07: On BiPAP overnight. Currently on OptiFlow at 70%. Plan for left-sided thoracentesis today. Antibiotic yesterday secondary to persistent cough. Patient's been pancultured. Appears stable otherwise. Short of breath with any exertion. 09/08: Afebrile. On BiPAP again overnight. Currently on OptiFlow at 65%. Status post bilateral thoracentesis with transudative effusions. Appears comfortable. Daily productive cough or sputum. Become short of breath with any exertion. Subjective 09/09: Afebrile. Currently on high flow nasal cannula at 65%. Appears couple. Continues to have dry productive cough of clear sputum. With any movement patient desats. When lying still patient very comfortable and not using accessory muscles and able to speak complete sentences comfortably 09/10: The patient continues on high flow nasal cannula, now decreased to 60%. Patient continues on empiric antibiotics, noted elevation in WBC count today, but remains afebrile. 09/11: Afebrile. Overnight the patient received IV narcotic, and became disoriented and confused. Resolution of symptoms this morning. The patient continues on high flow oxygen currently at 65%, attempting to wean. Patient out of bed to chair. Elevated WBC count continues to ID consult, appreciate recommendations. 09/12: Tmax 98.5. WBC count continues to be elevated, bandemia noted. We'll follow-up ID recommendations. The patient alert and oriented, slept well last p.m.. Frequent dosing of antihypertensive medications clonidine increased to 0.3 twice a day. The patient continues on high flow nasal cannula at 65%, attempting to wean to 60% today. 09/13: The patient continues to have persistent leukocytosis, Dr. Valdez following. Overnight the patient required increase in FiO2 to 70% . Blood pressure now well controlled, will begin weaning of clonidine, systolic blood pressure 100's. Patient continues to refuse BiPAP at night. 09/14: Patient has agreed to utilize BiPAP and tolerated BiPAP overnight. Discussed with ID, Dr. Valdez, plans to discontinue antibiotics felt is due to the aneurysm, pro-calcitonin within normal limits. The patient continues to be weaned off of high flow nasal cannula, currently 70%. Dr. Lopez, pulmonary following. 09/15: Round midnight the patient was noted to have systolic blood pressures in the 150s not responsive PRN antihypertensive medications. The patient required placement of Cardene infusion for approximately 1 hour at midnight. The hypertensive medications have been readjusted. The patient tolerated BiPAP last night O2 sat 95%. During the day the patient continues on high flow nasal cannula 55-60%. 09/16: Earlier today patient awake and alert out of bed to chair, tolerating diet , interacting with staff. At approximately 1:00, the patient was noted to be unresponsive, aphasic, normotensive systolic blood pressure [id number]. A stroke alert was initiated, laboratory and imaging studies were performed. ABG and laboratory studies were within normal limits. CT scan of the brain showed no acute abnormality. CTA of the neck no stenosis , CTA thorax and abdomen also were performed, unchanged from previous exam noting the aneurysm and the dissection. 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 Patient began to have resolution of symptoms approximately 5 hours later. Objective Vital Signs Date Time Temp Pulse Resp B/P Pulse Ox O2 Delivery O2 Flow Rate FiO2 09/17/16 11:00 149/77 09/17/16 10:00 64 09/17/16 08:00 95 Nasal Cannula 09/17/16 08:00 98.4 17 09/17/16 07:49 4.00 09/17/16 01:03 40 Intake and Output 09/16/16 09/16/16 09/17/16 08:00 16:00 00:00 Intake Total 398 ml 240 ml 723 ml Output Total 200 ml 1050 ml 425 ml Balance 198 ml -810 ml 298 ml Result Diagram: 09/16/16 1406 09/16/16 1406 Other Results Laboratory Tests Test 09/16/16 13:50 Blood Gas Puncture Site RT RADIAL Blood Gas Patient Temperature 98.6 Blood Gas HCO3 21 mmol/L (22-26) Blood Gas Base Excess -2.7 mmol/L (-2-2) Blood Gas Oxygen Saturation 89 % (90-100) Arterial Blood pH 7.39 (7.380-7.420) Arterial Blood Partial 36 mmHg (38-42) Pressure CO2 Arterial Blood Partial 60 mmHg Pressure O2 (61-120) Arterial Blood Oxygen Content 15.4 Vol % (12.0-20.0) Arterial Blood 1.4 % (0-4) Carboxyhemoglobin Arterial Blood Methemoglobin 1.0 % (0-2) Blood Gas Hemoglobin 12.3 G/DL (12.0-16.0) Oxygen Delivery Device NASAL CANNULA Blood Gas Liter Flow 4 L/M Imaging Last Impressions Chest X-Ray 09/09/16599 Signed Impressions: Service Date/Time: Friday, September 09, 2016 03:31 - CONCLUSION: No significant change has occurred. Edis Cabrera MD Thoracentesis Ultrasound 09/07/16 0900 Signed Impressions: Service Date/Time: Wednesday, September 07, 2016 11:11 - CONCLUSION: Uncomplicated ultrasound guided thoracentesis. Lucas Mead MD FACR Lower Extremity Ultrasound 09/07/16 0000 Signed Impressions: Service Date/Time: Wednesday, September 07, 2016 21:41 - CONCLUSION: 1. No evidence for DVT. 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 Edis Cabrera MD Aorta w/Runoff CTA 09/06/16599 Signed Impressions: Service Date/Time: August 10:38 - CONCLUSION: 6.5 cm abdominal aortic aneurysm and left common iliac artery aneurysm. Configuration does appear suitable for endovascular repair. 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 Flow reconstitutes in the left popliteal artery. Julius Johnston MD Aorta CTA 09/06/16599 Signed Impressions: Service Date/Time: August 10:43 - CONCLUSION: Compared to the CTA from several days ago, the false lumen of thoracic aortic dissection is less well seen. This may be related to technical factors and bolus timing or may reflect some interval thrombosis of the false lumen. Otherwise stable vascular findings. Interval development of large bilateral pleural effusions and lung base atelectasis. Julius Johnston MD Chest CT 09/05/16 0000 Signed Impressions: Service Date/Time: Monday, September 05, 2016 22:44 - CONCLUSION: 1. Left greater than right pleural effusions and basilar consolidation, new since the prior CTA. 2. Based on this noncontrast study, no definite change in a type B aortic dissection. I don't see any blood in the mediastinum or pleural spaces. 3. Upper limits of normal to mildly enlarged mediastinal lymph nodes unchanged. 4. Coronary artery calcification again seen. Julius Valencia MD Renal Ultrasound 09/03/16 0000 Signed Impressions: Service Date/Time: Saturday, September 03, 2016 11:14 - CONCLUSION: Small cyst in each kidney. Area cortical retraction left kidney . Otherwise negative Maicol Durant MD Objective Remarks GENERAL:89-year-old male, resting in bed on 6 L/m nasal cannula SKIN: Warm and dry. No rash HEAD: Atraumatic. Normocephalic. EYES: Pupils equal and round around 3 mm bilaterally and reactive. No scleral icterus. No injection or drainage. ENT: No nasal bleeding or discharge. Mucous membranes pink and moist. Hi flow Nasal cannula. Hearing aid NECK: Trachea midline. No JVD. CARDIOVASCULAR: Regular rate and rhythm. S1, S2. No S4. No murmur appreciated. RESPIRATORY: Diminished breath sounds bilaterally. Few crackles appreciated throughout the lung rider bilaterally. Positive end expiratory wheeze. GASTROINTESTINAL: Abdomen soft, non-tender, nondistended. Positive bowel sounds. pulsatile aorta palpable in the midline MUSCULOSKELETAL: No obvious deformities. No significant peripheral edema. NEUROLOGICAL: Acute neurological symptomatology [id number] resolved, GCS now 15 .Awake and alert. No obvious cranial nerve deficits. Motor grossly within normal limits. Normal speech. The patient is hard of hearing. A/P Assessment and Plan NEURO/PSYCH: Back pain due to aortic dissection H/O chronic back pain ICU Delirium-resolved CHILKAT TIA ? 09/16 -Pain control, Tylenol PRN -Currently asymptomatic -Avoid sedatives -GCS 15, continue to monitor , and provides sleep hygiene. Stimulation during the day, minimal disruptions at night. 3/3 hearing aid adjusted by Principal Embedded Software Engineer -09/16 CT brain-no acute abnormality, stable, no changes from prior study. 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 -Improved RESP: Acute respiratory insufficiency Tobacco use disorder COPD Allergic rhinitis Chronic cough -BiPAP /5@50% versus OptiFlow 55 L at 50% FiO2 wean as tolerated to maintain saturations around 92%. -Continue to wean -Patient currently refusing BiPAP at night, continues on high flow oxygen -DuoNeb every 6 hours scheduled and when necessary. Continue acappella/PEP every [address] thorax revealed bilateral pleural effusions. Status post right thoracentesis by IR 09/06 -550 cc. left thoracentesis -580 cc 09/07. Right-sided was transudative. - On singular 10 mg daily and Claritin 10 mg daily for allergy rhinitis/ postnasal drip - As needed Tessalon Perles 200 mg every 8 hours for cough -Counseled on smoking cessation -Incentive spirometry, encourage use, every hour while awake Added Symbicort 80/4.5 twice a day and Solu-Medrol 40 mg pulmonary dose IV every 8 on 09/08. CXR 09/14-small effusions unchanged from Pulmonary -Dr. Chai Zamarripa recommendations appreciated CV: Jefferson type B aortic dissection 6.7 cm infrarenal AAA Femoral artery aneurysm Hypertensive emergency -Cardene infusion currently off with target systolic blood pressure less than 130 per vascular surgery recommendations -IV labetalol, hydralazine PRN. - Patient's home medication of lisinopril 10 mg daily changed twice a day - diltiazem 240 mg daily switch to 60 mg 4 times a day with when necessary Cardizem 30 mg by mouth every 6 hours will be continued. - Increased Coreg 25 milligrams twice a day, clonidine discontinued ,PRN Hydralazine and labetalol increased to 20 mg PRN - Add Norvasc -Vascular surgery, on board Dr. Gastelum -Plan for medical management of Type B dissection ABIs - decreased flow left lower extremity Runoff shows 6.5 AAA. 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 Left NARGIS aneurysm. 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 Continue gentle diuresis with Bumex 0.5 mg daily GI: Hypoalbuminemia Bilateral adrenal adenoma Heart healthy diet - Protonix for GI prophylaxis -Senna and Colace for bowel regimen -BM x 3 (09/14) FEN/renal/: Hypokalemia BPH Noted received IV dye 08/31. Contrast nephropathy resolved -Monitor renal function closely -Monitor hourly urinary output -Electrolyte replacement per ICU protocol -Strict I and O's Avoid nephrotoxic drugs Continue Flomax 0.4 mg by mouth daily BMP within normal limits, will continue to monitor every 2-3 days ID: Possible URI -Day #7 cefepime and Zithromax discontinued 09/13 -Continue elevated WBC count 19>23 today, will continue to monitor CBC -ID following, Dr. Valdez Pertinent cultures 09/07 - sputum -no growth 09/06 - blood cultures 2 - no growth 09/06 - pleural fluid - WBC no growth 08/31 - blood cultures 2 - no growth HEME: Persistent Leukocytosis Anemia Bandemia -Monitor CBC, CMP -09/14 Procalcitonin <0.05 ENDO: -Euglycemic, continue to monitor -Blood glucose monitoring per ICU protocol PROPH: -Bilateral lower extremity SCDs. No pharmacological DVT prophylaxis contraindicated, Pt OOB to chair -IV Protonix for GI prophylaxis LINES: -Utilize peripheral IVs, central line if needed Critical Care: Level 2 Dispo: The patient's living will was placed in the chart, the patient was made DNR today. Case management consult regarding disposition , the family and patient requests transfer to medical floor or specialty hospital in a.m.. Ryan Duran MD Sep 17, 2016 12:12
[2016-09-17] MEDS: POTASSIUM CHLORIDE 20 MEQ CONTROLLED RELEASE TAB PO SCH (14:50)
[2016-09-17] MEDS: SODIUM CHLOR 0.9% 1000 ML INJ 1,000 ML IV SCH (16:00)
--- NOTE | 2016-09-17 19:00 | EC ---
Study Study Date:09/17/2016 STUDY CONCLUSIONS SUMMARY - Left ventricle: The cavity size was normal. Wall thickness was increased in a pattern of mild LVH. Systolic function was normal. The estimated ejection fraction was in the range of 55% to 60%. Wall motion was normal; there were no regional wall motion abnormalities. - Aortic valve: Transvalvular velocity was minimally increased. There was possible very mild stenosis. Trace regurgitation. Valve area: 1.74cm^2(VTI). Valve area: 1.28cm^2 (Vmax). - Mitral valve: Mildly calcified annulus. Mild regurgitation. - Left atrium: The atrium was moderately dilated. - Tricuspid valve: Mild regurgitation. - Pulmonary arteries: PA peak pressure: 46mm Hg (S). If LV function is below 40, please consider prescribing an ACEI or ARB or document rationale for non-use. PROCEDURE DATA STUDY STATUS: Elective. Procedure: Transthoracic echocardiography. Image quality was good. Scanning was performed from the parasternal, apical, and subcostal acoustic windows. Study completion: The patient tolerated the procedure well. Transthoracic echocardiography. M-mode, complete 2D, complete spectral Doppler, and color Doppler. Patient status: Inpatient. CARDIAC ANATOMY LEFT VENTRICLE: The cavity size was normal. Wall thickness was increased in a pattern of mild LVH. Systolic function was normal. The estimated ejection fraction was in the range of 55% to 60%. Wall motion was normal; there were no regional wall motion abnormalities. AORTIC VALVE: Trileaflet; mildly thickened, mildly calcified leaflets. Doppler: Transvalvular velocity was minimally increased. There was possible very mild stenosis. Trace regurgitation. Valve area: 1.74cm^2(VTI). Valve area: 1.28cm^2 (Vmax). Mean gradient: 12mm Hg (S). Peak gradient: 28mm Hg (S). AORTA: Aortic root: The aortic root was normal in size. MITRAL VALVE: Mildly calcified annulus. Doppler: Transvalvular velocity was within the normal range. There was no evidence for stenosis. Mild regurgitation. Peak gradient: 3mm Hg (D). LEFT ATRIUM: The atrium was moderately dilated. RIGHT VENTRICLE: The cavity size was normal. Wall thickness was normal. PULMONIC VALVE: Doppler: Transvalvular velocity was within the normal range. There was no evidence for stenosis. No regurgitation. TRICUSPID VALVE: Structurally normal valve. Doppler: Transvalvular velocity was within the normal range. Mild regurgitation. PULMONARY ARTERY: The main pulmonary artery was normal-sized. Systolic pressure was within the normal range. RIGHT ATRIUM: The atrium was normal in size. PERICARDIUM: There was no pericardial effusion. BASIC MEASUREMENTS ADULT Normal Left ventricle LV internal dimension, ED, chordal level, *42.1 mm 43-52 PLAX LV internal dimension, ES, chordal level, 30.7 mm 23-38 PLAX Fractional shortening, chordal level, PLAX *27 % >29 LV posterior wall thickness, ED 12.8 mm IVS/LVPW ratio, ED *1.32 <1.3 Ventricular septum Septal thickness, ED 16.9 mm Aortic valve Leaflet separation *13 mm 15-26 Right ventricle RV internal dimension, ED, PLAX 31.2 mm 19-38 BASIC MEASUREMENTS ADULT Normal Aortic valve Leaflet separation *13 mm 15-26 Aorta Root diameter, ED 31 mm 20-37 Left atrium Anterior-posterior dimension, ES *50 mm 19-40 LA/aortic root ratio 1.61 DOPPLER MEASUREMENTS ADULT Normal Main pulmonary artery Pressure, S *46 mm Hg =30 Aortic valve Peak velocity, S 265 cm/s Mean velocity, S 158 cm/s VTI, S 56.2 cm Mean gradient, S 12 mm Hg Peak gradient, S 28 mm Hg Valve area, VTI 1.74 cm^2 Valve area, Vmax 1.28 cm^2 Mitral valve Peak E-wave velocity 80 cm/s Peak A-wave velocity 137 cm/s Peak gradient, D 3 mm Hg Peak E/A ratio 0.6 Tricuspid valve Regurgitant peak velocity 301 cm/s Peak RV-RA gradient, S 36 mm Hg Systemic veins Estimated CVP 10 mm Hg Right ventricle RV pressure, S *46 mm Hg <30 LEGEND: Mean values are shown as u=mean value. Asterisk (*) joaquin values outside specified normal range. Prepared and signed by Bladimir Terry [id number]
[2016-09-17] MEDS: MONTELUKAST SODIUM 10 MG TAB PO SCH (22:04)
[2016-09-17] MEDS: CARVEDILOL 12.5 MG TAB PO SCH (22:04)
[2016-09-18] VITALS (18 sets, daily range): BP systolic 123–158; BP diastolic 58–78; PULSE 48–65; RESP 12–24; TEMP 97.3–98.3; O2SAT 87–99
[2016-09-18] MEDS: hydrALAZINE HCL 20 MG/ML VIAL IV PUSH PRN ×3 (00:09→21:34)
[2016-09-18] MEDS: INSULIN ASPART SUPPLEMENTAL SCALE SQ SCH ×4 (06:04→20:37)
[2016-09-18 07:04] LABS: AUTOMATED NEUTROPHIL # 16.5 TH/MM3 (1.8-7.7); BASOPHIL % 0.2 % (0.0-2.0); HEMATOCRIT 35.6 % (39.0-51.0); LYMPH % 5.3 % (9.0-44.0); MEAN CELL VOLUME 96.5 FL (80.0-100.0); MEAN CORPUSCULAR HEMOGLOBIN 32.2 PG (27.0-34.0); MEAN CORPUSCULAR HGB CONC 33.4 % (32.0-36.0); MONO % 9.3 % (0.0-8.0); NEUT % 85.2 % (16.0-70.0); PLATELET COUNT 164 TH/MM3 (150-450); RED BLOOD COUNT 3.69 MIL/MM3 (4.50-5.90); RED CELL DISTRIBUTION WIDTH 15.1 % (11.6-17.2); WHITE BLOOD COUNT 19.4 TH/MM3 (4.0-11.0)
[2016-09-18 07:10] LABS: HEMO FLAGS AUTO DIFF
[2016-09-18] MEDS: RESP: ALBUTEROL 2.5 MG/IPRATROPIUM 0.5 MG NEB (SCH) NEB ×3 (07:22→20:00)
[2016-09-18 07:54] LABS: BANDS 17 % (0-6); METAMYELOCYTES 1 % (0-1); MYELOCYTES 2 % (0-0); NEUTROPHIL # MANUAL DIFF 16.7 TH/MM3 (1.8-7.7); POLYS (SEG NEUTROPHILS) 66 % (16-70); WBC DIFF SAMPLE 100
[2016-09-18 07:55] LABS: ALKALINE PHOSPHATASE 65 U/L (45-117); ALT (GPT) 44 U/L (12-78); ANION GAP 8 MEQ/L (5-15); AST (GOT) 12 U/L (15-37); BICARBONATE 22.7 MEQ/L (21.0-32.0); BLOOD UREA NITROGEN 35 MG/DL (7-18); CHLORIDE 111 MEQ/L (98-107); GLOMERULAR FILTRATION RATE 64 ML/MIN (>89); HELMET CELLS OCC (NORMAL); MAGNESIUM 2.6 MG/DL (1.5-2.5); PLATELET ESTIMATE SMEAR NORMAL (NORMAL); PLATELET MORPHOLOGY ENLARGED (NORMAL); POTASSIUM 4.3 MEQ/L (3.5-5.1); SODIUM (NA) 142 MEQ/L (136-145); TOTAL BILIRUBIN ADULT 0.4 MG/DL (0.2-1.0); TOXIC VACUOLATION PRESENT (NONE SEEN)
[2016-09-18 07:56] LABS: CRENATED RBCS 1+ (NORMAL); SCAN/DIFF FINAL DIFF MANUAL
[2016-09-18] MEDS: BUMETANIDE INJ 1 MG/4 ML VIAL IV PUSH SCH (08:38)
[2016-09-18] MEDS: PANTOPRAZOLE SOD 40 MG DELAYED RELEASE TAB PO SCH (08:38)
[2016-09-18] MEDS: CARVEDILOL 12.5 MG TAB PO SCH ×3 (08:38→23:03)
[2016-09-18] MEDS: POTASSIUM CHLORIDE 20 MEQ CONTROLLED RELEASE TAB PO SCH (08:38)
[2016-09-18] MEDS: TAMSULOSIN HCL 0.4 MG CAP PO SCH (08:38)
[2016-09-18] MEDS: LISINOPRIL 5 MG TAB PO SCH ×2 (08:38→20:36)
[2016-09-18] MEDS: LORATADINE 10 MG TAB PO SCH (08:38)
[2016-09-18] MEDS: predniSONE 10 MG TAB PO SCH (08:38)
[2016-09-18] MEDS: DOCUSATE SODIUM 100 MG/10 ML UDC PO SCH ×2 (08:39→20:36)
[2016-09-18] MEDS: BUDESONIDE-FORMOTEROL 160/4.5 MCG INHALER INH SCH ×2 (08:39→20:43)
[2016-09-18] MEDS: DILTIAZEM HCL 60 MG TAB PO SCH ×5 (08:39→23:03)
[2016-09-18] MEDS: SODIUM CHLORIDE 0.9% FLUSH 5 ML FLUSH IVF SCH ×2 (08:39→20:36)
[2016-09-18] MEDS: SENNOSIDES SYRUP 8.8 MG/5 ML CUP PO SCH (08:39)
[2016-09-18] MEDS: LACTULOSE SYRUP 20 GM/30 ML CUP PO SCH ×2 (08:39→20:36)
[2016-09-18] MEDS: LABETALOL HCL 100 MG/20 ML VIAL IV PUSH PRN (09:44)
--- NOTE | 2016-09-18 15:28 | PD.CONS ---
Consult Service Palliative Care Consult Requested By Dr. Gualberto MD. Primary Care Physician Aissatou Albright MD Reason for Consultation a. To assist with evaluation and management of symptoms including: debility and shortness of breath. b. To assist medical decision maker(s) with: better understanding of current medical conditions; weighing benefits/burdens of medical treatment options; making medical treatment decisions. . HPI History of Present Illness Mr. Bolanos is an 89-year-old male with a medical history of hypertension and long-term tobacco use presented to the ED on 08/31/16 endorsing chest, back and epigastric pain that started earlier that day. CT angiogram of the chest abdomen and pelvis show type B thoracic aortic dissection and large infrarenal abdominal aortic aneurysm measuring 6.7 x 6.4 cm in size, no evidence of rupture. Patient was started on Cardene infusion and vascular surgery Dr. Silverio was consulted. Patient was transferred to ICU for blood pressure control and evaluation of AAA and dissection. Patient was being evaluated for possible endovascular repair AAA. While in ICU, patient continue on nicardipine infusion for blood pressure control. Cardiac drip discontinued on 09/03/16. Stable blood pressure and 1:30 vascular. Patient continued complaining of nonproductive cough and required oxygen via nasal cannula. Chest x-ray 09/05/16 showing possible left lower lobe effusion. Patient subsequently required BiPAP overnight due to hypoxia. CT of the chest on 09/05/16 revealed bilateral pleural effusions, he underwent a right -sided thoracentesis on 09/06/16 with 550 mL out. Patient intermittently using BiPAP and OptiFlow. Patient underwent left-sided thoracentesis on 09/07/16. Cytology of pleural fluid negative for malignant cells. Infectious disease -Dr. Valdez consulted on 09/12/16 for evaluation and management of persistent leukocytosis. Patient was continued on antibiotic treatment. Blood cultures to 1717 and 09/06/16 with no growth. Sputum culture with normal respiratory ladi. Pulmonology -Dr. Guzmán consulted on 08/21 secondary to hypoxia and COPD. On 09/16/16 patient became unresponsive and aphasic. Neurology -Dr. Edwards Consulted secondary to altered mental status / stroke alert. Patient not a candidate for IV TPA given high hemorrhagic risk. Head CTA 09/16/16 showing no stenosis, neck CTA without evidence of stenosis. Brain MRI negative for acute process. Head CT negative for acute process. Chronic changes including atrophy and chronic microvascular ischemia. Patient now with resolution of neurological symptoms. Echocardiogram 09/17/16 showing EF of 55-60%. Mild aortic stenosis and trace regurgitation. Mild mitral and tricuspid regurgitation. During clinical course , patient with increased oxygen demand, intermittently using BiPAP versus OptiFlow as tolerated. Patient afebrile, stable blood pressure. Tolerating O2 via nasal cannula at 4 L. Per to dissipating in physical therapy. Laboratory work today include WBC 19.4, hgb 18.9, platelet count 164. Sodium 142, potassium 4.3, BUN/creatinine 35/1.08. Albumin 2.4. Palliative care has been consulted for further clarifications of goals of care given patient's clinical condition and profound physical deconditioning. Patient seen in ICU, he was sitting up in a recliner chair in no acute distress. Daughter Linda at bedside. Patient awake, alert 3, verbal and able to communicate needs. Patient denies shortness of breath, chest pain, nausea/ vomiting, or abdominal discomfort. Reports feeling better than yesterday. In this first visit, review the role of palliative care and chronic illness in regards to symptom management and assistance surrounding goals of care and advance care planning. Reviewed patient's prior general health, functional status, and events leading to these hospitalization and clinical course. Reviewed current medical plan. Discuss patient's newly diagnosed COPD and discovered arctic dissection. Patient tells me that prior to this hospitalization he was independent with all ADLs and in a good physical state of health ordered and limited vision secondary to macular degeneration. Patient wishing for discharge to rehabilitation for physical strengthening with the ultimate goal of returning home for independent living. Reviewed with patient and daughter likely trajectory of illness/progression of COPD and shared concerns regarding patient's ability to fully participate in physical therapy and safe return home for independent living. Discussed the future role of hospice should patient's burden continues to increase or there is additional functional decline. Patient very familiar with hospice as his under their services. Patient and daughter amenable to hospice if clinical condition worsened. Discussed community DNR, palliative care to assist patient incompletion. Form left with patient for further review. Patient and family appreciative of this visit. . Function/Cognitive Trajectory Patient living independently prior to this hospitalization. Reports being independent with ADLs. No cognitive decline reported. Patient now requiring assistance with ADLs secondary to physical deconditioning. . Review of Systems Constitutional: COMPLAINS OF: Fatigue Endocrine: DENIES: Heat/cold intolerance Eyes: COMPLAINS OF: Vision loss Ears, nose, mouth, throat: COMPLAINS OF: Hearing loss Respiratory: COMPLAINS OF: Cough, Shortness of breath Cardiovascular: COMPLAINS OF: Dyspnea on Exertion, DENIES: Chest pain Gastrointestinal: DENIES: Abdominal pain, Constipation, Diarrhea, Nausea Musculoskeletal: COMPLAINS OF: Back pain, Decreased range of motion, DENIES: Joint pain Integumentary: DENIES: Abnormal pigmentation Hematologic/Lymphatics: COMPLAINS OF: Bruising Immunologic/Allergic: DENIES: Eczema Neurologic: DENIES: Abnormal gait, Poor Balance Psychiatric: DENIES: Anxiety, Confusion, Hallucinations, Agitation Past Family Social History Uncoded Allergies: MUSHROOMS (Allergy, Severe, Nausea/Vomiting, 09/02/16) Past Medical History Newly diagnosed type B dissecting thoracic aneurysm Newly diagnosed AAA Newly diagnosed COPD Hypertension Macular degeneration Tobacco use . Past Surgical History Inguinal hernia repair A surgery . Reported Medications Lisinopril 10 Mg Tab 10 Mg PO DAILY Diltiazem ER 24 HR 240 Mg Caper 240 Mg PO DAILY Flomax (Tamsulosin HCl) 0.4 Mg Cap 0.4 Mg PO HS Alavert (Loratadine) 10 Mg Tab 10 Mg PO DAILY Montelukast (Montelukast Sodium) 10 Mg Tab 10 Mg PO HS . Current Medications Medications (Trade) Dose Ordered Sig/Karen Route Start Time Stop Time Status Last Admin Miscellaneous Information 1 [id number] XX 08/31/16 15:30 (Chlorhexidine 2% Cloth) Taper DAILY@04 TOP 09/01/16 04:00 08/28/17 03:59 09/17/16 22:05 (Chlorhexidine 2% Cloth) 3 pack UNSCH PRN TOP 08/31/16 15:30 (Singulair) 10 mg HS PO 08/31/16 21:00 09/17/16 22:04 (Colace Liq) 100 mg Q12HR PO 08/31/16 21:00 09/16/16 20:52 Sennosides 8.8 mg 8.8 mg DAILY PO 09/01/16 09:00 09/16/16 08:18 Potassium Chloride 100 ml @ 50 mls/hr Q2H PRN IV 09/02/16 15:45 (KCl 20 Meq Premix Inj) 100 ml @ 50 mls/hr Q2H PRN IV 09/02/16 15:45 09/08/16 06:27 Potassium Chloride 40 meq 40 meq UNSCH PRN PO/TUBE 09/02/16 15:45 09/10/16 18:06 Potassium Chloride 100 ml @ 25 mls/hr UNSCH PRN IV 09/02/16 15:45 Potassium Chloride 100 ml @ 50 mls/hr Q2H PRN IV 09/02/16 15:45 (Magnesium Sulfate Inj/NS Inj) 100 ml @ 50 mls/hr UNSCH PRN IV 09/02/16 15:45 Magnesium Oxide 800 mg 800 mg UNSCH PRN PO 09/02/16 15:45 (Magnesium Sulfate Inj/NS Inj) 100 ml @ 50 mls/hr UNSCH PRN IV 09/02/16 15:45 Potassium Phosphate 2000 mg 2,000 mg Q4H PRN PO 09/02/16 15:45 09/02/16 20:07 (Sodium Phosphate Inj/NS 250 ml Inj) 250 ml @ 42 mls/hr UNSCH PRN IV 09/02/16 15:45 09/05/16 11:12 (KCl 40 Meq/30 ml Liq) 40 meq UNSCH PRN PO/TUBE 09/02/16 15:45 Potassium Phosphate 2000 mg 2,000 mg UNSCH PRN PO/TUBE 09/02/16 15:45 (Potassium Phosphate Inj/NS 250 ml Inj) 260 ml @ 42 mls/hr UNSCH PRN IV 09/02/16 15:45 (Claritin) 10 mg DAILY PO 09/03/16 05:00 09/18/16 08:38 (Tessalon) 200 mg TID PRN PO 09/03/16 05:00 09/06/16 09:51 (Sophia 5-325 Mg) 1 tab Q4H PRN PO 09/03/16 09:00 09/05/16 11:46 (Protonix) 40 mg DAILY PO 09/03/16 09:00 09/18/16 08:38 (Cardizem) 30 mg QID PRN PO 09/03/16 10:00 09/14/16 21:35 Tamsulosin HCl 0.4 mg 0.4 mg DAILY PO 09/04/16 09:00 09/18/16 08:38 (Sodium Bicarbonate 8.4% Inj/Sterile Water For Inj) 1,000 ml @ 50 mls/hr Q20H IV 09/03/16 12:00 Hold 09/05/16 04:06 (Cardizem) 60 mg QID PO 09/05/16 18:00 09/18/16 08:39 (Pill Splitter) 1 ea UNSCH PRN OTHER 09/07/16 09:15 (Symbicort 160-4.5 Inh) 1 puff Q12HR INH 09/08/16 09:00 09/18/16 08:39 (Apresoline Inj) 20 mg Q4H PRN IV PUSH 09/09/16 00:00 09/18/16 00:09 (Tylenol) 650 mg Q4H PRN PO 09/11/16 14:15 (Bumex Inj) 0.5 mg DAILY IV PUSH 09/13/16 09:30 09/18/16 08:38 (Bee [place]) 1 spray UNSCH PRN NASAL 09/12/16 13:30 09/12/16 13:36 (Lactulose Liq) 30 ml BID PO 09/13/16 21:00 09/16/16 20:50 Labetalol HCl 20 mg 20 mg Q1H PRN IV PUSH 09/14/16 23:15 09/18/16 09:44 (Cardene Inj/NS 250 ml Inj) 260 ml @ 0 mls/hr TITRATE IV 09/15/16 00:15 09/15/16 00:17 (NS Flush) 2 ml BID IVF 09/16/16 21:00 09/18/16 08:39 IV Flush 2 ml 2 ml UNSCH PRN IVF 09/16/16 15:15 (NS 1000 ml Inj) 1,000 ml @ 10 mls/hr Q24H IV 09/16/16 16:00 09/16/16 16:00 (D50w (Vial) Inj) 25 ml UNSCH PRN IV PUSH 09/16/16 15:15 (Glucagon Inj) 1 mg UNSCH PRN IM/SQ 09/16/16 15:15 (Prinivil) 10 mg BID PO 09/17/16 09:00 09/18/16 08:38 (Deltasone) 10 mg DAILY PO 09/18/16 09:00 09/18/16 08:38 (Coreg) 25 mg Q12HR PO 09/17/16 21:00 09/18/16 08:38 (Norvasc) 10 mg DAILY PO 09/17/16 12:15 09/18/16 08:38 (KCl) 40 meq DAILY PO 09/17/16 13:00 09/18/16 08:38 Family History Family history of AAA and aortic dissection. . Substance Use Tobacco: One pack per day for over 65 years. Alcohol: Socially. Prescription med abuse: Denies use. Illicits: Denies. . Psychosocial History Patient is . in November 2014 secondary to ascending aortic dissection. Patient residing independently prior to his hospitalization. Independent with ADLs. 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 Spiritual/Cultural Factors No baptism affiliation. . Living Will: Copy in medical record Health Care Surrogate: Copy in medical record Durable Power of Instructional Technology Coach: Completed, but not made available Date completed: January 27, 2009. . Health Care Surrogate(s): Patient name and his Mariposa Paredes. However, she is . Alternate healthcare surrogate listed as Linda Paredes -daughter and Krystal Kay - granddaughter. . Documented care wishes: Living will completed. Patient electing withhold or withdrawal medical treatment, nutrition or hydration is such procedures would only serve to prolong artificially the process of dying. . Today's verbally stated goals: No code. DNR/DNI. Patient electing for continuation of current medical management short of no code. Wishing to discharge to rehabilitation for physical straightening with ultimate goal of returning home for independent living. . Family/friends goals: Family supportive of goals of care as stated above. . Ethical and Legal Issues No ethical legal issues have been identified. . Physical Exam Vital Signs Date Time Temp Pulse Resp B/P Pulse Ox O2 Delivery O2 Flow Rate FiO2 09/18/16 12:00 95 Nasal Cannula 4.00 09/18/16 12:00 97.8 51 12 125/58 95 09/18/16 12:00 51 09/18/16 10:00 130/70 09/18/16 10:00 57 09/18/16 09:45 145/74 09/18/16 08:00 61 09/18/16 08:00 94 Nasal Cannula 4.00 09/18/16 08:00 97.3 61 16 138/66 94 09/18/16 07:22 93 Nasal Cannula 6.00 09/18/16 06:00 48 09/18/16 04:00 98.3 51 16 123/60 90 09/18/16 04:00 51 09/18/16 04:00 90 Nasal Cannula 4.00 09/18/16 02:00 54 09/18/16 01:55 91 Nasal Cannula 4.00 09/18/16 01:07 92 60 09/18/16 00:30 99 Bi-Pap 60 09/18/16 00:30 57 18 124/70 99 09/18/16 00:00 87 Bi-Pap 60 09/18/16 00:00 65 09/18/16 00:00 97.9 65 18 158/78 87 09/17/16 23:00 92 60 09/17/16 22:00 57 09/17/16 20:44 94 Nasal Cannula 4.00 09/17/16 20:00 98.0 56 16 135/68 93 09/17/16 20:00 93 Nasal Cannula 4.00 09/17/16 20:00 56 09/17/16 18:00 61 09/17/16 16:00 93 Nasal Cannula 4.00 09/17/16 16:00 97.7 58 15 120/62 92 09/17/16 16:00 58 09/17/16 09/18/16 19:00 07:00 Intake Total 360 ml 450 ml Output Total 1150 ml 450 ml Balance -790 ml 0 ml Intake Oral 360 ml 450 ml IV Total 0 ml Output Urine Total 1150 ml 450 ml # Bowel Movements 2 Exam CONSTITUTIONAL/GENERAL: This is an adequately nourished elderly patient, in no apparent distress. TUBES/LINES/DRAINS: PIV's, SCDs. SKIN: No jaundice, rashes, or lesions. Scattered ecchymoses on upper extremities. No wounds seen anteriorly. Skin temperature appropriate. Not diaphoretic. HEAD: Atraumatic. Normocephalic. EYES: Pupils equal and round and reactive. Extraocular motions intact. No scleral icterus. No injection or drainage. ENT: Hard of hearing, bilateral hearing aids in place. Nose without bleeding or purulent drainage. NECK: Trachea midline. Supple, nontender. CARDIOVASCULAR: Regular rate and rhythm without murmurs, gallops, or rubs. Peripheral pulses symmetric. RESPIRATORY/CHEST: Symmetric, unlabored respirations. Coarse breath sounds. O2 via nasal cannula. GASTROINTESTINAL: Abdomen soft, round, large. No guarding. Bowel sounds present. GENITOURINARY: Without palpable bladder distension. MUSCULOSKELETAL: Extremities without clubbing. NEUROLOGICAL: Awake and alert. Motor and sensory grossly within normal limits. Follows commands. Cognitively sharp. Moves all extremities. PSYCHIATRIC: No obvious anxiety/depression. Calm, pleasant. . Diagnostic Tests Laboratory Laboratory Tests Test 09/16/16 09/16/16 09/16/16 09/17/16 07:40 13:50 14:06 05:47 White Blood Count 22.1 TH/MM3 21.3 TH/MM3 (4.0-11.0) (4.0-11.0) Red Blood Count 3.65 MIL/MM3 3.95 MIL/MM3 (4.50-5.90) (4.50-5.90) Hemoglobin 11.6 GM/DL 12.5 GM/DL (13.0-17.0) (13.0-17.0) Hematocrit 35.0 % 38.0 % (39.0-51.0) (39.0-51.0) Mean Corpuscular Volume 96.0 FL 96.4 FL (80.0-100.0) (80.0-100.0) Mean Corpuscular Hemoglobin 31.7 PG 31.7 PG (27.0-34.0) (27.0-34.0) Mean Corpuscular Hemoglobin 33.0 % 32.9 % Concent (32.0-36.0) (32.0-36.0) Red Cell Distribution Width 14.5 % 14.6 % (11.6-17.2) (11.6-17.2) Platelet Count 188 TH/MM3 198 TH/MM3 (150-450) (150-450) Mean Platelet Volume 9.1 FL 8.8 FL (7.0-11.0) (7.0-11.0) Sodium Level 143 MEQ/L 143 MEQ/L (136-145) (136-145) Potassium Level 3.9 MEQ/L 4.2 MEQ/L (3.5-5.1) (3.5-5.1) Chloride Level 111 MEQ/L 110 MEQ/L (98-107) (98-107) Carbon Dioxide Level 22.1 MEQ/L 24.2 MEQ/L (21.0-32.0) (21.0-32.0) Anion Gap 10 MEQ/L (5-15) 9 MEQ/L (5-15) Blood Urea Nitrogen 39 MG/DL (7-18) 38 MG/DL (7-18) Creatinine 1.09 MG/DL 1.16 MG/DL (0.60-1.30) (0.60-1.30) Estimat Glomerular Filtration 64 ML/MIN (>89) 59 ML/MIN (>89) Rate Random Glucose 133 MG/DL 139 MG/DL (74-106) (74-106) Calcium Level 8.2 MG/DL 8.2 MG/DL (8.5-10.1) (8.5-10.1) Phosphorus Level 2.5 MG/DL (2.5-4.9) Magnesium Level 2.7 MG/DL (1.5-2.5) Blood Gas Puncture Site RT RADIAL Blood Gas Patient Temperature 98.6 Blood Gas HCO3 21 mmol/L (22-26) Blood Gas Base Excess -2.7 mmol/L (-2-2) Blood Gas Oxygen Saturation 89 % (90-100) Arterial Blood pH 7.39 (7.380-7.420) Arterial Blood Partial 36 mmHg (38-42) Pressure CO2 Arterial Blood Partial 60 mmHg Pressure O2 (61-120) Arterial Blood Oxygen Content 15.4 Vol % (12.0-20.0) Arterial Blood 1.4 % (0-4) Carboxyhemoglobin Arterial Blood Methemoglobin 1.0 % (0-2) Blood Gas Hemoglobin 12.3 G/DL (12.0-16.0) Oxygen Delivery Device NASAL CANNULA Blood Gas Liter Flow 4 L/M Bedside Hemoglobin 12.6 G/DL (12.0-17.0) Bedside Hematocrit 37.0 % (38.0-51.0) Neutrophils (%) (Auto) 93.2 % (16.0-70.0) Lymphocytes (%) (Auto) 2.3 % (9.0-44.0) Monocytes (%) (Auto) 4.3 % (0.0-8.0) Eosinophils (%) (Auto) 0.0 % (0.0-4.0) Basophils (%) (Auto) 0.2 % (0.0-2.0) Neutrophils # (Auto) 19.9 TH/MM3 (1.8-7.7) Lymphocytes # (Auto) 0.5 TH/MM3 (1.0-4.8) Monocytes # (Auto) 0.9 TH/MM3 (0-0.9) Eosinophils # (Auto) 0.0 TH/MM3 (0-0.4) Basophils # (Auto) 0.0 TH/MM3 (0-0.2) CBC Comment AUTO DIFF Differential Total Cells 100 Counted Neutrophils % (Manual) 94 % (16-70) Band Neutrophils % 1 % (0-6) Lymphocytes % 2 % (9-44) Monocytes % 3 % (0-8) Neutrophils # (Manual) 20.2 TH/MM3 (1.8-7.7) Differential Comment FINAL DIFF MANUAL Platelet Estimate NORMAL (NORMAL) Platelet Morphology Comment NORMAL (NORMAL) Ovalocytes 1+ (NORMAL) Keratocytes 1+ (NORMAL) Prothrombin Time 11.6 SEC (9.8-11.6) Prothromb Time International 1.0 RATIO Ratio Activated Partial 27.5 SEC Thromboplast Time (24.3-30.1) Fibrinogen 170 mg/dL (181-393) Bedside Sodium 142 MMOL/L (138-146) Bedside Potassium 4.2 MMOL/L (3.5-4.9) Bedside Chloride 107 MMOL/L (98-109) Bedside Blood Urea Nitrogen 36 MG/DL (8-26) Bedside Creatinine 1.1 MG/DL (0.8-1.3) Bedside Glucose 143 MG/DL (60-95) Lactic Acid Level 2.7 mmol/L (0.4-2.0) Total Creatine Kinase 57 U/L (39-308) Troponin I 0.03 NG/ML (0.02-0.05) Blood Type B NEGATIVE Antibody Screen NEGATIVE Hemoglobin A1c 5.8 % (4.3-6.0) Triglycerides Level 39 MG/DL (42-150) Cholesterol Level 89 MG/DL (120-200) LDL Cholesterol 21 MG/DL (0-99) HDL Cholesterol 60.4 MG/DL (40.0-60.0) Cholesterol/HDL Ratio 1.47 RATIO Test 09/18/16 06:33 White Blood Count 19.4 TH/MM3 (4.0-11.0) Red Blood Count 3.69 MIL/MM3 (4.50-5.90) Hemoglobin 11.9 GM/DL (13.0-17.0) Hematocrit 35.6 % (39.0-51.0) Mean Corpuscular Volume 96.5 FL (80.0-100.0) Mean Corpuscular Hemoglobin 32.2 PG (27.0-34.0) Mean Corpuscular Hemoglobin 33.4 % Concent (32.0-36.0) Red Cell Distribution Width 15.1 % (11.6-17.2) Platelet Count 164 TH/MM3 (150-450) Mean Platelet Volume 9.2 FL (7.0-11.0) Neutrophils (%) (Auto) 85.2 % (16.0-70.0) Lymphocytes (%) (Auto) 5.3 % (9.0-44.0) Monocytes (%) (Auto) 9.3 % (0.0-8.0) Eosinophils (%) (Auto) 0.0 % (0.0-4.0) Basophils (%) (Auto) 0.2 % (0.0-2.0) Neutrophils # (Auto) 16.5 TH/MM3 (1.8-7.7) Lymphocytes # (Auto) 1.0 TH/MM3 (1.0-4.8) Monocytes # (Auto) 1.8 TH/MM3 (0-0.9) Eosinophils # (Auto) 0.0 TH/MM3 (0-0.4) Basophils # (Auto) 0.0 TH/MM3 (0-0.2) CBC Comment AUTO DIFF Differential Total Cells 100 Counted Neutrophils % (Manual) 66 % (16-70) Band Neutrophils % 17 % (0-6) Lymphocytes % 5 % (9-44) Monocytes % 9 % (0-8) Neutrophils # (Manual) 16.7 TH/MM3 (1.8-7.7) Metamyelocytes 1 % (0-1) Myelocytes 2 % (0-0) Differential Comment FINAL DIFF MANUAL Toxic Vacuolation PRESENT (NONE SEEN) Platelet Estimate NORMAL (NORMAL) Platelet Morphology Comment ENLARGED (NORMAL) Helmet Cells OCC (NORMAL) Crenated Cell 1+ (NORMAL) Sodium Level 142 MEQ/L (136-145) Potassium Level 4.3 MEQ/L (3.5-5.1) Chloride Level 111 MEQ/L (98-107) Carbon Dioxide Level 22.7 MEQ/L (21.0-32.0) Anion Gap 8 MEQ/L (5-15) Blood Urea Nitrogen 35 MG/DL (7-18) Creatinine 1.08 MG/DL (0.60-1.30) Estimat Glomerular Filtration 64 ML/MIN (>89) Rate Random Glucose 114 MG/DL (74-106) Calcium Level 7.8 MG/DL (8.5-10.1) Phosphorus Level 2.5 MG/DL (2.5-4.9) Magnesium Level 2.6 MG/DL (1.5-2.5) Total Bilirubin 0.4 MG/DL (0.2-1.0) Aspartate Amino Transf 12 U/L (15-37) (AST/SGOT) Alanine Aminotransferase 44 U/L (12-78) (ALT/SGPT) Alkaline Phosphatase 65 U/L (45-117) Total Protein 5.8 GM/DL (6.4-8.2) Albumin 2.4 GM/DL (3.4-5.0) Result Diagram: 09/18/16 0633 09/18/16 0633 Imaging Last Impressions Neck CTA 09/16/16 Signed Impressions: Service Date/Time: Friday, September 16, 2016 14:35 - CONCLUSION: Within the neck the carotid and vertebral artery vasculature are widely patent without evidence for hemodynamically significant stenosis. There is minimal calcific plaque deposition at the carotid bifurcations. Referred to CTA thoracic abdominal aorta and CTA brain for description of the thoracic and intracranial vasculature. Edis Cabrera MD Head CTA 09/16/16 Signed Impressions: Service Date/Time: Friday, September 16, 2016 14:35 - CONCLUSION: No evidence for high-grade stenosis. Arteriovenous malformation left temporal region as described above. Edis Cabrera MD Head CT 09/16/16 Signed Impressions: Service Date/Time: Friday, September 16, 2016 14:17 - CONCLUSION: 1. No acute intracranial abnormality is identified. Stable appearance of the brain compared to prior study from 07/17/2015. 2. Chronic changes include generalized atrophy and periventricular white matter low attenuation characteristic of chronic microvascular ischemia. Julius Watt MD Brain MRI 09/16/16 0000 Signed Impressions: Service Date/Time: Friday, September 16, 2016 16:51 - CONCLUSION: No evidence for acute infarction. Please see above. Edis Cabrera MD Aorta CTA 09/16/16 0000 Signed Impressions: Service Date/Time: Friday, September 16, 2016 14:35 - CONCLUSION: 1. Improved aeration of the lungs with decrease in size of large pleural effusions and pulmonary consolidation since previous exam. 2. Aneurysmal dilatation of the thoracic aorta and abdominal aorta are stable with irregular contrast collection superior to the aortic arch consistent with pseudo-aneurysm and aortic dissection again noted. Edis Cabrera MD Chest X-Ray 09/14/16 0600 Signed Impressions: Service Date/Time: Wednesday, September 14, 2016 05:28 - CONCLUSION: Persistent basilar infiltrates. Julius Johnston MD Thoracentesis Ultrasound 09/07/16 0900 Signed Impressions: Service Date/Time: Wednesday, September 07, 2016 11:11 - CONCLUSION: Uncomplicated ultrasound guided thoracentesis. Lucas Mead MD FACR Lower Extremity Ultrasound 09/07/16 0000 Signed Impressions: Service Date/Time: Wednesday, September 07, 2016 21:41 - CONCLUSION: 1. No evidence for DVT. 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 Configuration does appear suitable for endovascular repair. 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 Flow reconstitutes in the left popliteal artery. Julius Johnston MD Chest CT 09/05/16 0000 Signed Impressions: Service Date/Time: Monday, September 05, 2016 22:44 - CONCLUSION: 1. Left greater than right pleural effusions and basilar consolidation, new since the prior CTA. 2. Based on this noncontrast study, no definite change in a type B aortic dissection. I don't see any blood in the mediastinum or pleural spaces. 3. Upper limits of normal to mildly enlarged mediastinal lymph nodes unchanged. 4. Coronary artery calcification again seen. Julius Valencia MD Renal Ultrasound 09/03/16 0000 Signed Impressions: Service Date/Time: Saturday, September 03, 2016 11:14 - CONCLUSION: Small cyst in each kidney. Area cortical retraction left kidney . Otherwise negative Maicol Durant MD Patient/Family Conference Present at Family Conference: Baljit Mckeon. Family Conference Time (mins): 48 Family Conference Location: Bedside Issues Discussed: * Palliative care role, purpose, approach * Additional medical, psychosocial, and spiritual history * Patients general health, functional status, and cognitive changes in the months leading up to the current hospitalization * Patient and family's understanding of the current medical problems to include COPD and aortic dissection * Patient and family's understanding of prognosis * Patients goals of care as best understood from advance directives and/or conversations and/or values * Current medical treatment options and benefits/burdens of those options * Likely scenarios comparing ongoing aggressive care with a transition to comfort measures only * Questions answered to the best of my ability * Palliative care contact information provided * Hospice philosophy and benefits . Assessment and Plan Disease Oriented Problem List: (1) Dissecting aneurysm of thoracic aorta, Ramesh type B (2) Aortic aneurysm (3) Hypertensive emergency (4) Acute respiratory insufficiency (5) COPD exacerbation Symptom Scale: (1) Shortness of breath 0-10 Scale: Unable to quantify Comment: Secondary to COPD. currently tolerating O2 via nasal cannula at 4 L. (2) Debility Comment: Physical deconditioning secondary to acute illness and prolonged hospitalization. Patient fully independent prior to this hospitalization. Likely to discharge to rehabilitation. Pertinent Non-Medical Issues Psychosocial: . Has 1 child. Spiritual: No baptism affiliation. Legal: Living will completed. Ethical issues impacting care: No ethical issues have been identified. . Important Contacts Daughter Linda Dubon [phone]. Granddaughter Krystal Kay [phone]. . Prognosis Mr. Bolanos is an 89-year-old male with a medical history of hypertension and long-term tobacco use who presented to the ED on 08/31/16 endorsing chest, back and epigastric pain that started earlier that day. CT angiogram of the chest abdomen and pelvis show type B thoracic aortic dissection and large infrarenal abdominal aortic aneurysm measuring 6.7 x 6.4 cm in size, no evidence of rupture. Patient not a surgical candidate secondary to clinical condition. Patient newly diagnosed with COPD during this hospitalization. Patient is at high risk for further complications, continue decline and given his age, increased oxygen requirements, acute complications and multiple comorbidities. . Code Status: No Code Plan * NO CODE: No code. DNR/DNI. * Palliative care to assist with completion of community DNR. * MEDICAL DECISION-MAKING CAPACITY: Patient participating in medical decision- making. Advance directives in file, daughter Linda Bolanos a/k/a Linda Dubon and granddaughter Krystal Kay listed as healthcare surrogate. * GOALS OF CARE: No code. DNR/DNI. Patient electing to continue with current medical management short of no code. Wishing to discharge to rehabilitation for physical straightening with ultimate goal of returning home for independent living. Patient fully independent prior to this hospitalization. Reviewed with patient and daughter likely trajectory of illness/progression of COPD and shared concerns regarding patient's ability to fully participate in physical therapy and safe return home for independent living. Discussed the future role of hospice should patient's symptoms burden continues to increase or there is additional functional decline. Patient familiar with hospice as his received hospices services for end-of-life care. * SYMPTOMS: == Shortness of breath, multifactorial. Increased oxygen demand, alternating OptiFlow on BiPAP. Weaning as tolerated. Pulmonology following. Patient declining BiPAP at night, however considering home CPAP upon discharge home. == Debility, profound physical deconditioning. Patient electing for rehabilitation upon discharge. Pending approval from insurance company. * Case has been discussed with bedside RN and gearcase assembler. * Palliative care contact information has been provided to patient and family. * Palliative care will continue to follow-up for further clarifications of goals of care as the clinical course evolves. . Time Spent Total Floor Time (mins): 85 (Total time to include review and summarization of available medical records, physical exam, goals of care conversation with patient and daughter, and case discussion with bedside RN and gearcase assembler.) >50% Counseling/Coord of Care: Yes Thank you for the opportunity to participate in the care of Mr. Paredes. Attestation To help prompt me to consider important information that might be impacting today's encounter and assessment, information from prior notes written by myself or my colleagues may have been "brought forward" into today's note. My signature on this note, however, is an attestation that I personally performed the exam, history, and/or decision-making noted today, and, unless otherwise indicated, the interactions with patient, family, and staff as well as the review of records all occurred today. I also attest that the listed assessment and stated plan reflect my best clinical judgment today based on the combination of historical information, prior notes, and today's exam/ interactions. When time spent is documented, it refers only to time spent today by the signer, or if indicated, combined time spent today by collaborating physician/nurse practitioner. Parul Brand Sep 18, 2016 15:28
[2016-09-18] MEDS: SODIUM CHLOR 0.9% 1000 ML INJ 1,000 ML IV SCH (16:00)
--- NOTE | 2016-09-18 16:34 | HHI.PR ---
Subjective Remarks Patient sleeping on the chair, woke up to voice, no chest pain or short of breath, he is afebrile I discussed with his daughter over the phone for like 20 minute, she has many questioning about the management and discharge planning, [facility] due to being on [facility], as well as from [facility], which I already discussed with field case manager and notified me about this. The daughter was suggesting not placing patient on BiPAP in order to make him eligible to go to [facility], I explained to her patient need to be stable, we need to make sure his blood pressure is strictly under control to avoid any worsening of the AAA dissecting, as well as keeping his O2 sat acceptable Objective Vitals Vital Signs Date Time Temp Pulse Resp B/P Pulse Ox O2 Delivery O2 Flow Rate FiO2 09/18/16 14:00 51 09/18/16 12:00 95 Nasal Cannula 4.00 09/18/16 12:00 97.8 51 12 125/58 95 09/18/16 12:00 51 09/18/16 10:00 130/70 09/18/16 10:00 57 09/18/16 09:45 145/74 09/18/16 08:00 61 09/18/16 08:00 94 Nasal Cannula 4.00 09/18/16 08:00 97.3 61 16 138/66 94 09/18/16 07:22 93 Nasal Cannula 6.00 09/18/16 06:00 48 09/18/16 04:00 98.3 51 16 123/60 90 09/18/16 04:00 51 09/18/16 04:00 90 Nasal Cannula 4.00 09/18/16 02:00 54 09/18/16 01:55 91 Nasal Cannula 4.00 09/18/16 01:07 92 60 09/18/16 00:30 99 Bi-Pap 60 09/18/16 00:30 57 18 124/70 99 09/18/16 00:00 87 Bi-Pap 60 09/18/16 00:00 65 09/18/16 00:00 97.9 65 18 158/78 87 09/17/16 23:00 92 60 09/17/16 22:00 57 09/17/16 20:44 94 Nasal Cannula 4.00 09/17/16 20:00 98.0 56 16 135/68 93 09/17/16 20:00 93 Nasal Cannula 4.00 09/17/16 20:00 56 09/17/16 18:00 61 I/O 09/17/16 09/17/16 09/17/16 09/18/16 09/18/16 09/18/16 07:00 15:00 23:00 07:00 15:00 23:00 Intake Total 319 ml 360 ml 300 ml 150 ml 360 ml Output Total 525 ml 850 ml 300 ml 450 ml 500 ml Balance -206 ml -490 ml 0 ml -300 ml -140 ml Intake Oral 240 ml 360 ml 300 ml 150 ml 360 ml IV Total 79 ml 0 ml Output Urine Total 525 ml 850 ml 300 ml 450 ml 500 ml # Bowel Movements 0 2 0 Result Diagram: 09/18/1663209/18/16632 Objective Remarks GENERAL:89-year-old male, resting in bed on 6 L/m nasal cannula SKIN: Warm and dry. No rash HEAD: Atraumatic. Normocephalic. EYES: Pupils equal and round around 3 mm bilaterally and reactive. No scleral icterus. No injection or drainage. ENT: No nasal bleeding or discharge. Mucous membranes pink and moist. Hi flow Nasal cannula. Hearing aid NECK: Trachea midline. No JVD. CARDIOVASCULAR: Regular rate and rhythm. S1, S2. No S4. No murmur appreciated. RESPIRATORY: Diminished breath sounds bilaterally. Few crackles appreciated throughout the lung rider bilaterally. Positive end expiratory wheeze. GASTROINTESTINAL: Abdomen soft, non-tender, nondistended. Positive bowel sounds. pulsatile aorta palpable in the midline MUSCULOSKELETAL: No obvious deformities. No significant peripheral edema. NEUROLOGICAL: \.Awake and alert. No obvious cranial nerve deficits. moves all exts. The patient is hard of hearing. A/P Problem List: (1) Dissecting aneurysm of thoracic aorta, [place] type B ICD Code: I71.01 Status: Acute (2) Abdominal aortic aneurysm (AAA) greater than 5.5 cm in diameter in male ICD Code: I71.4 Status: Chronic (3) Hypertensive emergency ICD Code: I16.1 Status: Acute Assessment and Plan 09/18/16 I discussed with his daughter over the phone for like 20 minute, she has many questioning about the management and discharge planning, [facility] due to being on [facility], as well as from [facility], which I already discussed with field case manager and notified me about this. The daughter was suggesting not placing patient on BiPAP in order to make him eligible to go to [facility], I explained to her patient need to be stable, we need to make sure his blood pressure is strictly under control to avoid any worsening of the AAA dissecting, as well as keeping his O2 sat acceptable Continue close monitoring for blood pressure, systolic blood pressure goal less than 130 Consult palliative care Monitor CBC BMP in a.m. Time spent 40 minutes A/P: Back pain due to aortic dissection H/O chronic back pain ICU Delirium-resolved STILLAGUAMISH TIA ? 09/16 -Pain control, Tylenol PRN -Currently asymptomatic -Avoid sedatives -GCS 15, continue to monitor , and provides sleep hygiene. Stimulation during the day, minimal disruptions at night. 09/14 hearing aid adjusted by [employer] [facility] -09/16 CT brain-no acute abnormality, stable, no changes from prior study. 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 -Improved Acute respiratory insufficiency Tobacco use disorder COPD Allergic rhinitis Chronic cough -BiPAP 04/18@50% versus OptiFlow 55 L at 50% FiO2 wean as tolerated to maintain saturations around 92%. -Continue to wean -Patient currently refusing BiPAP at night, continues on high flow oxygen -DuoNeb every 6 hours scheduled and when necessary. Continue acappella/PEP every [address] thorax revealed bilateral pleural effusions. Status post right thoracentesis by IR 09/06 -550 cc. left thoracentesis -580 cc 09/07. Right-sided was transudative. - On singular 10 mg daily and Claritin 10 mg daily for allergy rhinitis/ postnasal drip - As needed Tessalon Perles 200 mg every 8 hours for cough -Counseled on smoking cessation -Incentive spirometry, encourage use, every hour while awake Added Symbicort 80/4.5 twice a day and Solu-Medrol 40 mg pulmonary dose IV every 8 on 09/08. CXR 09/14-small effusions unchanged from Pulmonary -Dr. Chai Zamarripa recommendations appreciated Ramesh type B aortic dissection 6.7 cm infrarenal AAA Femoral artery aneurysm Hypertensive emergency -Discussed Cardene drip target systolic blood pressure less than 130 per vascular surgery recommendations -IV labetalol, hydralazine PRN. - Patient's home medication of lisinopril 10 mg daily changed twice a day - diltiazem 240 mg daily switch to 60 mg 4 times a day with when necessary Cardizem 30 mg by mouth every 6 hours will be continued. - Increased Coreg 25 milligrams twice a day, clonidine discontinued ,PRN Hydralazine and labetalol increased to 20 mg PRN - Add Norvasc -Vascular surgery, on board Dr. Gastelum -Plan for medical management of Type B dissection ABIs - decreased flow left lower extremity Runoff shows 6.5 AAA. 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 Left NARGIS aneurysm. 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 Continue gentle diuresis with Bumex 0.5 mg daily Hypoalbuminemia Bilateral adrenal adenoma Heart healthy diet - Protonix for GI prophylaxis -Senna and Colace for bowel regimen -BM x 3 (09/14) Hypokalemia BPH Noted received IV dye 08/31. Contrast nephropathy resolved -Monitor renal function closely -Monitor hourly urinary output -Electrolyte replacement per ICU protocol -Strict I and O's Avoid nephrotoxic drugs Continue Flomax 0.4 mg by mouth daily BMP within normal limits, will continue to monitor every 2-3 days Possible URI -Day #8 cefepime and Zithromax discontinued 3/ -Continue elevated WBC count 19>23 today, will continue to monitor CBC -ID following, Dr. Valdez Pertinent cultures 09/07 - sputum -no growth 09/06 - blood cultures 2 - no growth 09/06 - pleural fluid - WBC no growth 08/31 - blood cultures 2 - no growth Persistent Leukocytosis Anemia Bandemia -Monitor CBC, CMP -09/14 Procalcitonin <0.05 ENDO: -Euglycemic, continue to monitor -Blood glucose monitoring per ICU protocol PROPH: -Bilateral lower extremity SCDs. No pharmacological DVT prophylaxis contraindicated, Pt OOB to chair -IV Protonix for GI prophylaxis LINES: -Utilize peripheral IVs, central line if needed Yue Burciaga MD Sep 18, 2016 16:34
--- NOTE | 2016-09-18 19:09 | HHI.PR ---
Subjective Remarks Alert and on O 2 at 3L. No sob at rest. Awaiting transfer On Bipap at . Objective Vital Signs Date Time Temp Pulse Resp B/P Pulse Ox O2 Delivery O2 Flow Rate FiO2 09/18/16 16:00 97.8 59 24 124/64 95 09/18/16 16:00 59 09/18/16 16:00 95 Nasal Cannula 4.00 09/18/16 15:40 141/65 09/18/16 14:00 51 09/18/16 12:00 95 Nasal Cannula 4.00 09/18/16 12:00 97.8 51 12 125/58 95 09/18/16 12:00 51 09/18/16 10:00 130/70 09/18/16 10:00 57 09/18/16 09:45 145/74 09/18/16 08:00 61 09/18/16 08:00 94 Nasal Cannula 4.00 09/18/16 08:00 97.3 61 16 138/66 94 09/18/16 07:22 93 Nasal Cannula 6.00 09/18/16 06:00 48 09/18/16 04:00 98.3 51 16 123/60 90 09/18/16 04:00 51 09/18/16 04:00 90 Nasal Cannula 4.00 09/18/16 02:00 54 09/18/16 01:55 91 Nasal Cannula 4.00 09/18/16 01:07 92 60 09/18/16 00:30 99 Bi-Pap 60 09/18/16 00:30 57 18 124/70 99 09/18/16 00:00 87 Bi-Pap 60 09/18/16 00:00 65 09/18/16 00:00 97.9 65 18 158/78 87 09/17/16 23:00 92 60 09/17/16 22:00 57 09/17/16 20:44 94 Nasal Cannula 4.00 09/17/16 20:00 98.0 56 16 135/68 93 09/17/16 20:00 93 Nasal Cannula 4.00 09/17/16 20:00 56 I/O 09/17/16 09/17/16 09/17/16 09/18/16 09/18/16 09/18/16 07:00 15:00 23:00 07:00 15:00 23:00 Intake Total 319 ml 360 ml 300 ml 150 ml 360 ml Output Total 525 ml 850 ml 300 ml 450 ml 500 ml Balance -206 ml -490 ml 0 ml -300 ml -140 ml Intake Oral 240 ml 360 ml 300 ml 150 ml 360 ml IV Total 79 ml 0 ml Output Urine Total 525 ml 850 ml 300 ml 450 ml 500 ml # Bowel Movements 0 2 0 Result Diagram: 09/18/1633 09/18/16632 Objective Remarks GENERAL: This is an elderly man who is moderately obese, pale and not dyspneic. HEENT: Head normocephalic. Pupils are reactive. Tongue is moist. Throat clear. NECK: Supple with mild venous distension. Trachea midline. No thyroid enlargement. CHEST: Distant breath sounds with occasional bibasilar crackles and no wheezes. HEART: The heart sounds are irregular. S1-S2 with no murmur. No S3. ABDOMEN: Soft, obese without masses. No organomegaly or tenderness. Bowel sounds are active EXTREMITIES: Mild edema with decreased pulses. The patient does move all his extremities with 1+ reflexes. NEUROLOGIC: No gross motor deficits. SKIN: No lesions are noted. Assessment and Plan Assessment and Plan IMPRESSION 1. 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 2. Hypertension with hypertensive cardiovascular disease 3. Bibasilar atelectasis with probable pneumonia and hypoxemia. 4. COPD with emphysema and chronic bronchitis 5. History of nicotine dependency 6. TIA. Plan : 1. Cont Diuretic daily. 2. O2 at 3L.Daytime 3. Nebs qid , duoneb. 4. IS at Bedside qid. 5. BiPAP at HS 10/5 , FIO2 28 % 6. Chest X ray in am Kusum Guzmán MD Sep 18, 2016 19:09
[2016-09-18] MEDS: MONTELUKAST SODIUM 10 MG TAB PO SCH (20:36)
[2016-09-18] MEDS: BENZONATATE 100 MG CAP PO PRN (20:36)
[2016-09-18] MEDS: CHLORHEXIDINE GLUCONATE 2 % 1 PACK (2 CLOTHS) TOP SCH (20:38)
[2016-09-19] VITALS: BP 126/69; PULSE 57; PULSE 58; RESP 16; TEMP 97.9; O2SAT 89
[2016-09-19 02:00] VITALS: PULSE 55
[2016-09-19 04:00] VITALS: BP 107/56; PULSE 57; RESP 16; TEMP 97.8; O2SAT 93
--- NOTE | 2016-09-19 05:22 | RADRPT ---
EXAM DATE/TIME: 09/19/2016 04:48 [facility] COMPARISON: CHEST SINGLE AP, September 14, 2016, 5:28. INDICATIONS : Follow up effusion. MEDICAL HISTORY : None. SURGICAL HISTORY : None. ENCOUNTER: Subsequent ACUITY: 3 days PAIN SCORE: Non-responsive. LOCATION: Bilateral chest FINDINGS: A single view of the chest demonstrates resolving linear atelectatic changes in the right lower lung field with improving aeration in the left base. Previously seen left-sided effusion is essentially re solved. Heart size is upper limits of normal accounting for technique and degree of inspiration. Osse ous structures are intact with some degenerative spurring of the dorsal spine. CONCLUSION: Improvement in the radiographic appearance of the chest. Linear atelectatic changes in the right lower lung field and the left sided effusion/consolidation have essentially resolved. Jerry Wiggins MD on September 19, 2016 at 5:18 Board Certified Radiologist. This report was verified electronically.
[2016-09-19 06:00] VITALS: PULSE 57
[2016-09-19] MEDS: INSULIN ASPART SUPPLEMENTAL SCALE SQ SCH (07:00)
[2016-09-19 08:00] VITALS: BP 138/68; PULSE 60; RESP 18; TEMP 98; O2SAT 98
[2016-09-19] MEDS: RESP: ALBUTEROL 2.5 MG/IPRATROPIUM 0.5 MG NEB (SCH) NEB (08:00)
[2016-09-19 08:01] VITALS: O2SAT 92
[2016-09-19] MEDS: CARVEDILOL 12.5 MG TAB PO SCH (08:51)
[2016-09-19] MEDS: TAMSULOSIN HCL 0.4 MG CAP PO SCH (08:51)
[2016-09-19] MEDS: DILTIAZEM HCL 60 MG TAB PO SCH (08:52)
[2016-09-19] MEDS: LORATADINE 10 MG TAB PO SCH (08:52)
[2016-09-19] MEDS: predniSONE 10 MG TAB PO SCH (08:52)
[2016-09-19] MEDS: PANTOPRAZOLE SOD 40 MG DELAYED RELEASE TAB PO SCH (08:52)
[2016-09-19] MEDS: POTASSIUM CHLORIDE 20 MEQ CONTROLLED RELEASE TAB PO SCH (08:52)
[2016-09-19] MEDS: LISINOPRIL 5 MG TAB PO SCH (08:52)
[2016-09-19] MEDS: SENNOSIDES SYRUP 8.8 MG/5 ML CUP PO SCH (08:53)
[2016-09-19] MEDS: LACTULOSE SYRUP 20 GM/30 ML CUP PO SCH (08:53)
[2016-09-19] MEDS: DOCUSATE SODIUM 100 MG/10 ML UDC PO SCH (08:53)
[2016-09-19] MEDS: SODIUM CHLORIDE 0.9% FLUSH 5 ML FLUSH IVF SCH (08:54)
[2016-09-19] MEDS: BUMETANIDE INJ 1 MG/4 ML VIAL IV PUSH SCH (08:54)
[2016-09-19] MEDS: BUDESONIDE-FORMOTEROL 160/4.5 MCG INHALER INH SCH (08:54)
[2016-09-19] MEDS ORDERED: DILT60TA33 PO (09:54)
[2016-09-19] MEDS ORDERED: CARV12.5 PO (09:54)
[2016-09-19] MEDS ORDERED: AMLO10 PO (09:54)
[2016-09-19] MEDS ORDERED: LISI-519 PO (09:54)
--- NOTE | 2016-09-19 11:11 | HHI.HCPN ---
Reason for visit a. To assist with evaluation and management of symptoms including: debility and shortness of breath. b. To assist medical decision maker(s) with: better understanding of current medical conditions; weighing benefits/burdens of medical treatment options; making medical treatment decisions. . Subjective/Interval History Hospice follow-up for further clarifications of goals of care. Patient requesting to leave hospital AGAINST MEDICAL ADVICE. Patient seen in ICU, he was sitting up in a recliner chair in no acute distress. Daughter Linda at bedside. Patient awake, alert 3, verbal and able to communicate needs. Patient afebrile, stable blood pressure in the 120s. On O2 via nasal cannula at 4 L, tolerating well. No new laboratory. Chest x-ray today showing improvement and appearance of the chest with resolution of right lower and left sided effusion/consolidation. Patient denies shortness of breath, chest pain, nausea/vomiting, or abdominal discomfort. Patient reports being "done" with medical treatment and is wishing to go home. Patient residing independently prior to this hospitalization. Reviewed current medical plan. Discussed patient's newly diagnosed COPD and discovered arctic dissection. Discussed likely trajectory of illness and share concerns regarding patient's ability to return to independent living given his current clinical condition. Daughter Linda to stay with patient for a few days in order to provide assistance as needed. Discussed the role of hospice given change in goals of care, patient electing to transition to comfortdirected care at home. Patient and daughter familiar with hospice services as patient's received hospice services for end-of-life care. Patient verbalize understanding of risks associated with early discharge such as further complications and . Community DNR has been signed. Patient electing [facility], refill has been made. Hospice intake nurse to meet with patient and family this afternoon. Collaborated with bedside nurse, leather case finisher and Dr. Wesley -palliative care. . Family/friend interactions See interval note. . Advance Directives Living Will: Copy in medical record Health Care Surrogate: Copy in medical record Durable Power of Environmental Laboratory Technician: Completed, but not made available Advance Directive Specifics Date completed: January 27, 2009. . Health Care Surrogate(s): Patient name and his Mariposa Paredes. However, she is . Alternate healthcare surrogate listed as Linda Paredes -daughter and Krystal Kay - granddaughter. . Documented care wishes: Living will completed. Patient electing withhold or withdrawal medical treatment, nutrition or hydration is such procedures would only serve to prolong artificially the process of dying. . Significant change in goals: No code. DNR/DNI. Patient electing to discharge home AMA, agreeable to hospice services once at home. . Objective Vital Signs Date Time Temp Pulse Resp B/P Pulse Ox O2 Delivery O2 Flow Rate FiO2 09/19/16 08:01 92 Nasal Cannula 4.00 09/19/16 08:00 98.0 60 18 138/68 98 09/19/16 08:00 60 09/19/16 08:00 93 Nasal Cannula 4.00 09/19/16 06:00 57 09/19/16 04:00 57 09/19/16 04:00 97.8 57 16 107/56 93 09/19/16 04:00 93 Nasal Cannula 4.00 09/19/16 02:00 55 09/19/16 00:00 58 09/19/16 00:00 97.9 57 16 126/69 89 09/19/16 00:00 89 Nasal Cannula 4.00 09/18/16 22:00 65 09/18/16 20:30 136/69 09/18/16 20:00 93 Nasal Cannula 4.00 09/18/16 20:00 97.9 57 16 142/67 93 09/18/16 20:00 93 Nasal Cannula 4.00 09/18/16 20:00 57 09/18/16 18:00 56 09/18/16 16:00 97.8 59 24 124/64 95 09/18/16 16:00 59 09/18/16 16:00 95 Nasal Cannula 4.00 09/18/16 15:40 141/65 09/18/16 14:00 51 09/18/16 12:00 95 Nasal Cannula 4.00 09/18/16 12:00 97.8 51 12 125/58 95 09/18/16 12:00 51 Intake & Output 09/19/16 09/19/16 07:00 19:00 Intake Total 600 ml Output Total 1850 ml Balance -1250 ml Intake Oral 600 ml Output Urine Total 1850 ml # Bowel Movements 0 Physical Exam CONSTITUTIONAL/GENERAL: This is an adequately nourished elderly patient, in no apparent distress. TUBES/LINES/DRAINS: PIV's. Nasal cannula. SKIN: No jaundice, rashes, or lesions. Scattered ecchymoses on upper extremities. No wounds seen anteriorly. Skin temperature appropriate. Not diaphoretic. HEAD: Atraumatic. Normocephalic. EYES: Pupils equal and round and reactive. Extraocular motions intact. No scleral icterus. No injection or drainage. ENT: Hard of hearing, bilateral hearing aids in place. Nose without bleeding or purulent drainage. NECK: Trachea midline. Supple, nontender. CARDIOVASCULAR: Regular rate and rhythm without murmurs, gallops, or rubs. Peripheral pulses symmetric. RESPIRATORY/CHEST: Symmetric, unlabored respirations. Coarse breath sounds. O2 via nasal cannula. GASTROINTESTINAL: Abdomen soft, round, large. No guarding. Bowel sounds present. GENITOURINARY: Without palpable bladder distension. MUSCULOSKELETAL: Extremities without clubbing. NEUROLOGICAL: Awake and alert. Motor and sensory grossly within normal limits. Follows commands. Cognitively sharp. Moves all extremities. PSYCHIATRIC: No obvious anxiety/depression. Calm, pleasant. . Diagnostic Tests Laboratory Laboratory Tests Test 09/16/16 09/16/16 09/17/16 09/18/16 13:50 14:06 05:47 06:33 Blood Gas Puncture Site RT RADIAL Blood Gas Patient Temperature 98.6 Blood Gas HCO3 21 mmol/L (22-26) Blood Gas Base Excess -2.7 mmol/L (-2-2) Blood Gas Oxygen Saturation 89 % (90-100) Arterial Blood pH 7.39 (7.380-7.420) Arterial Blood Partial 36 mmHg (38-42) Pressure CO2 Arterial Blood Partial 60 mmHg Pressure O2 (61-120) Arterial Blood Oxygen Content 15.4 Vol % (12.0-20.0) Arterial Blood 1.4 % (0-4) Carboxyhemoglobin Arterial Blood Methemoglobin 1.0 % (0-2) Blood Gas Hemoglobin 12.3 G/DL (12.0-16.0) Oxygen Delivery Device NASAL CANNULA Blood Gas Liter Flow 4 L/M White Blood Count 21.3 TH/MM3 19.4 TH/MM3 (4.0-11.0) (4.0-11.0) Red Blood Count 3.95 MIL/MM3 3.69 MIL/MM3 (4.50-5.90) (4.50-5.90) Hemoglobin 12.5 GM/DL 11.9 GM/DL (13.0-17.0) (13.0-17.0) Bedside Hemoglobin 12.6 G/DL (12.0-17.0) Hematocrit 38.0 % 35.6 % (39.0-51.0) (39.0-51.0) Bedside Hematocrit 37.0 % (38.0-51.0) Mean Corpuscular Volume 96.4 FL 96.5 FL (80.0-100.0) (80.0-100.0) Mean Corpuscular Hemoglobin 31.7 PG 32.2 PG (27.0-34.0) (27.0-34.0) Mean Corpuscular Hemoglobin 32.9 % 33.4 % Concent (32.0-36.0) (32.0-36.0) Red Cell Distribution Width 14.6 % 15.1 % (11.6-17.2) (11.6-17.2) Platelet Count 198 TH/MM3 164 TH/MM3 (150-450) (150-450) Mean Platelet Volume 8.8 FL 9.2 FL (7.0-11.0) (7.0-11.0) Neutrophils (%) (Auto) 93.2 % 85.2 % (16.0-70.0) (16.0-70.0) Lymphocytes (%) (Auto) 2.3 % 5.3 % (9.0-44.0) (9.0-44.0) Monocytes (%) (Auto) 4.3 % (0.0-8.0) 9.3 % (0.0-8.0) Eosinophils (%) (Auto) 0.0 % (0.0-4.0) 0.0 % (0.0-4.0) Basophils (%) (Auto) 0.2 % (0.0-2.0) 0.2 % (0.0-2.0) Neutrophils # (Auto) 19.9 TH/MM3 16.5 TH/MM3 (1.8-7.7) (1.8-7.7) Lymphocytes # (Auto) 0.5 TH/MM3 1.0 TH/MM3 (1.0-4.8) (1.0-4.8) Monocytes # (Auto) 0.9 TH/MM3 1.8 TH/MM3 (0-0.9) (0-0.9) Eosinophils # (Auto) 0.0 TH/MM3 0.0 TH/MM3 (0-0.4) (0-0.4) Basophils # (Auto) 0.0 TH/MM3 0.0 TH/MM3 (0-0.2) (0-0.2) CBC Comment AUTO DIFF AUTO DIFF Differential Total Cells 100 100 Counted Neutrophils % (Manual) 94 % (16-70) 66 % (16-70) Band Neutrophils % 1 % (0-6) 17 % (0-6) Lymphocytes % 2 % (9-44) 5 % (9-44) Monocytes % 3 % (0-8) 9 % (0-8) Neutrophils # (Manual) 20.2 TH/MM3 16.7 TH/MM3 (1.8-7.7) (1.8-7.7) Differential Comment FINAL DIFF FINAL DIFF MANUAL MANUAL Platelet Estimate NORMAL NORMAL (NORMAL) (NORMAL) Platelet Morphology Comment NORMAL ENLARGED (NORMAL) (NORMAL) Ovalocytes 1+ (NORMAL) Keratocytes 1+ (NORMAL) Prothrombin Time 11.6 SEC (9.8-11.6) Prothromb Time International 1.0 RATIO Ratio Activated Partial 27.5 SEC Thromboplast Time (24.3-30.1) Fibrinogen 170 mg/dL (181-393) Bedside Sodium 142 MMOL/L (138-146) Sodium Level 143 MEQ/L 142 MEQ/L (136-145) (136-145) Bedside Potassium 4.2 MMOL/L (3.5-4.9) Potassium Level 4.2 MEQ/L 4.3 MEQ/L (3.5-5.1) (3.5-5.1) Bedside Chloride 107 MMOL/L (98-109) Chloride Level 110 MEQ/L 111 MEQ/L (98-107) (98-107) Carbon Dioxide Level 24.2 MEQ/L 22.7 MEQ/L (21.0-32.0) (21.0-32.0) Anion Gap 9 MEQ/L (5-15) 8 MEQ/L (5-15) Bedside Blood Urea Nitrogen 36 MG/DL (8-26) Blood Urea Nitrogen 38 MG/DL (7-18) 35 MG/DL (7-18) Creatinine 1.16 MG/DL 1.08 MG/DL (0.60-1.30) (0.60-1.30) Bedside Creatinine 1.1 MG/DL (0.8-1.3) Estimat Glomerular Filtration 59 ML/MIN (>89) 64 ML/MIN (>89) Rate Bedside Glucose 143 MG/DL (60-95) Random Glucose 139 MG/DL 114 MG/DL (74-106) (74-106) Lactic Acid Level 2.7 mmol/L (0.4-2.0) Calcium Level 8.2 MG/DL 7.8 MG/DL (8.5-10.1) (8.5-10.1) Total Creatine Kinase 57 U/L (39-308) Troponin I 0.03 NG/ML (0.02-0.05) Blood Type B NEGATIVE Antibody Screen NEGATIVE Hemoglobin A1c 5.8 % (4.3-6.0) Triglycerides Level 39 MG/DL (42-150) Cholesterol Level 89 MG/DL (120-200) LDL Cholesterol 21 MG/DL (0-99) HDL Cholesterol 60.4 MG/DL (40.0-60.0) Cholesterol/HDL Ratio 1.47 RATIO Metamyelocytes 1 % (0-1) Myelocytes 2 % (0-0) Toxic Vacuolation PRESENT (NONE SEEN) Helmet Cells OCC (NORMAL) Crenated Cell 1+ (NORMAL) Phosphorus Level 2.5 MG/DL (2.5-4.9) Magnesium Level 2.6 MG/DL (1.5-2.5) Total Bilirubin 0.4 MG/DL (0.2-1.0) Aspartate Amino Transf 12 U/L (15-37) (AST/SGOT) Alanine Aminotransferase 44 U/L (12-78) (ALT/SGPT) Alkaline Phosphatase 65 U/L (45-117) Total Protein 5.8 GM/DL (6.4-8.2) Albumin 2.4 GM/DL (3.4-5.0) Result Diagram: 09/18/1663209/18/16632 Imaging Last Impressions Chest X-Ray 09/19/16 06 Signed Impressions: Service Date/Time: Monday, September 19, 2016 04:48 - CONCLUSION: Improvement in the radiographic appearance of the chest. Linear atelectatic changes in the right lower lung field and the left sided effusion/consolidation have essentially resolved. Jerry Wiggins MD Neck CTA 09/16/16 0000 Signed Impressions: Service Date/Time: Friday, September 16, 2016 14:35 - CONCLUSION: Within the neck the carotid and vertebral artery vasculature are widely patent without evidence for hemodynamically significant stenosis. There is minimal calcific plaque deposition at the carotid bifurcations. Referred to CTA thoracic abdominal aorta and CTA brain for description of the thoracic and intracranial vasculature. Edis Cabrera MD Head CTA 09/16/16 0000 Signed Impressions: Service Date/Time: Friday, September 16, 2016 14:35 - CONCLUSION: No evidence for high-grade stenosis. Arteriovenous malformation left temporal region as described above. Edis Cabrera MD Head CT 09/16/16 Signed Impressions: Service Date/Time: Friday, September 16, 2016 14:17 - CONCLUSION: 1. No acute intracranial abnormality is identified. Stable appearance of the brain compared to prior study from 07/17/2015. 2. Chronic changes include generalized atrophy and periventricular white matter low attenuation characteristic of chronic microvascular ischemia. Julius Watt MD Brain MRI 09/16/16 Signed Impressions: Service Date/Time: Friday, September 16, 2016 16:51 - CONCLUSION: No evidence for acute infarction. Please see above. Edis Cabrera MD Aorta CTA 09/16/16 0000 Signed Impressions: Service Date/Time: Friday, September 16, 2016 14:35 - CONCLUSION: 1. Improved aeration of the lungs with decrease in size of large pleural effusions and pulmonary consolidation since previous exam. 2. Aneurysmal dilatation of the thoracic aorta and abdominal aorta are stable with irregular contrast collection superior to the aortic arch consistent with pseudo-aneurysm and aortic dissection again noted. Edis Cabrera MD Thoracentesis Ultrasound 09/07/16 0900 Signed Impressions: Service Date/Time: Wednesday, September 07, 2016 11:11 - CONCLUSION: Uncomplicated ultrasound guided thoracentesis. Lucas Mead MD FACR Lower Extremity Ultrasound 09/07/16 0000 Signed Impressions: Service Date/Time: Wednesday, September 07, 2016 21:41 - CONCLUSION: 1. No evidence for DVT. 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 Configuration does appear suitable for endovascular repair. 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 Flow reconstitutes in the left popliteal artery. Julius Johnston MD Chest CT 09/05/16 0000 Signed Impressions: Service Date/Time: Monday, September 05, 2016 22:44 - CONCLUSION: 1. Left greater than right pleural effusions and basilar consolidation, new since the prior CTA. 2. Based on this noncontrast study, no definite change in a type B aortic dissection. I don't see any blood in the mediastinum or pleural spaces. 3. Upper limits of normal to mildly enlarged mediastinal lymph nodes unchanged. 4. Coronary artery calcification again seen. Julius Valencia MD Renal Ultrasound 09/03/16 0000 Signed Impressions: Service Date/Time: Saturday, September 03, 2016 11:14 - CONCLUSION: Small cyst in each kidney. Area cortical retraction left kidney . 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 currently tolerating O2 via nasal cannula at 4 L. (2) Debility Comment: Physical deconditioning secondary to acute illness and prolonged hospitalization. Patient fully independent prior to this hospitalization. Likely to discharge to rehabilitation. Pertinent Non-Medical Issues Psychosocial: . Has 1 child. Spiritual: No religion affiliation. Legal: Living will completed. Ethical issues impacting care: No ethical issues have been identified. . Important Contacts Daughter Linda Dubon [phone]. Granddaughter Krystal Kay [phone]. . Prognosis Mr. Bolanos is an 89-year-old male with a medical history of hypertension and long-term tobacco use who presented to the ED on 08/31/16 endorsing chest, back and epigastric pain that started earlier that day. CT angiogram of the chest abdomen and pelvis show type B thoracic aortic dissection and large infrarenal abdominal aortic aneurysm measuring 6.7 x 6.4 cm in size, no evidence of rupture. Patient not a surgical candidate secondary to clinical condition. Patient newly diagnosed with COPD during this hospitalization. Patient is at high risk for further complications, continue decline and given his age, increased oxygen requirements, acute complications and multiple comorbidities. . Code Status: No Code Plan * NO CODE: No code. DNR/DNI. * Community DNR completed. * MEDICAL DECISION-MAKING CAPACITY: Patient participating in medical decision- making. Advance directives in file, daughter Linda Bolanos a/k/a Linda Dubon and granddaughter Krystal Kay listed as healthcare surrogate. * GOALS OF CARE: No code. DNR/DNI. Patient electing to discharge home AMA, agreeable to hospice services once at home. Hospice referral has been made. Patient reports being "done" with medical treatment and is wishing to go home. Patient residing independently prior to this hospitalization. Reviewed current medical plan. Discussed patient's newly diagnosed COPD and discovered arctic dissection. Discussed likely trajectory of illness and share concerns regarding patient's ability to return to independent living given his current clinical condition. Daughter Linda to stay with patient for a few days in order to provide assistance as needed. Discussed the role of hospice given change in goals of care, patient electing to transition to comfortdirected care at home. Patient and daughter familiar with hospice services as patient's received hospice services for end-of-life care. Patient verbalize understanding of risks associated with early discharge such as further complications and . Community DNR has been signed. * SYMPTOMS: == Shortness of breath, multifactorial. Currently tolerating O2 via nasal cannula at 4 L. == Debility, profound physical deconditioning. * Case has been discussed with bedside RN, leather case finisher and Dr. Wesley - palliative care. * Palliative care contact information has been provided to patient and family. * Palliative care will continue to follow-up for further clarifications of goals of care as the clinical course evolves. . Time Spent Total Floor Time (mins): 42 (Total time to include review medical records, physical exam, goals of care discussion with patient and daughter, and case discussion with bedside RN, leather case finisher and Dr. Maryjane.) >50% Counseling/Coord of Care: Yes Attestation To help prompt me to consider important information that might be impacting today's encounter and assessment, information from prior notes written by myself or my colleagues may have been "brought forward" into today's note. My signature on this note, however, is an attestation that I personally performed the exam, history, and/or decision-making noted today, and, unless otherwise indicated, the interactions with patient, family, and staff as well as the review of records all occurred today. I also attest that the listed assessment and stated plan reflect my best clinical judgment today based on the combination of historical information, prior notes, and today's exam/ interactions. When time spent is documented, it refers only to time spent today by the signer, or if indicated, combined time spent today by collaborating physician/nurse practitioner. Parul Brand Sep 19, 2016 11:11
--- NOTE | 2016-09-24 13:41 | RADRPT ---
EXAM DATE/TIME: 09/04/2016 12:02 CORRECTION Corrected on: September 24, 2016; corrected exam name JOSELYN COMPARISON: No previous studies available for comparison. INDICATIONS : Aneurysm. MEDICAL HISTORY : Hypertension. Dyspnea. Abdominal aortic aneurysm. SURGICAL HISTORY : Cataract removal. Hernia repair. Right knee arthroscopy. ENCOUNTER: Initial ACUITY: 1 day PAIN SCORE: 0/10 LOCATION: Bilateral legs. AREA EVALUATED: Bilateral legs. FINDINGS: In the right leg, there is moderate eccentric calcific plaquing involving the posterior aspect of the right common femoral artery. This does not appear to produce physiologically significant flow restri ction. Runoff is otherwise adequate with patchy mild femoropopliteal plaquing. Similar disease in the tibial vessels which are all patent. 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 Correlati on with possible previous interventional procedure or bypass surgery recommended. The profunda is pat ent. The left superficial femoral artery is totally occluded with reconstitution of flow in the popli teal artery above the knee joint level. The tibial vessels are intact. CONCLUSION: Right common femoral artery disease and patchy femoropopliteal and tibial disease, nowhere critical. Finding in the left groin which may reflect thrombosis of pseudoaneurysm or thrombosed femoropoplitea l graft ramos. Correlation recommended. Left SFA is occluded with reconstitution of above knee poplite al. If additional noninvasive evaluation is clinically warranted, CTA runoff study is recommended Julius Johnston MD on September 04, 2016 at 15:53 Board Certified Radiologist. This report was verified electronically. [place] on September 24, 2016 at 13:39 Board Certified Radiologist. This report was verified electronically.
--- NOTE | 2016-11-01 15:10 | HHI.DS ---
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 Started around 10 AM today, while shopping shopping and began to have increased pain to his chest. Denies nausea or vomiting or shortness of breath of symptoms. Never had chest pain in the past. Reports no history of coronary artery disease or AL in the past. EKG showed no acute findings. 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 Patient also has bilateral common femoral artery aneurysms. Patient will be started on Cardene infusion and scheduled metoprolol along with when necessary labetalol for blood pressure and heart rate control. Medical management of the type B dissection. Discussed with vascular surgery Dr. Silverio, he will see the patient and make recommendation about the AAA. Patient may be a candidate for endovascular repair of AAA. I have discussed with Dr. Oliverio Mead from IR as well, also updated patient himself, his granddaughter at the bedside (Krystal) and se PE at Discharge GENERAL:89-year-old male, resting in bed on 6 L/m nasal cannula SKIN: Warm and dry. No rash HEAD: Atraumatic. Normocephalic. EYES: Pupils equal and round around 3 mm bilaterally and reactive. No scleral icterus. No injection or drainage. ENT: No nasal bleeding or discharge. Mucous membranes pink and moist. Hi flow Nasal cannula. Hearing aid NECK: Trachea midline. No JVD. CARDIOVASCULAR: Regular rate and rhythm. S1, S2. No S4. No murmur appreciated. RESPIRATORY: Diminished breath sounds bilaterally. Few crackles appreciated throughout the lung rider bilaterally. Positive end expiratory wheeze. GASTROINTESTINAL: Abdomen soft, non-tender, nondistended. Positive bowel sounds. pulsatile aorta palpable in the midline MUSCULOSKELETAL: No obvious deformities. No significant peripheral edema. NEUROLOGICAL: \.Awake and alert. No obvious cranial nerve deficits. moves all exts. The patient is hard of hearing. Hospital Course 89 y/o male admitted with Ramesh type B aortic dissection,6.7 cm infrarenal AAA,Femoral artery aneurysm,Hypertensive emergency Back pain due to aortic dissection, possible TIA ? 09/16 Acute respiratory insufficiency,Tobacco use disorder,COPD -Pain control, Tylenol PRN -09/16 CT brain-no acute abnormality, stable, no changes from prior study. CT of the brain-AVM left temporal region -Altered mental status 09/16, NIHSS 33 status post stroke alert-patient would not be a candidate for TPA secondary to dissection and aneurysms. -Improved -BiPAP 04/18@50% versus OptiFlow 55 L at 50% FiO2 wean as tolerated to maintain saturations around 92%. -Continue to wean -Patient currently refusing BiPAP at night, continues on high flow oxygen -DuoNeb every 6 hours scheduled and when necessary. Continue acappella/PEP every [address] thorax revealed bilateral pleural effusions. Status post right thoracentesis by IR 09/06 -550 cc. left thoracentesis -580 cc 09/07. Right-sided was transudative. - On singular 10 mg daily and Claritin 10 mg daily for allergy rhinitis/ postnasal drip - As needed Tessalon Perles 200 mg every 8 hours for cough -Counseled on smoking cessation -Incentive spirometry, encourage use, every hour while awake Added Symbicort 80/4.5 twice a day and Solu-Medrol 40 mg pulmonary dose IV every 8 on 09/08. CXR 09/14-small effusions unchanged from Pulmonary -Dr. Chai Zamarripa recommendations appreciated -s/p Cardene drip target systolic blood pressure less than 130 per vascular surgery recommendations,IV labetalol, hydralazine PRN. - Patient's home medication of lisinopril 10 mg daily changed twice a day - diltiazem 240 mg daily switch to 60 mg 4 times a day with when necessary Cardizem 30 mg by mouth every 6 hours will be continued. - Increased Coreg 25 milligrams twice a day, clonidine discontinued ,PRN Hydralazine and labetalol increased to 20 mg PRN - Add Norvasc -Vascular surgery, on board Dr. Gastelum -Plan for medical management of Type B dissection ABIs - decreased flow left lower extremity Runoff shows 6.5 AAA. 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 Left NARGIS aneurysm. 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 Continue gentle diuresis with Bumex 0.5 mg daily Possible URI -Day #8 cefepime and Zithromax discontinued 3/ -Continue elevated WBC count 19>23 today, will continue to monitor CBC -ID following, Dr. Valdez on 09/18/16 I discussed with his daughter over the phone for like 20 minute, she has many questioning about the management and discharge planning, patient was denied from [facility] due to being on BiPAP, as well as from [facility], which I already discussed with pillowcase turner and notified me about this. The daughter was suggesting not placing patient on BiPAP in order to make him eligible to go to [facility], I explained to her patient need to be stable, we need to make sure his blood pressure is strictly under control to avoid any worsening of the AAA dissecting, as well as keeping his O2 sat acceptable Continue close monitoring for blood pressure, systolic blood pressure goal less than 130 Consult palliative care pt was fully competent, [id number] and he decided to leave against medical advice d/w nurse Pt Condition on Discharge: Deteriorating Discharge Disposition: Discharge Home (be notified , pt was not discharged , he left AMA) Discharge Time: > 30 minutes Yue Burciaga MD Nov 01, 2016 15:10
== END 2016-09-19 10:55 | disposition left against medical advice (07) | DRG 299 ==
LOC: NEDAMB 12:23 → NEDA 15:24 → HCVR 18:44 → HIMN 09-08 15:45
PROVIDERS: ADMIT Hospitalist; ATTEND Hospitalist
PROC: 5A09557 Assistance with Respiratory Ventilation, Greater than 96 Consecutive Hours, Continuous Positive Airway Pressure (ICD-10-PCS; 2016-09-05)
PROC: 0W993ZX Drainage of Right Pleural Cavity, Percutaneous Approach, Diagnostic (ICD-10-PCS; principal; 2016-09-06)
PROC: 0W9B3ZZ Drainage of Left Pleural Cavity, Percutaneous Approach (ICD-10-PCS; 2016-09-07)
PROC: 0W9B3ZZ Drainage of Left Pleural Cavity, Percutaneous Approach (ICD-10-PCS; 2016-09-07)
DX: I71.01 Dissection of thoracic aorta (principal); J18.9 Pneumonia, unspecified organism; J90 Pleural effusion, not elsewhere classified; N17.9 Acute kidney failure, unspecified; Q28.2 Arteriovenous malformation of cerebral vessels; E88.09 Other disorders of plasma-protein metabolism, not elsewhere classified; J44.0 Chronic obstructive pulmonary disease with (acute) lower respiratory infection; I11.9 Hypertensive heart disease without heart failure; I16.1 Hypertensive emergency; J44.1 Chronic obstructive pulmonary disease with (acute) exacerbation; J98.11 Atelectasis; R47.01 Aphasia; G45.9 Transient cerebral ischemic attack, unspecified; I08.3 Combined rheumatic disorders of mitral, aortic and tricuspid valves; J44.9 Chronic obstructive pulmonary disease, unspecified; E83.39 Other disorders of phosphorus metabolism; I71.4 Abdominal aortic aneurysm, without rupture; I72.4 Aneurysm of artery of lower extremity; J31.0 Chronic rhinitis; D35.01 Benign neoplasm of right adrenal gland; D35.02 Benign neoplasm of left adrenal gland; N40.0 Benign prostatic hyperplasia without lower urinary tract symptoms; R09.02 Hypoxemia; N14.1 Nephropathy induced by other drugs, medicaments and biological substances; T50.8X5A Adverse effect of diagnostic agents, initial encounter; D64.9 Anemia, unspecified; E87.6 Hypokalemia; F17.210 Nicotine dependence, cigarettes, uncomplicated; H91.90 Unspecified hearing loss, unspecified ear; H35.30 Unspecified macular degeneration; Z53.20 Procedure and treatment not carried out because of patient's decision for unspecified reasons; Z66 Do not resuscitate
CPT/HCPCS: 32555; 36600; 70450; 70496; 70498; 70551; 71010; 71250; 71275; 74174; 75635; 76775; 76882; 80048; 80053; 80061; 81001; 82435; 82550; 82552; 82565; 82570; 82805; 82945; 82947; 82948; 83036; 83605; 83615; 83690; 83735; 83880; 83986; 84100; 84132; 84145; 84155; 84157; 84295; 84300; 84315; 84484; 84520; 85007; 85014; 85025; 85027; 85384; 85610; 85730; 86850; 86900; 86901; 87040; 87070; 87205; 88112; 88305; 89051; 93005; 93306; 93922; 93925; 93970; 94002; 94003; 94150; 94640; 94664; 94667; 94668; 96360; 96361; C1729; C9113; J0171; J0360; J0456; J0461; J0610; J0692; J1120; J1170; J1815; J2920; J3010; J3480; J7030; J7040; J7050; J7070; J7512; Q9967